=== PATIENT | male | born 1960 | race Caucasian/White ===

== ENCOUNTER → 2020-01-10 10:19 | Outpatient (BNVA) | payer MEDICAID, SELFPAY | PROVIDERS: Visit Provider Nurse Practitioner Family | DX: I51.7 Cardiomegaly (principal); R09.89 Other specified symptoms and signs involving the circulatory and respiratory systems; I70.0 Atherosclerosis of aorta; Z95.0 Presence of cardiac pacemaker; R06.02 Shortness of breath | CPT/HCPCS: 71046; 80053; 80061; 82306; 83036; 83880; 85025 ==

== ENCOUNTER → 2020-01-23 15:43 | Outpatient (BNVA) | payer MEDICAID, SELFPAY | PROVIDERS: Visit Provider Family Medicine | DX: M25.511 Pain in right shoulder (principal); R60.9 Edema, unspecified | CPT/HCPCS: 80053 ==

== ENCOUNTER → 2020-05-08 10:12 | Outpatient (BNVA) | payer MEDICAID, SELFPAY | PROVIDERS: Referring Provider Nurse Practitioner Family; Visit Provider Orthopaedic Surgery | DX: M25.551 Pain in right hip (principal); G89.29 Other chronic pain; M54.9 Dorsalgia, unspecified | CPT/HCPCS: 72100; 73502 ==

== ENCOUNTER → 2020-05-21 08:18 | Outpatient (BNVA) | payer MEDICAID, SELFPAY | PROVIDERS: PCP Nurse Practitioner Family; Referring Provider Nurse Practitioner Family; Visit Provider Anesthesiology Pain Medicine | DX: G89.29 Other chronic pain (principal); M25.551 Pain in right hip; M54.5 Low back pain; J44.9 Chronic obstructive pulmonary disease, unspecified; Z79.01 Long term (current) use of anticoagulants; Z79.891 Long term (current) use of opiate analgesic | CPT/HCPCS: 20610; 99204; J1030; J2001; J3490 ==

== ENCOUNTER → 2020-06-04 09:30 | Outpatient (BNVA) | payer MEDICAID, SELFPAY | PROVIDERS: PCP Nurse Practitioner Family; Visit Provider Anesthesiology Pain Medicine | DX: G89.29 Other chronic pain (principal); M54.5 Low back pain; M25.551 Pain in right hip; J44.9 Chronic obstructive pulmonary disease, unspecified; Z79.01 Long term (current) use of anticoagulants; Z79.891 Long term (current) use of opiate analgesic | CPT/HCPCS: 20610; 77002; 99213; J1030; J3490 ==

== ENCOUNTER 2020-06-07 14:38 | Outpatient (CLI) | payer MEDICAID, SELFPAY ==
--- NOTE | 2020-06-07 14:44 | CT_ITS ---
WS: [id number] NONCONTRAST CT RIGHT HIP TECHNIQUE: Noncontrast CT right hip with coronal and sagittal reformatted images. CLINICAL INFORMATION: chronic right hip pain COMPARISON: None. DLP: 788.[address] scans at [facility] use at least one of these dose optimization techniques: automat ed exposure control; mA and/or kV adjustment per patient size (includes targeted exams where dose is matched to clinical indication); or iterative reconstruction. FINDINGS: Moderate degenerative arthritis right hip with joint space narrowing. Sequelae of prior postoperative changes with femoral neck screw fixation tracts. Hardware has been removed. No evidence of recurrent fracture. No evidence of avascular necrosis. Proximal femur appears normal. Hypertrophic changes about the grea ter trochanter. Normal pubic rami. Pelvic phleboliths. CT/CT hip RT wo con* [id number] IMPRESSION: 1. Moderate degenerative arthritis right hip with joint space narrowing. 2. Evidence of prior postoperative changes with screw fixation right hip with hardware removal. No evidence of recurrent fracture. 3. Hypertrophic changes about the greater trochanter. 4. No acute right hip findings.
--- NOTE | 2020-06-07 15:00 | CT_ITS ---
WS: [id number] CT LUMBAR SPINE TECHNIQUE: Noncontrast CT of the lumbar spine with coronal and sagittal reformatted images. CLINICAL INFORMATION: lumbosacral pain COMPARISON: None. DLP: 1667.[address] scans at [facility] use at least one of these dose optimization techniques: automat ed exposure control; mA and/or kV adjustment per patient size (includes targeted exams where dose is matched to clinical indication); or iterative reconstruction. FINDINGS: Mild lumbar curve. No acute compression. No high-grade central canal stenosis. L1-L2: Normal. L2-L3: No significant disc bulging. Moderate facet arthropathy. Mild right and no significant left fo raminal narrowing. L3-L4: Mild annular bulging. Small right foraminal protrusion with moderate right foraminal narrowing and impingement on the exiting right L3 nerve root. Left foramen is patent. Recommend correlation fo r right L3 nerve root symptoms. Moderate facet arthropathy. L4-L5: Mild disc bulging with slight effacement of ventral thecal sac. Mild central canal stenosis. M oderate to advanced facet arthropathy with ligament flavum hypertrophy. Narrowing of subarticular rec ess bilaterally. Moderate right foraminal narrowing with osteophytic ridging. Contact of the exiting right L4 nerve root. L5-S1: Mild disc bulging with endplate ridging. Slight contact of the right S1 nerve root. Foramen ar e patent. Visualized pelvic bony structures: Normal. Paravertebral soft tissues: Normal. CT/CT lumbar spine wo con* [id number] IMPRESSION: 1. Prominent right L3-4 foraminal protrusion impinges the exiting right L3 ner ve root. Recommend correlation for right L3 nerve root symptoms. Recommend furt her evaluation with MRI. 2. Small right foraminal disc osteophyte protrusion L4-5 with moderate right f oraminal narrowing. 3. Disc bulging L5-S1 with slight contact right S1 nerve root. 4. Moderate to advanced facet arthropathy L4-5.
== END 2020-06-07 14:39 | disposition home or self-care (01) ==
LOC: RADWPI 14:39
PROVIDERS: PCP Nurse Practitioner Family; Visit Provider Nurse Practitioner Family
DX: G89.29 Other chronic pain; M16.11 Unilateral primary osteoarthritis, right hip; M51.26 Other intervertebral disc displacement, lumbar region; M25.78 Osteophyte, vertebrae; M47.816 Spondylosis without myelopathy or radiculopathy, lumbar region
CPT/HCPCS: 20610; 72131; 73700; 77003; 99204

== ENCOUNTER → 2020-06-18 08:35 | Outpatient (BNVA) | payer MEDICAID, SELFPAY | PROVIDERS: PCP Nurse Practitioner Family; Visit Provider Anesthesiology Pain Medicine | DX: G89.29 Other chronic pain (principal); M54.5 Low back pain; M25.551 Pain in right hip; M25.552 Pain in left hip; M70.60 Trochanteric bursitis, unspecified hip; Y93.9 Activity, unspecified; J44.9 Chronic obstructive pulmonary disease, unspecified; Z79.01 Long term (current) use of anticoagulants; Z79.891 Long term (current) use of opiate analgesic | CPT/HCPCS: 99214 ==

== ENCOUNTER → 2020-07-16 08:43 | Outpatient (BNVA) | payer MEDICAID, SELFPAY | PROVIDERS: PCP Nurse Practitioner Family; Visit Provider Anesthesiology Pain Medicine | DX: G89.29 Other chronic pain (principal); M54.41 Lumbago with sciatica, right side; M48.061 Spinal stenosis, lumbar region without neurogenic claudication; M47.816 Spondylosis without myelopathy or radiculopathy, lumbar region; M46.1 Sacroiliitis, not elsewhere classified; M16.11 Unilateral primary osteoarthritis, right hip; M70.61 Trochanteric bursitis, right hip; Y93.9 Activity, unspecified; J44.9 Chronic obstructive pulmonary disease, unspecified; Z79.891 Long term (current) use of opiate analgesic | CPT/HCPCS: 99213; 99214 ==

== ENCOUNTER → 2020-07-25 13:08 | Outpatient (BNVA) | payer MEDICAID, SELFPAY | PROVIDERS: PCP Nurse Practitioner Family; Visit Provider Anesthesiology Pain Medicine | DX: G89.29 Other chronic pain (principal); M47.816 Spondylosis without myelopathy or radiculopathy, lumbar region; M54.5 Low back pain; M54.9 Dorsalgia, unspecified; Z79.891 Long term (current) use of opiate analgesic | CPT/HCPCS: 64493; 64494; 64495; J3490 ==

== ENCOUNTER → 2020-08-03 11:52 | Outpatient (BNVA) | payer MEDICAID, SELFPAY | PROVIDERS: PCP Nurse Practitioner Family; Visit Provider Nurse Practitioner Family | DX: E11.65 Type 2 diabetes mellitus with hyperglycemia; E55.9 Vitamin D deficiency, unspecified; Z79.4 Long term (current) use of insulin | CPT/HCPCS: 80053; 80061; 82043; 82306; 83036; 84443; 85025 ==

== ENCOUNTER → 2020-08-07 09:39 | Outpatient (BNVA) | payer MEDICAID, SELFPAY | PROVIDERS: PCP Nurse Practitioner Family; Visit Provider Anesthesiology Pain Medicine | DX: G89.29 Other chronic pain (principal); M54.41 Lumbago with sciatica, right side; M25.551 Pain in right hip; M70.60 Trochanteric bursitis, unspecified hip; J44.9 Chronic obstructive pulmonary disease, unspecified; Z79.01 Long term (current) use of anticoagulants; Z79.891 Long term (current) use of opiate analgesic | CPT/HCPCS: 99213 ==

== ENCOUNTER → 2020-09-04 10:02 | Outpatient (BNVA) | payer MEDICAID, SELFPAY | PROVIDERS: PCP Nurse Practitioner Family; Visit Provider Anesthesiology Pain Medicine | DX: G89.29 Other chronic pain (principal); M54.5 Low back pain; M51.17 Intervertebral disc disorders with radiculopathy, lumbosacral region; M25.551 Pain in right hip; J44.9 Chronic obstructive pulmonary disease, unspecified; M70.60 Trochanteric bursitis, unspecified hip; Z79.891 Long term (current) use of opiate analgesic | CPT/HCPCS: 99213; 99214 ==

== ENCOUNTER → 2020-10-02 16:56 | Outpatient (BNVA) | payer MEDICAID, SELFPAY | PROVIDERS: PCP Nurse Practitioner Family; Visit Provider Internal Medicine | DX: I48.0 Paroxysmal atrial fibrillation (principal); I50.9 Heart failure, unspecified; I65.29 Occlusion and stenosis of unspecified carotid artery; I10 Essential (primary) hypertension; Z79.01 Long term (current) use of anticoagulants | CPT/HCPCS: 80048; 83880 ==

== ENCOUNTER → 2020-10-30 08:23 | Outpatient (BNVA) | payer MEDICAID, SELFPAY | PROVIDERS: PCP Nurse Practitioner Family; Visit Provider Anesthesiology Pain Medicine | DX: G89.29 Other chronic pain (principal); M25.511 Pain in right shoulder; M51.17 Intervertebral disc disorders with radiculopathy, lumbosacral region; M70.61 Trochanteric bursitis, right hip; J44.9 Chronic obstructive pulmonary disease, unspecified; Z79.01 Long term (current) use of anticoagulants; Z79.899 Other long term (current) drug therapy; Y93.9 Activity, unspecified | CPT/HCPCS: 20610; 99213; 99214; J1030; J3490 ==

== ENCOUNTER 2020-11-15 09:53 | Outpatient (CLI) | payer MEDICAID, SELFPAY ==
--- NOTE | 2020-11-15 09:59 | USCV_ITS ---
LancasterJorge whitmore Age: 60 Gender: M : 1960 Exam Date: 11/15/2020 10:19 Ordering Phys: Donald Aldridge MD ([email or web address]) Technologist: Renu Boogie [place] [facility] [place]ication: LT CCA PATCH Risk Factors: CVA CABG Previous Vascular Surgery: CABD AND PATCH TO LT CCA Right Brachial BP: / Left Brachial BP: / Right Left Velocity (cm/s) Spectral Plaque Velocity (cm/s) Spectral Plaque Syst/Diast Broadening Syst/Diast Broadening 94.80/ 29.80 Prox CCA 157.70/ 28.00 103.80/26.00 Mid CCA 91.00 / 12.50 71.10/ 11.50 Distal CCA 130.20/ 28.20 174.10/20.40 Prox ICA 95.10 / 20.10 205.40/58.00 Mid ICA 82.80 / 14.50 156.80/36.10 Distal ICA 88.40 / 22.40 293.40 ECA 172.50 1.98 ICA/CCA 1.05 Antegrade Vertebral Antegrade 66.30/ 17.30 cm/s 53.60/ 10.40 cm/s Tri Subclavian Bi 229.6 115.6 0 0 FINDINGS Moderate to heavy heterogeneous plaques at the right bifurcation and the internal carotid artery Minimal plaques of the left bifurcation and internal carotid artery Antegrade flow in the vertebral arteries bilaterally Elevated Doppler flow velocity in the right external carotid artery CONCLUSIONS Moderate to heavy heterogeneous plaques at the right bifurcation and the internal carotid arterywith velocity elevation consistent with 50-79% stenosis. Minimal plaques of the left bifurcation and internal carotid artery Elevated velocity in the external carotid artery on the right side, suggestive of hemodynamically significant stenosis. Dr Juan Fofana MD [facility] (Electronically Signed) Final Date: 16 November 2020 18:48 S
== END 2020-11-15 09:54 | disposition home or self-care (01) ==
LOC: US 09:55
PROVIDERS: PCP Nurse Practitioner Family; Visit Provider Internal Medicine Cardiovascular Disease
DX: I65.23 Occlusion and stenosis of bilateral carotid arteries (principal)
CPT/HCPCS: 93880

== ENCOUNTER 2020-11-19 10:28 | Inpatient (IN) | payer MEDICAID, SELFPAY ==
[2020-11-19] VITALS (18 sets, daily range): BP systolic 84–110; BP diastolic 44–75; PULSE 48–87; RESP 14–24; TEMP 36.2–36.8; O2SAT 90–100; BMI 35.5
--- NOTE | 2020-11-19 12:17 | W.ED.MALEGU ---
HPI - Male Genitourinary General: Chief complaint: Urogenital-Male Stated complaint: Unable to Pee (5 Days) Time Seen by Provider: 11/19/20 11:53 Source: patient Mode of arrival: ambulatory Limitations: no limitations History of Present Illness: HPI Narrative: Mr. Lancaster is a nice 60-year-old male who comes in stating he is having difficulty urinating. Patient states that he feels like he needs to urinate but when he tries to go he can only get out a few drops. He states he has bilateral lower abdominal pain that is equal on both sides. He does not have focal right lower quadrant pain. Patient denies any pain in his testicles. He denies any blood in his urine. Patient states he is never had anything quite like this before. He denies any fevers, chills, nausea, no vomiting or any other complaints. Denies any new medications or history of problems with his prostate. Associated symptoms: Deny dysuria, hematuria, nausea or vomiting Review of Systems Const: Denies: fever(s), chills, body aches, fatigue, malaise or diaphoresis Eyes: Denies: change in vision, blurry vision, photophobia, eye discomfort, eye discharge, eye redness or yellow eyes ENMT: Denies: throat pain, odynophagia, hoarseness, swelling of lips/tongue, ear or mastoid pain, ear discharge, change in hearing or nasal discharge Card: Denies: chest pain, palpitations, irregular heart rhythm, edema, lightheadedness, syncope, pre-syncope, dyspnea on exertion or orthopnea Resp: Denies: dyspnea, productive cough, non-productive cough, wheezing, hemoptysis or chest congestion GI: Reports: abdominal pain (Suprapubic as noted in HPI); Denies: nausea, vomiting, hematemesis, coffee ground emesis, heartburn, diarrhea, constipation, GI cramping, hematochezia or melena : Reports: difficulty urinating; Denies: flank pain, dysuria, urinary frequency, urinary urgency or hematuria Musc: Denies: neck pain, back pain, extremity pain, extremity swelling, joint pain, joint swelling, joint redness, joint warmth or joint stiffness Skin/Breast: Denies: rash, pruritus, erythema, skin pain or skin tenderness Neuro: Denies: headache(s), numbness in extremities, weakness in extremities, sensory changes, lack of coordination, difficulty walking, dizziness, vertigo, confusion, Slurred speech present or seizure-like activity Nawaf/Lymph: Denies: easy bruising, easy bleeding, petechiae, purpura or enlarged lymph nodes All/Imm: Denies: urticaria, throat swelling, tongue swelling, facial swelling or acute wheezing PFSH ED PFSH: Medical History (Updated 11/19/20 @ 15:11 by Lorna Judd) Anemia Anticoagulation adequate with anticoagulant therapy Eliquis ASHD (arteriosclerotic heart disease) BPH (benign prostatic hyperplasia) Carotid stenosis CHF (congestive heart failure) COPD (chronic obstructive pulmonary disease) Diabetes mellitus History of CVA (cerebrovascular accident) Hypertension Neuropathy Obesity PAF (paroxysmal atrial fibrillation) Vitamin B deficiency Vitamin D deficiency Surgical History No pertinent past surgical history Family History Denies family history of Anesthesia complication Bleeding disorder Social History Smoking and tobacco status: former smoker Quit status (tobacco): has quit using tobacco Former quit date comment: smoked 20 yrs Second hand smoke exposure: No Alcohol intake: never Lives independently: Yes Household members: significant other and children Housing: House Marital status: Life Partner Current occupational status: disabled Current occupational exposures/hazards: No History of recent travel: No Current gender identity: Male Physical Exam Const: COMMON NORMALS: no acute distress, patient oriented x3, no limitations and alert GENERAL APPEARANCE: cooperative HENMT: COMMON NORMALS: normocephalic, atraumatic, external ears normal, EAC's normal and Normal external nose present HEAD & SCALP: normal to inspection, normocephalic and atraumatic FACE & SINUS: normal facial exam and face symmetric NOSE: Normal external nose present and Normal nares present EXTERNAL EAR: Yes external ears normal EXTERNAL AUDITORY CANAL: EAC's normal MOUTH: Normal oral and palatal mucosa present, lip normal and tongue normal Eye: COMMON NORMALS: Equal, round and reactive pupils present and conjunctivae normal GENERAL EYE: appearance normal, both eyes and all related structures ALIGNMENT: Yes alignment normal PERIORBITAL: periorbital findings normal EYELID: eyelids normal CONJUNCTIVA: Yes conjunctivae normal SCLERA: sclerae normal PUPIL: Yes Equal, round and reactive pupils present Neck/C-Spine: COMMON NORMALS: full ROM, no lymphadenopathy, supple, no meningeal signs and no JVD GENERAL: Yes normal visual inspection and Yes trachea midline Chest: COMMONS NORMALS: normal inspection of the chest and normal palpation of entire chest wall Resp: COMMON NORMALS: normal respiratory effort, No retractions, No use of accessory muscles and clear to auscultation bilaterally EFFORT & INSPECTION: Yes able to speak in complete sentences and Yes symmetric chest movement AUSCULTATION: clear to auscultation bilaterally, no crackles, no rales, no rhonchi and no wheezes Cardio: COMMON NORMALS: no JVD, regular rate, regular rhythm, S1 normal heart sound present and S2 normal heart sound present RATE: regular rate RHYTHM: regular rhythm HEART SOUNDS: S1 normal heart sound present, S2 normal heart sound present, no click, no gallops, no murmurs and no rubs GI: COMMON NORMALS: Soft to palpation and No hepatosplenomegaly present PALPATION: Yes Soft to palpation, No Tenderness to palpation present (GI), No Guarding due to palpation present (GI), No Rigid due to palpation, Yes No hepatosplenomegaly present, No Hernia present, No Palpable mass present and No Pulsatile mass present : COMMON NORMALS: Yes no CVA tenderness BLADDER/KIDNEY EXAM: Yes no CVA tenderness Back/Pelvis: COMMON NORMALS: no CVA tenderness, thoracic and lumbar spine normal to inspection, no thoracic nor lumbar tenderness and thoraco-lumbar ROM normal Extremity: COMMON NORMALS: normal to inspection, full ROM, capillary refill normal, no joint enlargement, no clubbing, cyanosis or edema and no calf tenderness Neuro: COMMON NORMALS: patient oriented x3, CN's II-XII intact bilaterally, moves all extremities, no focal motor deficits and no sensory deficits noted SENSORIUM/ORIENTATION: Yes alert MENINGEAL SIGNS: Yes no meningeal signs SPEECH: speech normal Psych: COMMON NORMALS: mental status grossly normal, Normal thought process present, cooperative, normal affect, speech normal and activity/motor behavior normal SPEECH: Yes normal speech THOUGHT PROCESS: Normal thought process present Skin: COMMON NORMALS: no rashes or lesions noted, turgor normal, no jaundice, no petechiae and no mottling GENERAL SKIN EXAM: no rashes or lesions noted and turgor normal Course Vital Signs: Vital signs: Vital Signs Temperature 97.6 F 11/19/20 11:03 Pulse Rate 71 11/19/20 14:21 Respiratory Rate 16 11/19/20 14:21 Blood Pressure 96/64 11/19/20 14:21 Pulse Oximetry 100 11/19/20 14:21 MDM - Male MDM Narrative: Medical decision making narrative: No definitive cause can be determined for Mr. Lancaster's acute on chronic renal failure. I have endorsed the case with Dr. Aquino. She agrees for a troponin/EKG series and a noncontrast CT to be performed. Patient had a catheter placed with approximately 300 cc of clear urine obtained. Lab Data: Labs: Lab Results 11/19/20 11/19/20 11/19/20 Range/Units 12:50 14:12 14:12 WBC 6.4 (4.0-10.0) 10^3/ uL RBC 3.89 L (4.1-5.3) 10^6/u L Hgb 11.3 L (11.7-16.6) g/dL Hct 34.9 L (42.0-52.0) % MCV 89.7 (80-94) fL MCH 29.0 (28.0-34.0) pg MCHC 32.4 (30.0-36.0) g/dL RDW 16.4 H (12.1-15.1) % Plt Count 134 (130-400) 10^3/c mm MPV 11.1 H (7.4-10.4) fL Neut % (Auto) 67.3 % Lymph % (Auto) 19.2 % [place] % (Auto) 9.9 % Eos % (Auto) 1.7 % Baso % (Auto) 0.5 % Neut # (Auto) 4.29 (1.8-7.7) 10^3/u L Lymph # (Auto) 1.2 (0.8-4.8) 10^3/u L [place] # (Auto) 0.6 (0.2-0.9) 10^3/u L Eos # (Auto) 0.1 (0.0-0.8) 10^3/u L Baso # (Auto) 0.0 (0.0-0.1) 10^3/u L Nucleated RBC % (a uto) 0 % Nucleated RBCs # 0.0 /100WBC PT INR APTT Sodium 130 L (136-145) mmol/L Potassium 4.8 (3.5-5.1) mmol/L Chloride 98 (98-107) mmol/L Carbon Dioxide 18 L (22-29) mmol/L Anion Gap 18.8 (5-19) BUN 64 H (6-20) mg/dL Creatinine 2.2 H (0.7-1.2) mg/dL GFR Calculation 30.8 L (90-130) mL/min Glucose 130 H (65-115) mg/dL Calculated Osmolal ity 290 (285-295) mOsm/k g Calcium 9.6 (8.5-10.5) mg/dL Total Bilirubin 0.4 (0.15-1.2) mg/dL AST 14 (0-40) U/L ALT 13 (0-41) U/L Alkaline Phosphata se 93 (40-130) IU/L Total Protein 7.6 (6.6-8.7) g/dL Albumin 3.8 (3.5-5.2) g/dL Globulin 3.8 (1.3-4.6) g/dL Urine Color Yellow (Yellow) Urine Appearance Clear (CLEAR) Urine pH 5 (5-7) Ur Specific Gravit y 1.015 (1.005-1.030) Urine Protein Neg (Negative) Urine Glucose (UA) Norm (Normal) Urine Ketones Negative (Negative) Urine Blood 3+ H (Negative) Urine Nitrate Negative (Negative) Urine Bilirubin Neg (Negative) Urine Urobilinogen Norm (Negative) mg/dL Ur Leukocyte Jasmin ase Negative (Negative) Urine RBC 15-25 H (0-2) /hpf Urine WBC None (0-5) /hpf Ur Squamous Epith Cells None (0-5) /hpf Amorphous Sediment Trace /hpf Urine Bacteria Trace (NONE) /hpf 11/19/20 Range/Units 14:12 WBC (4.0-10.0) 10^3/ uL RBC (4.1-5.3) 10^6/u L Hgb (11.7-16.6) g/dL Hct (42.0-52.0) % MCV (80-94) fL MCH (28.0-34.0) pg MCHC (30.0-36.0) g/dL RDW (12.1-15.1) % Plt Count (130-400) 10^3/c mm MPV (7.4-10.4) fL Neut % (Auto) % Lymph % (Auto) % [place] % (Auto) % Eos % (Auto) % Baso % (Auto) % Neut # (Auto) (1.8-7.7) 10^3/u L Lymph # (Auto) (0.8-4.8) 10^3/u L [place] # (Auto) (0.2-0.9) 10^3/u L Eos # (Auto) (0.0-0.8) 10^3/u L Baso # (Auto) (0.0-0.1) 10^3/u L Nucleated RBC % (a uto) % Nucleated RBCs # /100WBC PT Cancelled INR Cancelled APTT Cancelled Sodium (136-145) mmol/L Potassium (3.5-5.1) mmol/L Chloride (98-107) mmol/L Carbon Dioxide (22-29) mmol/L Anion Gap (5-19) BUN (6-20) mg/dL Creatinine (0.7-1.2) mg/dL GFR Calculation (90-130) mL/min Glucose (65-115) mg/dL Calculated Osmolal ity (285-295) mOsm/k g Calcium (8.5-10.5) mg/dL Total Bilirubin (0.15-1.2) mg/dL AST (0-40) U/L ALT (0-41) U/L Alkaline Phosphata se (40-130) IU/L Total Protein (6.6-8.7) g/dL Albumin (3.5-5.2) g/dL Globulin (1.3-4.6) g/dL Urine Color (Yellow) Urine Appearance (CLEAR) Urine pH (5-7) Ur Specific Gravit y (1.005-1.030) Urine Protein (Negative) Urine Glucose (UA) (Normal) Urine Ketones (Negative) Urine Blood (Negative) Urine Nitrate (Negative) Urine Bilirubin (Negative) Urine Urobilinogen (Negative) mg/dL Ur Leukocyte Jasmin ase (Negative) Urine RBC (0-2) /hpf Urine WBC (0-5) /hpf Ur Squamous Epith Cells (0-5) /hpf Amorphous Sediment /hpf Urine Bacteria (NONE) /hpf Discharge Plan Discharge Patient Disposition: Placed in Observation Clinical Impression: Acute renal failure Condition: Stable Prescriptions: No Action olopatadine [Pataday] 0.2 % drops 1 - 2 drop ophthalmic (eye) QAM PRN (Reason: ITCHY EYE) RF: 0 travoprost [Travatan Z] 0.004 % drops 1 drop ophthalmic (eye) DAILY@05 RF: 0 tramadol 50 mg tablet 50 mg PO QID PRN (Reason: pain) 30 Days Qty: 90 RF: 1 (DME) blood sugar diagnostic [Blood Glucose Test] Strip See Rx Instructions .ROUTE .MEDSUPPLY Qty: 30 RF: 11 (DME) blood-glucose meter Misc See Rx Instructions .ROUTE .MEDSUPPLY Qty: 1 RF: 0 rosuvastatin 40 mg tablet See Rx Instructions .ROUTE .COMPLEX Qty: 14 RF: 0 (DME) pen needle, diabetic [Comfort EZ Pen [place]] 29 gauge x 1/2 needle See Rx Instructions .ROUTE .MEDSUPPLY Qty: 100 RF: 5 tamsulosin 0.4 mg capsule 0.8 mg PO DAILY Qty: 60 RF: 4 albuterol sulfate [ProAir HFA] 90 mcg/actuation HFA aerosol inhaler 2 puff INHALATION Q6H PRN (Reason: shortness of breath or wheezing) Qty: 18 RF: 3 Eliquis 5 mg tablet 5 mg PO BID Qty: 120 RF: 1 furosemide 40 mg tablet 40 mg PO TID@, RF: 0 metolazone 2.5 mg tablet 2.5 mg PO DAILY@05 RF: 0 metformin 500 mg tablet 1,000 mg PO BID@, RF: 0 Advair Diskus 250-50 mcg/dose blister with device 1 ea inhalation BID RF: 0 gabapentin 600 mg tablet 600 mg PO TID@, RF: 0 glipizide 10 mg tablet extended release 24hr 10 mg PO DAILY@05 RF: 0 lisinopril 40 mg tablet 40 mg PO DAILY@17 RF: 0 Lantus Solostar U-100 Insulin 100 unit/mL (3 mL) insulin pen 40 unit SUBCUT DAILY@17 RF: 0 cholecalciferol (vitamin D3) 1,250 mcg (50,000 unit) tablet 1,250 mcg PO Q7D RF: 0 potassium chloride 20 mEq tablet extended release 20 meq PO DAILY@05 RF: 0 Referrals: Amie Mcnamara FNP [Primary Care Provider] - Coding Level of Care Code ED Fireproof Door Assembler for Chg Fwd Exam Comprehensive
--- NOTE | 2020-11-19 13:27 | PC.NURSE ---
2 attempts made 1 by denisha RN and 1 by TAHMINA Donovan. 2 18 Fr catheter trays used on patient.
[2020-11-19] MEDS: sodium chloride 0.9% 1,000 ML 999 ML IV (13:29)
[2020-11-19 13:50] LABS: Bilirubin Urine Neg (Negative); Blood Urine 3+ (Negative); Glucose Urine UA Norm (Normal); Ketones Urine Negative (Negative); Leukocyte Esterase Urine Negative (Negative); Nitrate Urine Negative (Negative); Protein Urine Neg (Negative); Specific Gravity, Urine 1.015 (1.005-1.030); Urine Appearance Clear (CLEAR); Urine Color Yellow (Yellow); Urobilinogen Urine Norm (Negative); pH Urine 5 (5-7)
[2020-11-19 14:16] LABS: Add Urine Culture? Yes; Amorphous Sediment Urine TRACE /hpf; Bacteria Urine TRACE /hpf; RBC Urine 15-25 /hpf (0-2)
[2020-11-19 14:34] LABS: Basophils % 0.5 %; Eosinophils # 0.1 10^3/uL (0.0-0.8); Eosinophils % 1.7 %; Hematocrit 34.9 % (42.0-52.0); Hemoglobin 11.3 g/dL (11.7-16.6); Lymphocytes # 1.2 10^3/uL (0.8-4.8); Lymphocytes % 19.2 %; Mean Corpuscular HGB Conc 32.4 g/dL (30.0-36.0); Mean Corpuscular Volume 89.7 fL (80-94); Mean Platelet Volume 11.1 fL (7.4-10.4); Monocytes # 0.6 10^3/uL (0.2-0.9); Monocytes % 9.9 %; Neutrophils # 4.29 10^3/uL (1.8-7.7); Neutrophils % 67.3 %; Nucleated Red Blood Cells % 0 %; Platelet Count 134 10^3/cmm (130-400); Red Blood Count 3.89 10^6/uL (4.1-5.3); Red Cell Distribution Width 16.4 % (12.1-15.1); White Blood Count 6.4 10^3/uL (4.0-10.0)
[2020-11-19 14:39] LABS: Alanine Aminotransferase 13 U/L (0-41); Albumin Level 3.8 g/dL (3.5-5.2); Alkaline Phosphatase 93 IU/L (40-130); Anion Gap 18.8 (5-19); Aspartate Amino Transferase 14 U/L (0-40); Blood Urea Nitrogen 64 mg/dL (6-20); Calcium 9.6 mg/dL (8.5-10.5); Carbon Dioxide 18 mmol/L (22-29); Chloride 98 mmol/L (98-107); Globulin 3.8 g/dL (1.3-4.6); Glomerular Filtration Rate 30.8 mL/min (90-130); Glucose 130 mg/dL (65-115); Osmolality Calculated 290 mOsm/kg (285-295); Potassium 4.8 mmol/L (3.5-5.1); Sodium 130 mmol/L (136-145); Total Bilirubin 0.4 mg/dL (0.15-1.2); Total Protein 7.6 g/dL (6.6-8.7)
--- NOTE | 2020-11-19 14:47 | ECG_ITS ---
[facility] Test Date: 2020-11-19 Pat Name: Jorge Lancaster Department: Room: Gender: Male City Editor: : 1960 Requested By: Lorna Garcia Order Number: [id number] Llanos MD: Torin Topete M.D. Measurements Intervals [employer] Rate: 60 P: [place]: QRS: 115 QRSD: 184 T: -65 QT: 499 QTc: 501 Interpretive Statements ELECTRONIC VENTRICULAR PACEMAKER ABNORMAL RHYTHM ECG Compared to ECG 03/25/2017 14:22:48 Atrial-paced complex(es) or rhythm no longer present Electronically Signed On 11-20-2020 9:42:44 KNOCKUP WORKER by Torin Topete M.D. [id number]
--- NOTE | 2020-11-19 14:48 | CT_ITS ---
WS: [id number] CT ABDOMEN AND PELVIS NONCONTRAST HISTORY: Flank/Abdominal Pain TECHNIQUE: Imaging performed through the abdomen and pelvis. Coronal and sagittal reformats are submi tted. All CT scans at [facility] use at least one of these dose optimization techniques: automated exposure control; mA and/or kV adjustment per patient size (includes targeted exams where d ose is matched to clinical indication); or iterative reconstruction. DLP: 1951.75 mGy.cm COMPARISON: None available. Lower thorax: 5 mm nodule RIGHT middle lobe. There is an additional benign granuloma in the RIGHT mid dle lobe. Heart is enlarged. Defibrillator wires are noted in the RIGHT heart. Heavy calcification in the [place] coronary arteries. Small hiatal hernia. Liver: Normal size liver. No bile duct dilatation. Gallbladder: Normal gallbladder. Pancreas: Normal size and attenuation. Normal pancreatic duct. No pancreatitis or mass. Spleen: Normal. Adrenal glands: Normal. No mass. Right kidney: Normal size RIGHT kidney. There is mild to moderate perinephric stranding. Mild hazines s in the central renal pelvis. There is a vascular calcification in the central renal pelvis. No lakes[place] l stones. The ureter is not dilated. Left kidney: Mild perinephric stranding with no hydronephrosis or obstruction. 2 mm nonobstructing ca lcification lower pole. Normal size LEFT ureter. Aorta: Mild atherosclerosis abdominal aorta with no aneurysm. No free fluid, intraperitoneal air or significant lymphadenopathy. GI tract: No evidence for appendicitis. No GI tract obstruction. No wall thickening. Abdominal wall: Negative. No hernia. Pelvis: Friedman catheter present in a nondistended urinary bladder. There are numerous phleboliths in t he pelvis. No free fluid. Prostate is not significantly enlarged. Osseous structures: Unremarkable. CT/CT kidney stone [id number] IMPRESSION: 1. Mild bilateral perinephric stranding. No renal obstruction identified. Ivon nephric stranding may be chronic or related to acute polynephritis. 2. Atherosclerosis aorta. 3. Cardiomegaly. 4. Normal appendix with no GI tract obstruction.
[2020-11-19 15:08] LABS: Troponin(5th) Baseline 74 ng/L (0-15)
[2020-11-19 15:17] LABS: INR 1.35 (0.8-1.2); Partial Thromboplastin Time 38.6 SECONDS (23.9-36.7)
--- NOTE | 2020-11-19 16:47 | ECG_ITS ---
[facility] Test Date: 2020-11-19 Pat Name: Jorge Lancaster Department: Room: 250 Gender: Male Rn Or Lvn: : 1960 Requested By: Lorna Garcia Order Number: [id number] Llanos MD: Torin Topete M.D. Measurements Intervals [place] Rate: 68 P: [place]: QRS: 120 QRSD: 188 T: -67 QT: 482 QTc: 515 Interpretive Statements ELECTRONIC VENTRICULAR PACEMAKER ABNORMAL RHYTHM ECG Compared to ECG 11/19/2020 15:06:14 No significant changes Electronically Signed On 11-20-2020 18:42:59 GUARDIAN FAMILY MEMBER by Torin Topete M.D. [id number]
[2020-11-19 17:01] LABS: Troponin 5 2HR 74.99 ng/L (0-15); Troponin 5 2HR Delta 0.99 ABS# (0-10)
--- NOTE | 2020-11-19 17:24 | PM.HP ---
Providers/Chief Complaint Admitting Physician: Balbina Aquino MD Primary Care Provider: ASHLI Torre Chief Complaint: Unable to Pee (5 Days) History of Present Illness Jorge Lancaster is a 60 year old male past medical history of obesity, diabetes on insulin, polycythemia, iron deficiency anemia, hypertension, COPD, carotid stenosis, history of stroke, dyslipidemia, a fib on a/c , prsented to the ER today due to c/o reduced urine output ove rthe last 4-5 days. He follows with cardiology for CHF and most recent visit in NOV had c/o incraesing edema, orthopnea and OKEEFE. Lasix was increased to 40mg TID and he was continued on metolazone. Patient presents today states that he feels like he needs to urinate but when he tries to go he can only get out a few drops. Friedman was placed in the ER with return of only 350 cc urine. Cr noted to be elevated at 2.2 which is new for him. CT CAP without evodence of obstruction. Notes made of perinephric stranding, however no clinical signs to suggest pyelonephritis Review of Systems General: Reports: 10 or more systems reviewed and unremarkable except in HPI and below Const: Denies: fever(s), chills or body aches Eyes: Denies: change in vision, blurry vision or photophobia ENMT: Reports: hoarseness; Denies: throat pain, enlarged tonsils, odynophagia or nasal congestion Card: Denies: chest pain, palpitations, irregular heart rhythm, edema, swelling of feet/ankles, lightheadedness, pre-syncope, dyspnea on exertion or orthopnea Resp: Denies: dyspnea, productive cough, non-productive cough, wheezing, stridor, pain on inspiration, change in phlegm color, hemoptysis or chest congestion GI: Denies: abdominal pain, nausea, vomiting, hematemesis, coffee ground emesis, dysphagia, heartburn, diarrhea, constipation, GI cramping, change in stool character, hematochezia or melena : Denies: flank pain, dysuria, urinary frequency, urinary urgency, urinary hesitancy or hematuria Musc: Denies: neck pain, back pain, extremity pain, joint swelling, joint warmth or deformity Neuro: Denies: headache(s), numbness in extremities, weakness in extremities, sensory changes, difficulty walking, frequent falls, dizziness, vertigo, behavioral changes, Slurred speech present or seizure-like activity Psych: Denies: anxiety, depression, suicidal ideation or homicidal ideation Endo: Denies: polyuria, polydipsia, tired all the time, cold intolerance or hot flashes Nawaf/Lymph: Denies: easy bruising or easy bleeding Medications/Allergies Home Medications Medication Instructions Recorded Confirmed Last Taken Type olopatadine 0.2 % eye drops 1 - 2 drop OPHTHALMIC (EYE) QAM PRN 01/10/20 11/19/20 Unknown History travoprost 0.004 % eye drops 1 drop OPHTHALMIC (EYE) DAILY@05 01/10/20 11/19/20 11/19/20 05:00 History ml blood sugar diagnostic #30 each 03/30/20 11/19/20 Unknown Rx blood-glucose meter #1 each 03/30/20 11/19/20 Unknown Rx rosuvastatin 40 mg tablet See Rx Instructions .ROUTE 07/29/20 11/19/20 Unknown Rx .COMPLEX #14 each pen needle, diabetic 29 gauge x #100 each 08/22/20 11/19/20 Unknown Rx 1/2 tramadol 50 mg tablet 50 mg PO QID PRN 30 Days #90 tab 09/04/20 11/19/20 11/18/20 Rx tamsulosin 0.4 mg capsule 0.8 mg PO DAILY #60 cap 09/17/20 11/19/20 11/19/20 05:00 Rx albuterol sulfate 90 mcg/actuation 2 puff INHALATION Q6H PRN #18 gm 10/15/20 11/19/20 Unknown Rx aerosol inhaler apixaban 5 mg tablet 5 mg PO BID #120 tab 10/22/20 11/19/20 11/19/20 Rx ONLY TAKES 5MG DAILY cholecalciferol (vitamin D3) 1,250 mcg PO Q7D 11/19/20 11/19/20 Unknown History fluticasone propion-salmeterol 1 ea INHALATION BID 11/19/20 11/19/20 11/18/20 History [Advair Diskus] furosemide 40 mg PO TID@05,12,17 11/19/20 11/19/20 11/19/20 05:00 History gabapentin 600 mg PO TID@05,12,11/19/20 11/19/20 11/19/20 05:00 History glipizide 10 mg PO DAILY@11/19/20 11/19/20 11/19/20 05:00 History insulin glargine [Lantus Solostar 40 unit SUBCUT DAILY@11/19/20 11/19/20 11/18/20 History U-100 Insulin] lisinopril 40 mg PO DAILY@11/19/20 11/19/20 11/18/20 History metformin 1,000 mg PO BID@11/19/20 11/19/20 11/19/20 05:00 History metolazone 2.5 mg PO DAILY@11/19/20 11/19/20 11/19/20 05:00 History potassium chloride 20 meq PO DAILY@11/19/20 11/19/20 11/19/20 History Allergies Allergy/AdvReac Type Severity Reaction Status Date / Time No Known Allergies Allergy Verified 11/19/20 12:56 PFSH Acute PFSH: Medical History Anemia Anticoagulation adequate with anticoagulant therapy Eliquis ASHD (arteriosclerotic heart disease) BPH (benign prostatic hyperplasia) Carotid stenosis CHF (congestive heart failure) COPD (chronic obstructive pulmonary disease) Diabetes mellitus History of CVA (cerebrovascular accident) Hypertension Neuropathy Obesity PAF (paroxysmal atrial fibrillation) Vitamin B deficiency Vitamin D deficiency Surgical History No pertinent past surgical history Family History Denies family history of Anesthesia complication Bleeding disorder Social History Smoking and tobacco status: former smoker Quit status (tobacco): has quit using tobacco Former quit date comment: smoked 20 yrs Second hand smoke exposure: No Alcohol intake: never Lives independently: Yes Household members: significant other and children Housing: House Marital status: Life Partner Current occupational status: disabled Current occupational exposures/hazards: No History of recent travel: No Current gender identity: Male Vitals/I&O/Wt Last Vital Signs Temp 97.6 F 11/19/20 11:03 Pulse 55 L 11/19/20 16:00 Resp 16 11/19/20 16:00 BP 96/64 11/19/20 16:00 Pulse Ox 99 11/19/20 16:00 11/19/20 11/19/20 11/19/20 06:59 14:59 22:59 Output Total 300 / 300 Balance -300 / -300 Weight last 48 hrs Weight 115.666 kg Physical Exam Const: COMMON NORMALS: no acute distress, average body habitus, patient oriented x3, no limitations, healthy appearing, alert and well nourished HENMT: COMMON NORMALS: normocephalic and atraumatic HEAD & SCALP: normocephalic and atraumatic Eye: COMMON NORMALS: Equal, round and reactive pupils present, EOMs intact bilaterally, conjunctivae normal and no scleral icterus CONJUNCTIVA: Yes conjunctivae normal PUPIL: Yes Equal, round and reactive pupils present Neck/C-Spine: COMMON NORMALS: no JVD Resp: COMMON NORMALS: normal respiratory effort, No retractions, No use of accessory muscles, clear to auscultation bilaterally and percussion normal AUSCULTATION: clear to auscultation bilaterally PERCUSSION: percussion normal Cardio: COMMON NORMALS: no JVD, regular rate, regular rhythm, S1 normal heart sound present, S2 normal heart sound present, No gallops present (Cardio), No clicks present (Cardio), No murmurs present (Cardio), No rub (Cardio) and Peripheral pulses 2+ throughout RATE: regular rate RHYTHM: regular rhythm HEART SOUNDS: S1 normal heart sound present and S2 normal heart sound present PERIPHERAL PULSES: Peripheral pulses 2+ throughout GI: COMMON NORMALS: Normal to inspection, nondistended, normoactive bowel sounds present, Soft to palpation, non-tender, No hepatosplenomegaly present, no masses and no bruits PALPATION: Yes Soft to palpation and Yes No hepatosplenomegaly present Extremity: COMMON NORMALS: normal to inspection, full ROM, capillary refill normal, no joint enlargement, no clubbing, cyanosis or edema, no calf tenderness and no pedal edema Neuro: COMMON NORMALS: patient oriented x3, CN's II-XII intact bilaterally, moves all extremities, no focal motor deficits, no sensory deficits noted, deep tendon reflexes 2+ bilaterally and gait normal SENSORIUM/ORIENTATION: Yes alert Psych: COMMON NORMALS: mental status grossly normal, Normal thought process present, cooperative, normal affect, speech normal, activity/motor behavior normal, denies hallucinations, denies homicidal ideation and denies suicidal ideation SPEECH: Yes normal speech THOUGHT PROCESS: Normal thought process present Skin: COMMON NORMALS: no rashes or lesions noted, no wounds, turgor normal, no jaundice, no petechiae and no mottling GENERAL SKIN EXAM: no rashes or lesions noted and turgor normal Urinary Catheter Management^: Friedman: Cath Placed During This Visit: yes Urinary Catheter Date of Insertion: 11/19/20 Urinary Catheter Time of Insertion: 13:27 Data : 11/19/20 14:12 11/19/20 14:12 A&P Assessment and plan (1) Acute renal failure: Status: Acute Qualifiers: Acute renal failure type: unspecified Qualified Code(s): N17.9 - Acute kidney failure, unspecified (2) PAF (paroxysmal atrial fibrillation): Status: Acute (3) Anticoagulation adequate with anticoagulant therapy: Status: Acute (4) COPD (chronic obstructive pulmonary disease): Status: Acute Qualifiers: COPD type: unspecified COPD Qualified Code(s): J44.9 - Chronic obstructive pulmonary disease, unspecified (5) Obesity: Status: Acute Qualifiers: Obesity type: unspecified obesity type (6) Hypertension: Status: Acute Qualifiers: Hypertension type: unspecified Qualified Code(s): I10 - Essential (primary) hypertension (7) Diabetes mellitus: Status: Acute Qualifiers: Diabetes mellitus type: type 2 Diabetes mellitus long term care pharmacist insulin use: with long term care pharmacist use Diabetes mellitus complication status: with hyperglycemia Qualified Code(s): E11.65 - Type 2 diabetes mellitus with hyperglycemia; 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 (8) CHF (congestive heart failure): Status: Acute Additional A&P Information admit to med/surg in observation JOSE May be secondary to overdiuresis hold diuretics and nephrotoxins incl losartan for now Hold NSAIDs Friedman with only 350 cc out, less likely to be 2/[address] abdomen without signs of obstrcution 'check urine lytes to estimate FENA genetle IVF hydration with NS @ 50cc/hr , monitor cmp in am rate controlled A fob, continue a/c insulin sliding scale for DM if needed, replace ARB with hydralazine for BP, SBP currently 90s, holding off on antihypertensives for now Attestations Medical Necessity Statement*: anticipate <2midnight for manaement of JOSE Coding Level of Care Code Acute Rehabilitation Teacher for Chg Fwd Diagnoses Acute renal failure N17.9 Acute renal failure type: unspecified PAF (paroxysmal atrial fibrillation) I48.0 Anticoagulation adequate with anticoagulant therapy Z79.01 COPD (chronic obstructive pulmonary disease) J44.9 COPD type: unspecified COPD Obesity E66.9 Obesity type: unspecified obesity type Hypertension I10 Hypertension type: unspecified Diabetes mellitus E11.65; Z79.4 Diabetes mellitus type: type 2 Diabetes mellitus long term care pharmacist insulin use: with alf use Diabetes mellitus complication status: with hyperglycemia CHF (congestive heart failure) I50.9
[2020-11-19 18:03] LABS: Glucose Point of Care 247 mg/dL (70-110)
[2020-11-19] MEDS: apixaban 5 mg Tablet PO (18:21)
[2020-11-19] MEDS: sodium chloride 0.9% 1,000 ML 50 ML IV (18:22)
[2020-11-19 20:20] LABS: Glucose Point of Care 140 mg/dL (70-110)
--- NOTE | 2020-11-19 20:47 | ECG_ITS ---
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 Measurements Intervals [place] Rate: 69 P: [place]: QRS: 256 QRSD: 162 T: 78 QT: 495 QTc: 534 Interpretive Statements ATRIAL FIBRILLATION WITH ABERRANT CONDUCTION OR VENTRICULAR PREMATURE COMPLEXES MARKED RIGHT AXIS DEVIATION [QRS AXIS > 100] RIGHT BUNDLE BRANCH BLOCK [120+ ms QRS DURATION, UPRIGHT V1, 40+ ms S IN I/aVL/V4/V5/V6] INTERPRETATION BASED ON A DEFAULT AGE OF 40 YEARS Compared to ECG 11/19/2020 16:52:58 Ventricular premature complex(es) now present Aberrant conduction of supraventricular beat(s) now present Right-axis deviation now present Right bundle-branch block now present Ventricular-paced complex(es) or rhythm no longer present Electronically Signed On 11-20-2020 9:53:57 WATER RESOURCES BUSINESS SEGMENT LEADER by Torin Topete M.D. [id number]
[2020-11-19] MEDS: albuterol 8 gm MDI 2 PUFF INHALATION (21:19)
[2020-11-20] VITALS (13 sets, daily range): BP systolic 77–96; BP diastolic 39–64; PULSE 54–72; RESP 17–24; TEMP 36.4–37.1; O2SAT 94–97
[2020-11-20] MEDS: albuterol 8 gm MDI 2 PUFF INHALATION ×3 (03:40→19:35)
[2020-11-20] MEDS: gabapentin 300 mg Capsule 600 MG PO ×3 (04:26→17:19)
[2020-11-20 05:44] LABS: Basophils % 0.2 %; Eosinophils # 0.1 10^3/uL (0.0-0.8); Hematocrit 32.6 % (42.0-52.0); Hemoglobin 10.6 g/dL (11.7-16.6); Lymphocytes % 12.6 %; Mean Corpuscular HGB Conc 32.5 g/dL (30.0-36.0); Mean Corpuscular Hemoglobin 29.1 pg (28.0-34.0); Mean Corpuscular Volume 89.6 fL (80-94); Mean Platelet Volume 11.5 fL (7.4-10.4); Monocytes # 0.9 10^3/uL (0.2-0.9); Monocytes % 11.2 %; Neutrophils # 6.17 10^3/uL (1.8-7.7); Neutrophils % 74.8 %; Nucleated Red Blood Cells % 0 %; Platelet Count 146 10^3/cmm (130-400); Red Blood Count 3.64 10^6/uL (4.1-5.3); Red Cell Distribution Width 16.4 % (12.1-15.1); White Blood Count 8.3 10^3/uL (4.0-10.0)
[2020-11-20 06:11] LABS: Alanine Aminotransferase 12 U/L (0-41); Alkaline Phosphatase 89 IU/L (40-130); Anion Gap 18.9 (5-19); Aspartate Amino Transferase 14 U/L (0-40); Calcium 9.5 mg/dL (8.5-10.5); Carbon Dioxide 17 mmol/L (22-29); Chloride 99 mmol/L (98-107); Globulin 3.5 g/dL (1.3-4.6); Glomerular Filtration Rate 27.8 mL/min (90-130); Glucose 169 mg/dL (65-115); Osmolality Calculated 299 mOsm/kg (285-295); Potassium 4.9 mmol/L (3.5-5.1); Sodium 130 mmol/L (136-145); Total Bilirubin 0.4 mg/dL (0.15-1.2); Total Protein 7.5 g/dL (6.6-8.7)
[2020-11-20 06:14] LABS: Blood Urea Nitrogen 82 mg/dL (6-20)
[2020-11-20 06:45] LABS: Glucose Point of Care 168 mg/dL (70-110)
--- NOTE | 2020-11-20 07:21 | PC.NURSE ---
I reported the low bp to the nurse. 77/46 and 78/39
--- NOTE | 2020-11-20 07:41 | PC.NURSE ---
Dr. Aquino notified of patients decreased BP 78/39, HR 59, oxygen saturation 96% on RA, denies pain or dizziness, new orders received for 250mL bolus out of current NS bag.
[2020-11-20] MEDS: apixaban 5 mg Tablet PO (08:25)
[2020-11-20] MEDS: tamsulosin 0.4 mg Capsule 0.8 MG PO (08:25)
[2020-11-20] MEDS: atorvastatin 40 mg Tablet 80 MG PO (08:26)
--- NOTE | 2020-11-20 09:33 | PC.NURSE ---
Dr. Aquino notified of BP recheck 76/36, HR 52, 96% on RA, continues to deny dizziness or pain. New orders received for additional 250mL bolus. given per doctors orders.
--- NOTE | 2020-11-20 10:21 | PC.NURSE ---
Blood pressure reassessed , Dr. Aquino notified.
[2020-11-20 10:27] LABS: Potassium, Radom Urine 24 mmol/L; Urine Random Chloride 39 mmol/L; Urine Random Sodium 54 mmol/L
[2020-11-20 11:48] LABS: Glucose Point of Care 164 mg/dL (70-110)
[2020-11-20] MEDS: sodium chloride 0.9% 1,000 ML 50 ML IV (12:27)
--- NOTE | 2020-11-20 12:49 | P.PN_ITS ---
Subjective Subjective: Interval history: hematuria today, states pulled on his valladares earlier , Bp this am as systolic 70s-80s, improved after 2 boluses of 250cc each, states that at home he has numbers as low as 60 without apparemnt symptoms, cr worsened today to 2. 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: no focal neuro deficits ext Le 1+ pitting edema+ Urinary Catheter Management^: Valladares: Cath Placed During This Visit: yes Reason for Continuing Indwelling Catheter: Acute Urinary Retention or Obstruction Urinary Catheter Date of Insertion: 11/19/20 Urinary Catheter Time of Insertion: 13:27 Data : 11/20/20 04:13 11/20/20 04:13 Micro: Microbiology 11/19/20 12:50 Urine Culture - Preliminary Urine,Clean Catch A&P Assessment and plan (1) Acute renal failure: Status: Acute Qualifiers: Acute renal failure type: unspecified Qualified Code(s): N17.9 - Acute kidney failure, unspecified (2) PAF (paroxysmal atrial fibrillation): Status: Acute (3) Anticoagulation adequate with anticoagulant therapy: Status: Acute (4) COPD (chronic obstructive pulmonary disease): Status: Acute Qualifiers: COPD type: unspecified COPD Qualified Code(s): J44.9 - Chronic obstructive pulmonary disease, unspecified (5) Obesity: Status: Acute Qualifiers: Obesity type: unspecified obesity type (6) Hypertension: Status: Acute Qualifiers: Hypertension type: unspecified Qualified Code(s): I10 - Essential (primary) hypertension (7) Diabetes mellitus: Status: Acute Qualifiers: Diabetes mellitus complication status: with hyperglycemia 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 mellitus 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 wall 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 insulin use: with long wall 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 use Diabetes mellitus type: type 2 Qualified Code(s): E11.65 - Type 2 diabetes mellitus with hyperglycemia; Z79.4 - intermediate frame tender (current) use of insulin (8) CHF (congestive heart failure): Status: Acute Additional A&P Information JOSE appeared that may be secondary to overdiuresis initially Now with diuretics on hold and gentle IVF 50cc/hr yesterday cr trending up to 2.4, needed boluses of 250 cc x 2 today for SBP 70-80 this am, patient asymptomatic hold diuretics and nephrotoxins incl lisinopril for now D/c IVF today as patient developing Le edema check echocardiogram to estimate EF, last from 2016 with 55% LVEF + wall motion abnormalities D/c NSAIDs CT abdomen without signs of obstrcution ' rate controlled A fib, continue a/c insulin sliding scale for DM renal consult for worsening JOSE No overt signs of sepsis check rapid covid ag Attestations Medical Necessity Statement*: worsening JOSE, renal consult Coding Level of Care Code Acute Boiler House Inspector for g Fwd Diagnoses Acute renal failure N17.9 Acute renal failure type: unspecified PAF (paroxysmal atrial fibrillation) I48.0 Anticoagulation adequate with anticoagulant therapy Z79.01 COPD (chronic obstructive pulmonary disease) J44.9 COPD type: unspecified COPD Obesity E66.9 Obesity type: unspecified obesity type Hypertension I10 Hypertension type: unspecified Diabetes mellitus E11.65; Z79.4 Diabetes mellitus complication status: with hyperglycemia Diabetes mellitus longterm insulin use: with longterm use Diabetes mellitus type: type 2 CHF (congestive heart failure) I50.9
--- NOTE | 2020-11-20 12:51 | XRR_ITS ---
PROCEDURE INFORMATION: Exam: XR Chest, 1 View Exam date and time: 11/20/2020 1:07 PM Age: 60 years old Clinical indication: Condition or disease; Other: Edema; Prior surgery; Surgery type: Carotid, cardiac, shoulder; Additional info: Evaluet for edema TECHNIQUE: Imaging protocol: XR of the chest Views: 1 view. COMPARISON: CR XR chest 2V* [id number] 01/10/2020 10:23 AM FINDINGS: Lungs: Lungs are well aerated without a focal area of consolidation. Pleural space: Unremarkable. No pleural effusion. No pneumothorax. Heart/Mediastinum: cardiac silhouette is enlarged. Prior sternotomy. Vasculature: Pacemaker is present via a left subclavian approach. Bones/joints: See Heart/Mediastinum finding. XR/XR chest 1V portable [id number] IMPRESSION: Lungs are well aerated without a focal area of consolidation.
--- NOTE | 2020-11-20 12:59 | USCV_ITS ---
Jorge Lancaster Age: 60 Gender: M : 1960 Exam Date: 11/20/2020 14:56 Ordering Phys: Balbina Aquino MD Technologist: Osman Mon Exam Location: [facility] [place] Indication: CABG KIRILL BP: 143 / 73 HR: Rhythm: Sinus Technical Quality: Poor MEASUREMENTS (Male / Female) Normal Values 2D ECHO LV Diastolic Diameter PLAX 5.5 cm 4.2 - 5.9 / 3.9 - 5.3 cm LV Systolic Diameter PLAX 3.4 cm IVS Diastolic Thickness 0.9 cm 0.6 - 1.0 / 0.6 - 0.9 cm IVS Systolic Thickness 1.3 cm LVPW Diastolic Thickness 1.3 cm 0.6 - 1.0 / 0.6 - 0.9 cm LVPW Systolic Thickness 1.2 cm LVOT Diameter 2.0 cm LV Ejection Fraction 2D Teich 68.5 % LV Ejection Fraction MOD 2C 73.3 % LV Ejection Fraction 2C AL 73.9 % LA Diameter 3.7 cm LA Width 4.2 cm LA Height 5.6 cm RA Width 4.0 cm RA Height 5.3 cm Aorta at Sinotubular Diameter 2.4 cm M-MODE LV Diastolic Diameter MM 5.5 cm 4.2 - 5.9 / 3.9 - 5.3 cm LV Systolic Diameter MM 4.0 cm LV Ejection Fraction MM Teich 51.7 % IVS Diastolic Thickness MM 1.4 cm 0.6 - 1.0 / 0.6 - 0.9 cm IVS Systolic Thickness MM 1.6 cm LVPW Diastolic Thickness MM 1.5 cm 0.6 - 1.0 / 0.6 - 0.9 cm LVPW Systolic Thickness MM 1.7 cm RV Diastolic Diameter MM 2.2 cm Aortic Annulus Diameter 3.9 cm LA Ao Ratio MM 1.0 MV E Point Septal Separation 1.0 cm DOPPLER AV Peak Velocity 127.0 cm/s LVOT Peak Velocity 92.0 cm/s AV Area Cont Eq vti 2.2 cm squared AV Area Cont Eq pk 2.3 cm squared MV Area PHT 5.0 cm squared Mitral E to A Ratio 0.7 MV E' Velocity 41.5 cm/s Mitral E to MV E' Ratio 11.8 Mitral E to LV E' Lateral Ratio 12.6 Mitral E to LV E' Septal Ratio 11.3 TR Peak Velocity 207.0 cm/s TR Peak Gradient 17.1 mmHg TV Peak E Velocity 116.0 cm/s Right Atrial Pressure 3.0 mmHg Pulmonary Artery Systolic Pressu 20.1 mmHg FINDINGS Left Ventricle Possibly normal LV size ejection fraction of around 60%. Right Ventricle Appears to be mildly dilated . Right Atrium Appears to be mildly dilated Left Atrium Possibly of normal size Mitral Valve Thickened mitral valve. Aortic Valve Thickened aortic valve. Tricuspid Valve Tricuspid valve not well visualized. Pulmonic Valve Pulmonic valve not well visualized. Pericardium No pericardial effusion. Aorta Normal aortic annulus size. CONCLUSIONS Possibly normal LV size ejection fraction of around 60%. Thickened aortic and mitral valves. The right atrium and the right ventricle appears to be mildly dilated No pericardial effusion Technically very difficult study because of the poor ultrasonic window Dr Juan Fofana MD FAC (Electronically Signed) Final Date: 20 November 2020 22:21 S
--- NOTE | 2020-11-20 14:48 | P.CONIM_ITS ---
Providers/Reason For Consult Consulting Physican/Specialty*: richie greene md / telenephrology Reason for Consult*: JOSE, hyponatremia, metabolic acidosis Attending Physician: Balbina Aquino MD Primary Care Provider: SAHLI Torre History of Present Illness History of Present Illness Jorge Lancaster is a 60 year old male with multiple med issues 1. CHF- echo a few years ago- normal EF- likely Diastolic dysfunction/ rt heart failure- cardiomegaly on cT scan 2. COPD 3. IDDM 4. low BP 5. chronic pain- Q if on NSAIDs 6. Polycythemia per chart and MARCIAL 7. Carotid Art disease w/ h/o cva 8. a fib and CVA- s/p PPM. 9. BPH on meds Pt has been having significant weight gain and edema. weight peaked at 318 lbs- he saw his physician who raised his lasix to tid and added metolazone- his wt decreased/ improved to 255 lbs. he was also on metformin and lisinopril for DM and HTN/ CHF. However cr went from 1.1- 1.3 mg/dl to 2.2- 2.4 mg/dl and pt had difficulty urinating and came to [facility]. He says his lege johanna is much improved. He had a valladares place dw/ 350 ml uop- ct scan revelaed no hydronephrosis- however, he has perinephric stranding. Pt on admission ua had microscopic hematuria- no significant proteinuria. he is now having gross hematuria since he has valladares and he states it hurts him and he has pulled on it, Review of Systems General: Reports: 10 or more systems reviewed and unremarkable except in HPI and below Narrative: recent edema improved w/ inc lasix. chronic hypotension DM- not optimally controlled sob.+OKEEFE. cant lay flat back pain. dysuria dec leg edema good appetite low bp Meds/Allergies Home Medications and Allergies Home Medications Medication Instructions Recorded Confirmed Last Taken Type olopatadine 0.2 % eye drops 1 - 2 drop OPHTHALMIC (EYE) QAM PRN 01/10/20 11/19/20 Unknown History travoprost 0.004 % eye drops 1 drop OPHTHALMIC (EYE) DAILY@05 01/10/20 11/19/20 11/19/20 05:00 History ml blood sugar diagnostic #30 each 03/30/20 11/19/20 Unknown Rx blood-glucose meter #1 each 03/30/20 11/19/20 Unknown Rx rosuvastatin 40 mg tablet See Rx Instructions .ROUTE 07/29/20 11/19/20 Unknown Rx .COMPLEX #14 each pen needle, diabetic 29 gauge x #100 each 08/22/20 11/19/20 Unknown Rx 1/2 tramadol 50 mg tablet 50 mg PO QID PRN 30 Days #90 tab 09/04/20 11/19/20 11/18/20 Rx tamsulosin 0.4 mg capsule 0.8 mg PO DAILY #60 cap 09/17/20 11/19/20 11/19/20 05:00 Rx albuterol sulfate 90 mcg/actuation 2 puff INHALATION Q6H PRN #18 gm 10/15/20 11/19/20 Unknown Rx aerosol inhaler apixaban 5 mg tablet 5 mg PO BID #120 tab 10/22/20 11/19/20 11/19/20 Rx ONLY TAKES 5MG DAILY cholecalciferol (vitamin D3) 1,250 mcg PO Q7D 11/19/20 11/19/20 Unknown History fluticasone propion-salmeterol 1 ea INHALATION BID 11/19/20 11/19/20 11/18/20 History [Advair Diskus] furosemide 40 mg PO TID@,,11/19/20 11/19/20 11/19/20 05:00 History gabapentin 600 mg PO TID@,,11/19/20 11/19/20 11/19/20 05:00 History glipizide 10 mg PO DAILY@11/19/20 11/19/20 11/19/20 05:00 History insulin glargine [Lantus Solostar 40 unit SUBCUT DAILY@11/19/20 11/19/20 11/18/20 History U-100 Insulin] lisinopril 40 mg PO DAILY@11/19/20 11/19/20 11/18/20 History metformin 1,000 mg PO BID@,11/19/20 11/19/20 11/19/20 05:00 History metolazone 2.5 mg PO DAILY@11/19/20 11/19/20 11/19/20 05:00 History potassium chloride 20 meq PO DAILY@05 11/19/20 11/19/20 11/19/20 History Allergies Allergy/AdvReac Type Severity Reaction Status Date / Time No Known Allergies Allergy Verified 11/19/20 12:56 Current Medications Current Medications Generic Name Dose Route Start Last Admin Trade Name Freq PRN Reason Stop Dose Admin Albuterol Sulfate 2 puff 11/19/20 17:43 11/20/20 08:12 Albuterol 8 Gm Mdi INHALATION 2 puff Q6H PRN Administration shortness of breath or wheezing Apixaban 5 mg 11/19/20 18:00 11/20/20 08:25 Apixaban 5 Mg Tablet PO 5 mg BID KOSTA Administration Atorvastatin Calcium 80 mg 11/20/20 09:00 11/20/20 08:26 Atorvastatin 40 Mg Tablet PO 80 mg DAILY KOSTA Administration Gabapentin 600 mg 11/20/20 05:00 11/20/20 11:48 Gabapentin 300 Mg Capsule PO 600 mg TID@, KOSTA Administration Insulin Aspart 0 unit 11/19/20 18:00 11/20/20 11:53 Insulin Aspart 100 Unit/1 Ml SUBCUT 4 unit WM&BEDTIME KOSTA Administration Protocol Fluticasone/Salmeterol 1 puff 11/19/20 18:00 11/20/20 08:12 Fluticasone-Salmeterol 250-50 Diskus INHALATION 1 puff BID KOSTA Administration Tamsulosin HCl 0.8 mg 11/20/20 09:00 11/20/20 08:25 Tamsulosin 0.4 Mg Capsule PO 0.8 mg DAILY KOSTA Administration PFSH Acute PFSH: Medical History Anemia Anticoagulation adequate with anticoagulant therapy Eliquis ASHD (arteriosclerotic heart disease) BPH (benign prostatic hyperplasia) Carotid stenosis CHF (congestive heart failure) COPD (chronic obstructive pulmonary disease) Diabetes mellitus History of CVA (cerebrovascular accident) Hypertension Neuropathy Obesity PAF (paroxysmal atrial fibrillation) Vitamin B deficiency Vitamin D deficiency Surgical History No pertinent past surgical history Family History Denies family history of Anesthesia complication Bleeding disorder Social History Smoking and tobacco status: former smoker Quit status (tobacco): has quit using tobacco Former quit date comment: smoked 20 yrs Second hand smoke exposure: No Alcohol intake: never Lives independently: Yes Household members: significant other and children Housing: House Marital status: Life Partner Current occupational status: disabled Current occupational exposures/hazards: No History of recent travel: No Current gender identity: Male Vitals/I&O/Wt Last Vital Signs Temp 98.0 F 11/20/20 11:03 Pulse 54 L 11/20/20 11:03 Resp 17 11/20/20 11:03 BP 96/53 11/20/20 11:03 Pulse Ox 97 11/20/20 11:03 11/19/20 11/20/20 11/20/20 22:59 06:59 14:59 Intake Total 240 / 240 1904.167 / 1904.167 Output Total 900 / 1200 Balance -660 / -960 1904.167 / 1904.167 Weight last 48 hrs Weight 117.843 kg Weight 115.666 kg Physical Exam Narrative: EXAM NARRATIVE: obese man, comfortable sitting in bed, NARD vs noted- BP low- even after ivf heent- nc/at neck supple lung dull bases heart irreg, +SRIKANTH, s1, s2 abd soft nt, nd, +BS ext b/l 1+ edema neuro- a,a, o x 3 Urinary Catheter Management^: Valladares: Cath Placed During This Visit: yes Reason for Continuing Indwelling Catheter: Acute Urinary Retention or Obstruction Urinary Catheter Date of Insertion: 11/19/20 Urinary Catheter Time of Insertion: 13:27 Data Micro: Micro: Microbiology 11/19/20 12:50 Urine Culture - Pr eliminary Urine,Clean Catch A&P Additional A&P Information 60 yr old man dm, CHF , COPD, a fib, PPM, obesity, COPD 1. inc leg edema- u/a reviewed has hematuria- no sugnificant proteinuria- doubt nephrotic syndrome- normnal albumin -can check lipids -I am concerned for right heart failure/ pulm htn/ and /or diastolic dysfunction -please check an echo -please get complete cardiac hx 2. Baseline cr 1.1- normal for his size 3. JOSE- likely CRS vs ATN from lasix, aileen-i, and Q of NSAID -agree w/ stopping all of above -no hydronephrosis on ct scan -does have whit-nephric stranding on ct scan- Q from stones. Q from infection vs edema -as has hematuria- will check serologies to eval for a vasculitis/ GN 4. hyponatremia- from diuretics in setting of CHF -hold diuretics -check echo -fluid restrict 5. inc AGMA- likely from JOSE- monitor for now. may need sodium bicarb 6. hgb 10.6- please get more heme hx. as chart has h/o p. vera and MARCIAL- on a/c for a fib 7. hypotension can be from CHF or tamponade Consult Attestations Medical Necessity Statement: jose, hyponatremia, met acidosis Time Spent in Patient Care: Greater than 35 minutes Coding Level of Care Code Acute Lathe Operator Contact Lens for Jocelyne Pat
--- NOTE | 2020-11-20 15:17 | USCV_ITS ---
Jorge Lancaster Age: 60 Gender: M : 1960 Exam Date: 11/20/2020 15:53 Ordering Phys: Liborio Bernal MD Technologist: Osman Mon Exam Location: [facility] – [place] Indication: swelling HISTORY: Lower extremity swelling. PROCEDURES: Venous duplex imaging was performed in bilateral lower extremities. The following venous structures were evaluated: common femoral vein, profunda vein, proximal portion of the greater saphenous vein, superficial femoral vein, and the popliteal vein. In addition, the posterior tibial and peroneal trunk were evaluated. Serial compression, augmentation maneuvers, and spectral Doppler flow evaluation were performed. FINDINGS: Normal 2-D Doppler and augmentation and compressibility throughout the lower extremity venous structures. Additional imaging through the proximal calf veins also reveals no thrombus. Limited evaluation of the greater saphenous vein is patent with no thrombus. CONCLUSIONS No DVT bilateral lower extremities. Dr. Sarah Reis DO (Electronically Signed) Final Date: 21 November 2020 07:36 S
[2020-11-20 15:20] LABS: SARS Covid-2 Antigen Negative (Negative)
[2020-11-20 16:23] LABS: Potassium, Radom Urine 24 mmol/L
[2020-11-20 16:54] LABS: Urine Random Chloride 11 mmol/L; Urine Random Sodium 16 mmol/L
[2020-11-20 17:01] LABS: Glucose Point of Care 152 mg/dL (70-110)
[2020-11-20] MEDS: insulin glargine 100 units/1 mL 40 UNIT SUBCUT (17:19)
[2020-11-20 18:44] LABS: Hepatitis B Surface AB 3.5 (0-8.5); Hepatitis B Surface Antigen Non-Reactive (Nonreactive); Hepatitis C Virus Antibody Non-Reactive (Nonreactive)
[2020-11-20 19:03] LABS: Complement C3 123 mg/dL (90-180); Thyroid Stimulating Hormone 0.62 uIU/mL (0.27-4.20)
[2020-11-20 19:04] LABS: Cortisol Random 8.64 ug/mL (2.47-19.5)
[2020-11-20 20:57] LABS: Glucose Point of Care 208 mg/dL (70-110)
[2020-11-21] VITALS (11 sets, daily range): BP systolic 77–97; BP diastolic 38–64; PULSE 47–126; RESP 15–20; TEMP 36.3–37.2; O2SAT 93–98; BMI 36.1
[2020-11-21] MEDS: sodium chloride 0.9% 500 ML 999 ML IV (00:26)
--- NOTE | 2020-11-21 04:06 | ECG_ITS ---
[facility] Test Date: 2020-11-21 Pat Name: Jorge Lancaster Department: Room: 250 Gender: Male Distance Learning Coordinator: : 1960 Requested By: Ti Orellana Order Number: [id number] Romi MD: Juan Fofana M.D. Measurements Intervals [place] Rate: 59 P: MO: QRS: 258 QRSD: 166 T: 73 QT: 506 QTc: 503 Interpretive Statements ATRIAL FIBRILLATION WITH demand V paced rhythm MARKED RIGHT AXIS DEVIATION [QRS AXIS > 100] RIGHT BUNDLE BRANCH BLOCK [120+ ms QRS DURATION, UPRIGHT V1, 40+ ms S IN I/aVL/V4/V5/V6] INFERIOR MYOCARDIAL INFARCTION [40+ ms Q WAVE AND/OR ST/T ABNORMALITY IN II/aVF], PROBABLY OLD Compared to ECG 11/19/2020 21:16:08 Myocardial infarct finding now present Electronically Signed On 11-21-2020 21:25:38 OIL REFINER by Juan Fofana M.D. [id number]
[2020-11-21 06:32] LABS: Glucose Point of Care 130 mg/dL (70-110)
[2020-11-21 07:10] LABS: Basophils % 0.1 %; Eosinophils # 0.1 10^3/uL (0.0-0.8); Eosinophils % 1.2 %; Hematocrit 31.3 % (42.0-52.0); Hemoglobin 9.9 g/dL (11.7-16.6); Lymphocytes % 14.3 %; Mean Corpuscular HGB Conc 31.6 g/dL (30.0-36.0); Mean Corpuscular Hemoglobin 28.9 pg (28.0-34.0); Mean Corpuscular Volume 91.5 fL (80-94); Mean Platelet Volume 11.6 fL (7.4-10.4); Monocytes # 0.8 10^3/uL (0.2-0.9); Monocytes % 10.9 %; Neutrophils % 73.1 %; Nucleated Red Blood Cells % 0 %; Platelet Count 122 10^3/cmm (130-400); Red Blood Count 3.42 10^6/uL (4.1-5.3); Red Cell Distribution Width 17.2 % (12.1-15.1); White Blood Count 7.3 10^3/uL (4.0-10.0)
--- NOTE | 2020-11-21 07:12 | PM.PN ---
Subjective Subjective: Interval history: feels better. received ivf overnight- bp and hr low. wants to go home for [place]. snores significantly Medications: Reviewed: Yes Medication Review Details: Current Medications Albuterol Sulfate (Albuterol 8 Gm Mdi) 2 puff INHALATION Q6H PRN PRN Reason: shortness of breath or wheezing Last Admin: 11/20/20 19:35 Dose: 2 puff Documented by: Albuterol/Ipratropium (Ipratropium-Albuterol 3 Ml Neb) 3 ml INHALATION Q6H PRN PRN Reason: SHORTNESS OF BREATH Apixaban (Apixaban 5 Mg Tablet) 5 mg PO BID [facility] Last Admin: 11/20/20 08:25 Dose: 5 mg Documented by: Atorvastatin Calcium (Atorvastatin 40 Mg Tablet) 80 mg PO DAILY [facility] Last Admin: 11/20/20 08:26 Dose: 80 mg Documented by: Atropine Sulfate (Atropine 0.4 Mg/Ml Sdv 1ml) 0.4 mg IVP ONCE PRN PRN Reason: hr<60;sbp<90 and symptomatic Dextrose (Dextrose 50% Syringe 50 Ml) 25 ml IVP ONCE PRN; Protocol PRN Reason: hypoglycemia protocol Dextrose (Dextrose 50% Syringe 50 Ml) 50 ml IVP PRN PRN; Protocol PRN Reason: hypoglycemia protocol Gabapentin (Gabapentin 300 Mg Capsule) 600 mg PO TID@,, [facility] Last Admin: 11/21/20 04:36 Dose: Not Given Documented by: Glucagon (Glucagon 1 Mg/Ml Inj 1 Ml) 1 mg IM ONCE PRN; Protocol PRN Reason: Adult Acute Hypoglycemia Prot. Dextrose (D5w) 500 mls @ 100 mls/hr IV ONCE PRN; Protocol PRN Reason: Adult Acute Hypoglycemia Prot Insulin Aspart (Insulin Aspart 100 Unit/1 Ml) 0 unit SUBCUT WM&BEDTIME [facility]; Protocol Last Admin: 11/20/20 21:57 Dose: 6 unit Documented by: Insulin Glargine (Insulin Glargine 100 Units/1 Ml) 40 unit SUBCUT DAILY@17 [facility] Last Admin: 11/20/20 17:19 Dose: 40 unit Documented by: Morphine Sulfate (Morphine 4 Mg/Ml Sdv 1 Ml) 1 mg IVP Q4H PRN PRN Reason: SEVERE PAIN Ondansetron HCl (Ondansetron 2 Mg/Ml Sdv 2 Ml) 4 mg IVP Q6H PRN PRN Reason: NAUSEA AND VOMITING Fluticasone/Salmeterol (Fluticasone-Salmeterol 250-50 Diskus) 1 puff INHALATION BID [facility] Last Admin: 11/20/20 19:35 Dose: 1 puff Documented by: Tamsulosin HCl (Tamsulosin 0.4 Mg Capsule) 0.8 mg PO DAILY [facility] Last Admin: 11/20/20 08:25 Dose: 0.8 mg Documented by: Tramadol HCl (Tramadol 50 Mg Tablet) 50 mg PO QID PRN PRN Reason: pain Vitals/I&O/Wt Last Vital Signs Temp 98.9 F 11/21/20 03:34 Pulse 77 11/21/20 03:34 Resp 18 11/21/20 03:34 BP 97/59 11/21/20 03:34 Pulse Ox 93 11/21/20 03:34 11/20/20 11/21/20 11/21/20 22:59 06:59 14:59 Intake Total 520 / 2424.167 Output Total 450 / 450 100 / 550 Balance 70 / 1974.167 -100 / 1874.167 Weight last 48 hrs Weight 117.843 kg Weight 115.666 kg Physical Exam Narrative: EXAM NARRATIVE: obese man, comfortable sitting in bed, NARD vs noted- BP low- even after ivf heent- nc/at neck supple lung dull bases heart irreg, +SRIKANTH, s1, s2 abd soft nt, nd, +BS ext b/l no significant edema neuro- a,a, o x 3 Urinary Catheter Management^: Friedman: Cath Placed During This Visit: yes Reason for Continuing Indwelling Catheter: Acute Urinary Retention or Obstruction Urinary Catheter Date of Insertion: 11/19/20 Urinary Catheter Time of Insertion: 13:27 Data : 11/21/20 04:12 11/20/20 04:13 Micro: Microbiology 11/19/20 12:50 Urine Culture - Preliminary Urine,Clean Catch A&P Additional A&P Information 60 yr old man dm, CHF , COPD, a fib, PPM, obesity, COPD 1. inc leg edema- u/a reviewed has hematuria- no significant proteinuria- doubt nephrotic syndrome- normal albumin -can check lipids -I am concerned for right heart failure/ pulm htn/ and /or diastolic dysfunction - echo reviewed- no pericardial effusion -nl LVEF thickened aortic and mitral valves -please get complete cardiac hx 2. Baseline cr 1.1- normal for his size 3. JOSE- likely CRS vs ATN from lasix, aileen-i, and Q of NSAID -agree w/ stopping all of above -s/p ivf -no hydronephrosis on ct scan -does have whit-nephric stranding on ct scan- Q from stones. Q from infection vs edema -as has hematuria- will check serologies to eval for a vasculitis/ GN 4. hyponatremia- from diuretics in setting of CHF -hold diuretics -check echo -fluid restrict -monitor uop and chemistries 5. inc AGMA- likely from JOSE- monitor for now. may need sodium bicarb 6. hgb 9.9- please get more heme hx. as chart has h/o p. vera and MARCIAL- on a/c for a fib -w/u per medicine 7. hypotension can be from overmedication, neuropathy, or amyloid- echo poor windoes- check free light chains Attestations Medical Necessity Statement*: jose, hyponatremia, hypotension- dec meds. monitor Time Spent in Patient Care: 16 - 35 minutes Coding Level of Care Code Acute Staff Interpreter for Jocelyne Pat
[2020-11-21] MEDS: albuterol 8 gm MDI 2 PUFF INHALATION ×2 (07:32→22:50)
[2020-11-21 07:35] LABS: Chol HDL Ratio 3.82 mg/dL (1.0-5.00); Cholesterol 168 mg/dL (0-200); Ferritin 203 ng/mL (30-400); HDL Cholesterol 44 mg/dL (60-100); Iron 43 ug/dL (59-158); LDL Cholesterol Calculated 111 mg/dL (50-129); Magnesium 2.4 mg/dL (1.7-2.3); Percent Saturation 14.7 % (20-50); Phosphorus 5.3 mg/dL (2.5-4.5); Total Iron Binding Capacity 291 mcg/dl; Triglycerides 64 mg/dL (0-150); Unsaturated Iron Binding 248 ug/dL (112-347); VLDL Cholestrol Calculation 13 mg/dL (0-30)
[2020-11-21 07:36] LABS: Alanine Aminotransferase 11 U/L (0-41); Albumin Level 4.1 g/dL (3.5-5.2); Alkaline Phosphatase 69 IU/L (40-130); Anion Gap 16.7 (5-19); Aspartate Amino Transferase 13 U/L (0-40); Calcium 9.2 mg/dL (8.5-10.5); Carbon Dioxide 18 mmol/L (22-29); Chloride 99 mmol/L (98-107); Cholesterol 171 mg/dL (0-200); Creatine Phosphokinase 149 U/L (39-308); Globulin 3.3 g/dL (1.3-4.6); Glucose 104 mg/dL (65-115); HDL Cholesterol 45 mg/dL (60-100); LDL Cholesterol Calculated 113 mg/dL (50-129); LDL HDL Ratio 2.51 RATIO (0.00-3.22); Osmolality Calculated 293 mOsm/kg (285-295); Potassium 4.7 mmol/L (3.5-5.1); Sodium 129 mmol/L (136-145); Total Bilirubin 0.4 mg/dL (0.15-1.2); Total Protein 7.4 g/dL (6.6-8.7); Triglycerides 65 mg/dL (0-150)
[2020-11-21 07:50] LABS: Blood Urea Nitrogen 81 mg/dL (6-20); Creatinine Clr Calc Pharmacy 32.4553
[2020-11-21 08:30] LABS: Parathyroid Hormone 104.2 pg/mL (15-65)
[2020-11-21] MEDS: tamsulosin 0.4 mg Capsule 0.8 MG PO (08:45)
[2020-11-21] MEDS: atorvastatin 40 mg Tablet 80 MG PO (08:46)
[2020-11-21 09:03] LABS: Cortisol Random 11.73 ug/mL (2.47-19.5)
--- NOTE | 2020-11-21 10:26 | PM.PN ---
Subjective Subjective: Interval history: Creatinine continues to increase to 3.2 today. Overnight patient had bradycardia to 40s, there was a question whether his pacemaker was working, initially in the day the pacemaker spikes were evident. He was given atropine 0.5x1 and pacemaker interrogation was ordered. He was additionally noted to have a systolic blood pressure dropped to 78 following which he received 500 cc of fluid bolus. This morning his systolic blood pressure is ranging between 92-96. Hyponatremia, sodium down to 129. Medications: Reviewed: Yes Medication Review Details: Current Medications Albuterol Sulfate (Albuterol 8 Gm Mdi) 2 puff INHALATION Q6H PRN PRN Reason: shortness of breath or wheezing Last Admin: 11/20/20 19:35 Dose: 2 puff Documented by: Albuterol/Ipratropium (Ipratropium-Albuterol 3 Ml Neb) 3 ml INHALATION Q6H PRN PRN Reason: SHORTNESS OF BREATH Apixaban (Apixaban 5 Mg Tablet) 5 mg PO BID [facility] Last Admin: 11/20/20 08:25 Dose: 5 mg Documented by: Atorvastatin Calcium (Atorvastatin 40 Mg Tablet) 80 mg PO DAILY [facility] Last Admin: 11/20/20 08:26 Dose: 80 mg Documented by: Atropine Sulfate (Atropine 0.4 Mg/Ml Sdv 1ml) 0.4 mg IVP ONCE PRN PRN Reason: hr<60;sbp<90 and symptomatic Dextrose (Dextrose 50% Syringe 50 Ml) 25 ml IVP ONCE PRN; Protocol PRN Reason: hypoglycemia protocol Dextrose (Dextrose 50% Syringe 50 Ml) 50 ml IVP PRN PRN; Protocol PRN Reason: hypoglycemia protocol Gabapentin (Gabapentin 300 Mg Capsule) 600 mg PO TID@,, [facility] Last Admin: 11/21/20 04:36 Dose: Not Given Documented by: Glucagon (Glucagon 1 Mg/Ml Inj 1 Ml) 1 mg IM ONCE PRN; Protocol PRN Reason: Adult Acute Hypoglycemia Prot. Dextrose (D5w) 500 mls @ 100 mls/hr IV ONCE PRN; Protocol PRN Reason: Adult Acute Hypoglycemia Prot Insulin Aspart (Insulin Aspart 100 Unit/1 Ml) 0 unit SUBCUT WM&BEDTIME [facility]; Protocol Last Admin: 11/20/20 21:57 Dose: 6 unit Documented by: Insulin Glargine (Insulin Glargine 100 Units/1 Ml) 40 unit SUBCUT DAILY@17 [facility] Last Admin: 11/20/20 17:19 Dose: 40 unit Documented by: Morphine Sulfate (Morphine 4 Mg/Ml Sdv 1 Ml) 1 mg IVP Q4H PRN PRN Reason: SEVERE PAIN Ondansetron HCl (Ondansetron 2 Mg/Ml Sdv 2 Ml) 4 mg IVP Q6H PRN PRN Reason: NAUSEA AND VOMITING Fluticasone/Salmeterol (Fluticasone-Salmeterol 250-50 Diskus) 1 puff INHALATION BID [facility] Last Admin: 11/20/20 19:35 Dose: 1 puff Documented by: Tamsulosin HCl (Tamsulosin 0.4 Mg Capsule) 0.8 mg PO DAILY [facility] Last Admin: 11/20/20 08:25 Dose: 0.8 mg Documented by: Tramadol HCl (Tramadol 50 Mg Tablet) 50 mg PO QID PRN PRN Reason: pain Vitals/I&O/Wt Last Vital Signs Temp 97.3 F L 11/21/20 07:24 Pulse 63 11/21/20 07:33 Resp 15 11/21/20 07:33 BP 92/56 11/21/20 07:24 Pulse Ox 95 11/21/20 07:33 11/20/20 11/21/20 11/21/20 22:59 06:59 14:59 Intake Total 520 / 2424.167 120 / 120 Output Total 450 / 450 100 / 550 200 / 200 Balance 70 / 1974.167 -100 / 1874.167 -80 / -80 Weight last 48 hrs Weight 117.651 kg Weight 117.843 kg Weight 115.666 kg Physical Exam Narrative: EXAM NARRATIVE: GEN: Awake, alert and oriented, no acute distress CVS: S1S2 N RS: B/L rales to auscultation lung bases Abd: Soft, nt/nd , bs+ REAL ESTATE SPECIALIST: no focal neuro deficits ext Le 1+ pitting edema+ Const: COMMON NORMALS: no acute distress, average body habitus, patient oriented x3, no limitations, healthy appearing, alert and well nourished HENMT: COMMON NORMALS: normocephalic and atraumatic HEAD & SCALP: normocephalic and atraumatic Eye: COMMON NORMALS: Equal, round and reactive pupils present, EOMs intact bilaterally, conjunctivae normal and no scleral icterus CONJUNCTIVA: Yes conjunctivae normal PUPIL: Yes Equal, round and reactive pupils present Neck/C-Spine: COMMON NORMALS: no JVD Resp: COMMON NORMALS: normal respiratory effort, No retractions, No use of accessory muscles, clear to auscultation bilaterally and percussion normal AUSCULTATION: clear to auscultation bilaterally PERCUSSION: percussion normal Cardio: COMMON NORMALS: no JVD, regular rate, regular rhythm, S1 normal heart sound present, S2 normal heart sound present, No gallops present (Cardio), No clicks present (Cardio), No murmurs present (Cardio), No rub (Cardio) and Peripheral pulses 2+ throughout RATE: regular rate RHYTHM: regular rhythm HEART SOUNDS: S1 normal heart sound present and S2 normal heart sound present PERIPHERAL PULSES: Peripheral pulses 2+ throughout GI: COMMON NORMALS: Normal to inspection, nondistended, normoactive bowel sounds present, Soft to palpation, non-tender, No hepatosplenomegaly present, no masses and no bruits PALPATION: Yes Soft to palpation and Yes No hepatosplenomegaly present Extremity: COMMON NORMALS: normal to inspection, full ROM, capillary refill normal, no joint enlargement, no clubbing, cyanosis or edema, no calf tenderness and no pedal edema Neuro: COMMON NORMALS: patient oriented x3, CN's II-XII intact bilaterally, moves all extremities, no focal motor deficits, no sensory deficits noted, deep tendon reflexes 2+ bilaterally and gait normal SENSORIUM/ORIENTATION: Yes alert Psych: COMMON NORMALS: mental status grossly normal, Normal thought process present, cooperative, normal affect, speech normal, activity/motor behavior normal, denies hallucinations, denies homicidal ideation and denies suicidal ideation SPEECH: Yes normal speech THOUGHT PROCESS: Normal thought process present Skin: COMMON NORMALS: no rashes or lesions noted, no wounds, turgor normal, no jaundice, no petechiae and no mottling GENERAL SKIN EXAM: no rashes or lesions noted and turgor normal Urinary Catheter Management^: Friedman: Cath Placed During This Visit: yes Reason for Continuing Indwelling Catheter: Acute Urinary Retention or Obstruction Urinary Catheter Date of Insertion: 11/19/20 Urinary Catheter Time of Insertion: 13:27 Data : 11/21/20 04:12 11/21/20 04:12 Micro: Microbiology 11/19/20 12:50 Urine Culture - Final Urine,Clean Catch A&P Assessment and plan (1) Acute renal failure: Status: Acute Qualifiers: Acute renal failure type: unspecified Qualified Code(s): N17.9 - Acute kidney failure, unspecified (2) PAF (paroxysmal atrial fibrillation): Status: Acute (3) Anticoagulation adequate with anticoagulant therapy: Status: Acute (4) COPD (chronic obstructive pulmonary disease): Status: Acute Qualifiers: COPD type: unspecified COPD Qualified Code(s): J44.9 - Chronic obstructive pulmonary disease, unspecified (5) Obesity: Status: Acute Qualifiers: Obesity type: unspecified obesity type (6) Hypertension: Status: Acute Qualifiers: Hypertension type: unspecified Qualified Code(s): I10 - Essential (primary) hypertension (7) Diabetes mellitus: Status: Acute Qualifiers: Diabetes mellitus type: type 2 Diabetes mellitus intermediate project manager insulin use: with prison use Diabetes mellitus complication status: with hyperglycemia Qualified Code(s): E11.65 - Type 2 diabetes mellitus with hyperglycemia; Z79.4 - intermodal customer service (current) use of insulin (8) CHF (congestive heart failure): Status: Acute Additional A&P Information 60-year-old man with past medical history of obesity, diabetes, polycythemia, iron deficiency anemia, hypertension, COPD, carotid stenosis, history of stroke, dyslipidemia # JOSE appeared that may be secondary to overdiuresis initially for which siuretics have been held since admission received gentle IVF hydration @50cc/hr over the first 24 hrs, however cr continued to worsen. IVF subsequently discontinued due to LE edema. Intermittent hypotension, cause unclear at this time, drop to SBP 70-80, patient asymptomatic , states having systolic pressure down to 60 at home Antihypertensives and NSAIDs stopped since admission CT abdomen without signs of obstrcution ' appreciate renal recommendations SPEP, autoimmune panel pending # Intermittent hypotension cause unclear at this time echo without pericardial effusion or tamponade LVEF ~60% UA negative, CXR without consolidation, afebrile ,no leukocytosis, no other signs or symptoms of infectious process at this time check procal, blood culture for sepsis w/up, monitor off abx for now random cortisol, TSH WNL low probaability of PE as patient on ac/ with eliquis prior to admission. LE duplex with no DVT # Atrial fibrillation, h/o ?CHF rate controlled A fib echocardiogram Possibly normal LV size ejection fraction of around 60%, Thickened aortic and mitral valves, The right atrium and the right ventricle appears to be mildly dilated cardiolgy consult to assist with diuresis management, ?possible right heart failure Eliwuis on hold due to hematuria currently, likely from traumatic Friedman, did not have gross hematuria upon admission # insulin sliding scale for DM , stop glargine for now given rising cr, avoid insulin stacking change to inpatient admission given worsening kidney function, needs further evaluation Attestations Medical Necessity Statement*: worsening kidney function, intermittent hypotension Coding Level of Care Code Acute Aircraft Engine Dismantler for g Fwd Diagnoses Acute renal failure N17.9 Acute renal failure type: unspecified PAF (paroxysmal atrial fibrillation) I48.0 Anticoagulation adequate with anticoagulant therapy Z79.01 COPD (chronic obstructive pulmonary disease) J44.9 COPD type: unspecified COPD Obesity E66.9 Obesity type: unspecified obesity type Hypertension I10 Hypertension type: unspecified Diabetes mellitus E11.65; Z79.4 Diabetes mellitus type: type 2 Diabetes mellitus prison insulin use: with intermediate project manager use Diabetes mellitus complication status: with hyperglycemia CHF (congestive heart failure) I50.9
[2020-11-21 11:23] LABS: Glucose Point of Care 245 mg/dL (70-110)
[2020-11-21] MEDS: gabapentin 300 mg Capsule 600 MG PO ×2 (12:46→18:37)
[2020-11-21 13:25] LABS: Procalcitonin 0.36 ng/mL (0-0.5)
[2020-11-21 13:36] LABS: HIV 1 & 2 Antibody Non-Reactive (Non-Reactiv); HIV 1 & 2 Antigen Non-Reactive (Non-Reactiv)
[2020-11-21 16:19] LABS: Glucose Point of Care 122 mg/dL (70-110)
--- NOTE | 2020-11-21 17:14 | PC.RESP ---
Pulmonary Rehab information sent to patient.
--- NOTE | 2020-11-21 17:21 | PM.CONSULT ---
Providers/Reason For Consult Consulting Physican/Specialty*: Dr. Jenkins, cardiology Reason for Consult*: Congestive heart failure and worsening renal function. Attending Physician: Balbina Aquino MD Primary Care Provider: ASHLI Torre History of Present Illness History of Present Illness Jorge Lancaster is a 60 year old male with past medical history of coronary artery disease s/p CABG x 4 in 1994, history of MIs, extensive history of smoking, paroxysmal atrial fibrillation, diabetes mellitus type II, congestive heart failure, obesity, hypertension, carotid artery stenosis s/p left carotid endarterectomy in 2007, dyslipidemia, s/p dual-chamber permanent pacemaker placement for refractory bradycardia with A-V dissociation on [address] Coyle, history of stroke, polycythemia and history of iron deficiency anemia who usually follows up with Dr. Topete presented to the hospital with decreased urine output. Was seen in office on 02 October 2020 and his dose of Lasix was increased from 40 mg daily to 40 mg 3 times a day along with metolazone 2.5 mg daily for 10 days. He was supposed to get back in touch with the office with his weight and his symptoms. He presented to the ER on 19 November with complaints of difficulty urinating and decreased urine output for 4-5 days. This lead to increase in leg swelling and fluid retention. He also complained of bilateral lower abdominal pain. No hematuria at home. Labs from 02 October showed potassium 4.1, BUN 39, creatinine 1.1. Labs on arrival to the ER with sodium 130, potassium 4.8, CO2 18, BUN 64 and creatinine 2.2. Baseline troponin T of 74 which increased to 75 in 2 hours and at 6 hours was 79.4. NT proBNP of 3290. After admission diuretics were held. Losartan was held as well Friedman catheter was placed with only 350 cc of urine output. He was started on IV hydration with normal saline at 50 cc/h. Nephrology was consulted. Patient did develop hematuria. Repeat echocardiogram was done results as mentioned below. Blood pressure since arrival has ranged from 77-96/39 to 64 mmHg with heart rate ranging from 47 to 87 bpm. Weight was 288 pounds on 02 October that dropped to 255 pounds on the day of admission and today was 259 pounds. He is +1.6 L. IV fluid were held given leg swelling. Review of Systems General: Reports: 10 or more systems reviewed and unremarkable except in HPI and below Const: Denies: fever(s), chills or body aches Eyes: Denies: change in vision or blurry vision ENMT: Reports: hoarseness; Denies: throat pain, enlarged tonsils or nasal congestion Card: Reports: edema, swelling of feet/ankles and orthopnea; Denies: chest pain, palpitations, irregular heart rhythm, lightheadedness, pre-syncope or dyspnea on exertion Resp: Denies: dyspnea, productive cough, non-productive cough, wheezing, stridor, pain on inspiration, change in phlegm color, hemoptysis or chest congestion GI: Denies: abdominal pain, nausea, vomiting, hematemesis, coffee ground emesis, dysphagia, heartburn, diarrhea, constipation, GI cramping, change in stool character, hematochezia or melena : Denies: flank pain, dysuria, urinary frequency, urinary urgency, urinary hesitancy or hematuria Musc: Denies: neck pain, back pain, extremity pain, joint swelling, joint warmth or deformity Neuro: Denies: headache(s), numbness in extremities, weakness in extremities, difficulty walking, frequent falls, dizziness, vertigo, behavioral changes, Slurred speech present or seizure-like activity Psych: Denies: anxiety or depression Endo: Denies: polyuria, polydipsia, tired all the time, cold intolerance or hot flashes Nawaf/Lymph: Denies: easy bruising or easy bleeding Meds/Allergies Home Medications and Allergies Home Medications Medication Instructions Recorded Confirmed Last Taken Type olopatadine 0.2 % eye drops 1 - 2 drop OPHTHALMIC (EYE) QAM PRN 01/10/20 11/19/20 Unknown History travoprost 0.004 % eye drops 1 drop OPHTHALMIC (EYE) DAILY@05 01/10/20 11/19/20 11/19/20 05:00 History ml blood sugar diagnostic #30 each 03/30/20 11/19/20 Unknown Rx blood-glucose meter #1 each 03/30/20 11/19/20 Unknown Rx rosuvastatin 40 mg tablet See Rx Instructions .ROUTE 07/29/20 11/19/20 Unknown Rx .COMPLEX #14 each pen needle, diabetic 29 gauge x #100 each 08/22/20 11/19/20 Unknown Rx 1/2 tramadol 50 mg tablet 50 mg PO QID PRN 30 Days #90 tab 09/04/20 11/19/20 11/18/20 Rx tamsulosin 0.4 mg capsule 0.8 mg PO DAILY #60 cap 09/17/20 11/19/20 11/19/20 05:00 Rx albuterol sulfate 90 mcg/actuation 2 puff INHALATION Q6H PRN #18 gm 10/15/20 11/19/20 Unknown Rx aerosol inhaler apixaban 5 mg tablet 5 mg PO BID #120 tab 10/22/20 11/19/20 11/19/20 Rx ONLY TAKES 5MG DAILY cholecalciferol (vitamin D3) 1,250 mcg PO Q7D 11/19/20 11/19/20 Unknown History fluticasone propion-salmeterol 1 ea INHALATION BID 11/19/20 11/19/20 11/18/20 History [Advair Diskus] furosemide 40 mg PO TID@,,11/19/20 11/19/20 11/19/20 05:00 History gabapentin 600 mg PO TID@,,11/19/20 11/19/20 11/19/20 05:00 History glipizide 10 mg PO DAILY@11/19/20 11/19/20 11/19/20 05:00 History insulin glargine [Lantus Solostar 40 unit SUBCUT DAILY@11/19/20 11/19/20 11/18/20 History U-100 Insulin] lisinopril 40 mg PO DAILY@11/19/20 11/19/20 11/18/20 History metformin 1,000 mg PO BID@,11/19/20 11/19/20 11/19/20 05:00 History metolazone 2.5 mg PO DAILY@11/19/20 11/19/20 11/19/20 05:00 History potassium chloride 20 meq PO DAILY@11/19/20 11/19/20 11/19/20 History Allergies Allergy/AdvReac Type Severity Reaction Status Date / Time No Known Allergies Allergy Verified 11/19/20 12:56 Current Medications Current Medications Generic Name Dose Route Start Last Admin Trade Name Freq PRN Reason Stop Dose Admin Albuterol Sulfate 2 puff 11/19/20 17:43 12/23/20 07:32 Albuterol 8 Gm Mdi INHALATION 2 puff Q6H PRN Administration shortness of breath or wheezing Apixaban 5 mg 11/19/20 18:00 11/20/20 08:25 Apixaban 5 Mg Tablet PO 5 mg BID KOSTA Administration Atorvastatin Calcium 80 mg 11/20/20 09:00 11/21/20 08:46 Atorvastatin 40 Mg Tablet PO 80 mg DAILY KOSTA Administration Gabapentin 600 mg 11/20/20 05:00 11/21/20 12:46 Gabapentin 300 Mg Capsule PO 600 mg TID@, KOSTA Administration Insulin Aspart 0 unit 11/19/20 18:00 11/21/20 12:47 Insulin Aspart 100 Unit/1 Ml SUBCUT 8 unit WM&BEDTIME KOSTA Administration Protocol Fluticasone/Salmeterol 1 puff 11/19/20 18:00 11/21/20 07:32 Fluticasone-Salmeterol 250-50 Diskus INHALATION 1 puff BID KOSTA Administration Tamsulosin HCl 0.8 mg 11/20/20 09:00 11/21/20 08:45 Tamsulosin 0.4 Mg Capsule PO 0.8 mg DAILY KOSTA Administration PFSH Acute PFSH: Medical History (Updated 11/21/20 @ 20:47 by Norma Jenkins MD) Anemia Anticoagulation adequate with anticoagulant therapy Eliquis ASHD (arteriosclerotic heart disease) Atrial fibrillation BPH (benign prostatic hyperplasia) CAD (coronary artery disease) Carotid stenosis CHF (congestive heart failure) COPD (chronic obstructive pulmonary disease) Diabetes mellitus History of CVA (cerebrovascular accident) Hypertension Neuropathy Obesity Pacemaker PAF (paroxysmal atrial fibrillation) Vitamin B deficiency Vitamin D deficiency Surgical History (Updated 11/21/20 @ 20:26 by Norma Jenkins MD) History of left-sided carotid endarterectomy S/P CABG x 4 Family History Denies family history of Anesthesia complication Bleeding disorder Social History Smoking and tobacco status: former smoker Quit status (tobacco): has quit using tobacco Former quit date comment: smoked 20 yrs Second hand smoke exposure: No Alcohol intake: never Lives independently: Yes Household members: significant other and children Housing: House Marital status: Life Partner Current occupational status: disabled Current occupational exposures/hazards: No History of recent travel: No Current gender identity: Male Vitals/I&O/Wt Last Vital Signs Temp 97.9 F 11/21/20 15:32 Pulse 63 11/21/20 15:32 Resp 18 11/21/20 15:32 BP 80/46 11/21/20 15:32 Pulse Ox 95 11/21/20 15:32 11/21/20 11/21/20 11/21/20 06:59 14:59 22:59 Intake Total 720 / 720 Output Total 100 / 550 200 / 200 Balance -100 / 1874.167 520 / 520 Weight last 48 hrs Weight 259 lb 6 oz Weight 259 lb 12.8 oz Physical Exam Const: COMMON NORMALS: no acute distress, patient oriented x3, alert and well nourished GENERAL APPEARANCE: cooperative, comfortable, well kempt and well developed NUTRITIONAL APPEARANCE: obese ORIENTATION/CONSCIOUSNESS: Yes oriented to person, Yes oriented to place and Yes oriented to time HENMT: COMMON NORMALS: normocephalic, atraumatic, hearing grossly normal bilaterally, external ears normal and Normal external nose present HEAD & SCALP: normocephalic and atraumatic FACE & SINUS: face symmetric NOSE: Normal external nose present EXTERNAL EAR: Yes external ears normal MOUTH: Normal oral and palatal mucosa present Eye: COMMON NORMALS: Equal, round and reactive pupils present, EOMs intact bilaterally and conjunctivae normal ALIGNMENT: Yes alignment normal CONJUNCTIVA: Yes conjunctivae normal SCLERA: sclerae normal PUPIL: Yes Equal, round and reactive pupils present Neck/C-Spine: COMMON NORMALS: no lymphadenopathy, supple, no JVD and Thyroid normal; negative for No carotid bruits GENERAL: Yes trachea midline THYROID: Thyroid normal Chest: COMMONS NORMALS: normal inspection of the chest CHEST: Yes Symmetrical chest wall rise and No tenderness Resp: COMMON NORMALS: normal respiratory effort, No use of accessory muscles and clear to auscultation bilaterally EFFORT & INSPECTION: Yes able to speak in complete sentences and No tachypneic AUSCULTATION: clear to auscultation bilaterally, no crackles, no rales, no rhonchi and no wheezes Cardio: COMMON NORMALS: no JVD, S1 normal heart sound present, S2 normal heart sound present and Peripheral pulses 2+ throughout; negative for No gallops present (Cardio) JUGULAR VENOUS DISTENTION: no JVD PALPATION: normal PMI, no heave, no palpable S3, no palpable S4 and no thrill RHYTHM: abnormal rhythm irregularly irregular HEART SOUNDS: S1 normal heart sound present, S2 normal heart sound present, no gallops and no murmurs BRUITS: no carotid bruits PERIPHERAL PULSES: Peripheral pulses 2+ throughout GI: COMMON NORMALS: Normal to inspection, nondistended, normoactive bowel sounds present, Soft to palpation and non-tender PALPATION: Yes Soft to palpation PERCUSSION: tympanic to percussion RECTAL EXAM: Yes deferred Neuro: COMMON NORMALS: patient oriented x3, no focal motor deficits and gait normal SENSORIUM/ORIENTATION: Yes alert, Yes oriented to person, Yes oriented to place and Yes oriented to time CRANIAL NERVES: Yes CN normal except as noted Psych: COMMON NORMALS: Normal thought process present APPEARANCE: Yes well kempt MOOD & AFFECT: Yes euthymic mood THOUGHT PROCESS: Normal thought process present THOUGHT CONTENT: Yes Normal thought content present ATTENTION/CONCENTRATION: Yes attention grossly intact MEMORY/COGNITION: Yes memory grossly intact INSIGHT: Good insight present (Psych) JUDGEMENT: Good judgement present (Psych) Skin: COMMON NORMALS: no rashes or lesions noted GENERAL SKIN EXAM: no rashes or lesions noted Urinary Catheter Management^: Friedman: Cath Placed During This Visit: yes Reason for Continuing Indwelling Catheter: Acute Urinary Retention or Obstruction Urinary Catheter Date of Insertion: 11/19/20 Urinary Catheter Time of Insertion: 13:27 Data Labs: Other Labs: Lipid panel in July with total cholesterol 117, triglycerides 67, calculated LDL 59 and HDL of 45. TSH at 1. Normal liver panel. UA with 3+ blood negative leukocyte esterase negative nitrites and trace bacteria. Micro: Micro: Microbiology 11/21/20 16:07 Blood Culture - Pr eliminary Blood [facility] 11/21/20 16:01 Blood Culture - Pr eliminary Blood [facility] 11/19/20 12:50 Urine Culture - Fi nal Urine,Clean Catch Imaging^: CT Abd/Pel: Radiologist's impression: IMPRESSION: 1. Mild bilateral perinephric stranding. No renal obstruction identified. Perinephric stranding may be chronic or related to acute polynephritis. 2. Atherosclerosis aorta. 3. Cardiomegaly. 4. Normal appendix with no GI tract obstruction. Other Data: Attestation for Other Data: I personally reviewed and interpreted the following: Other data: #Transthoracic echo 20 November 2020 CONCLUSIONS Possibly normal LV size ejection fraction of around 60%. Thickened aortic and mitral valves. The right atrium and the right ventricle appears to be mildly dilated No pericardial effusion Technically very difficult study because of the poor ultrasonic window # carotid duplex 15 November 2020 CONCLUSIONS Moderate to heavy heterogeneous plaques at the right bifurcation and the internal carotid arterywith velocity elevation consistent with 50-79% stenosis. Minimal plaques of the left bifurcation and internal carotid artery Elevated velocity in the external carotid artery on the right side, suggestive of hemodynamically significant stenosis. #Venous duplex 21 November 2020 No DVT bilateral lower extremity. Limited evaluation of great saphenous vein. #Lexiscan myocardial perfusion imaging 13 November 2016 CONCLUSION: 1. Large area of old myocardial infarction versus scarring was noted in the basal to distal anterior and basal to distal inferior wall as above. Left ventricular cavity is moderately dilated. There is septal and inferior wall hypokinesis. No ischemia noted on this study. 2. Electrocardiogram portion of the stress test will be documented separately. #Coronary angiogram 20 May 2010 OVERALL ASSESSMENT: 1. Severe three vessel coronary artery disease. 2. Patent vein grafts to the diagonal branch of the LAD, obtuse marginal branch and posterior descending branch of the right coronary artery. 3. Patent MANCILLA to the LAD. 4. Mild LV dysfunction. No valvular disease was noted. #EKG showed atrial fibrillation with V paced rhythm and frequent PVCs. Repeat EKG with A. fib with PVCs demand ventricular pacing. Right bundle branch block. Atrial fibrillation with slow ventricular response and PVC/aberrantly conducted beat with right bundle branch block. A&P Assessment and plan (1) CHF (congestive heart failure): -Possibly a mix of CHF and RV dysfunction. TDS images with poor windows, Possibly mildly decreased to low normal LV function with mild to moderate decrease in RV function. -Repeat echo with contrast. However LV wall does not appear thick enough and EKG with normal voltage. These are not falling in category of amyloidosis. -continue to hold diuretics today. +1.6 L since admission and +4 lbs. -f/u BMP Status: Acute Qualifiers: Heart failure type: diastolic Heart failure chronicity: chronic Qualified Code(s): I50.32 - Chronic diastolic (congestive) heart failure (2) Atrial fibrillation: Status: Acute Qualifiers: Atrial fibrillation type: longstanding persistent Qualified Code(s): I48.11 - Longstanding persistent atrial fibrillation (3) Acute renal failure: Renal on board Status: Acute Qualifiers: Acute renal failure type: unspecified Qualified Code(s): N17.9 - Acute kidney failure, unspecified (4) Carotid stenosis: Status: Acute Qualifiers: Laterality: unspecified laterality Qualified Code(s): I65.29 - Occlusion and stenosis of unspecified carotid artery (5) CAD (coronary artery disease): Status: Acute Qualifiers: Coronary Disease-Associated Artery/Lesion type: bypass graft [place] vs. transplanted heart: [place] heart Associated angina: without angina Qualified Code(s): I25.810 - Atherosclerosis of coronary artery bypass graft(s) without angina pectoris (6) Obesity: Status: Acute Qualifiers: Obesity type: unspecified obesity type Obesity classification: adult class 2 (BMI 35 - 39.9) Additional A&P Information Hypotension DM-2 Dyslipidemia s/p dual chamber PPM : Device interrogation with [employer] device VVIR 50/130, persistent chronic atrial fibrillation. 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 Normal functioning device. No need for Atropine. Telemetry wrongly stating HR in 40's at time. HR seems to be mid 50's or PVC's noted. Anemia Osteoarthritis Chronic pain syndrome COPD Vitamin D deficiency Neuropathy Thank you for allowing me to participate in patient's care. Please feel free to call with questions and concerns. Consult Attestations Medical Necessity Statement: Hospital stay for JOSE and CHF Time Spent in Patient Care: Greater than 35 minutes (>than 50% of time spent in counselling and/or direct pt care on unit). 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 transplanted heart: [place] heart Associated angina: without angina Obesity E66.9 Obesity type: unspecified obesity type Obesity classification: adult class 2 (BMI 35 - 39.9) Time Spent (min) 45
[2020-11-21 20:16] LABS: Cortisol Random 11.34 ug/mL (2.47-19.5)
[2020-11-21 21:07] LABS: Glucose Point of Care 242 mg/dL (70-110)
[2020-11-22] VITALS (8 sets, daily range): BP systolic 84–104; BP diastolic 50–64; PULSE 56–98; RESP 17–20; TEMP 36.3–36.9; O2SAT 94–96; BMI 36.4
[2020-11-22 04:10] LABS: Basophils % 0.4 %; Eosinophils # 0.1 10^3/uL (0.0-0.8); Eosinophils % 1.1 %; Hematocrit 28.1 % (42.0-52.0); Hemoglobin 9.1 g/dL (11.7-16.6); Lymphocytes % 14.4 %; Mean Corpuscular HGB Conc 32.4 g/dL (30.0-36.0); Mean Corpuscular Hemoglobin 29.3 pg (28.0-34.0); Mean Corpuscular Volume 90.4 fL (80-94); Mean Platelet Volume 11.3 fL (7.4-10.4); Monocytes # 0.9 10^3/uL (0.2-0.9); Monocytes % 12.6 %; Neutrophils # 5.09 10^3/uL (1.8-7.7); Neutrophils % 71.2 %; Nucleated Red Blood Cells % 0 %; Platelet Count 114 10^3/cmm (130-400); Red Blood Count 3.11 10^6/uL (4.1-5.3); Red Cell Distribution Width 17.4 % (12.1-15.1); White Blood Count 7.2 10^3/uL (4.0-10.0)
[2020-11-22] MEDS: gabapentin 300 mg Capsule 600 MG PO (04:17)
[2020-11-22 04:34] LABS: Alanine Aminotransferase 10 U/L (0-41); Albumin Level 3.7 g/dL (3.5-5.2); Alkaline Phosphatase 73 IU/L (40-130); Anion Gap 18.1 (5-19); Aspartate Amino Transferase 12 U/L (0-40); Calcium 9.2 mg/dL (8.5-10.5); Carbon Dioxide 17 mmol/L (22-29); Chloride 100 mmol/L (98-107); Globulin 3.2 g/dL (1.3-4.6); Glomerular Filtration Rate 24.3 mL/min (90-130); Glucose 115 mg/dL (65-115); Magnesium 2.5 mg/dL (1.7-2.3); Osmolality Calculated 298 mOsm/kg (285-295); Phosphorus 5.4 mg/dL (2.5-4.5); Potassium 5.1 mmol/L (3.5-5.1); Sodium 130 mmol/L (136-145); Total Bilirubin 0.3 mg/dL (0.15-1.2); Total Protein 6.9 g/dL (6.6-8.7)
[2020-11-22 04:42] LABS: Calcium 9.1 mg/dL (8.5-10.5); Parathyroid Hormone 72.4 pg/mL (15-65)
[2020-11-22 04:49] LABS: Blood Urea Nitrogen 89 mg/dL (6-20)
--- NOTE | 2020-11-22 05:00 | USCV_ITS ---
Jorge Lancaster Age: 60 Gender: M : 1960 Exam Date: 11/22/2020 08:58 Ordering Phys: Norma Jenkins MD ([email or web address]) Technologist: Exam Location: [facility] [place] Indication: assess BP: 88 / 50 HR: 56 Rhythm: Sinus Technical Quality: Adequate MEASUREMENTS (Male / Female) Normal Values 2D ECHO LVOT Diameter 2.1 cm LV Ejection Fraction MOD 2C 52.8 % LV Ejection Fraction 2C AL 49.2 % LA Diameter 4.3 cm Aorta at Sinotubular Diameter 3.6 cm DOPPLER TR Peak Velocity 308.5 cm/s TR Peak Gradient 38.1 mmHg TR Mean Velocity 212.5 cm/s TR Mean Gradient 20.6 mmHg TR Velocity Time Integral 96.4 cm Right Atrial Pressure 3.0 mmHg Pulmonary Artery Systolic Pressu 41.1 mmHg FINDINGS Left Ventricle Normal left ventricular cavity size. Normal left ventricular systolic function. Low normal left ventricular ejection fraction is estimated at 50-55 %. No regional wall motion abnormalities. Abnormal (paradoxical) septal motion consistent with postoperative status. Flattened septum in systole consistent with right ventricle pressure overload. Right Ventricle Mildly dilated right ventricle with mildly decreased left ventricular systolic function. Right ventricular systolic pressure 53 mmHg. Pacemaker wire visualized in the right ventricle. Right Atrium Right atrium not well visualized. Right atrial pressure assumed at 8 mm Hg. Left Atrium Mildly increased left atrial size. Mitral Valve Structurally normal mitral valve. Aortic Valve Aortic valve not well visualized. Tricuspid Valve Tricuspid valve not well visualized. Mild to moderate tricuspid valve regurgitation. Pulmonic Valve Pulmonic valve not well visualized. Pericardium No pericardial effusion. Aorta Normal size aortic root and proximal ascending aorta. Normal sized inferior vena cava. CONCLUSIONS 1. This is a technically difficult study. Ultrasound enhancing agent (Optison) was used. 2. Normal left ventricular cavity size and systolic function. Low normal left ventricular ejection fraction is estimated at 50-55 %. No regional wall motion abnormalities. Flattened septum in systole consistent with right ventricle pressure overload. 3. Mildly dilated right ventricle with mildly decreased left ventricular systolic function. 4. Moderate pulmonary hypertension with pulmonary artery pressure estimated at 53 mm Hg. 5. Mild to moderate tricuspid valve regurgitation. Norma Jenkins MD (Electronically Signed) Final Date: 22 November 2020 12:24 S
[2020-11-22 06:40] LABS: Glucose Point of Care 143 mg/dL (70-110)
[2020-11-22] MEDS: albuterol 8 gm MDI 2 PUFF INHALATION ×2 (07:47→20:12)
--- NOTE | 2020-11-22 07:49 | P.PN_ITS ---
Subjective Subjective: Interval history: states he feels well and wants to go home for anthony. no other complaints. Medications: Reviewed: Yes Medication Review Details: Current Medications Albuterol Sulfate (Albuterol 8 Gm Mdi) 2 puff INHALATION Q6H PRN PRN Reason: shortness of breath or wheezing Last Admin: 11/22/20 07:47 Dose: 2 puff Documented by: Albuterol/Ipratropium (Ipratropium-Albuterol 3 Ml Neb) 3 ml INHALATION Q6H PRN PRN Reason: SHORTNESS OF BREATH Apixaban (Apixaban 5 Mg Tablet) 5 mg PO BID [facility] Last Admin: 11/20/20 08:25 Dose: 5 mg Documented by: Atorvastatin Calcium (Atorvastatin 40 Mg Tablet) 80 mg PO DAILY [facility] Last Admin: 11/21/20 08:46 Dose: 80 mg Documented by: Atropine Sulfate (Atropine 0.4 Mg/Ml Sdv 1ml) 0.4 mg IVP ONCE PRN PRN Reason: hr<60;sbp<90 and symptomatic Dextrose (Dextrose 50% Syringe 50 Ml) 25 ml IVP ONCE PRN; Protocol PRN Reason: hypoglycemia protocol Dextrose (Dextrose 50% Syringe 50 Ml) 50 ml IVP PRN PRN; Protocol PRN Reason: hypoglycemia protocol Gabapentin (Gabapentin 300 Mg Capsule) 600 mg PO TID@05,12,17 [facility] Last Admin: 11/22/20 04:17 Dose: 600 mg Documented by: Glucagon (Glucagon 1 Mg/Ml Inj 1 Ml) 1 mg IM ONCE PRN; Protocol PRN Reason: Adult Acute Hypoglycemia Prot. Dextrose (D5w) 500 mls @ 100 mls/hr IV ONCE PRN; Protocol PRN Reason: Adult Acute Hypoglycemia Prot Insulin Aspart (Insulin Aspart 100 Unit/1 Ml) 0 unit SUBCUT WM&BEDTIME [facility]; Protocol Last Admin: 11/21/20 22:24 Dose: 8 unit Documented by: Ondansetron HCl (Ondansetron 2 Mg/Ml Sdv 2 Ml) 4 mg IVP Q6H PRN PRN Reason: NAUSEA AND VOMITING Fluticasone/Salmeterol (Fluticasone-Salmeterol 250-50 Diskus) 1 puff INHALATION BID [facility] Last Admin: 11/21/20 22:50 Dose: 1 puff Documented by: Tamsulosin HCl (Tamsulosin 0.4 Mg Capsule) 0.8 mg PO DAILY [facility] Last Admin: 11/21/20 08:45 Dose: 0.8 mg Documented by: Tramadol HCl (Tramadol 50 Mg Tablet) 50 mg PO BID PRN PRN Reason: pain Vitals/I&O/Wt Last Vital Signs Temp 98.0 F 11/22/20 07:07 Pulse 92 11/22/20 07:47 Resp 18 11/22/20 07:47 BP 97/62 11/22/20 07:07 Pulse Ox 96 11/22/20 07:47 11/21/20 11/22/20 11/22/20 22:59 06:59 14:59 Intake Total 480 / 1200 60 / 1260 Output Total 400 / 600 200 / 800 Balance 80 / 600 -140 / 460 Weight last 48 hrs Weight 117.651 kg Weight 117.843 kg Physical Exam Narrative: EXAM NARRATIVE: obese man, comfortable sitting in bed, NARD vs noted- BP 97/62- HR high side of normal now, had bradycardia yesterday heent- nc/at neck supple lung dull bases, wheezing on left heart irreg, +SRIKANTH, s1, s2 abd soft nt, nd, +BS ext b/l no significant edema neuro- a,a, o x 3 Urinary Catheter Management^: Friedman: Cath Placed During This Visit: yes Reason for Continuing Indwelling Catheter: Acute Urinary Retention or Obstruction Urinary Catheter Date of Insertion: 11/19/20 Urinary Catheter Time of Insertion: 13:27 Data : 11/22/20 03:00 11/22/20 03:00 Micro: Microbiology 11/21/20 20:10 Occult Blood (FIT) - Final Stool Routine Collection 11/21/20 16:07 Blood Culture - Preliminary Blood SPECIMEN COLLECTED 11/21/20 16:01 Blood Culture - Preliminary Blood SPECIMEN COLLECTED 11/19/20 12:50 Urine Culture - Final Urine,Clean Catch US Vascular: My impression: A&P Additional A&P Information 60 yr old man dm, CHF , COPD, a fib, PPM, obesity, COPD 1. inc leg edema- u/a reviewed has hematuria- no significant proteinuria- does not have nephrotic syndrome- normal albumin -LDL 113 chol 171, hdl 45- high cholesterol- but not suggestive of nephrotic syndrome - echo reviewed- no pericardial effusion -nl LVEF thickened aortic and mitral valves 2. appreciate cardiology consult- pt was recently diuresed 33 lbs- likely contributed to JOSE. -i am concerned he will need to restart diuretics 3. Baseline cr 1.1- normal for his size 4. JOSE- likely CRS vs ATN from lasix, aileen-i, and Q of NSAID -agree w/ stopping all of above -s/p ivf -no hydronephrosis on ct scan -does have whit-nephric stranding on ct scan- Q from stones. Q from infection vs edema -as has hematuria- will check serologies to eval for a vasculitis/ GN 5. hyponatremia- from diuretics in setting of CHF -fluid restrict - if needs diuretics per Cardiology- then can add tolvaptan and monitor na and LFTS -monitor uop and chemistries 6. inc AGMA- likely from JOSE- start sodium bicarb 7. hgb 9.1- please get more heme hx. as chart has h/o p. vera and MARCIAL- on a/c for a fib -plts also dropping -w/u per medicine ferritin 203, iron sat 14%- give iv iron- ensure that he had colonoscopy- consider EGD 8. hypotension can be from overmedication, neuropathy, or amyloid- echo poor windows- await free light chains 9. h/o afib and PPM- bradycardia improving 10 . DM control Pt states he is leaving today for holiday- repeat chem 7. ensure outpt renal f/u Attestations Medical Necessity Statement*: jose, chf, anemia Time Spent in Patient Care: 16 - 35 minutes Coding Level of Care Code Acute Double Cutter for Chg Bi
[2020-11-22] MEDS: tamsulosin 0.4 mg Capsule 0.8 MG PO (08:51)
[2020-11-22] MEDS: sodium bicarbonate 650 mg Tablet PO ×2 (08:51→18:10)
[2020-11-22] MEDS: atorvastatin 40 mg Tablet 80 MG PO (08:51)
[2020-11-22] MEDS: perflutren protein-a microsphr 0.22 mg/mL SDV 3 mL IV (09:10)
[2020-11-22 10:29] LABS: Lactate (Lactic Acid level) 1.2 mmol/L (0.5-2.2)
--- NOTE | 2020-11-22 10:44 | PC.CHAP ---
Pastoral Care Encounter/Spiritual Assessment Type of Contact [] Declined muff winder visit [] Patient/Family/Request visit [] Outpatient visit [] Follow-up visit [] Physician referral [] Code/Alert [x] Routine visit [] Staff referral [] Actively dying [] Patient sleeping [] Family support [] [] Out of room [] Palliative care [] [x] Receiving care in room [] Pre-surgical visit [] Trauma [] Long length of stay [] ICU visit [] Other: Relational/Emotional Strength [] Patient feels connected with others/family/visitors/staff [x] Distress [] Loneliness/isolation [] Abandonment Spirituality of Patient [] Person of Lacy [] Attends Protestant of their Lacy [] Believes in Prayer [] Reads Bible or Mandaen materials [] There are Spiritual issues to be addressed Visual Coordinator Interventions [] Prayer [] Active listening [] Non-anxious presence [] Spiritual/emotional support [] Crisis/trauma care [] Spiritual counseling [] Bereavement support [] Provided bereavement packet [] Provided Bible/devotional materials [] Provided toy/stuffed animal, coloring book to patient or family member [] Provided Communion [] Anointing/[place] [] Salvation [] Completed spiritual assessment [] Other: Impact on Illness or Injury [] Angry [] Fearful [x] Anxious [] Often cries [] Exhaustion [] Unable to work [] Unable to attend adventism [] Unable to walk/stand [] Unable to read [] Unable to drive [] Unable to eat/drink [] Unable to sleep [] Unable to be with family [] Patient intubated [] Other: Summary I pain, checked her heart, feeling better, wants to go home, has a good attitude Time spent with patient 10 mins
--- NOTE | 2020-11-22 11:08 | P.PN_ITS ---
Subjective Subjective: Interval history: Patient says he is feeling well. He denies chest pain, shortness of breath or palpitations. Creatinine has started to imrove today. He has 1+edema. Vitals/I&O/Wt Last Vital Signs Temp 98.0 F 11/22/20 07:07 Pulse 92 11/22/20 07:47 Resp 18 11/22/20 07:47 BP 97/62 11/22/20 07:07 Pulse Ox 96 11/22/20 07:47 11/21/20 11/22/20 11/22/20 22:59 06:59 14:59 Intake Total 480 / 1200 60 / 1260 360 / 360 Output Total 400 / 600 200 / 800 Balance 80 / 600 -140 / 460 360 / 360 Weight last 48 hrs Weight 261 lb 3 oz Weight 259 lb 6 oz Physical Exam Narrative: EXAM NARRATIVE: Const COMMON NORMALS: no acute distress, patient oriented x3, alert and well nourished GENERAL APPEARANCE: cooperative, comfortable, well kempt and well developed NUTRITIONAL APPEARANCE: obese ORIENTATION/CONSCIOUSNESS: Yes oriented to person, Yes oriented to place and Yes oriented to time HENMT COMMON NORMALS: normocephalic, atraumatic, hearing grossly normal bilaterally, external ears normal and Normal external nose present HEAD & SCALP: normocephalic and atraumatic FACE & SINUS: face symmetric NOSE: Normal external nose present EXTERNAL EAR: Yes external ears normal MOUTH: Normal oral and palatal mucosa present Eye COMMON NORMALS: Equal, round and reactive pupils present, EOMs intact bilaterally and conjunctivae normal ALIGNMENT: Yes alignment normal CONJUNCTIVA: Yes conjunctivae normal SCLERA: sclerae normal PUPIL: Yes Equal, round and reactive pupils present Neck/C-Spine COMMON NORMALS: no lymphadenopathy, supple, no JVD and Thyroid normal; negative for No carotid bruits GENERAL: Yes trachea midline THYROID: Thyroid normal Chest COMMONS NORMALS: normal inspection of the chest CHEST: Yes Symmetrical chest wall rise and No tenderness Resp COMMON NORMALS: normal respiratory effort, No use of accessory muscles and clear to auscultation bilaterally EFFORT & INSPECTION: Yes able to speak in complete sentences and No tachypneic AUSCULTATION: has mild crackles Cardio COMMON NORMALS: no JVD, S1 normal heart sound present, S2 normal heart sound present and Peripheral pulses 2+ throughout; negative for No gallops present (Cardio) JUGULAR VENOUS DISTENTION: no JVD PALPATION: normal PMI, no heave, no palpable S3, no palpable S4 and no thrill RHYTHM: abnormal rhythm irregularly irregular HEART SOUNDS: S1 normal heart sound present, S2 normal heart sound present, no gallops and no murmurs BRUITS: no carotid bruits PERIPHERAL PULSES: Peripheral pulses 2+ throughout GI COMMON NORMALS: Normal to inspection, nondistended, normoactive bowel sounds present, Soft to palpation and non-tender PALPATION: Yes Soft to palpation PERCUSSION: tympanic to percussion RECTAL EXAM: Yes deferred Neuro COMMON NORMALS: patient oriented x3, no focal motor deficits and gait normal SENSORIUM/ORIENTATION: Yes alert, Yes oriented to person, Yes oriented to place and Yes oriented to time CRANIAL NERVES: Yes CN normal except as noted Psych COMMON NORMALS: Normal thought process present APPEARANCE: Yes well kempt Urinary Catheter Management^: Friedman: Cath Placed During This Visit: yes Reason for Continuing Indwelling Catheter: Acute Urinary Retention or Obstruction Urinary Catheter Date of Insertion: 11/19/20 Urinary Catheter Time of Insertion: 13:27 Data : 11/23/20 05:00 11/23/20 05:00 Micro: Microbiology 11/21/20 20:10 Occult Blood (FIT) - Final Stool Routine Collection 11/21/20 16:07 Blood Culture - Preliminary Blood SPECIMEN COLLECTED 11/21/20 16:01 Blood Culture - Preliminary Blood SPECIMEN COLLECTED 11/19/20 12:50 Urine Culture - Final Urine,Clean Catch A&P Assessment and plan (1) CHF (congestive heart failure): -Possibly a mix of CHF and RV dysfunction. TDS images with poor windows, Possibly mildly decreased to low normal LV function with mild to moderate decrease in RV function. -Repeat echo with contrast. However LV wall does not appear thick enough and EKG with normal voltage. These are not falling in category of amyloidosis. -continue to hold diuretics today. -f/u BMP, creatinine is improving however BUN continues to rise.Nephrology is on board. Status: Acute Qualifiers: Heart failure type: diastolic Heart failure chronicity: chronic Qualified Code(s): I50.32 - Chronic diastolic (congestive) heart failure (2) Atrial fibrillation: Status: Acute Qualifiers: Atrial fibrillation type: longstanding persistent Qualified Code(s): I48.11 - Longstanding persistent atrial fibrillation (3) Acute renal failure: Renal on board Status: Acute Qualifiers: Acute renal failure type: unspecified Qualified Code(s): N17.9 - Acute kidney failure, unspecified (4) Carotid stenosis: Status: Acute Qualifiers: Laterality: unspecified laterality Qualified Code(s): I65.29 - Occlusion and stenosis of unspecified carotid artery (5) CAD (coronary artery disease): Status: Acute Qualifiers: Coronary Disease-Associated Artery/Lesion type: bypass graft [place] vs. transplanted heart: [place] heart Associated angina: without angina Qualified Code(s): I25.810 - Atherosclerosis of coronary artery bypass graft(s) without angina pectoris (6) Obesity: Status: Acute Qualifiers: Obesity type: unspecified obesity type Obesity classification: adult class 2 (BMI 35 - 39.9) Additional A&P Information Hypotension DM-2 Dyslipidemia s/p dual chamber PPM : Device interrogation with [employer] device VVIR 50/130, persistent chronic atrial fibrillation. MARITIME PILOT 67%. Normal functioning device. No need for Atropine. Telemetry wrongly stating HR in 40's at time. HR seems to be mid 50's or PVC's noted. Anemia Osteoarthritis Chronic pain syndrome COPD Vitamin D deficiency Neuropathy Thank you for allowing me to participate in patient's care. Please feel free to call with questions and concerns. 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 transplanted heart: [place] heart Associated angina: without angina Obesity E66.9 Obesity type: unspecified obesity type Obesity classification: adult class 2 (BMI 35 - 39.9)
[2020-11-22 11:10] LABS: Glucose Point of Care 197 mg/dL (70-110)
[2020-11-22 11:34] LABS: Anti-streptolysin O 51 IU/mL (<200)
[2020-11-22] MEDS: pantoprazole DR 40 mg Tablet PO (12:33)
[2020-11-22] MEDS: gabapentin 300 mg Capsule PO ×2 (12:33→18:09)
[2020-11-22] MEDS: sucralfate 1 gm Tablet PO ×2 (12:34→18:10)
[2020-11-22 12:53] LABS: KAPPA LIGHT CHAIN, FREE, SERUM 90.6 mg/L (3.3-19.4); KAPPA/LAMBDA LIGHT CHAINS FREE 1.29 (0.26-1.65); LAMBDA LIGHT CHAIN, FREE, SERU 70.1 mg/L (5.7-26.3)
[2020-11-22 13:34] LABS: Anti-Nuclear Antibody Screen NEGATIVE (NEGATIVE)
--- NOTE | 2020-11-22 15:14 | PM.CONSULT ---
Providers/Reason For Consult Consulting Physican/Specialty*: Urology/Grace Reason for Consult*: Painful Friedman catheter with hematuria Attending Physician: Xiang Bautista MD Primary Care Provider: ASHLI Torre History of Present Illness History of Present Illness Jorge Lancaster is a 60 year old male who I evaluated for the first time today at the request of Dr. Heard. He was admitted on 11/19/2020 through the emergency department with complaints of 5 days of progressively difficult urination. Prior to the onset of that he was describing no difficulty voiding. Described his voiding is normal and is on chronic TAMSULOSIN 0.4 mg p.o. nightly. He thinks that the result of the tamsulosin has been durable since it was started several years ago. Work-up in the emergency department revealed a white blood cell count of 6.4, hemoglobin of 11.3 creatinine: 2.2 BUN of 64. Urinalysis 15-25 RBCs negative nitrites negative white blood cells. Friedman catheter was placed. It was described as being difficult and resulting in a lot of pain. He could not say that there was any increased pain during the balloon inflation but stated that it hurt about the same from initial placement into the meatus and into the bladder. The patient stated that the initial catheter was too big and they tried a smaller one which worked okay. Currently has a 16 [place] catheter and Only 350 cc were returned. No severe retention. Initial output was bloody. It has cleared since that time. Catheter has been functioning well both with irrigation and dependent drainage CT scan showed no evidence of hydronephrosis. Also demonstrated Friedman catheter in appropriate position. He is still having discomfort although not terribly severe from the catheter. There has been no significant bleeding around the catheter Physical findings reveal what appears to be normal position of the catheter, normal genitourinary exam, catheter flushes well with saline and with no leakage around the catheter with irrigation and no increased pain with flushing. I would leave the catheter in as long as necessary for volume management and medical purposes. Would initiate voiding trial when you feel comfortable with the catheter removal. If he fails voiding trial would replace catheter and I can manage it as an outpatient in my office. Most recent creatinine had increased to 2.7. Review of Systems Const: Reports: malaise; Denies: fever(s) or chills Eyes: Denies: change in vision Card: Denies: chest pain or palpitations Resp: Denies: dyspnea or productive cough GI: Denies: abdominal pain or vomiting : Reports: difficulty urinating and other (Urethral and bladder pain related to the catheter.); Denies: flank pain Musc: Reports: extremity swelling; Denies: joint redness or joint warmth Skin/Breast: Denies: changing lesions Neuro: Denies: headache(s), confusion or Slurred speech present Psych: Denies: anxiety or memory loss Endo: Denies: flushing [place]af/Lymph: Denies: easy bruising, easy bleeding or enlarged lymph nodes All/Imm: Denies: urticaria Meds/Allergies Home Medications and Allergies Home Medications Medication Instructions Recorded Confirmed Last Taken Type olopatadine 0.2 % eye drops 1 - 2 drop OPHTHALMIC (EYE) QAM PRN 01/10/20 11/19/20 Unknown History travoprost 0.004 % eye drops 1 drop OPHTHALMIC (EYE) DAILY@05 01/10/20 11/19/20 11/19/20 05:00 History ml blood sugar diagnostic #30 each 03/30/20 11/19/20 Unknown Rx blood-glucose meter #1 each 03/30/20 11/19/20 Unknown Rx rosuvastatin 40 mg tablet See Rx Instructions .ROUTE 07/29/20 11/19/20 Unknown Rx .COMPLEX #14 each pen needle, diabetic 29 gauge x #100 each 08/22/20 11/19/20 Unknown Rx 1/2 tramadol 50 mg tablet 50 mg PO QID PRN 30 Days #90 tab 09/04/20 11/19/20 11/18/20 Rx tamsulosin 0.4 mg capsule 0.8 mg PO DAILY #60 cap 09/17/20 11/19/20 11/19/20 05:00 Rx albuterol sulfate 90 mcg/actuation 2 puff INHALATION Q6H PRN #18 gm 10/15/20 11/19/20 Unknown Rx aerosol inhaler apixaban 5 mg tablet 5 mg PO BID #120 tab 10/22/20 11/19/20 11/19/20 Rx ONLY TAKES 5MG DAILY cholecalciferol (vitamin D3) 1,250 mcg PO Q7D 11/19/20 11/19/20 Unknown History fluticasone propion-salmeterol 1 ea INHALATION BID 11/19/20 11/19/20 11/18/20 History [Advair Diskus] furosemide 40 mg PO TID@,11/19/20 11/19/20 11/19/20 05:00 History gabapentin 600 mg PO TID@,,11/19/20 11/19/20 11/19/20 05:00 History glipizide 10 mg PO DAILY@11/19/20 11/19/20 11/19/20 05:00 History insulin glargine [Lantus Solostar 40 unit SUBCUT DAILY@11/19/20 11/19/20 11/18/20 History U-100 Insulin] lisinopril 40 mg PO DAILY@11/19/20 11/19/20 11/18/20 History metformin 1,000 mg PO BID@11/19/20 11/19/20 11/19/20 05:00 History metolazone 2.5 mg PO DAILY@11/19/20 11/19/20 11/19/20 05:00 History potassium chloride 20 meq PO DAILY@11/19/20 11/19/20 11/19/20 History Allergies Allergy/AdvReac Type Severity Reaction Status Date / Time No Known Allergies Allergy Verified 11/19/20 12:56 Current Medications Current Medications Generic Name Dose Route Start Last Admin Trade Name Freq PRN Reason Stop Dose Admin Albuterol Sulfate 2 puff 11/19/20 17:43 11/22/20 07:47 Albuterol 8 Gm Mdi INHALATION 2 puff Q6H PRN Administration shortness of breath or wheezing Apixaban 5 mg 11/19/20 18:00 11/20/20 08:25 Apixaban 5 Mg Tablet PO 5 mg BID [facility] Administration Atorvastatin Calcium 80 mg 11/20/20 09:00 11/22/20 08:51 Atorvastatin 40 Mg Tablet PO 80 mg DAILY [facility] Administration Gabapentin 300 mg 11/22/20 12:00 11/22/20 12:33 Gabapentin 300 Mg Capsule PO 300 mg TID@, [facility] Administration Insulin Aspart 0 unit 11/19/20 18:00 11/22/20 12:34 Insulin Aspart 100 Unit/1 Ml SUBCUT 6 unit WM&BEDTIME [facility] Administration Protocol Pantoprazole Sodium 40 mg 12/24/20 09:30 11/22/20 12:[address] 40 Mg Tablet PO 40 mg DAILY [facility] Administration Fluticasone/Salmeterol 1 puff 11/19/20 18:00 11/22/20 08:03 Fluticasone-Salmeterol 250-50 Diskus INHALATION 1 puff BID [facility] Administration Sodium Bicarbonate 650 mg 11/22/20 09:00 11/22/20 08:51 Sodium Bicarbonate 650 Mg Tablet PO 650 mg BID [facility] Administration Sucralfate 1 gm 11/22/20 09:15 11/22/20 12:34 Sucralfate 1 Gm Tablet PO 1 gm BIDAC [facility] Administration Tamsulosin HCl 0.8 mg 11/20/20 09:00 11/22/20 08:51 Tamsulosin 0.4 Mg Capsule PO 0.8 mg DAILY [facility] Administration PFSH Acute PFSH: Medical History (Updated 11/22/20 @ 15:28 by Alonzo Grace MD) Anemia Anticoagulation adequate with anticoagulant therapy Eliquis ASHD (arteriosclerotic heart disease) Atrial fibrillation BPH (benign prostatic hyperplasia) CAD (coronary artery disease) Carotid stenosis CHF (congestive heart failure) COPD (chronic obstructive pulmonary disease) Diabetes mellitus History of CVA (cerebrovascular accident) Hypertension Neuropathy Obesity Pacemaker PAF (paroxysmal atrial fibrillation) Vitamin B deficiency Vitamin D deficiency Surgical History (Updated 11/21/20 @ 20:26 by Norma Jenkins MD) History of left-sided carotid endarterectomy S/P CABG x 4 Family History Denies family history of Anesthesia complication Bleeding disorder Social History Smoking and tobacco status: former smoker Quit status (tobacco): has quit using tobacco Former quit date comment: smoked 20 yrs Second hand smoke exposure: No Alcohol intake: never Lives independently: Yes Household members: significant other and children Housing: House Marital status: Life Partner Current occupational status: disabled Current occupational exposures/hazards: No History of recent travel: No Current gender identity: Male Vitals/I&O/Wt Last Vital Signs Temp 97.5 F L 11/22/20 12:00 Pulse 65 11/22/20 12:00 Resp 18 12/24/20 12:00 BP 96/61 11/22/20 12:00 Pulse Ox 95 11/22/20 12:00 11/22/20 11/22/20 11/22/20 06:59 14:59 22:59 Intake Total 60 / 1260 660 / 660 Output Total 200 / 800 425 / 425 Balance -140 / 460 235 / 235 Weight last 48 hrs Weight 261 lb 3 oz Weight 259 lb 6 oz Physical Exam Const: COMMON NORMALS: no acute distress and alert : BLADDER/KIDNEY EXAM: Yes bladder normal to palpation PENIS: normal penis MEATUS: meatus normal SCROTUM: Yes testes descended bilaterally and No Scrotal tenderness present TESTES: No testicular mass Neuro: SENSORIUM/ORIENTATION: Yes alert Psych: COMMON NORMALS: mental status grossly normal, Normal thought process present and cooperative ATTITUDE: Yes calm and Yes engaged THOUGHT PROCESS: Normal thought process present Urinary Catheter Management^: Friedman: Cath Placed During This Visit: yes Reason for Continuing Indwelling Catheter: Acute Urinary Retention or Obstruction Urinary Catheter Date of Insertion: 11/19/20 Urinary Catheter Time of Insertion: 13:27 Data Micro: Micro: Microbiology 11/22/20 13:00 Occult Blood (FIT) - Final Stool Routine Col lection 11/21/20 20:10 Occult Blood (FIT) - Final Stool Routine Col lection 11/21/20 16:07 Blood Culture - Pr eliminary Blood SPECIMEN [facility] 11/21/20 16:01 Blood Culture - Pr eliminary Blood SPECIMEN [facility] A&P Assessment and plan (1) Urethral pain: Cannot see any clear evidence of malpositioning of the catheter with function or radiographic imaging. Would maintain the catheter as long as medically necessary than proceed with voiding trial. Continue TAMSULOSIN Status: Acute (2) Incomplete bladder emptying: Presented with elevated but not severely so PVR and rising creatinine Catheter placed with some pain. Secondary hematuria but that has resolved. Status: Acute (3) Gross hematuria: Associated with catheter placement. 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
[2020-11-22 15:32] LABS: Anti-Double Strand DNA AB <1 IU/mL
[2020-11-22 16:09] LABS: Alanine Aminotransferase 12 U/L (0-41); Albumin Level 3.9 g/dL (3.5-5.2); Alkaline Phosphatase 73 IU/L (40-130); Aspartate Amino Transferase 13 U/L (0-40); Calcium 9.7 mg/dL (8.5-10.5); Carbon Dioxide 18 mmol/L (22-29); Chloride 100 mmol/L (98-107); Globulin 3.5 g/dL (1.3-4.6); Glomerular Filtration Rate 27.8 mL/min (90-130); Glucose 188 mg/dL (65-115); Osmolality Calculated 305 mOsm/kg (285-295); Sodium 130 mmol/L (136-145); Total Bilirubin 0.3 mg/dL (0.15-1.2); Total Protein 7.4 g/dL (6.6-8.7)
[2020-11-22 16:13] LABS: Blood Urea Nitrogen 97 mg/dL (6-20)
--- NOTE | 2020-11-22 17:30 | PM.PN ---
Subjective Subjective: Interval history: This morning patient was examined, sitting in bed, on room air, his only complaints is that the Friedman catheter is really bothering him, has no other complaints, really anxious about going home Vitals/I&O/Wt Last Vital Signs Temp 97.3 F L 11/22/20 16:00 Pulse 60 11/22/20 16:00 Resp 18 11/22/20 16:00 BP 95/59 11/22/20 16:00 Pulse Ox 94 11/22/20 16:00 11/22/20 11/22/20 11/22/20 06:59 14:59 22:59 Intake Total 60 / 1260 660 / 660 Output Total 200 / 800 425 / 425 Balance -140 / 460 235 / 235 Weight last 48 hrs Weight 118.473 kg Weight 117.651 kg Physical Exam Const: COMMON NORMALS: no acute distress and patient oriented x3 HENMT: COMMON NORMALS: normocephalic HEAD & SCALP: normocephalic Neck/C-Spine: COMMON NORMALS: no JVD Resp: COMMON NORMALS: normal respiratory effort, No retractions, No use of accessory muscles and clear to auscultation bilaterally AUSCULTATION: clear to auscultation bilaterally Cardio: COMMON NORMALS: no JVD, regular rate, regular rhythm, S1 normal heart sound present and S2 normal heart sound present RATE: regular rate RHYTHM: regular rhythm HEART SOUNDS: S1 normal heart sound present and S2 normal heart sound present GI: COMMON NORMALS: Normal to inspection, nondistended, normoactive bowel sounds present, Soft to palpation, non-tender, No hepatosplenomegaly present, no masses and no bruits PALPATION: Yes Soft to palpation and Yes No hepatosplenomegaly present Extremity: COMMON NORMALS: capillary refill normal, no clubbing, cyanosis or edema, no calf tenderness and no pedal edema Neuro: COMMON NORMALS: patient oriented x3 Psych: COMMON NORMALS: mental status grossly normal Urinary Catheter Management^: Friedman: Cath Placed During This Visit: yes Reason for Continuing Indwelling Catheter: Acute Urinary Retention or Obstruction Urinary Catheter Date of Insertion: 11/19/20 Urinary Catheter Time of Insertion: 13:27 Data : 11/22/20 03:00 11/22/20 15:40 Micro: Microbiology 11/21/20 16:07 Blood Culture - Preliminary Blood NEGATIVE TO DATE 11/21/20 16:01 Blood Culture - Preliminary Blood NEGATIVE TO DATE 11/22/20 13:00 Occult Blood (FIT) - Final Stool Routine Collection 11/21/20 20:10 Occult Blood (FIT) - Final Stool Routine Collection A&P Assessment and plan (1) Acute renal failure: Status: Acute Qualifiers: Acute renal failure type: unspecified Qualified Code(s): N17.9 - Acute kidney failure, unspecified (2) PAF (paroxysmal atrial fibrillation): Status: Acute (3) Anticoagulation adequate with anticoagulant therapy: Status: Acute (4) COPD (chronic obstructive pulmonary disease): Status: Acute Qualifiers: COPD type: unspecified COPD Qualified Code(s): J44.9 - Chronic obstructive pulmonary disease, unspecified (5) Obesity: Status: Acute Qualifiers: Obesity type: unspecified obesity type Obesity classification: adult class 2 (BMI 35 - 39.9) (6) Hypertension: Status: Acute Qualifiers: Hypertension type: unspecified Qualified Code(s): I10 - Essential (primary) hypertension (7) Diabetes mellitus: Status: Acute Qualifiers: Diabetes mellitus type: type 2 Diabetes mellitus longterm insulin use: with longterm use Diabetes mellitus complication status: with hyperglycemia Qualified Code(s): E11.65 - Type 2 diabetes mellitus with hyperglycemia; Z79.4 - care home (current) use of insulin (8) CHF (congestive heart failure): Status: Acute Qualifiers: Heart failure type: diastolic Heart failure chronicity: chronic Qualified Code(s): I50.32 - Chronic diastolic (congestive) heart failure Additional A&P Information 60-year-old man with past medical history of obesity, diabetes, polycythemia, iron deficiency anemia, hypertension, COPD, carotid stenosis, history of stroke, dyslipidemia #Acute on chronic anemia -Patient has had a history of chronic anemia in the past, however hemoglobins have not this low, in fact he did see hematology oncology about the anemia, was placed on iron tablets, was supposed to have a colonoscopy, but patient refused -Denies ever having EGD or colonoscopy -Denies bloody or black stools -Hemoccults here have been unremarkable -Keeps uptrending to 97 even though the creatinine is decreasing, hemoglobin downtrending to 9.1, blood pressures are borderline low, which they are chronically, patient denies lightheadedness, no dizziness -Lactic acid within normal limits -Iron levels low -Likely a component of slow GI bleed, and acute kidney failure Plan: -PPI and Carafate -We will do hemolytic labs, peripheral smear -Repeat CBC at 5 PM -Currently I do not see an urgent need to consult general surgery for EGD and colonoscopy, and patient is quite hesitant about having these procedures done -Hold Eliquis -Monitor hemodynamics closely #Thrombocytopenia -Peripheral smear, hemolytic labs, hep C, HIV -CT of the belly shows normal liver size, no bile duct dilatation #Friedman catheter irritation, patient advises me that the Friedman catheter keeps bothering him, CT scan of the abdomen did not show enlarged prostate, possible urethral trauma during insertion? -I spoke to Dr. Grace, after reviewing the images and the case, he advised to keep the Friedman catheter in as long as needed for purposes, can try voiding trial before discharge if he feels, can replace and follow-up with him as outpatient # JOSE appeared that may be secondary to overdiuresis initially for which siuretics have been held since admission received gentle IVF hydration @50cc/hr over the first 24 hrs, however cr continued to worsen. IVF subsequently discontinued due to LE edema. Antihypertensives and NSAIDs stopped since admission CT abdomen without signs of obstrcution ' appreciate renal recommendations SPEP, autoimmune panel pending #hypotension -Likely secondary to diuretics, blood pressure medications, polypharmacy -Review of patient's medical record, shows that in visits to clinic since March 2020, he has had low blood pressures systolic blood pressures less than 100, diastolic blood pressures less than 70s -Etiology unclear at this point, but it is chronic in nature echo without pericardial effusion or tamponade LVEF ~60% UA negative, CXR without consolidation, afebrile ,no leukocytosis, no other signs or symptoms of infectious process at this time Blood cultures unremarkable so far random cortisol, TSH WNL low probaability of PE as patient on ac/ with eliquis prior to admission. LE duplex with no DVT #Hyponatremia, likely secondary to diuretics #Anion gap metabolic acidosis, on sodium bicarb # Atrial fibrillation rate controlled A fib echocardiogram Possibly normal LV size ejection fraction of around 60%, Thickened aortic and mitral valves, The right atrium and the right ventricle appears to be mildly dilated cardiolgy consult to assist with diuresis management, ?possible right heart failure Eliquis on hold due to hematuria currently, likely from traumatic Friedman, did not have gross hematuria upon admission #CAD status post CABG x4 in 1994 #Diastolic CHF #Status post left carotid endarterectomy for left carotid artery stenosis #History of polycythemia, and iron deficiency anemia # insulin sliding scale for DM , stop glargine for now given rising cr, avoid insulin stacking Attestations Medical Necessity Statement*: Patient requires hospitalization, for anemia, thrombocytopenia, JOSE, hypotension, CHF Coding Level of Care Code Acute Supervisor [employer] for [facility] Fwd Diagnoses Acute renal failure N17.9 Acute renal failure type: unspecified PAF (paroxysmal atrial fibrillation) I48.0 Anticoagulation adequate with anticoagulant therapy Z79.01 COPD (chronic obstructive pulmonary disease) J44.9 COPD type: unspecified COPD Obesity E66.9 Obesity type: unspecified obesity type Obesity classification: adult class 2 (BMI 35 - 39.9) Hypertension I10 Hypertension type: unspecified Diabetes mellitus E11.65; Z79.4 Diabetes mellitus type: type 2 Diabetes mellitus longterm insulin use: with longterm use Diabetes mellitus complication status: with hyperglycemia CHF (congestive heart failure) I50.32 Heart failure type: diastolic Heart failure chronicity: chronic
[2020-11-22 17:31] LABS: Glucose Point of Care 203 mg/dL (70-110)
[2020-11-22 18:34] LABS: Basophils % 0.2 %; Eosinophils # 0.1 10^3/uL (0.0-0.8); Eosinophils % 0.6 %; Hematocrit 30.2 % (42.0-52.0); Hemoglobin 9.8 g/dL (11.7-16.6); Lymphocytes # 0.9 10^3/uL (0.8-4.8); Lymphocytes % 10.7 %; Mean Corpuscular HGB Conc 32.5 g/dL (30.0-36.0); Mean Corpuscular Hemoglobin 29.1 pg (28.0-34.0); Mean Corpuscular Volume 89.6 fL (80-94); Mean Platelet Volume 10.4 fL (7.4-10.4); Monocytes # 0.9 10^3/uL (0.2-0.9); Monocytes % 10.6 %; Neutrophils # 6.62 10^3/uL (1.8-7.7); Neutrophils % 77.4 %; Nucleated Red Blood Cells % 0 %; Platelet Count 115 10^3/cmm (130-400); Red Blood Count 3.37 10^6/uL (4.1-5.3); Red Cell Distribution Width 17.6 % (12.1-15.1); White Blood Count 8.6 10^3/uL (4.0-10.0)
[2020-11-22 19:57] LABS: Hepatitis A Antibody IgM Non-Reactive (Nonreactive); Hepatitis B Core IgM Non-Reactive (Nonreactive); Hepatitis B Surface Antigen Non-Reactive (Nonreactive); Hepatitis C Virus Antibody Non-Reactive (Nonreactive)
[2020-11-22 20:00] LABS: HIV 1 & 2 Antibody Non-Reactive (Non-Reactiv); HIV 1 & 2 Antigen Non-Reactive (Non-Reactiv)
[2020-11-22 21:15] LABS: LAB Peripheral Smear Sent for Review
[2020-11-22 21:46] LABS: Glucose Point of Care 164 mg/dL (70-110)
[2020-11-22 21:46] LABS: Glucose Point of Care 578 mg/dL (70-110)
[2020-11-23] VITALS (10 sets, daily range): BP systolic 82–100; BP diastolic 51–64; PULSE 54–88; RESP 17–24; TEMP 36.3–36.9; O2SAT 90–97
[2020-11-23 05:19] LABS: Basophils % 0.3 %; Eosinophils # 0.1 10^3/uL (0.0-0.8); Eosinophils % 1.7 %; Hematocrit 27.8 % (42.0-52.0); Lymphocytes % 15.7 %; Mean Corpuscular HGB Conc 32.4 g/dL (30.0-36.0); Mean Corpuscular Hemoglobin 29.1 pg (28.0-34.0); Mean Platelet Volume 10.3 fL (7.4-10.4); Monocytes # 0.9 10^3/uL (0.2-0.9); Monocytes % 13.4 %; Neutrophils # 4.46 10^3/uL (1.8-7.7); Neutrophils % 68.6 %; Nucleated Red Blood Cells % 0 %; Platelet Count 117 10^3/cmm (130-400); Red Blood Count 3.09 10^6/uL (4.1-5.3); Red Cell Distribution Width 17.8 % (12.1-15.1); White Blood Count 6.5 10^3/uL (4.0-10.0)
[2020-11-23] MEDS: gabapentin 300 mg Capsule PO ×3 (05:31→17:54)
[2020-11-23 05:33] LABS: INR 1.26 (0.8-1.2)
[2020-11-23 05:40] LABS: Lactate (Lactic Acid level) 0.6 mmol/L (0.5-2.2)
[2020-11-23] MEDS: albuterol 8 gm MDI 2 PUFF INHALATION ×3 (05:41→14:04)
[2020-11-23 05:52] LABS: NT Pro B Type Natriuretic Pept 8774 pg/mL (0-125); Procalcitonin 0.32 ng/mL (0-0.5)
[2020-11-23 06:04] LABS: Alanine Aminotransferase 11 U/L (0-41); Albumin Level 3.5 g/dL (3.5-5.2); Alkaline Phosphatase 65 IU/L (40-130); Aspartate Amino Transferase 11 U/L (0-40); C Reactive Protein 58.8 mg/L (0.0-4.9); Calcium 9.2 mg/dL (8.5-10.5); Carbon Dioxide 18 mmol/L (22-29); Chloride 101 mmol/L (98-107); Creatinine Clr Calc Pharmacy 47.3365; Globulin 3.5 g/dL (1.3-4.6); Glomerular Filtration Rate 30.8 mL/min (90-130); Glucose 145 mg/dL (65-115); Lactate Dehydrogenase 115 U/L (135-225); Magnesium 2.6 mg/dL (1.7-2.3); Osmolality Calculated 301 mOsm/kg (285-295); Sodium 129 mmol/L (136-145); Total Bilirubin 0.4 mg/dL (0.15-1.2)
[2020-11-23 06:07] LABS: Blood Urea Nitrogen 99 mg/dL (6-20)
[2020-11-23] MEDS: sucralfate 1 gm Tablet PO ×2 (06:10→17:55)
[2020-11-23 07:31] LABS: Glucose Point of Care 158 mg/dL (70-110)
--- NOTE | 2020-11-23 08:33 | P.PN_ITS ---
Subjective Subjective: Interval history: no new complaints. Reports his BP is chronically low Medications: Reviewed: Yes Vitals/I&O/Wt Last Vital Signs Temp 98.3 F 11/23/20 07:46 Pulse 54 L 11/23/20 07:51 Resp 18 11/23/20 07:51 BP 85/52 11/23/20 07:46 Pulse Ox 95 11/23/20 07:51 11/22/20 11/23/20 11/23/20 22:59 06:59 14:59 Intake Total 360 / 1020 480 / 1500 Output Total 625 / 1050 325 / 1375 Balance -265 / -30 155 / 125 Weight last 48 hrs Weight 118.473 kg Weight 117.651 kg Physical Exam Urinary Catheter Management^: Friedman: Cath Placed During This Visit: yes Reason for Continuing Indwelling Catheter: Acute Urinary Retention or Obstruction Urinary Catheter Date of Insertion: 11/19/20 Urinary Catheter Time of Insertion: 13:27 Data : 11/23/20 05:00 11/23/20 05:00 Other Labs: Mg 2.6, Phos 4, calcium 9.2, albumin 3.5 Micro: Microbiology 11/21/20 16:07 Blood Culture - Preliminary Blood NEGATIVE TO DATE 11/21/20 16:01 Blood Culture - Preliminary Blood NEGATIVE TO DATE 11/22/20 13:00 Occult Blood (FIT) - Final Stool Routine Collection Echo: Radiologist's impression: Possibly normal LV size ejection fraction of around 60%. Thickened aortic and mitral valves. The right atrium and the right ventricle appears to be mildly dilated No pericardial effusion CT Abd/Pel: Radiologist's impression: Right kidney: Normal size RIGHT kidney. There is mild to moderate perinephric stranding. Mild haziness in the central renal pelvis. There is a vascular calcification in the central renal pelvis. No renal stones. The ureter is not dilated. Left kidney: Mild perinephric stranding with no hydronephrosis or obstruction. 2 mm nonobstructing calcification lower pole. Normal size LEFT ureter. A&P Additional A&P Information Impression: 1. Acute kidney injury, good urine output, serum Cr slowly improving 2. Chronic Hypotension 3. Metabolic acidosis 4. Hyponatremia, stable, asymptomatic 5. Anemia, iron deficient Recommend: increase sodium bicarbonate to TID. Could give IV iron while in hospital. Renal follow-up as outpatient. Attestations Medical Necessity Statement*: per primary service Time Spent in Patient Care: 16 - 35 minutes Coding Level of Care Code Acute Pulmonary Function Technologist for Jocelyne Pat
[2020-11-23] MEDS: sodium bicarbonate 650 mg Tablet PO ×3 (09:32→22:33)
[2020-11-23] MEDS: atorvastatin 40 mg Tablet 80 MG PO (09:32)
[2020-11-23] MEDS: tamsulosin 0.4 mg Capsule 0.8 MG PO (09:32)
[2020-11-23] MEDS: pantoprazole DR 40 mg Tablet PO (09:32)
--- NOTE | 2020-11-23 10:20 | P.CONIM_ITS ---
Providers/Reason For Consult Consulting Physican/Specialty*: General Surgery Jadon Norris MD Reason for Consult*: Anemia, consideration of endoscopy. Attending Physician: Xiang Bautista MD Primary Care Provider: ASHLI Torre History of Present Illness History of Present Illness Jorge Lancaster is a 60 year old male originally admitted several days ago because he had not been able to void for 5 days. He had a Friedman catheter placed but only had approximately 350 cc of urine return. His creatinine was elevated. It sounds like things have continued improving since then, but his hemoglobin has dropped from roughly 11 to 9 since admission. I have been asked to consider an EGD. The patient denies any abdominal pain. He has no known history of peptic ulcer disease. He does not take NSAIDs at home. He is on Eliquis chronically, but has not seen any evidence of melena, hematochezia, etc. he says he takes an [id number] antacid for heartburn at home once in a blue morales. He has never had endoscopy, and says he will never have a colonoscopy. Review of Systems GI: Denies: abdominal pain, nausea, vomiting, hematochezia or melena Meds/Allergies Home Medications and Allergies Home Medications Medication Instructions Recorded Confirmed Last Taken Type olopatadine 0.2 % eye drops 1 - 2 drop OPHTHALMIC (EYE) QAM PRN 01/10/20 11/19/20 Unknown History travoprost 0.004 % eye drops 1 drop OPHTHALMIC (EYE) DAILY@05 01/10/20 11/19/20 11/19/20 05:00 History ml blood sugar diagnostic #30 each 03/30/20 11/19/20 Unknown Rx blood-glucose meter #1 each 03/30/20 11/19/20 Unknown Rx rosuvastatin 40 mg tablet See Rx Instructions .ROUTE 07/29/20 11/19/20 Unknown Rx .COMPLEX #14 each pen needle, diabetic 29 gauge x #100 each 08/22/20 11/19/20 Unknown Rx 1/2 tramadol 50 mg tablet 50 mg PO QID PRN 30 Days #90 tab 09/04/20 11/19/20 11/18/20 Rx tamsulosin 0.4 mg capsule 0.8 mg PO DAILY #60 cap 09/17/20 11/19/20 11/19/20 05:00 Rx albuterol sulfate 90 mcg/actuation 2 puff INHALATION Q6H PRN #18 gm 10/15/20 11/19/20 Unknown Rx aerosol inhaler apixaban 5 mg tablet 5 mg PO BID #120 tab 10/22/20 11/19/20 11/19/20 Rx ONLY TAKES 5MG DAILY cholecalciferol (vitamin D3) 1,250 mcg PO Q7D 11/19/20 11/19/20 Unknown History fluticasone propion-salmeterol 1 ea INHALATION BID 11/19/20 11/19/20 11/18/20 History [Advair Diskus] furosemide 40 mg PO TID@,,11/19/20 11/19/20 11/19/20 05:00 History gabapentin 600 mg PO TID@,,11/19/20 11/19/20 11/19/20 05:00 History glipizide 10 mg PO DAILY@11/19/20 11/19/20 11/19/20 05:00 History insulin glargine [Lantus Solostar 40 unit SUBCUT DAILY@11/19/20 11/19/20 11/18/20 History U-100 Insulin] lisinopril 40 mg PO DAILY@11/19/20 11/19/20 11/18/20 History metformin 1,000 mg PO BID@,11/19/20 11/19/20 11/19/20 05:00 History metolazone 2.5 mg PO DAILY@11/19/20 11/19/20 11/19/20 05:00 History potassium chloride 20 meq PO DAILY@11/19/20 11/19/20 11/19/20 History Allergies Allergy/AdvReac Type Severity Reaction Status Date / Time No Known Allergies Allergy Verified 11/19/20 12:56 Current Medications Current Medications Generic Name Dose Route Start Last Admin Trade Name Freq PRN Reason Stop Dose Admin Albuterol Sulfate 2 puff 11/19/20 17:43 11/23/20 08:06 Albuterol 8 Gm Mdi INHALATION 2 puff Q6H PRN Administration shortness of breath or wheezing Apixaban 5 mg 11/19/20 18:00 11/20/20 08:25 Apixaban 5 Mg Tablet PO 5 mg BID KOSTA Administration Atorvastatin Calcium 80 mg 11/20/20 09:00 11/23/20 09:32 Atorvastatin 40 Mg Tablet PO 80 mg DAILY KOSTA Administration Gabapentin 300 mg 11/22/20 12:00 11/23/20 05:31 Gabapentin 300 Mg Capsule PO 300 mg TID@, KOSTA Administration Insulin Aspart 0 unit 11/19/20 18:00 11/23/20 09:32 Insulin Aspart 100 Unit/1 Ml SUBCUT 4 unit WM&BEDTIME KOSTA Administration Protocol Pantoprazole Sodium 40 mg 11/22/20 09:30 11/23/20 09:[address] 40 Mg Tablet PO 40 mg DAILY KOSTA Administration Fluticasone/Salmeterol 1 puff 11/19/20 18:00 11/23/20 08:06 Fluticasone-Salmeterol 250-50 Diskus INHALATION 1 puff BID KOSTA Administration Sucralfate 1 gm 11/22/20 09:15 11/23/20 06:10 Sucralfate 1 Gm Tablet PO 1 gm BIDAC KOSTA Administration Tamsulosin HCl 0.8 mg 11/20/20 09:00 11/23/20 09:32 Tamsulosin 0.4 Mg Capsule PO 0.8 mg DAILY KOSTA Administration PFSH Acute PFSH: Medical History (Updated 11/23/20 @ 10:47 by Jadon Norris MD) Anemia Anticoagulation adequate with anticoagulant therapy Eliquis ASHD (arteriosclerotic heart disease) Atrial fibrillation BPH (benign prostatic hyperplasia) CAD (coronary artery disease) Carotid stenosis CHF (congestive heart failure) COPD (chronic obstructive pulmonary disease) Diabetes mellitus History of CVA (cerebrovascular accident) Hypertension Neuropathy Obesity Pacemaker PAF (paroxysmal atrial fibrillation) Vitamin B deficiency Vitamin D deficiency Surgical History (Updated 11/21/20 @ 20:26 by Norma Jenkins MD) History of left-sided carotid endarterectomy S/P CABG x 4 Family History Denies family history of Anesthesia complication Bleeding disorder Social History Smoking and tobacco status: former smoker Quit status (tobacco): has quit using tobacco Former quit date comment: smoked 20 yrs Second hand smoke exposure: No Alcohol intake: never Lives independently: Yes Household members: significant other and children Housing: House Marital status: Life Partner Current occupational status: disabled Current occupational exposures/hazards: No History of recent travel: No Current gender identity: Male Vitals/I&O/Wt Last Vital Signs Temp 98.3 F 11/23/20 07:46 Pulse 54 L 11/23/20 07:51 Resp 18 11/23/20 07:51 BP 85/52 11/23/20 07:46 Pulse Ox 95 11/23/20 07:51 11/22/20 11/23/20 11/23/20 22:59 06:59 14:59 Intake Total 360 / 1500 480 / 1500 360 / 360 Output Total 625 / 1375 325 / 1375 Balance -265 / 125 155 / 125 360 / 360 Weight last 48 hrs Weight 261 lb 3 oz Physical Exam Narrative: EXAM NARRATIVE: The patient was encountered in his hospital room. He just got out of the shower. He is in no distress. The pupils are equal. No carotid bruits are heard. The lungs are clear. The heart seems regular. The abdomen is obese but is soft and nontender. I cannot appreciate any masses. The extremities reveal no significant edema. Neurologically the patient appears to be grossly intact. Urinary Catheter Management^: Friedman: Cath Placed During This Visit: yes Reason for Continuing Indwelling Catheter: Acute Urinary Retention or Obstruction Urinary Catheter Date of Insertion: 11/19/20 Urinary Catheter Time of Insertion: 13:27 Data Micro: Micro: Microbiology 11/21/20 16:07 Blood Culture - Pr eliminary Blood NEGATIVE TO DENISE E 11/21/20 16:01 Blood Culture - Pr eliminary Blood NEGATIVE TO DENISE E 11/22/20 13:00 Occult Blood (FIT) - Final Stool Routine Col lection Imaging^: CT Abd/Pel: Radiologist's impression: CT abdomen/pelvis 11/19/2020 IMPRESSION: 1. Mild bilateral perinephric stranding. No renal obstruction identified. Perinephric stranding may be chronic or related to acute polynephritis. 2. Atherosclerosis aorta. 3. Cardiomegaly. 4. Normal appendix with no GI tract obstruction. A&P Assessment and plan (1) Anemia: The patient's hemoglobin has dropped roughly 2 g since admission. It is difficult to know if this represents any ongoing bleeding or if this is just changes in fluid status, hemodilution, etc. The patient certainly does not have any obvious symptoms or signs of GI blood loss. He is on a proton pump inhibitor and his Eliquis is on hold. I told the patient that I think it is reasonable to recheck his labs tomorrow morning and then make a final decision on whether or not to proceed with an EGD. He seems agreeable to that plan. Continue PPI. Labs tomorrow morning. Check H. pylori antibody. Status: Acute Consult Attestations Medical Necessity Statement: See admitting service's notation. Coding Level of Care Code Acute Generation Engineer for Jocelyne Pat Diagnoses Anemia D64.9
--- NOTE | 2020-11-23 10:40 | P.PN_ITS ---
Subjective Subjective: Interval history: Patient says that he is feeling well. He denies any complaints of chest pain, shortness of breath or palpitations. His creatinine is stable at 2.1, however BUN is 94. He is producing urine. Vitals/I&O/Wt Last Vital Signs Temp 98.3 F 11/23/20 07:46 Pulse 54 L 11/23/20 07:51 Resp 18 11/23/20 07:51 BP 85/52 11/23/20 07:46 Pulse Ox 95 11/23/20 07:51 11/22/20 11/23/20 11/23/20 22:59 06:59 14:59 Intake Total 360 / 1020 480 / 1500 360 / 360 Output Total 625 / 1050 325 / 1375 Balance -265 / -30 155 / 125 360 / 360 Weight last 48 hrs Weight 261 lb 3 oz Physical Exam Narrative: EXAM NARRATIVE: Const COMMON NORMALS: no acute distress and patient oriented x3 HENMT COMMON NORMALS: normocephalic HEAD & SCALP: normocephalic Neck/C-Spine COMMON NORMALS: no JVD Resp COMMON NORMALS: normal respiratory effort, No retractions, No use of accessory muscles and clear to auscultation bilaterally AUSCULTATION: clear to auscultation bilaterally Cardio COMMON NORMALS: no JVD, regular rate, regular rhythm, S1 normal heart sound present and S2 normal heart sound present RATE: regular rate RHYTHM: regular rhythm HEART SOUNDS: S1 normal heart sound present and S2 normal heart sound present GI COMMON NORMALS: Normal to inspection, nondistended, normoactive bowel sounds present, Soft to palpation, non-tender, No hepatosplenomegaly present, no masses and no bruits PALPATION: Yes Soft to palpation and Yes No hepatosplenomegaly present Extremity COMMON NORMALS: capillary refill normal, no clubbing, cyanosis or edema, no calf tenderness and no pedal edema Neuro COMMON NORMALS: patient oriented x3 Psych COMMON NORMALS: mental status grossly normal Urinary Catheter Management^: Friedman: Cath Placed During This Visit: yes Reason for Continuing Indwelling Catheter: Acute Urinary Retention or Obstruction Urinary Catheter Date of Insertion: 11/19/20 Urinary Catheter Time of Insertion: 13:27 Data : 11/24/20 04:14 11/24/20 04:14 Micro: Microbiology 11/21/20 16:07 Blood Culture - Preliminary Blood NEGATIVE TO DATE 11/21/20 16:01 Blood Culture - Preliminary Blood NEGATIVE TO DATE 11/22/20 13:00 Occult Blood (FIT) - Final Stool Routine Collection A&P Assessment and plan (1) CHF (congestive heart failure): -Possibly a mix of CHF and RV dysfunction. TDS images with poor windows, Possibly mildly decreased to low normal LV function with mild to moderate decrease in RV function. -Repeat echo with contrast. However LV wall does not appear thick enough and EKG with normal voltage. These are not falling in category of amyloidosis. -continue to hold diuretics today. -f/u BMP, creatinine is stable however BUN continues to rise.Nephrology is on board. Status: Acute Qualifiers: Heart failure type: diastolic Heart failure chronicity: chronic Qualified Code(s): I50.32 - Chronic diastolic (congestive) heart failure (2) Atrial fibrillation: Status: Acute Qualifiers: Atrial fibrillation type: longstanding persistent Qualified Code(s): I48.11 - Longstanding persistent atrial fibrillation (3) Acute renal failure: Renal on board Status: Acute Qualifiers: Acute renal failure type: unspecified Qualified Code(s): N17.9 - Acute kidney failure, unspecified (4) Carotid stenosis: Status: Acute Qualifiers: Laterality: unspecified laterality Qualified Code(s): I65.29 - Occlusion and stenosis of unspecified carotid artery (5) CAD (coronary artery disease): Status: Acute Qualifiers: Coronary Disease-Associated Artery/Lesion type: bypass graft [place] vs. transplanted heart: [place] heart Associated angina: without angina Qualified Code(s): I25.810 - Atherosclerosis of coronary artery bypass graft(s) without angina pectoris (6) Obesity: Status: Acute Qualifiers: Obesity type: unspecified obesity type Obesity classification: adult class 2 (BMI 35 - 39.9) Additional A&P Information Hypotension DM-2 Dyslipidemia s/p dual chamber PPM : Device interrogation with [employer] device VVIR 50/130, persistent chronic atrial fibrillation. 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 Normal functioning device. No need for Atropine. Telemetry wrongly stating HR in 40's at time. HR seems to be mid 50's or PVC's noted. Anemia Osteoarthritis Chronic pain syndrome COPD Vitamin D deficiency Neuropathy Thank you for allowing me to participate in patient's care. Please feel free to call with questions and concerns. Attestations Medical Necessity Statement*: Care expected to cross 2 midnights. Coding Level of Care Code Acute Rn Enterostomal for Chg Fwd Diagnoses CHF (congestive heart failure) I50.32 Heart failure type: diastolic Heart failure chronicity: chronic Atrial fibrillation I48.11 Atrial fibrillation type: longstanding persistent Acute renal failure N17.9 Acute renal failure type: unspecified Carotid stenosis I65.29 Laterality: unspecified laterality CAD (coronary artery disease) I25.810 Coronary Disease-Associated Artery/Lesion type: bypass graft [place] vs. transplanted heart: [place] heart Associated angina: without angina Obesity E66.9 Obesity type: unspecified obesity type Obesity classification: adult class 2 (BMI 35 - 39.9)
[2020-11-23 11:03] LABS: H. Pylori IgG Antibody Positive (Negative)
[2020-11-23 11:44] LABS: Glucose Point of Care 169 mg/dL (70-110)
--- NOTE | 2020-11-23 16:31 | PM.PN ---
Subjective Subjective: Interval history: This morning patient was examined, he is alert oriented x3, sitting up in bed, he has no particular complaints, no bloody or black stools, no lightheadedness, no dizziness, no nausea, no vomiting Vitals/I&O/Wt Last Vital Signs Temp 97.7 F 11/23/20 15:52 Pulse 64 11/23/20 15:52 Resp 18 11/23/20 15:52 BP 96/59 11/23/20 15:52 Pulse Ox 90 11/23/20 15:52 11/23/20 11/23/20 11/23/20 06:59 14:59 22:59 Intake Total 480 / 1500 480 / 480 Output Total 325 / 1375 900 / 900 Balance 155 / 125 480 / 480 -900 / -420 Weight last 48 hrs Weight 118.473 kg Physical Exam Const: COMMON NORMALS: no acute distress and patient oriented x3 HENMT: COMMON NORMALS: normocephalic HEAD & SCALP: normocephalic Neck/C-Spine: COMMON NORMALS: no JVD Resp: COMMON NORMALS: normal respiratory effort, No retractions, No use of accessory muscles and clear to auscultation bilaterally AUSCULTATION: clear to auscultation bilaterally Cardio: COMMON NORMALS: no JVD, regular rate, regular rhythm, S1 normal heart sound present and S2 normal heart sound present RATE: regular rate RHYTHM: regular rhythm HEART SOUNDS: S1 normal heart sound present and S2 normal heart sound present GI: COMMON NORMALS: Normal to inspection, nondistended, normoactive bowel sounds present, Soft to palpation, non-tender, No hepatosplenomegaly present, no masses and no bruits PALPATION: Yes Soft to palpation and Yes No hepatosplenomegaly present Extremity: COMMON NORMALS: capillary refill normal, no clubbing, cyanosis or edema, no calf tenderness and no pedal edema Neuro: COMMON NORMALS: patient oriented x3 Psych: COMMON NORMALS: mental status grossly normal Urinary Catheter Management^: Friedman: Cath Placed During This Visit: yes Reason for Continuing Indwelling Catheter: Acute Urinary Retention or Obstruction Urinary Catheter Date of Insertion: 11/19/20 Urinary Catheter Time of Insertion: 13:27 Data : 11/23/20 05:00 11/23/20 05:00 Micro: Microbiology 11/21/20 16:07 Blood Culture - Preliminary Blood NEGATIVE TO DATE 11/21/20 16:01 Blood Culture - Preliminary Blood NEGATIVE TO DATE 11/22/20 13:00 Occult Blood (FIT) - Final Stool Routine Collection A&P Assessment and plan (1) Acute renal failure: Status: Acute Qualifiers: Acute renal failure type: unspecified Qualified Code(s): N17.9 - Acute kidney failure, unspecified (2) PAF (paroxysmal atrial fibrillation): Status: Acute (3) Anticoagulation adequate with anticoagulant therapy: Status: Acute (4) COPD (chronic obstructive pulmonary disease): Status: Acute Qualifiers: COPD type: unspecified COPD Qualified Code(s): J44.9 - Chronic obstructive pulmonary disease, unspecified (5) Obesity: Status: Acute Qualifiers: Obesity type: unspecified obesity type Obesity classification: adult class 2 (BMI 35 - 39.9) (6) Hypertension: Status: Acute Qualifiers: Hypertension type: unspecified Qualified Code(s): I10 - Essential (primary) hypertension (7) Diabetes mellitus: Status: Acute Qualifiers: Diabetes mellitus type: type 2 Diabetes mellitus mcfp insulin use: with mcfp use Diabetes mellitus complication status: with hyperglycemia Qualified Code(s): E11.65 - Type 2 diabetes mellitus with hyperglycemia; Z79.4 - intermediate manager (current) use of insulin (8) CHF (congestive heart failure): Status: Acute Qualifiers: Heart failure type: diastolic Heart failure chronicity: chronic Qualified Code(s): I50.32 - Chronic diastolic (congestive) heart failure Additional A&P Information 60-year-old man with past medical history of obesity, diabetes, polycythemia, iron deficiency anemia, hypertension, COPD, carotid stenosis, history of stroke, dyslipidemia #Acute on chronic anemia -Patient has had a history of chronic anemia in the past, however hemoglobins have not this low, in fact he did see hematology oncology about the anemia, was placed on iron tablets, was supposed to have a colonoscopy, but patient refused -Denies ever having EGD or colonoscopy -Denies bloody or black stools -Hemoccults here have been unremarkable -Keeps uptrending to 97 even though the creatinine is decreasing, hemoglobin downtrending to 9.1, blood pressures are borderline low, which they are chronically, patient denies lightheadedness, no dizziness -Lactic acid within normal limits -Iron levels low -Likely a component of slow GI bleed, and acute kidney failure Plan: -PPI and Carafate -Haptoglobin 245, peripheral smear pending -Consulted Dr. Norris about doing an EGD -N.p.o. midnight -Hold Eliquis -Monitor hemodynamics closely #Thrombocytopenia -Peripheral smear, hemolytic labs, hep C, HIV all within normal limits -CT of the belly shows normal liver size, no bile duct dilatation #Friedman catheter irritation, patient advises me that the Friedman catheter keeps bothering him, CT scan of the abdomen did not show enlarged prostate, possible urethral trauma during insertion? -I spoke to Dr. Grace, after reviewing the images and the case, he advised to keep the Friedman catheter in as long as needed for purposes, can try voiding trial before discharge if he feels, can replace and follow-up with him as outpatient # JOSE -Improving creatinine 2.2 appeared that may be secondary to overdiuresis initially for which siuretics have been held since admission received gentle IVF hydration @50cc/hr over the first 24 hrs, however cr continued to worsen. IVF subsequently discontinued due to LE edema. Antihypertensives and NSAIDs stopped since admission CT abdomen without signs of obstrcution ' appreciate renal recommendations SPEP, autoimmune panel pending #hypotension -Likely secondary to diuretics, blood pressure medications, polypharmacy -Review of patient's medical record, shows that in visits to clinic since March 2020, he has had low blood pressures systolic blood pressures less than 100, diastolic blood pressures less than 70s -Etiology unclear at this point, but it is chronic in nature echo without pericardial effusion or tamponade LVEF ~60% UA negative, CXR without consolidation, afebrile ,no leukocytosis, no other signs or symptoms of infectious process at this time Blood cultures unremarkable so far random cortisol, TSH WNL low probaability of PE as patient on ac/ with eliquis prior to admission. LE duplex with no DVT #Hyponatremia, likely secondary to diuretics #Anion gap metabolic acidosis, on sodium bicarb # Atrial fibrillation rate controlled A fib echocardiogram Possibly normal LV size ejection fraction of around 60%, Thickened aortic and mitral valves, The right atrium and the right ventricle appears to be mildly dilated cardiolgy consult to assist with diuresis management, ?possible right heart failure Eliquis on hold due to hematuria currently, likely from traumatic Friedman, did not have gross hematuria upon admission #CAD status post CABG x4 in 1994 #Diastolic CHF #Status post left carotid endarterectomy for left carotid artery stenosis #History of polycythemia, and iron deficiency anemia # insulin sliding scale for DM , stop glargine for now given rising cr, avoid insulin stacking Attestations Medical Necessity Statement*: Patient requires hospitalization for acute renal failure, worsening anemia, CHF Coding Level of Care Code 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 [facility] Fwd Diagnoses Acute renal failure N17.9 Acute renal failure type: unspecified PAF (paroxysmal atrial fibrillation) I48.0 Anticoagulation adequate with anticoagulant therapy Z79.01 COPD (chronic obstructive pulmonary disease) J44.9 COPD type: unspecified COPD Obesity E66.9 Obesity type: unspecified obesity type Obesity classification: adult class 2 (BMI 35 - 39.9) Hypertension I10 Hypertension type: unspecified Diabetes mellitus E11.65; Z79.4 Diabetes mellitus type: type 2 Diabetes mellitus intermediate manager insulin use: with intermediate manager use Diabetes mellitus complication status: with hyperglycemia CHF (congestive heart failure) I50.32 Heart failure type: diastolic Heart failure chronicity: chronic
[2020-11-23 17:17] LABS: Glucose Point of Care 194 mg/dL (70-110)
[2020-11-23] MEDS: clarithromycin 500 mg Tablet PO (17:55)
[2020-11-23 21:39] LABS: Glucose Point of Care 183 mg/dL (70-110)
[2020-11-24] VITALS (9 sets, daily range): BP systolic 92–104; BP diastolic 58–66; PULSE 58–73; RESP 17–21; TEMP 36.4–36.9; O2SAT 96–98
[2020-11-24] MEDS: ipratropium-albuterol 3 mL Neb INHALATION (00:11)
[2020-11-24 05:35] LABS: Basophils % 0.3 %; Eosinophils # 0.1 10^3/uL (0.0-0.8); Eosinophils % 1.6 %; Hematocrit 28.2 % (42.0-52.0); Lymphocytes % 15.4 %; Mean Corpuscular HGB Conc 31.9 g/dL (30.0-36.0); Mean Platelet Volume 11.2 fL (7.4-10.4); Monocytes # 0.9 10^3/uL (0.2-0.9); Monocytes % 13.6 %; Neutrophils # 4.41 10^3/uL (1.8-7.7); Neutrophils % 68.8 %; Nucleated Red Blood Cells % 0 %; Platelet Count 122 10^3/cmm (130-400); Red Cell Distribution Width 18.1 % (12.1-15.1); White Blood Count 6.4 10^3/uL (4.0-10.0)
[2020-11-24 06:07] LABS: NT Pro B Type Natriuretic Pept 8276 pg/mL (0-125); Procalcitonin 0.33 ng/mL (0-0.5)
[2020-11-24 06:19] LABS: Alanine Aminotransferase 10 U/L (0-41); Albumin Level 3.8 g/dL (3.5-5.2); Alkaline Phosphatase 66 IU/L (40-130); Anion Gap 15.1 (5-19); Aspartate Amino Transferase 12 U/L (0-40); Calcium 9.2 mg/dL (8.5-10.5); Carbon Dioxide 19 mmol/L (22-29); Chloride 101 mmol/L (98-107); Globulin 3.2 g/dL (1.3-4.6); Glomerular Filtration Rate 32.5 mL/min (90-130); Glucose 118 mg/dL (65-115); Magnesium 2.7 mg/dL (1.7-2.3); Osmolality Calculated 300 mOsm/kg (285-295); Phosphorus 3.9 mg/dL (2.5-4.5); Potassium 5.1 mmol/L (3.5-5.1); Sodium 130 mmol/L (136-145); Total Bilirubin 0.4 mg/dL (0.15-1.2)
[2020-11-24 06:45] LABS: Glucose Point of Care 147 mg/dL (70-110)
[2020-11-24 06:58] LABS: Blood Urea Nitrogen 94 mg/dL (6-20)
--- NOTE | 2020-11-24 07:30 | PM.PN ---
Subjective Subjective: Interval history: The patient still is not having any symptoms or signs of bleeding. I want to get the hell out of here today. Vitals/I&O/Wt Last Vital Signs Temp 98.5 F 11/24/20 04:00 Pulse 66 11/24/20 04:00 Resp 19 H 11/24/20 04:00 BP 92/58 11/24/20 04:00 Pulse Ox 96 11/24/20 04:00 11/23/20 11/24/20 11/24/20 22:59 06:59 14:59 Intake Total 230 / 710 Output Total 900 / 1850 950 / 1850 Balance -670 / -1140 -950 / -1140 Weight last 48 hrs Weight 269 lb 4.8 oz Weight 271 lb Weight 261 lb 3 oz Physical Exam Narrative: EXAM NARRATIVE: Abdomen remains nontender. Urinary Catheter Management^: Friedman: Cath Placed During This Visit: yes Reason for Continuing Indwelling Catheter: Acute Urinary Retention or Obstruction Urinary Catheter Date of Insertion: 11/19/20 Urinary Catheter Time of Insertion: 13:27 Data : 11/24/20 04:14 11/24/20 04:14 A&P Assessment and plan (1) Anemia: The patient's hemoglobin is back up to 9 today. I suspect the changes that we were seeing were probably dilutional. As result, I told him that I do not feel strongly about necessarily proceeding with an EGD. He would like to avoid it if possible. Status: Acute (2) Helicobacter pylori ab+: I did check the patient for H. pylori antibody yesterday and it did inspector returned materials to be positive. Given the possibility of upper GI bleeding at the time, I did start him on treatment. His atorvastatin was held and his Flomax was decreased to 0.4 mg a day while he is on clarithromycin. Now that it does not appear that he probably has any ongoing bleeding, I will leave any continuing treatment to the discretion of the hospitalist team. Status: Acute Attestations Medical Necessity Statement*: See admitting service's notation. 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
[2020-11-24] MEDS: tamsulosin 0.4 mg Capsule PO (08:34)
[2020-11-24] MEDS: sodium bicarbonate 650 mg Tablet PO (08:34)
[2020-11-24] MEDS: amoxicillin 500 mg Capsule 1000 MG PO (08:34)
[2020-11-24] MEDS: pantoprazole DR 40 mg Tablet PO (08:34)
--- NOTE | 2020-11-24 08:46 | P.PN_ITS ---
Subjective Subjective: Interval history: feels well, anxious for discharge. valladares has been removed, urinating without difficulty Medications: Reviewed: Yes Vitals/I&O/Wt Last Vital Signs Temp 97.9 F 11/24/20 08:00 Pulse 68 11/24/20 08:00 Resp 18 11/24/20 08:00 BP 102/63 11/24/20 08:00 Pulse Ox 97 11/24/20 08:00 11/23/20 11/24/20 11/24/20 22:59 06:59 14:59 Intake Total 230 / 710 Output Total 900 / 900 950 / 1850 Balance -670 / -190 -950 / -1140 Weight last 48 hrs Weight 122.152 kg Weight 122.924 kg Weight 118.473 kg Physical Exam Urinary Catheter Management^: Valladares: Cath Placed During This Visit: yes Reason for Continuing Indwelling Catheter: Acute Urinary Retention or Obstruction Urinary Catheter Date of Insertion: 11/19/20 Urinary Catheter Time of Insertion: 13:27 Data : 11/24/20 04:14 11/24/20 04:14 A&P Additional A&P Information Impression: 1. Acute kidney injury, good urine output 2. Chronic Hypotension 3. Metabolic acidosis 4. Hyponatremia, stable, asymptomatic 5. Anemia, iron deficient Recommend: stable for discharge from renal standpoint, continue sodium bicarbonate to TID. Begin oral iron with laxative. Renal follow-up as outpatient. Attestations Medical Necessity Statement*: per primary service Time Spent in Patient Care: less than 15 minutes Coding Level of Care Code Acute Table Games Floor Supervisor for Jocelyne Pat
[2020-11-24] MEDS: albuterol 8 gm MDI 2 PUFF INHALATION (09:18)
[2020-11-24 11:20] LABS: Glucose Point of Care 166 mg/dL (70-110)
[2020-11-24] MEDS: gabapentin 300 mg Capsule PO (11:26)
[2020-11-24 13:13] LABS: C Reactive Protein 56.6 mg/L (0.0-4.9)
[2020-11-24 13:33] LABS: INR 1.18 (0.8-1.2)
--- NOTE | 2020-11-24 14:05 | PM.DCS ---
Discharge Providers Date of Admission: 11/21/20 10:00 Date of Discharge: November 24, 2020 Attending Provider at Admission: Balbina Aquino MD Attending Provider at Discharge: Xiang Bautista MD Primary Care Provider: ASHLI Torre Diagnoses at Discharge Discharge Diagnosis (1) Anemia: Status: Acute (2) Helicobacter pylori ab+: Status: Acute Reason for Visit Reason for Visit: Unable to Pee (5 Days) Hospital Course Hospital Course 60-year-old man with past medical history of obesity, diabetes, polycythemia, iron deficiency anemia, hypertension, COPD, carotid stenosis, history of stroke, dyslipidemia was admitted to [facility] for decreased urinary output Patient was admitted to [facility] for acute kidney injury secondary to diuretic therapy, nephrology was consulted, cardiology was consulted, all nephrotoxic agents were held, diuretics were held, received IV fluid hydration, CT scan no signs of obstruction, patient clinically improved, creatinine discharge 2.1 discharged with Lasix 20 mg daily, with a follow-up with nephrology in 2 weeks Patient had urinary retention on admission, nephrology was consulted, recommended voiding trial, patient passed voiding trial, discharged without Friedman catheter Acute on chronic hyponatremia, likely secondary diuretic therapy, sodium on discharge 130 Hypotension likely secondary to blood pressure medications, polypharmacy, and a chronic history of hypotension since March 2020. Atrial fibrillation, Eliquis has been held until he sees cardiology in 1 to 2 weeks. For his acute on chronic anemia, general surgery was consulted, EGD was not required, discharged on Protonix, Carafate. Patient's H. pylori was positive, discharged on amoxicillin and clindamycin. In addition his Eliquis was held until he sees cardiology, risk advised the risk and benefits, including but not limited to risk of stroke and GI bleed, voiced understanding, all questions answered, agreed to proceed to hold Eliquis. Patient should follow-up with general surgery in 1 month for consideration of an EGD. Physical Exam Const: COMMON NORMALS: no acute distress and patient oriented x3 HENMT: COMMON NORMALS: normocephalic HEAD & SCALP: normocephalic Neck/C-Spine: COMMON NORMALS: no JVD Resp: COMMON NORMALS: normal respiratory effort, No retractions, No use of accessory muscles and clear to auscultation bilaterally AUSCULTATION: clear to auscultation bilaterally Cardio: COMMON NORMALS: no JVD, regular rate, regular rhythm, S1 normal heart sound present and S2 normal heart sound present RATE: regular rate RHYTHM: regular rhythm HEART SOUNDS: S1 normal heart sound present and S2 normal heart sound present GI: COMMON NORMALS: Normal to inspection, nondistended, normoactive bowel sounds present, Soft to palpation, non-tender, No hepatosplenomegaly present, no masses and no bruits PALPATION: Yes Soft to palpation and Yes No hepatosplenomegaly present Extremity: COMMON NORMALS: capillary refill normal, no clubbing, cyanosis or edema, no calf tenderness and no pedal edema Neuro: COMMON NORMALS: patient oriented x3 Psych: COMMON NORMALS: mental status grossly normal Urinary Catheter Management^: Friedman: Cath Placed During This Visit: yes Reason for Continuing Indwelling Catheter: Acute Urinary Retention or Obstruction Urinary Catheter Date of Insertion: 11/19/20 Urinary Catheter Time of Insertion: 13:27 Discharge Data Data Completed and Pending: Completed Studies During Hospitalization Category Date Time Status CT kidney stone [id number] Urgent Cat Scan 11/19/20 14:48 Completed XR chest 1V christine ble [id number] Routine Exams 11/20/20 12:51 Completed CV echo complete* [id number] Routine Ultrasound 11/20/20 12:59 Completed CV echo lmt wo/w contras [id number] Rout ine Ultrasound 11/22/20 05:00 [place] [id number] Routin e Ultrasound 11/20/20 15:17 Completed Pending at discharge Category Date Time Status LIZANDRO Screen w/ Ref peter Routine Lab 11/20/20 15:14 Results Anti-Neutrophil C utoplasmic AB Rout ine Lab 11/20/20 15:14 Received Blood Culture Rou greg Lab 11/21/20 16:07 Results Cortisol ,Free,LC /MS, S Routine Lab 11/20/20 15:17 Received KAPPA/LAMBDA LIGH T FREE SERUM Routi ne Lab 11/20/20 15:14 Results Haigler Free Light Chains Urine Routi ne Lab 11/20/20 15:38 Received US/CV paperwork R outine Ultrasound 11/22/20 Taken Labs from last 24 hours 11/24/20 11/24/20 11/24/20 11:02 06:33 04:14 WBC RBC Hgb Hct MCV MCH MCHC RDW Plt Count MPV Neut % (Auto) Lymph % (Auto) [place] % (Auto) Eos % (Auto) Baso % (Auto) Neut # (Auto) Lymph # (Auto) [place] # (Auto) Eos # (Auto) Baso # (Auto) Nucleated RBC % (a uto) Nucleated RBCs # PT 15.40 H INR 1.18 Sodium Potassium Chloride Carbon Dioxide Anion Gap BUN Creatinine GFR Calculation Glucose POC Glucose 166 H 147 H Calculated Osmolal ity Calcium Phosphorus Magnesium Total Bilirubin AST ALT Alkaline Phosphata se C-Reactive Protein NT-Pro-B Natriuret Pep Total Protein Albumin Globulin Procalcitonin 11/24/20 11/24/20 11/24/20 04:14 04:14 04:14 WBC 6.4 RBC 3.10 L Hgb 9.0 L Hct 28.2 L MCV 91.0 MCH 29.0 MCHC 31.9 RDW 18.1 H Plt Count 122 L MPV 11.2 H Neut % (Auto) 68.8 Lymph % (Auto) 15.4 [place] % (Auto) 13.6 Eos % (Auto) 1.6 Baso % (Auto) 0.3 Neut # (Auto) 4.41 Lymph # (Auto) 1.0 [place] # (Auto) 0.9 Eos # (Auto) 0.1 Baso # (Auto) 0.0 Nucleated RBC % (a uto) 0 Nucleated RBCs # 0.0 PT INR Sodium 130 L Potassium 5.1 Chloride 101 Carbon Dioxide 19 L Anion Gap 15.1 BUN 94 H* Creatinine 2.1 H GFR Calculation 32.5 L Glucose 118 H POC Glucose Calculated Osmolal ity 300 H Calcium 9.2 Phosphorus 3.9 Magnesium 2.7 H Total Bilirubin 0.4 AST 12 ALT 10 Alkaline Phosphata se 66 C-Reactive Protein 56.6 H NT-Pro-B Natriuret Pep 8276 H Total Protein 7.0 Albumin 3.8 Globulin 3.2 Procalcitonin 0.33 11/23/20 11/23/20 21:18 16:52 WBC RBC Hgb Hct MCV MCH MCHC RDW Plt Count MPV Neut % (Auto) Lymph % (Auto) [place] % (Auto) Eos % (Auto) Baso % (Auto) Neut # (Auto) Lymph # (Auto) [place] # (Auto) Eos # (Auto) Baso # (Auto) Nucleated RBC % (a uto) Nucleated RBCs # PT INR Sodium Potassium Chloride Carbon Dioxide Anion Gap BUN Creatinine GFR Calculation Glucose POC Glucose 183 H 194 H Calculated Osmolal ity Calcium Phosphorus Magnesium Total Bilirubin AST ALT Alkaline Phosphata se C-Reactive Protein NT-Pro-B Natriuret Pep Total Protein Albumin Globulin Procalcitonin Vitals: Last Vital Signs Temp 97.6 F 11/24/20 13:27 Pulse 58 L 11/24/20 13:27 Resp 18 11/24/20 13:27 BP 104/66 11/24/20 13:27 Pulse Ox 98 11/24/20 13:27 Discharge Plan Discharge Patient Disposition: Home Condition: Stable Prescriptions: New amoxicillin 500 mg Capsule 1,000 mg PO BID 14 Days Qty: 56 RF: 0 clarithromycin 500 mg Tablet 500 mg PO Q12H 14 Days Qty: 28 RF: 0 sucralfate 1 gram Tablet 1 g PO BIDAC 30 Days Qty: 30 RF: 0 sodium bicarbonate 650 mg Tablet 650 mg PO TID 30 Days Qty: 90 RF: 0 pantoprazole 40 mg Tablet,Delayed Release (Dr/Ec) 40 mg PO BID 30 Days Qty: 60 RF: 0 tamsulosin 0.4 mg Capsule 0.4 mg PO DAILY 30 Days Qty: 30 RF: 0 Lasix 20 mg tablet 20 mg PO DAILY 30 Days Qty: 30 RF: 0 gabapentin 300 mg Capsule 300 mg PO TID@05,12,17 Qty: 60 RF: 0 Continued olopatadine [Pataday] 0.2 % drops 1 - 2 drop ophthalmic (eye) QAM PRN (Reason: ITCHY EYE) RF: 0 travoprost [Travatan Z] 0.004 % drops 1 drop ophthalmic (eye) DAILY@05 RF: 0 tramadol 50 mg tablet 50 mg PO QID PRN (Reason: pain) 30 Days Qty: 90 RF: 1 (DME) blood sugar diagnostic [Blood Glucose Test] Strip See Rx Instructions .ROUTE .MEDSUPPLY Qty: 30 RF: 11 (DME) blood-glucose meter Misc See Rx Instructions .ROUTE .MEDSUPPLY Qty: 1 RF: 0 (DME) pen needle, diabetic [Comfort EZ Pen [place]] 29 gauge x 1/2 needle See Rx Instructions .ROUTE .MEDSUPPLY Qty: 100 RF: 5 albuterol sulfate [ProAir HFA] 90 mcg/actuation HFA aerosol inhaler 2 puff INHALATION Q6H PRN (Reason: shortness of breath or wheezing) Qty: 18 RF: 3 Advair Diskus 250-50 mcg/dose blister with device 1 ea inhalation BID RF: 0 gabapentin 600 mg tablet 600 mg PO TID@,, RF: 0 cholecalciferol (vitamin D3) 1,250 mcg (50,000 unit) tablet 1,250 mcg PO Q7D RF: 0 potassium chloride 20 mEq tablet extended release 20 meq PO DAILY@05 RF: 0 Changed Lantus Solostar U-100 Insulin 100 unit/mL (3 mL) insulin pen 20 unit SUBCUT DAILY@17 Qty: 0 RF: 0 Held rosuvastatin 40 mg tablet See Rx Instructions .ROUTE .COMPLEX Qty: 14 RF: 0 Hold Instructions: Resume on 12/09/20. Eliquis 5 mg tablet 5 mg PO BID Qty: 120 RF: 1 Hold Instructions: Resume on 12/10/20. metformin 500 mg tablet 1,000 mg PO BID@ RF: 0 Hold Instructions: Resume on 12/03/20. hold until you see primary care Discontinued tamsulosin 0.4 mg capsule 0.8 mg PO DAILY Qty: 60 RF: 4 furosemide 40 mg tablet 40 mg PO TID@,, RF: 0 metolazone 2.5 mg tablet 2.5 mg PO DAILY@ RF: 0 glipizide 10 mg tablet extended release 24hr 10 mg PO DAILY@ RF: 0 lisinopril 40 mg tablet 40 mg PO DAILY@ RF: 0 Discharge Orders: Discharge Order (Routine); Ordered 11/24/20 Ordered By: Xiang Bautista Other Ambulatory Orders: Complete Blood Count w/Auto (Routine) Timeframe: 1 Week Location: Determined by Patient Ordered By: Xiang Bautista Comprehensive Metabolic Panel (Routine) Timeframe: 1 Week Facility: [facility] - Location: Lab - Main Lab Ordered By: Xiang Bautista Referrals: Steven Murray MD [Referring] - 2 weeks Amie Mcnamara FNP [Primary Care Provider] - 1 week (Please call [facility] on Thursday to schedule a follow up appointment to be seen in one week.) Norma Jenkins MD [Physician] - 2 weeks Discharge Diet: Regular and Cardiac Discharge Activity: Resume usual activity Patient Instructions: Furosemide (By mouth), Sucralfate (By mouth), Amoxicillin (By mouth), Clarithromycin (By mouth), Gabapentin (By mouth), Tamsulosin (By mouth), Pantoprazole (By mouth), Sodium Bicarbonate (By mouth), Heart Failure (DC), Atrial Fibrillation (DC), Chronic Obstructive Pulmonary Disease (DC), Acute Hematuria (DC), Anemia (DC), CHF Stoplight, COPD Stoplight Activity Restrictions/Additional Instructions: -Eliquis until seen by cardiology in 1 to 2 weeks -Repeat CBC in 1 week -If you have lightheadedness, dizziness, bloody or black stools go to the emergency room -Please follow-up with general surgery in 1 month -Please follow-up with nephrology in 1 to 2 weeks -If you have urinary retention, go to the emergency room Discharge Attestations Time Spent in Discharge Care*: less than 30 min Quality Metrics Clinical Quality Measures During this hospital stay, did patient experience: None Coding Level of Care Code Acute Box Toe Cutter for Chg Fwd Exam Comprehensive Diagnoses Anemia D64.9 Helicobacter pylori ab+ R76.8
[2020-11-26 19:37] LABS: Cortisol ,Free,LC/MS, S 0.56 mcg/dL
[2020-11-27 21:23] LABS: ANCA Interp Negative (Negative)
== END 2020-11-24 13:28 | disposition home or self-care (01) | DRG 683 ==
LOC: ER 15:11 → MEDSURG 11-20 06:05
PROVIDERS: Internal Medicine Nephrology; Surgery; Admitting Provider Student in an Organized Health Care Education/Training Program; Emergency Provider Emergency Medicine; PCP Nurse Practitioner Family; Visit Provider Family Medicine
DX: N17.9 Acute kidney failure, unspecified (principal); I50.32 Chronic diastolic (congestive) heart failure; I48.11 Longstanding persistent atrial fibrillation; E87.2 Acidosis; E87.1 Hypo-osmolality and hyponatremia; E66.9 Obesity, unspecified; Z68.37 Body mass index [BMI] 37.0-37.9, adult; E11.40 Type 2 diabetes mellitus with diabetic neuropathy, unspecified; E11.65 Type 2 diabetes mellitus with hyperglycemia; Z79.4 Long term (current) use of insulin; D75.1 Secondary polycythemia; D50.9 Iron deficiency anemia, unspecified; I11.0 Hypertensive heart disease with heart failure; J44.9 Chronic obstructive pulmonary disease, unspecified; Z86.73 Personal history of transient ischemic attack (TIA), and cerebral infarction without residual deficits; E78.5 Hyperlipidemia, unspecified; Z79.01 Long term (current) use of anticoagulants; I25.10 Atherosclerotic heart disease of native coronary artery without angina pectoris; N40.0 Benign prostatic hyperplasia without lower urinary tract symptoms; E55.9 Vitamin D deficiency, unspecified; Z87.891 Personal history of nicotine dependence; R31.0 Gross hematuria; Z79.51 Long term (current) use of inhaled steroids; Z79.891 Long term (current) use of opiate analgesic; R33.9 Retention of urine, unspecified; B96.81 Helicobacter pylori [H. pylori] as the cause of diseases classified elsewhere; D69.6 Thrombocytopenia, unspecified; N36.8 Other specified disorders of urethra; G89.4 Chronic pain syndrome; M19.90 Unspecified osteoarthritis, unspecified site; I25.2 Old myocardial infarction; Z95.1 Presence of aortocoronary bypass graft; Z95.0 Presence of cardiac pacemaker
CPT/HCPCS: 12345; 36415; 36416; 51702; 71045; 74176; 80053; 80061; 80074; 80500; 81001; 82274; 82310; 82436; 82530; 82533; 82550; 82728; 82962; 83010; 83516; 83540; 83550; 83605; 83615; 83735; 83880; 83883; 83970; 84100; 84133; 84145; 84156; 84300; 84443; 84484; 85025; 85610; 85730; 86038; 86060; 86140; 86160; 86225; 86335; 86677; 86706; 86803; 87040; 87086; 87340; 87426; 87806; 93005; 93306; 93970; 94640; 96372; 99284; C8924; G0378; J1815 ×2; J3535; J7030; J7040; Q3014; Q9956

== ENCOUNTER → 2020-12-07 09:47 | Outpatient (BNVA) | payer MEDICAID, SELFPAY | PROVIDERS: PCP Nurse Practitioner Family; Visit Provider Internal Medicine | DX: I25.810 Atherosclerosis of coronary artery bypass graft(s) without angina pectoris (principal); I65.29 Occlusion and stenosis of unspecified carotid artery; I48.11 Longstanding persistent atrial fibrillation; D64.9 Anemia, unspecified; E66.9 Obesity, unspecified; E11.65 Type 2 diabetes mellitus with hyperglycemia; Z79.4 Long term (current) use of insulin; I50.32 Chronic diastolic (congestive) heart failure | CPT/HCPCS: 80048; 83880; 85025 ==

== ENCOUNTER → 2020-12-19 17:56 | Outpatient (BNVA) | payer MEDICAID, SELFPAY | PROVIDERS: PCP Nurse Practitioner Family; Visit Provider Nurse Practitioner Family | DX: E87.70 Fluid overload, unspecified (principal) | CPT/HCPCS: 80053; 83880; 85025 ==

== ENCOUNTER 2020-12-21 08:15 | Emergency (ER) | payer MEDICAID, SELFPAY ==
[2020-12-21] VITALS (34 sets, daily range): BP systolic 102–123; BP diastolic 62–82; PULSE 57–89; RESP 21–22; TEMP 36.8; O2SAT 86–98; BMI 42.9
--- NOTE | 2020-12-21 08:35 | XR_ITS ---
WS: [id number] Portable AP upright chest, 12/21/2020 Clinical Data: dyspnea/cough Comparison: Portable chest, 11/20/2020. Findings: The heart is enlarged. There are bilateral patchy interstitial interstitial opacities. No n odules, masses or effusions are seen. There are midline sternotomy sutures. The 2-lead pacemaker remigio ins in good position. The right diaphragm is elevated. No pneumothorax is seen. XR/XR chest 1V portable [id number] Impression: 1. Cardiomegaly and atherosclerosis. 2. Minimal bilateral opacities.
--- NOTE | 2020-12-21 08:35 | ECG_ITS ---
[facility] Test Date: 2020-12-21 Pat Name: Jorge Lancaster Department: Room: Gender: Male Setter Up: : 1960 Requested By: Baldomero Rader Order Number: [id number] Romi MD: Juan Fofana M.D. Measurements Intervals Brady Rate: 73 P: IA: QRS: 250 QRSD: 158 T: 72 QT: 455 QTc: 504 Interpretive Statements Atrial fibrillation with a controlled ventricular response rate. 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 [email or web address]
--- NOTE | 2020-12-21 08:51 | ED_ITS ---
HPI - SOB/Dyspnea General: Chief Complaint: Shortness of Breath/Dyspnea Stated Complaint: water weight issues Time Seen by Provider: 12/21/20 08:20 History of Present Illness: HPI Narrative: 60-year-old male presents emergency room with complaint of increasing fluid retention and shortness of breath. Is been going on for last 4 to 5 days he did take an extra couple doses of his diuretic with no relief. He denies chest pain he has had increased orthopnea. Denies foot fever sweats or chills. He has continued to have good urine output. He has no recent change in his medications he is not run out of any of his medications. MD elicited complaint: shortness of breath Pertinent past history: congestive heart failure and diabetes Onset (ago): day(s) Context: occurred during exertion Timing: constant Severity: moderate Exacerbating factors: lying flat and exertion Relieving factors: rest and upright position Known history of: congestive heart failure Associated symptoms: Deny abdominal pain, chest congestion, chest pain, cough, diaphoresis, dizziness, extremity pain, fever(s), hemoptysis, lightheadedness, myalgias, nausea, orthopnea, palpitations, paresthesias, polydipsia, polyuria, rash, sense of impending doom, syncope or vomiting Treatment prior to arrival: none Review of Systems Const: Denies: fever(s) or diaphoresis Card: Denies: chest pain, palpitations, lightheadedness, syncope or orthopnea Resp: Denies: hemoptysis or chest congestion GI: Denies: abdominal pain, nausea or vomiting Musc: Denies: extremity pain Neuro: Denies: dizziness Endo: Denies: polyuria or polydipsia [facility] ED PFSH: Medical History Anemia Anticoagulation adequate with anticoagulant therapy Eliquis ASHD (arteriosclerotic heart disease) Atrial fibrillation BPH (benign prostatic hyperplasia) CAD (coronary artery disease) Carotid stenosis CHF (congestive heart failure) COPD (chronic obstructive pulmonary disease) Diabetes mellitus History of CVA (cerebrovascular accident) Hypertension Neuropathy Obesity Pacemaker PAF (paroxysmal atrial fibrillation) Vitamin B deficiency Vitamin D deficiency Surgical History History of left-sided carotid endarterectomy S/P CABG x 4 Family History Denies family history of Anesthesia complication Bleeding disorder Social History Smoking and tobacco status: former smoker Quit status (tobacco): has quit using tobacco Former quit date comment: smoked 20 yrs Second hand smoke exposure: No Alcohol intake: never Lives independently: Yes Household members: significant other and children Housing: House Marital status: Life Partner Current occupational status: disabled Current occupational exposures/hazards: No History of recent travel: No Current gender identity: Male Physical Exam Const: COMMON NORMALS: no acute distress GENERAL APPEARANCE: cooperative and comfortable ORIENTATION/CONSCIOUSNESS: Yes awake, Yes oriented to person, Yes oriented to place and Yes oriented to time HENMT: COMMON NORMALS: normocephalic, atraumatic and hearing grossly normal bilaterally HEAD & SCALP: normocephalic and atraumatic Neck/C-Spine: COMMON NORMALS: no JVD Resp: COMMON NORMALS: normal respiratory effort, No retractions, No use of accessory muscles and clear to auscultation bilaterally AUSCULTATION: clear to auscultation bilaterally Cardio: COMMON NORMALS: no JVD, regular rate, regular rhythm and No murmurs present (Cardio) RATE: regular rate RHYTHM: regular rhythm GI: COMMON NORMALS: Soft to palpation and No hepatosplenomegaly present AUSCULTATION: Yes normoactive bowel sounds PALPATION: Yes Soft to palpation, No Tenderness to palpation present (GI), No Guarding due to palpation present (GI) and Yes No hepatosplenomegaly present Extremity: COMMON NORMALS: normal to inspection, capillary refill normal, no clubbing, cyanosis or edema, no calf tenderness and no pedal edema Neuro: SENSORIUM/ORIENTATION: Yes oriented to person, Yes oriented to place and Yes oriented to time Skin: COMMON NORMALS: no rashes or lesions noted GENERAL SKIN EXAM: no rashes or lesions noted Course Vital Signs: Vital signs: Vital Signs Temperature 98.2 F 12/21/20 08:25 Pulse Rate 62 12/21/20 11:25 Respiratory Rate 22 H 12/21/20 08:25 Blood Pressure 105/82 12/21/20 11:25 Pulse Oximetry 95 12/21/20 11:25 MDM - SOB/Dyspnea Lab Data: Labs: Lab Results 12/21/20 12/21/20 12/21/20 Range/Units 09:00 09:00 09:00 WBC 8.7 (4.0-10.0) 10^3/ uL RBC 3.69 L (4.1-5.3) 10^6/u L Hgb 10.7 L (11.7-16.6) g/dL Hct 33.4 L (42.0-52.0) % MCV 90.5 (80-94) fL MCH 29.0 (28.0-34.0) pg MCHC 32.0 (30.0-36.0) g/dL RDW 18.6 H (12.1-15.1) % Plt Count 174 (130-400) 10^3/c mm MPV 10.6 H (7.4-10.4) fL Neut % (Auto) 75.9 % Lymph % (Auto) 10.2 % [place] % (Auto) 11.5 % Eos % (Auto) 1.7 % Baso % (Auto) 0.2 % Neut # (Auto) 6.57 (1.8-7.7) 10^3/u L Lymph # (Auto) 0.9 (0.8-4.8) 10^3/u L [place] # (Auto) 1.0 H (0.2-0.9) 10^3/u L Eos # (Auto) 0.2 (0.0-0.8) 10^3/u L Baso # (Auto) 0.0 (0.0-0.1) 10^3/u L Nucleated RBC % (a uto) 0 % Nucleated RBCs # 0.0 /100WBC Sodium 138 (136-145) mmol/L Potassium 3.1 L (3.5-5.1) mmol/L Chloride 97 L (98-107) mmol/L Carbon Dioxide 31 H (22-29) mmol/L Anion Gap 13.1 (5-19) BUN 43 H (6-20) mg/dL Creatinine 1.7 H (0.7-1.2) mg/dL GFR Calculation 41.5 L (90-130) mL/min Glucose 107 (65-115) mg/dL Calculated Osmolal ity 297 H (285-295) mOsm/k g Calcium 9.7 (8.5-10.5) mg/dL Total Bilirubin 0.6 (0.15-1.2) mg/dL AST 31 (0-40) U/L ALT 16 (0-41) U/L Alkaline Phosphata se 144 H (40-130) IU/L Troponin T Baselin e 79 H (0-15) ng/L Troponin T 120 Min [place] (0-15) ng/L Delta Troponin T (0-10) ABS# Total Protein 6.8 (6.6-8.7) g/dL Albumin 3.8 (3.5-5.2) g/dL Globulin 3.0 (1.3-4.6) g/dL 12/21/20 Range/Units 11:07 WBC (4.0-10.0) 10^3/ uL RBC (4.1-5.3) 10^6/u L Hgb (11.7-16.6) g/dL Hct (42.0-52.0) % MCV (80-94) fL MCH (28.0-34.0) pg MCHC (30.0-36.0) g/dL RDW (12.1-15.1) % Plt Count (130-400) 10^3/c mm MPV (7.4-10.4) fL Neut % (Auto) % Lymph % (Auto) % [place] % (Auto) % Eos % (Auto) % Baso % (Auto) % Neut # (Auto) (1.8-7.7) 10^3/u L Lymph # (Auto) (0.8-4.8) 10^3/u L [place] # (Auto) (0.2-0.9) 10^3/u L Eos # (Auto) (0.0-0.8) 10^3/u L Baso # (Auto) (0.0-0.1) 10^3/u L Nucleated RBC % (a uto) % Nucleated RBCs # /100WBC Sodium (136-145) mmol/L Potassium (3.5-5.1) mmol/L Chloride (98-107) mmol/L Carbon Dioxide (22-29) mmol/L Anion Gap (5-19) BUN (6-20) mg/dL Creatinine (0.7-1.2) mg/dL GFR Calculation (90-130) mL/min Glucose (65-115) mg/dL Calculated Osmolal ity (285-295) mOsm/k g Calcium (8.5-10.5) mg/dL Total Bilirubin (0.15-1.2) mg/dL AST (0-40) U/L ALT (0-41) U/L Alkaline Phosphata se (40-130) IU/L Troponin T Baselin e (0-15) ng/L Troponin T 120 Min [place] 82.51 H (0-15) ng/L Delta Troponin T 3.51 (0-10) ABS# Total Protein (6.6-8.7) g/dL Albumin (3.5-5.2) g/dL Globulin (1.3-4.6) g/dL Discharge Plan Discharge Patient Disposition: Home Clinical Impression: CHF (congestive heart failure), Peripheral edema, Diabetes mellitus, Obesity, COPD (chronic obstructive pulmonary disease) Condition: Stable Prescriptions: Changed Lasix 20 mg tablet 40 mg PO BID@,17 Qty: 0 RF: 0 potassium chloride 20 mEq tablet extended release 40 meq PO DAILY@05 Qty: 0 RF: 0 No Action olopatadine [Pataday] 0.2 % drops 1 - 2 drop ophthalmic (eye) QAM PRN (Reason: ITCHY EYE) RF: 0 travoprost [Travatan Z] 0.004 % drops 1 drop ophthalmic (eye) DAILY@05 RF: 0 tramadol 50 mg tablet 50 mg PO QID PRN (Reason: pain) 30 Days Qty: 90 RF: 1 (DME) blood sugar diagnostic [Blood Glucose Test] Strip See Rx Instructions .ROUTE .MEDSUPPLY Qty: 30 RF: 11 (DME) blood-glucose meter [facility] See Rx Instructions .ROUTE .MEDSUPPLY Qty: 1 RF: 0 (DME) pen needle, diabetic [Comfort EZ Pen [place]] 29 gauge x 1/2 needle See Rx Instructions .ROUTE .MEDSUPPLY Qty: 100 RF: 5 albuterol sulfate [ProAir HFA] 90 mcg/actuation HFA aerosol inhaler 2 puff INHALATION Q6H PRN (Reason: shortness of breath or wheezing) Qty: 18 RF: 3 cholecalciferol (vitamin D3) 1,250 mcg (50,000 unit) tablet 1,250 mcg PO Q7D Qty: 4 RF: 1 fluticasone propion-salmeterol [Advair Diskus] 250-50 mcg/dose blister with device 1 ea inhalation BID RF: 0 gabapentin 600 mg tablet 600 mg PO TID@,, RF: 0 sucralfate 1 gram Tablet 1 g PO BIDAC 30 Days Qty: 30 RF: 0 gabapentin 300 mg Capsule 300 mg PO TID@, Qty: 60 RF: 0 Eliquis 5 mg tablet 5 mg PO BID@ RF: 0 metolazone 2.5 mg Tablet 2.5 mg PO DAILY@ RF: 0 tamsulosin 0.4 mg capsule 0.4 mg PO DAILY@ RF: 0 sodium bicarbonate 650 mg tablet 650 mg PO TID@, RF: 0 pantoprazole 40 mg tablet,delayed release (DR/EC) 40 mg PO BID@ RF: 0 rosuvastatin 40 mg tablet 40 mg PO DAILY@ RF: 0 Lantus Solostar U-100 Insulin 100 unit/mL (3 mL) insulin pen 40 unit SUBCUT DAILY@ RF: 0 Discharge Orders: Discharge ED (Routine); Ordered 12/21/20 Ordered By: Baldomero Ruby Referrals: Amie Mcnamara FNP [Primary Care Provider] - Discharge Diet: As Directed Discharge Activity: Increase activity as tolerated Activity Restrictions/Additional Instructions: Increase Lasix to 40 mg twice daily for the next 3 days then resume 20 mg twice daily. Follow-up with your primary care doctor next week. Increase your potassium to 40 mEq daily for 3 days. Coding Level of Care Code ED Clinic Receptionist for Jocelyne Pat
[2020-12-21 09:12] LABS: Basophils % 0.2 %; Eosinophils # 0.2 10^3/uL (0.0-0.8); Eosinophils % 1.7 %; Hematocrit 33.4 % (42.0-52.0); Hemoglobin 10.7 g/dL (11.7-16.6); Lymphocytes # 0.9 10^3/uL (0.8-4.8); Lymphocytes % 10.2 %; Mean Corpuscular Volume 90.5 fL (80-94); Mean Platelet Volume 10.6 fL (7.4-10.4); Monocytes % 11.5 %; Neutrophils # 6.57 10^3/uL (1.8-7.7); Neutrophils % 75.9 %; Nucleated Red Blood Cells % 0 %; Platelet Count 174 10^3/cmm (130-400); Red Blood Count 3.69 10^6/uL (4.1-5.3); Red Cell Distribution Width 18.6 % (12.1-15.1); White Blood Count 8.7 10^3/uL (4.0-10.0)
[2020-12-21] MEDS: FUROsemide 10 mg/mL SDV 10mL 60 MG IVP (09:34)
[2020-12-21 09:38] LABS: Alanine Aminotransferase 16 U/L (0-41); Albumin Level 3.8 g/dL (3.5-5.2); Alkaline Phosphatase 144 IU/L (40-130); Anion Gap 13.1 (5-19); Aspartate Amino Transferase 31 U/L (0-40); Blood Urea Nitrogen 43 mg/dL (6-20); Calcium 9.7 mg/dL (8.5-10.5); Carbon Dioxide 31 mmol/L (22-29); Chloride 97 mmol/L (98-107); Glomerular Filtration Rate 41.5 mL/min (90-130); Glucose 107 mg/dL (65-115); Osmolality Calculated 297 mOsm/kg (285-295); Potassium 3.1 mmol/L (3.5-5.1); Sodium 138 mmol/L (136-145); Total Bilirubin 0.6 mg/dL (0.15-1.2); Total Protein 6.8 g/dL (6.6-8.7)
[2020-12-21 09:39] LABS: Troponin(5th) Baseline 79 ng/L (0-15)
--- NOTE | 2020-12-21 10:35 | ECG_ITS ---
[facility] Test Date: 2020-12-21 Pat Name: Jorge Lancaster Department: Room: Gender: Male It Program Manager: : 1960 Requested By: Baldomero Rader Order Number: [id number] Romi MD: Juan Fofana M.D. Measurements Intervals [place] Rate: 64 P: VA: QRS: 267 QRSD: 166 T: 102 QT: 498 QTc: 514 Interpretive Statements ATRIAL FIBRILLATION WITH ABERRANT CONDUCTION OR VENTRICULAR PREMATURE COMPLEXES Demand V pacing. Pseudofusion beats. RIGHT AXIS DEVIATION [QRS AXIS > 100] RIGHT BUNDLE BRANCH BLOCK [120+ ms QRS DURATION, UPRIGHT V1, 40+ ms S IN I/aVL/V4/V5/V6] compared to ECG 12/21/2020 09:02:05 Ventricular premature complex(es) now present Aberrant conduction of supraventricular beat(s) now present Myocardial infarct finding still present Electronically Signed On 12-21-2020 19:17:08 ORTHOPEDIC PODIATRIST by Juan Fofana M.D. [id number]
[2020-12-21 12:00] LABS: Troponin 5 2HR 82.51 ng/L (0-15); Troponin 5 2HR Delta 3.51 ABS# (0-10)
== END 2020-12-21 13:16 | disposition home or self-care (01) ==
PROVIDERS: Emergency Provider Family Medicine; PCP Nurse Practitioner Family
DX: I11.0 Hypertensive heart disease with heart failure (principal); I50.9 Heart failure, unspecified; R60.9 Edema, unspecified; E66.9 Obesity, unspecified; J44.9 Chronic obstructive pulmonary disease, unspecified; Z79.01 Long term (current) use of anticoagulants; Z79.4 Long term (current) use of insulin; I48.91 Unspecified atrial fibrillation; I25.10 Atherosclerotic heart disease of native coronary artery without angina pectoris; Z86.73 Personal history of transient ischemic attack (TIA), and cerebral infarction without residual deficits; E11.40 Type 2 diabetes mellitus with diabetic neuropathy, unspecified; Z95.0 Presence of cardiac pacemaker; Z95.1 Presence of aortocoronary bypass graft; Z87.891 Personal history of nicotine dependence
CPT/HCPCS: 12345; 36415; 71045; 80053; 84484; 85025; 93005; 96374; 99283; 99284; J1940

== ENCOUNTER 2020-12-26 09:28 | Inpatient (IN) | payer MEDICAID, SELFPAY ==
[2020-12-26] VITALS (16 sets, daily range): BP systolic 114–132; BP diastolic 46–83; PULSE 63–89; RESP 18–25; TEMP 36.2–36.6; O2SAT 95–100; BMI 38.3
--- NOTE | 2020-12-26 09:44 | XR_ITS ---
WS: [id number] Exam: XR chest 1V portable [id number] Date/Time of Exam: 12/26/2020 9:48 AM Reason For Exam: dyspnea, chf Comparison 12/21/2020. The heart is enlarged and there is pulmonary vascular congestion suggesting chronic low-grade CHF. No pleural effusions noted. No consolidating infiltrates. Signs of previous CABG surgery. Permanent car diac pacer superimposes the left chest. The mediastinum and bony thorax are unremarkable. XR/XR chest 1V portable [id number] IMPRESSION: 1. Cardiac enlargement with pulmonary vascular congestion suggesting some degre e of mild chronic CHF. Similar findings on the last exam.
--- NOTE | 2020-12-26 09:44 | ECG_ITS ---
[facility] Test Date: 2020-12-26 Pat Name: Jorge Lancaster Department: Room: Gender: Male [place] Strip Inspector: : 1960 Requested By: Baldomero Rader Order Number: [id number] Rmoi MD: Juan Fofana M.D. Measurements Intervals [place] Rate: 80 P: 118 AK: 298 QRS: 115 QRSD: 158 T: -61 QT: 431 QTc: 499 Interpretive Statements ELECTRONIC VENTRICULAR PACEMAKER ABNORMAL RHYTHM ECG Compared to ECG 12/21/2020 10:48:55 Ventricular premature complex(es) no longer present Aberrant conduction of supraventricular beat(s) no longer present Right-axis deviation no longer present Right bundle-branch block no longer present Electronically Signed On 12-27-2020 17:54:59 FAX MACHINE REPAIRER by Juan Fofana M.D. [id number]
--- NOTE | 2020-12-26 09:45 | ED_ITS ---
HPI - Extremity Problem General: Chief complaint: Extremity Problem,Nontraumatic Stated complaint: ble edema, abd distention Time Seen by Provider: 12/26/20 09:34 History of Present Illness: HPI Narrative: 60-year-old male with a history of congestive heart failure. He had a hospitalization in late October with acute renal failure and congestive heart failure I seen the patient 5 days ago at that time he was in some mild heart failure he was diuresed in the ER and was improved and discharged home. He returns today with increasing fluid retention anasarca at the level of the umbilicus and increasing shortness of breath. He states he feels worse than the last time he was here. He has continued to take diuretics at home. He has a pacemaker in place. He denies having any chest pain at all either now or in the last several days. He has increasing orthopnea. While in the emergency room he had a 10 beat nonsustained run of V. tachRicardo SALDAÑA Complaint: extremity swelling Onset (ago): day(s) Relieving factors: rest Exacerbating factors: walking and exertion Associated symptoms: Deny chest pain, fever(s) or rash Review of Systems Const: Denies: fever(s), chills, body aches, change in appetite, fatigue or malaise ENMT: Denies: throat pain, ear or mastoid pain, nasal discharge or nasal congestion Card: Denies: chest pain, edema, dyspnea on exertion or orthopnea Resp: Denies: dyspnea, productive cough or non-productive cough GI: Denies: abdominal pain, nausea, vomiting, hematemesis, coffee ground emesis, diarrhea, constipation, bloating, hematochezia or melena : Denies: flank pain, dysuria, urinary frequency or urinary urgency Skin/Breast: Denies: rash or pruritus PFS ED PFSH: Medical History Anemia Anticoagulation adequate with anticoagulant therapy Eliquis ASHD (arteriosclerotic heart disease) Atrial fibrillation BPH (benign prostatic hyperplasia) CAD (coronary artery disease) Carotid stenosis CHF (congestive heart failure) COPD (chronic obstructive pulmonary disease) Diabetes mellitus History of CVA (cerebrovascular accident) Hypertension Neuropathy Obesity Pacemaker PAF (paroxysmal atrial fibrillation) Vitamin B deficiency Vitamin D deficiency Surgical History History of left-sided carotid endarterectomy S/P CABG x 4 Family History Denies family history of Anesthesia complication Bleeding disorder Social History Smoking and tobacco status: former smoker Quit status (tobacco): has quit using tobacco Former quit date comment: smoked 20 yrs Second hand smoke exposure: No Alcohol intake: never Lives independently: Yes Household members: significant other and children Housing: House Marital status: Life Partner Current occupational status: disabled Current occupational exposures/hazards: No History of recent travel: No Current gender identity: Male Physical Exam Const: COMMON NORMALS: no acute distress GENERAL APPEARANCE: cooperative and comfortable ORIENTATION/CONSCIOUSNESS: Yes awake, Yes oriented to person, Yes oriented to place and Yes oriented to time HENMT: COMMON NORMALS: normocephalic, atraumatic and hearing grossly normal bilaterally HEAD & SCALP: normocephalic and atraumatic Neck/C-Spine: COMMON NORMALS: no JVD Resp: COMMON NORMALS: normal respiratory effort, No retractions, No use of accessory muscles and clear to auscultation bilaterally AUSCULTATION: clear to auscultation bilaterally Cardio: COMMON NORMALS: no JVD, regular rate, regular rhythm and No murmurs present (Cardio) RATE: regular rate RHYTHM: regular rhythm GI: COMMON NORMALS: Soft to palpation and No hepatosplenomegaly present AUSCULTATION: Yes normoactive bowel sounds PALPATION: Yes Soft to palpation, No Tenderness to palpation present (GI), No Guarding due to palpation present (GI) and Yes No hepatosplenomegaly present Extremity: NARRATIVE EXTREMITY EXAM: 2+ edema with anasarca to the level of the umbilicus Neuro: SENSORIUM/ORIENTATION: Yes oriented to person, Yes oriented to place and Yes oriented to time Skin: COMMON NORMALS: no rashes or lesions noted GENERAL SKIN EXAM: no rashes or lesions noted Course Vital Signs: Vital signs: Vital Signs Pulse Rate 71 12/26/20 13:35 Respiratory Rate 23 H 12/26/20 13:33 Blood Pressure 131/83 12/26/20 13:33 Pulse Oximetry 97 12/26/20 12:46 MDM - Extremity (Nontraumatic) MDM Narrative: Medical decision making narrative: Patient given Lasix. Needs to be admitted for diuresis acute kidney injury medication adjustment discussed with hospitalist orders written Lab Data: Labs: Lab Results 12/26/20 12/26/20 12/26/20 Range/Units 10:00 10:00 10:00 WBC 8.1 (4.0-10.0) 10^3/ uL RBC 3.73 L (4.1-5.3) 10^6/u L Hgb 10.6 L (11.7-16.6) g/dL Hct 34.4 L (42.0-52.0) % MCV 92.2 (80-94) fL MCH 28.4 (28.0-34.0) pg MCHC 30.8 (30.0-36.0) g/dL RDW 18.8 H (12.1-15.1) % Plt Count 141 (130-400) 10^3/c mm MPV 10.8 H (7.4-10.4) fL Neut % (Auto) 79.3 % Lymph % (Auto) 8.9 % [place] % (Auto) 11.0 % Eos % (Auto) 0.5 % Baso % (Auto) 0.1 % Neut # (Auto) 6.40 (1.8-7.7) 10^3/u L Lymph # (Auto) 0.7 L (0.8-4.8) 10^3/u L [place] # (Auto) 0.9 (0.2-0.9) 10^3/u L Eos # (Auto) 0.0 (0.0-0.8) 10^3/u L Baso # (Auto) 0.0 (0.0-0.1) 10^3/u L Nucleated RBC % (a uto) 0 % Nucleated RBCs # 0.0 /100WBC PT 20.70 H (12.1-14.9) SECO NDS INR 1.72 H (0.8-1.2) APTT 38.2 H (23.9-36.7) SECO NDS Sodium 133 L (136-145) mmol/L Potassium 4.9 (3.5-5.1) mmol/L Chloride 94 L (98-107) mmol/L Carbon Dioxide 24 (22-29) mmol/L Anion Gap 19.9 H (5-19) BUN 63 H (6-20) mg/dL Creatinine 3.0 H (0.7-1.2) mg/dL GFR Calculation 21.5 L (90-130) mL/min Glucose 162 H (65-115) mg/dL Calculated Osmolal ity 298 H (285-295) mOsm/k g Calcium 9.3 (8.5-10.5) mg/dL Total Bilirubin 1.2 (0.15-1.2) mg/dL AST 36 (0-40) U/L ALT 19 (0-41) U/L Alkaline Phosphata se 127 (40-130) IU/L Creatine Kinase 177 (39-308) U/L Troponin T Baselin e (0-15) ng/L NT-Pro-B Natriuret Pep 6197 H (0-125) pg/mL Total Protein 7.1 (6.6-8.7) g/dL Albumin 3.8 (3.5-5.2) g/dL Globulin 3.3 (1.3-4.6) g/dL Lipase 40 (13-60) U/L Urine Color (Yellow) Urine Appearance (CLEAR) Urine pH (5-7) Ur Specific Gravit y (1.005-1.030) Urine Protein (Negative) Urine Glucose (UA) (Normal) Urine Ketones (Negative) Urine Blood (Negative) Urine Nitrate (Negative) Urine Bilirubin (Negative) Urine Urobilinogen (Negative) mg/dL Ur Leukocyte Jasmin ase (Negative) Urine RBC (0-2) /hpf Urine WBC (0-5) /hpf Ur Squamous Epith Cells (0-5) /hpf Amorphous Sediment Urine Bacteria (NONE) /hpf Hyaline Casts /lpf 12/26/20 12/26/20 Range/Units 10:00 10:35 WBC (4.0-10.0) 10^3/ uL RBC (4.1-5.3) 10^6/u L Hgb (11.7-16.6) g/dL Hct (42.0-52.0) % MCV (80-94) fL MCH (28.0-34.0) pg MCHC (30.0-36.0) g/dL RDW (12.1-15.1) % Plt Count (130-400) 10^3/c mm MPV (7.4-10.4) fL Neut % (Auto) % Lymph % (Auto) % [place] % (Auto) % Eos % (Auto) % Baso % (Auto) % Neut # (Auto) (1.8-7.7) 10^3/u L Lymph # (Auto) (0.8-4.8) 10^3/u L [place] # (Auto) (0.2-0.9) 10^3/u L Eos # (Auto) (0.0-0.8) 10^3/u L Baso # (Auto) (0.0-0.1) 10^3/u L Nucleated RBC % (a uto) % Nucleated RBCs # /100WBC PT (12.1-14.9) SECO NDS INR (0.8-1.2) APTT (23.9-36.7) SECO NDS Sodium (136-145) mmol/L Potassium (3.5-5.1) mmol/L Chloride (98-107) mmol/L Carbon Dioxide (22-29) mmol/L Anion Gap (5-19) BUN (6-20) mg/dL Creatinine (0.7-1.2) mg/dL GFR Calculation (90-130) mL/min Glucose (65-115) mg/dL Calculated Osmolal ity (285-295) mOsm/k g Calcium (8.5-10.5) mg/dL Total Bilirubin (0.15-1.2) mg/dL AST (0-40) U/L ALT (0-41) U/L Alkaline Phosphata se (40-130) IU/L Creatine Kinase (39-308) U/L Troponin T Baselin e 93 H (0-15) ng/L NT-Pro-B Natriuret Pep (0-125) pg/mL Total Protein (6.6-8.7) g/dL Albumin (3.5-5.2) g/dL Globulin (1.3-4.6) g/dL Lipase (13-60) U/L Urine Color Yellow (Yellow) Urine Appearance Clear (CLEAR) Urine pH 5 (5-7) Ur Specific Gravit y 1.020 (1.005-1.030) Urine Protein 1+ H (Negative) Urine Glucose (UA) Norm (Normal) Urine Ketones Negative (Negative) Urine Blood Neg (Negative) Urine Nitrate Negative (Negative) Urine Bilirubin Neg (Negative) Urine Urobilinogen Norm (Negative) mg/dL Ur Leukocyte Jasmin ase Negative (Negative) Urine RBC None (0-2) /hpf Urine WBC 5-10 H (0-5) /hpf Ur Squamous Epith Cells 0-4 H (0-5) /hpf Amorphous Sediment Not Reportable Urine Bacteria 1+ H (NONE) /hpf Hyaline Casts 0-4 H /lpf Discharge Plan Discharge Patient Disposition: Admitted As Inpatient Admit Provider: Sheila Coffey Clinical Impression: CHF (congestive heart failure), COPD exacerbation, Peripheral edema, Diabetes mellitus, Hypertension, Obesity, PAF (paroxysmal atrial fibrillation), Acute renal failure, Atrial fibrillation Condition: Stable Coding Level of Care Code ED Border Guard for Chg Fwd Exam Detailed
[2020-12-26] MEDS: nitroglycerin 1 gm/inch oint Pkt 0.5 INCH TOPICAL (10:05)
[2020-12-26] MEDS: FUROsemide 10 mg/mL SDV 10mL 60 MG IVP (10:11)
[2020-12-26 10:29] LABS: Basophils % 0.1 %; Eosinophils % 0.5 %; Hematocrit 34.4 % (42.0-52.0); Hemoglobin 10.6 g/dL (11.7-16.6); Lymphocytes # 0.7 10^3/uL (0.8-4.8); Lymphocytes % 8.9 %; Mean Corpuscular HGB Conc 30.8 g/dL (30.0-36.0); Mean Corpuscular Hemoglobin 28.4 pg (28.0-34.0); Mean Corpuscular Volume 92.2 fL (80-94); Mean Platelet Volume 10.8 fL (7.4-10.4); Monocytes # 0.9 10^3/uL (0.2-0.9); Neutrophils % 79.3 %; Nucleated Red Blood Cells % 0 %; Platelet Count 141 10^3/cmm (130-400); Red Blood Count 3.73 10^6/uL (4.1-5.3); Red Cell Distribution Width 18.8 % (12.1-15.1); White Blood Count 8.1 10^3/uL (4.0-10.0)
[2020-12-26 10:33] LABS: INR 1.72 (0.8-1.2)
[2020-12-26 10:34] LABS: Partial Thromboplastin Time 38.2 SECONDS (23.9-36.7)
[2020-12-26 10:50] LABS: Alanine Aminotransferase 19 U/L (0-41); Albumin Level 3.8 g/dL (3.5-5.2); Alkaline Phosphatase 127 IU/L (40-130); Aspartate Amino Transferase 36 U/L (0-40); Blood Urea Nitrogen 63 mg/dL (6-20); Calcium 9.3 mg/dL (8.5-10.5); Carbon Dioxide 24 mmol/L (22-29); Chloride 94 mmol/L (98-107); Creatine Phosphokinase 177 U/L (39-308); Globulin 3.3 g/dL (1.3-4.6); Glomerular Filtration Rate 21.5 mL/min (90-130); Glucose 162 mg/dL (65-115); Lipase 40 U/L (13-60); NT Pro B Type Natriuretic Pept 6197 pg/mL (0-125); Osmolality Calculated 298 mOsm/kg (285-295); Sodium 133 mmol/L (136-145); Total Bilirubin 1.2 mg/dL (0.15-1.2); Total Protein 7.1 g/dL (6.6-8.7)
[2020-12-26 10:52] LABS: Anion Gap 19.9 (5-19); Potassium 4.9 mmol/L (3.5-5.1); Troponin(5th) Baseline 93 ng/L (0-15)
[2020-12-26 10:59] LABS: Add Urine Microscopic? YES; Bilirubin Urine Neg (Negative); Blood Urine Neg (Negative); Glucose Urine UA Norm (Normal); Ketones Urine Negative (Negative); Leukocyte Esterase Urine Negative (Negative); Nitrate Urine Negative (Negative); Protein Urine 1+ (Negative); Urine Appearance Clear (CLEAR); Urine Color Yellow (Yellow); Urobilinogen Urine Norm (Negative); pH Urine 5 (5-7)
[2020-12-26 11:01] LABS: Add Urine Culture? No; Bacteria Urine 1+ /hpf; Hyaline Casts Urine 0-4 /lpf; Squamous Epithelial Cell Urine 0-4 /hpf (0-5)
--- NOTE | 2020-12-26 11:44 | ECG_ITS ---
[facility] Test Date: 2020-12-26 Pat Name: Jorge Lancaster Department: Room: Gender: Male Life Skills Teacher: : 1960 Requested By: Baldomero Rader Order Number: [id number] Romi MD: Juan Fofana M.D. Measurements Intervals [place] Rate: 65 P: ID: QRS: 263 QRSD: 152 T: 74 QT: 486 QTc: 506 Interpretive Statements ATRIAL FIBRILLATION WITH ABERRANT CONDUCTION OR VENTRICULAR PREMATURE COMPLEXES RIGHT AXIS DEVIATION [QRS AXIS > 100] RIGHT BUNDLE BRANCH BLOCK [120+ ms QRS DURATION, UPRIGHT V1, 40+ ms S IN I/aVL/V4/V5/V6]POSSIBLE ANTERIOR MYOCARDIAL INFARCTION , OF INDETERMINATE AGE [30 ms Q WAVE IN V3/V4, OR R < 0.2 mV IN V4] INFERIOR MYOCARDIAL INFARCTION , PROBABLY OLD [40+ ms Q WAVE AND/OR ST/T ABNORMALITY IN II/aVF] Compared to ECG 12/26/2020 09:31:55 Ventricular premature complex(es) now presentAberrant conduction of supraventricular beat(s) now presentRight-axis deviation now present Right bundle-branch block now present Myocardial infarct finding now present Ventricular-paced complex(es) or rhythm no longer present Electronically Signed On 12-27-2020 18:09:23 FIRE MANAGER by Juan Fofana M.D. [id number]
--- NOTE | 2020-12-26 12:42 | P.HP_ITS ---
Providers/Chief Complaint Admitting Physician: Sheila Coffey Primary Care Provider: ASHLI Torre Chief Complaint: ble edema, abd distention History of Present Illness 60-year-old male with a past medical history significant for morbid obesity, BPH, paroxysmal atrial fibrillation, sick sinus syndrome status post pacemaker, neuropathy, diabetes mellitus, iron deficiency anemia, hypertension, dyslipidemia, CVA without residual deficits, peripheral vascular disease including carotid stenosis, chronic stage 3 kidney disease, chronic obstructive pulmonary disease and chronic anasarca due to right heart failure who presented to the hospital with respiratory distress. Patient stated that his symptoms have been progressively worsening since [place] time however the past few days that markedly increased. In addition to this he also noted increasing bilateral lower extremity edema. Denied chest pain. No fever, chills, nausea or vomiting. No abdominal pain, diarrhea or constipation. Laboratory workup on arrival showed a WBC of 8.1, hemoglobin of 10.6, hematocrit 34.4 and a platelet count of 141. Sodium 133, potassium 4.9, chloride 94, bicarb 24, BUN 63 and creatinine of 3.0. Prior creatinine was 1.7 on December 21. ProBNP of 6197. Troponin T of 92 -> 96.25, INR of 1.72 Imaging studies included a chest x-ray which showed mild pulmonary vascular congestion with c ardiomegaly. In ER patient was given Lasix 60 mg IV x1 and placement of Nitro-bid 0.5 inch topical. At the time of my eval patient was noted to be in mild respiratory distress. RT was consulted for ABG stat. Review of Systems General: Reports: 10 or more systems reviewed and unremarkable except in HPI and below Medications/Allergies Home Medications Medication Instructions Recorded Confirmed Last Taken Type olopatadine 0.2 % eye drops 1 - 2 drop OPHTHALMIC (EYE) QAM PRN 01/10/20 12/26/20 12/26/20 History travoprost 0.004 % eye drops 1 drop OPHTHALMIC (EYE) DAILY@05 01/10/20 12/26/20 12/26/20 History ml tramadol 50 mg tablet 50 mg PO QID PRN 30 Days #90 tab 09/04/20 12/26/20 12/20/20 Rx albuterol sulfate 90 mcg/actuation 2 puff INHALATION Q6H PRN #18 gm 10/15/20 12/26/20 Unknown Rx aerosol inhaler fluticasone propion-salmeterol 1 ea INHALATION BID 11/19/20 12/26/20 12/26/20 History [Advair Diskus] gabapentin 600 mg PO TID@,,11/19/20 12/26/20 12/26/20 History gabapentin 300 mg PO TID@,, #60 cap 11/24/20 12/26/20 12/26/20 Rx cholecalciferol (vitamin D3) 1,250 1,250 mcg PO Q7D #4 tab 12/04/20 12/26/20 12/21/20 Rx mcg (50,000 unit) tablet Lantus Solostar U-100 Insulin 40 unit SUBCUT DAILY@12/21/20 12/26/20 12/25/20 History apixaban [Eliquis] 5 mg PO BID@,12/21/20 12/26/20 12/26/20 History furosemide [Lasix] 40 mg PO BID@, #0 tab 12/21/20 12/26/20 12/26/20 Rx metolazone 2.5 mg PO DAILY@05 12/21/20 12/26/20 12/26/20 History pantoprazole 40 mg PO BID@,12/21/20 12/26/20 12/26/20 History potassium chloride 40 meq PO DAILY@05 #0 tab 12/21/20 12/26/20 12/26/20 Rx rosuvastatin 40 mg PO DAILY@12/21/20 12/26/20 12/25/20 History sodium bicarbonate 650 mg PO TID@,,12/21/20 12/26/20 12/26/20 History tamsulosin 0.4 mg PO DAILY@05 12/21/20 12/26/20 12/26/20 History Allergies Allergy/AdvReac Type Severity Reaction Status Date / Time No Known Allergies Allergy Verified 12/19/20 16:11 PFSH Acute PFSH: Medical History Anemia Anticoagulation adequate with anticoagulant therapy Eliquis ASHD (arteriosclerotic heart disease) Atrial fibrillation BPH (benign prostatic hyperplasia) CAD (coronary artery disease) Carotid stenosis CHF (congestive heart failure) COPD (chronic obstructive pulmonary disease) Diabetes mellitus History of CVA (cerebrovascular accident) Hypertension Neuropathy Obesity Pacemaker PAF (paroxysmal atrial fibrillation) Vitamin B deficiency Vitamin D deficiency Surgical History History of left-sided carotid endarterectomy S/P CABG x 4 Family History Denies family history of Anesthesia complication Bleeding disorder Social History Smoking and tobacco status: former smoker Quit status (tobacco): has quit using tobacco Former quit date comment: smoked 20 yrs Second hand smoke exposure: No Alcohol intake: never Lives independently: Yes Household members: significant other and children Housing: House Marital status: Life Partner Current occupational status: disabled Current occupational exposures/hazards: No History of recent travel: No Current gender identity: Male Vitals/I&O/Wt Last Vital Signs Pulse 67 12/26/20 12:30 Resp 25 H 12/26/20 12:30 BP 118/65 12/26/20 12:00 Pulse Ox 96 12/26/20 12:30 Weight last 48 hrs Weight 124.738 kg Physical Exam Narrative: EXAM NARRATIVE: General : Alert, awake in mild distress HEENT : EOMI, No JVD Chest : Decrease at bases, no wheezing, mild accessory muscle use CVS : NSR ABD: Soft Ext : 3+ Bilateral LE edema Data : 12/26/20 10:00 12/26/20 10:00 A&P Assessment and plan (1) Acute respiratory distress: Status: Acute (2) Right heart failure: Status: Acute (3) Acute worsening of stage 3 chronic kidney disease: Status: Acute Acute on chronic respiratory distress - Etiology multifactorial - Fluid overload with underlying COPD exacerbation - Chest x-ray - mild pulmonary vascular congestion - Duoneb q6hr scheduled - Advair 1 puff BID - Supplemental o2 as needed - Check ABG now stat - Diuresis as noted below Acute on chronic HFpEF exacerbation - Previously noted RV dysfunction - Lasix 60 mg IV x 1 in ER - Continue Lasix 40 mg IV Q12hr - Metolazone 2.5 mg PO Daily prior am dose of lasix - Replace K as needed - Limited ECHO ordered - Monitor daily weight - May consider cardiology consult Acute on chronic stage 3 kidney disease - Creatinine fluctuating baseline - 1.7->2.5 - Currently at 3.0 - Likely due to cardiac - Started on dieresis - Repeat BMP in am - Friedman placement - Renal dosing - Monitor urine output Elevated troponin - Likely type 2 in setting of worsening renal failure - Follow up on 6hr reading - Telemetry - Cardiology was notified in ER - Nitro-paste- D/C Paroxysmal Atrial fibrillation - Currently paced - Eliquis 5 mg PO BID - Monitor on tele SSS s/p pacemaker - Pacemaker interrogation Diabetes mellitus - Sliding scale insulin - Qachs checks - A1c in Am GERD/Hx of H.Pylori - Protonix 40 mg PO BID DVT ppx - On Eliquis Attestations Medical Necessity Statement*: admitted to the hospital with acute respiratory distress due to fluid overload and worsening renal dysfunction patient will require over 2 midnight stay in hospital for evaluation and treatment. 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
[2020-12-26 13:17] LABS: Troponin 5 2HR 96.25 ng/L (0-15); Troponin 5 2HR Delta 3.25 ABS# (0-10)
[2020-12-26 15:41] LABS: ABG PCO2 46.4 mmHg (35-45); ABG PH Result 7.35 (7.35-7.45); Base Excess ABG -0.6 mmol/L (-2.0-2.0); Blood Gas Allen Test Pos; Blood Gas Operator Identificat glc; Blood Gas Sample Site Radial, right; Blood Gas Sample Type Arterial; HCO3 ABG 25.4 mmol/L (22-26); Oxygen Device NC
--- NOTE | 2020-12-26 15:44 | ECG_ITS ---
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 Measurements Intervals [place] Rate: 66 P: MN: QRS: 253 QRSD: 161 T: 68 QT: 497 QTc: 525 Interpretive Statements ATRIAL FIBRILLATION MARKED RIGHT AXIS DEVIATION [QRS AXIS > 100] RIGHT BUNDLE BRANCH BLOCK [120+ ms QRS DURATION, UPRIGHT V1, 40+ ms S IN I/aVL/V4/V5/V6] POSSIBLE ANTERIOR MYOCARDIAL INFARCTION [30 ms Q WAVE IN V3/V4, OR R < 0.2 mV IN V4], OF INDETERMINATE AGE Compared to ECG 12/26/2020 12:02:11 Ventricular premature complex(es) no longer present Aberrant conduction of supraventricular beat(s) no longer present Myocardial infarct finding still present Electronically Signed On 12-27-2020 18:10:11 FURNACE CARETAKER by Juan Fofana M.D. [id number]
[2020-12-26] MEDS: pantoprazole DR 40 mg Tablet PO (16:55)
[2020-12-26] MEDS: insulin glargine 100 units/1 mL 20 UNIT SUBCUT (16:55)
[2020-12-26] MEDS: gabapentin 300 mg Capsule 600 MG PO (16:55)
[2020-12-26] MEDS: atorvastatin 40 mg Tablet 80 MG PO (16:55)
[2020-12-26] MEDS: apixaban 5 mg Tablet PO (16:55)
[2020-12-26 17:01] LABS: Glucose Point of Care 243 mg/dL (70-110)
[2020-12-26] MEDS: ipratropium-albuterol 3 mL Neb INHALATION (19:35)
--- NOTE | 2020-12-26 19:44 | PC.NURSE ---
PT IS RESTING IN BED. PT DENIES PAIN AT THIS TIME. PT STATES THAT LEFT LEG IS CRAMPING. ROM WAS PERFORMED. WILL CONTINUE TO MONITOR.
[2020-12-26] MEDS: FUROsemide 10 mg/mL SDV 4mL 40 MG IVP (19:52)
[2020-12-26 20:08] LABS: Troponin 5 6HR 92.34 ng/L (0-15)
[2020-12-26 20:31] LABS: Glucose Point of Care 147 mg/dL (70-110)
[2020-12-27] VITALS (17 sets, daily range): BP systolic 113–135; BP diastolic 60–86; PULSE 58–78; RESP 16–26; TEMP 36.4–36.8; O2SAT 92–100
[2020-12-27] MEDS: ipratropium-albuterol 3 mL Neb INHALATION ×4 (02:20→21:15)
--- NOTE | 2020-12-27 04:00 | PC.NURSE ---
Pt states that he is anxious and that he hasn't slept all night. Pt has been sleeping every time I have done rounds. However the pt does have some air hunger, but has taken off his O2 and refuses to put it back on. notified.
[2020-12-27 05:19] LABS: Basophils % 0.2 %; Eosinophils # 0.1 10^3/uL (0.0-0.8); Eosinophils % 0.6 %; Hemoglobin 10.5 g/dL (11.7-16.6); Lymphocytes # 0.9 10^3/uL (0.8-4.8); Lymphocytes % 8.1 %; Mean Corpuscular HGB Conc 30.9 g/dL (30.0-36.0); Mean Corpuscular Volume 90.7 fL (80-94); Mean Platelet Volume 11.5 fL (7.4-10.4); Monocytes # 1.4 10^3/uL (0.2-0.9); Monocytes % 12.5 %; Neutrophils # 8.75 10^3/uL (1.8-7.7); Neutrophils % 78.2 %; Nucleated Red Blood Cells % 0 %; Platelet Count 168 10^3/cmm (130-400); Red Blood Count 3.75 10^6/uL (4.1-5.3); Red Cell Distribution Width 18.7 % (12.1-15.1); White Blood Count 11.2 10^3/uL (4.0-10.0)
[2020-12-27] MEDS: metOLazone 5 MG Tablet 2.5 MG PO (05:38)
[2020-12-27] MEDS: gabapentin 300 mg Capsule 600 MG PO ×3 (05:38→17:40)
[2020-12-27] MEDS: tamsulosin 0.4 mg Capsule PO (05:38)
[2020-12-27] MEDS: apixaban 5 mg Tablet PO ×2 (05:38→17:40)
[2020-12-27] MEDS: pantoprazole DR 40 mg Tablet PO ×2 (05:38→17:40)
--- NOTE | 2020-12-27 05:44 | PC.NURSE ---
PT IS RESTING IN BED. HAD TO WAKE PT TO TAKE MEDICATION. PT ASKED IF THERE WAS ANYTHING FOR ANXIETY. GABAPENTIN WAS IN WITH MEDICATION. PT STATED THAT WILL WORK. WILL CONTINUE TO MONITOR.
--- NOTE | 2020-12-27 06:00 | USCV_ITS ---
Jorge Lancaster Age: 60 Gender: M : 1960 Exam Date: 12/27/2020 06:00 Ordering Phys: Sheila Coffey MD Technologist: Osman Mon Exam Location: [facility] [place] Indication: EVALUATE LV FUNCTION BP: 134 / 73 HR: Rhythm: Sinus Technical Quality: Technically difficult study MEASUREMENTS (Male / Female) Normal Values 2D ECHO LV Diastolic Diameter PLAX 4.5 cm 4.2 - 5.9 / 3.9 - 5.3 cm LV Systolic Diameter PLAX 3.9 cm IVS Diastolic Thickness 1.1 cm 0.6 - 1.0 / 0.6 - 0.9 cm IVS Systolic Thickness 1.8 cm LVPW Diastolic Thickness 1.3 cm 0.6 - 1.0 / 0.6 - 0.9 cm LVPW Systolic Thickness 1.2 cm LVOT Diameter 2.1 cm LV Ejection Fraction 2D Teich 32.2 % LV Ejection Fraction MOD 2C 58.4 % LV Ejection Fraction 2C AL 58.7 % LA Diameter 4.6 cm LA Width 4.4 cm LA Height 5.8 cm RA Width 4.5 cm RA Height 5.0 cm M-MODE LV Diastolic Diameter MM 5.1 cm 4.2 - 5.9 / 3.9 - 5.3 cm LV Systolic Diameter MM 4.1 cm LV Ejection Fraction MM Teich 38.7 % IVS Diastolic Thickness MM 1.6 cm 0.6 - 1.0 / 0.6 - 0.9 cm IVS Systolic Thickness MM 1.9 cm LVPW Diastolic Thickness MM 1.9 cm 0.6 - 1.0 / 0.6 - 0.9 cm LVPW Systolic Thickness MM 2.0 cm RV Diastolic Diameter MM 1.6 cm Aortic Annulus Diameter 3.3 cm LA Ao Ratio MM 1.5 MV E Point Septal Separation 1.2 cm FINDINGS Left Ventricle Upper normal left ventricle cavity size. Probably mildly decreased left ventricular systolic function. This study is inadequate for estimation of regional wall motion abnormality. Right Ventricle Probably mildly decreased right ventricle systolic function. Pacemaker wire visualized in the right ventricle. Right Atrium Right atrium not well visualized. Left Atrium Left atrium not well visualized. Mitral Valve Thickened mitral valve. Aortic Valve Probably trileaflet aortic valve. Tricuspid Valve Tricuspid valve not well visualized. Pulmonic Valve Pulmonic valve not well visualized. Pericardium No pericardial effusion. Aorta Normal-sized aortic root. CONCLUSIONS 1. This is a technically difficult study. 2. Upper normal left ventricle cavity size. Probably mildly decreased left ventricular systolic function. This study is inadequate for estimation of regional wall motion abnormality. 3. Direct comparison to previous echocardiogram dated 11/22/2020 is not possible given technical differences in study. 4. Repeat study with ultrasound enhancing agent is recommended for better assessment of LV function Norma Jenkins MD (Electronically Signed) Final Date: 27 December 2020 14:52 S
[2020-12-27 06:03] LABS: Anion Gap 18.9 (5-19); Blood Urea Nitrogen 70 mg/dL (6-20); Calcium 9.3 mg/dL (8.5-10.5); Carbon Dioxide 25 mmol/L (22-29); Chloride 96 mmol/L (98-107); Glucose 52 mg/dL (65-115); Osmolality Calculated 298 mOsm/kg (285-295); Potassium 4.9 mmol/L (3.5-5.1); Sodium 135 mmol/L (136-145)
[2020-12-27 06:16] LABS: Glucose Point of Care 74 mg/dL (70-110)
[2020-12-27 06:18] LABS: Cholesterol 114 mg/dL (0-200); HDL Cholesterol 57 mg/dL (60-100); LDL Cholesterol Calculated 47 mg/dL (50-129); LDL HDL Ratio 0.82 RATIO (0.00-3.22); Triglycerides 49 mg/dL (0-150)
[2020-12-27] MEDS: FUROsemide 10 mg/mL SDV 4mL 40 MG IVP ×2 (08:16→20:14)
[2020-12-27 11:03] LABS: Glucose Point of Care 100 mg/dL (70-110)
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
--- NOTE | 2020-12-27 11:55 | PM.PN ---
Subjective Subjective: Interval history: 60-year-old male with a past medical history significant for morbid obesity, BPH, paroxysmal atrial fibrillation, sick sinus syndrome status post pacemaker, neuropathy, diabetes mellitus, iron deficiency anemia, hypertension, dyslipidemia, CVA without residual deficits, peripheral vascular disease including carotid stenosis, chronic stage 3 kidney disease, chronic obstructive pulmonary disease and chronic anasarca due to right heart failure who presented to the hospital with respiratory distress. Patient stated that his symptoms have been progressively worsening since [place] time however the past few days that markedly increased. In addition to this he also noted increasing bilateral lower extremity edema. Denied chest pain. No fever, chills, nausea or vomiting. No abdominal pain, diarrhea or constipation. Laboratory workup on arrival showed a WBC of 8.1, hemoglobin of 10.6, hematocrit 34.4 and a platelet count of 141. Sodium 133, potassium 4.9, chloride 94, bicarb 24, BUN 63 and creatinine of 3.0. Prior creatinine was 1.7 on December 21. ProBNP of 6197. Troponin T of 92 -> 96.25, INR of 1.72 Imaging studies included a chest x-ray which showed mild pulmonary vascular congestion with cardiomegaly. In ER patient was given Lasix 60 mg IV x1 and placement of Nitro-bid 0.5 inch topical. At the time of my eval patient was noted to be in mild respiratory distress. Arterial blood gases were drawn which showed a pH of 7.35, pCO2 46.4, PO2 133 and a bicarb of 25.4.Patient was noted to have minimal urine output overnight. 400 cc. Urine output of 0.13 milligrams/kg per hour. Nephrology was then consulted. Patient requires 2 L of O2 via nasal cannula Medications: Reviewed: Yes Vitals/I&O/Wt Last Vital Signs Temp 98.0 F 12/27/20 07:07 Pulse 69 12/27/20 09:07 Resp 26 H 12/27/20 09:03 BP 123/80 12/27/20 07:07 Pulse Ox 96 12/27/20 09:03 12/26/20 12/27/20 12/27/20 22:59 06:59 14:59 Intake Total 540 / 540 100 / 640 120 / 120 Output Total 400 / 400 Balance 540 / 540 -300 / 240 120 / 120 Weight last 48 hrs Weight 124.738 kg Physical Exam Narrative: EXAM NARRATIVE: General : Alert, awake in mild distress HEENT : EOMI, No JVD Chest : Decrease at bases, no wheezing, mild accessory muscle use CVS : NSR ABD: Soft Ext : 3+ Bilateral LE edema Urinary Catheter Management^: Friedman: Cath Placed During This Visit: yes Reason for Continuing Indwelling Catheter: Accurate Measurement of Urinary Output in Critically Ill Patients Urinary Catheter Date of Insertion: 12/26/20 Urinary Catheter Time of Insertion: 15:36 Data : 12/27/20 04:10 12/27/20 04:10 A&P Assessment and plan (1) Acute respiratory distress: Status: Acute (2) Right heart failure: Status: Acute (3) Acute worsening of stage 3 chronic kidney disease: Status: Acute Acute on chronic respiratory distress currenlty on 2L - Etiology multifactorial - Fluid overload with underlying COPD exacerbation - Chest x-ray - mild pulmonary vascular congestion - Duoneb q6hr scheduled - Advair 1 puff BID - Supplemental o2 as needed - Diuresis as noted below Acute on chronic HFpEF exacerbation - Previously noted RV dysfunction - Lasix 60 mg IV x 1 in ER - Continue Lasix 40 mg IV Q12hr - Metolazone 2.5 mg PO Daily prior am dose of lasix - Replace K as needed - Limited ECHO ordered - pending - Monitor daily weight - May consider cardiology consult Acute on chronic stage 3 kidney disease - Creatinine fluctuating baseline - 1.7->2.5 - Currently at 3.0 - 3.2 - Started on dieresis - Repeat BMP in am - Friedman placement - Renal dosing - Monitor urine output - Nephrology consult Elevated troponin - Likely type 2 in setting of worsening renal failure - 74-> 93 - Telemetry - Cardiology was notified in ER - Nitro-paste- D/C - ECHO pending Paroxysmal Atrial fibrillation - Currently paced - Eliquis 5 mg PO BID - Monitor on tele SSS s/p pacemaker - Pacemaker interrogation Diabetes mellitus - Hypoglycemia overnight - Sliding scale insulin - Qachs checks - A1c in Am GERD/Hx of H.Pylori - Protonix 40 mg PO BID DVT ppx - On Eliquis Attestations Medical Necessity Statement*: Will require further hospitalization For management of respiratory failure requiring O2, fluid overload and renal failure Time Spent in Patient Care: Greater than 35 minutes (>than 50% of time spent in counselling and/or direct pt care on unit). 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
[2020-12-27 16:49] LABS: Glucose Point of Care 122 mg/dL (70-110)
[2020-12-27] MEDS: atorvastatin 40 mg Tablet 80 MG PO (17:40)
[2020-12-27] MEDS: insulin glargine 100 units/1 mL 20 UNIT SUBCUT (17:44)
[2020-12-27 20:20] LABS: Glucose Point of Care 157 mg/dL (70-110)
--- NOTE | 2020-12-27 21:17 | PC.NURSE ---
Dr. Orellana notified of patient complaining of back pain. PRN Tylenol ordered.
[2020-12-27] MEDS: acetaminophen 325 mg Tablet 650 MG PO (22:09)
[2020-12-28] VITALS (17 sets, daily range): BP systolic 104–125; BP diastolic 64–95; PULSE 59–81; RESP 18–29; TEMP 36.4–36.9; O2SAT 93–99
[2020-12-28] MEDS: ipratropium-albuterol 3 mL Neb INHALATION ×4 (03:03→21:32)
--- NOTE | 2020-12-28 03:33 | PC.NURSE ---
Patient has no complaints at this time. Will monitor.
[2020-12-28] MEDS: apixaban 5 mg Tablet PO ×2 (04:06→17:51)
[2020-12-28] MEDS: tamsulosin 0.4 mg Capsule PO (04:06)
[2020-12-28] MEDS: pantoprazole DR 40 mg Tablet PO ×2 (04:06→17:51)
[2020-12-28] MEDS: gabapentin 300 mg Capsule 600 MG PO ×3 (04:06→17:51)
[2020-12-28 07:17] LABS: Glucose Point of Care 134 mg/dL (70-110)
[2020-12-28 08:58] LABS: Anion Gap 18.1 (5-19); Blood Urea Nitrogen 77 mg/dL (6-20); Calcium 9.2 mg/dL (8.5-10.5); Carbon Dioxide 26 mmol/L (22-29); Chloride 93 mmol/L (98-107); Glucose 123 mg/dL (65-115); Osmolality Calculated 298 mOsm/kg (285-295); Potassium 5.1 mmol/L (3.5-5.1); Sodium 132 mmol/L (136-145)
[2020-12-28] MEDS: bumetanide 0.25 mg/mL SDV 4 mL 1 MG IV (10:32)
[2020-12-28 11:30] LABS: Glucose Point of Care 160 mg/dL (70-110)
--- NOTE | 2020-12-28 15:15 | PC.RESP ---
Pulmonary Rehab information sent to patient.
--- NOTE | 2020-12-28 15:46 | PM.PN ---
Subjective Subjective: Interval history: 60-year-old male with a past medical history significant for morbid obesity, BPH, paroxysmal atrial fibrillation, sick sinus syndrome status post pacemaker, neuropathy, diabetes mellitus, iron deficiency anemia, hypertension, dyslipidemia, CVA without residual deficits, peripheral vascular disease including carotid stenosis, chronic stage 3 kidney disease, chronic obstructive pulmonary disease and chronic anasarca due to right heart failure who presented to the hospital with respiratory distress. Patient stated that his symptoms have been progressively worsening since [place] time however the past few days that markedly increased. In addition to this he also noted increasing bilateral lower extremity edema. Denied chest pain. No fever, chills, nausea or vomiting. No abdominal pain, diarrhea or constipation. Laboratory workup on arrival showed a WBC of 8.1, hemoglobin of 10.6, hematocrit 34.4 and a platelet count of 141. Sodium 133, potassium 4.9, chloride 94, bicarb 24, BUN 63 and creatinine of 3.0. Prior creatinine was 1.7 on December 21. ProBNP of 6197. Troponin T of 92 -> 96.25, INR of 1.72 Imaging studies included a chest x-ray which showed mild pulmonary vascular congestion with cardiomegaly. In ER patient was given Lasix 60 mg IV x1 and placement of Nitro-bid 0.5 inch topical. At the time of my eval patient was noted to be in mild respiratory distress. Arterial blood gases were drawn which showed a pH of 7.35, pCO2 46.4, PO2 133 and a bicarb of 25.4.Patient was noted to have minimal urine output overnight. 400 cc. Urine output of 0.13 milligrams/kg per hour. Patient requires 3 L of O2 via nasal cannula. 12/28/20 Overnight patient was continuing to require oxygen. No fever, chills, nausea or vomiting. He was noted to hae increasing pressure sore on right lateral aspect of hip of hip joint with mild surrounding erythema. Medications: Reviewed: Yes Vitals/I&O/Wt Last Vital Signs Temp 98.4 F 12/28/20 14:49 Pulse 59 L 12/28/20 14:49 Resp 29 H 12/28/20 14:49 BP 114/77 12/28/20 14:49 Pulse Ox 97 12/28/20 14:49 12/28/20 12/28/20 12/28/20 06:59 14:59 22:59 Intake Total 500 / 1100 240 / 240 Output Total 600 / 1400 700 / 700 Balance -100 / -300 -460 / -460 Physical Exam Narrative: EXAM NARRATIVE: General : Alert, awake in mild distress HEENT : EOMI, No JVD Chest : Decrease at bases, no wheezing, mild accessory muscle use CVS : NSR ABD: Soft Ext : 3+ Bilateral LE edema Urinary Catheter Management^: Friedman: Cath Placed During This Visit: yes Reason for Continuing Indwelling Catheter: Accurate Measurement of Urinary Output in Critically Ill Patients Urinary Catheter Date of Insertion: 12/26/20 Urinary Catheter Time of Insertion: 15:36 Data : 12/27/20 04:10 12/28/20 08:12 A&P Assessment and plan (1) Acute respiratory distress: Status: Acute (2) Right heart failure: Status: Acute (3) Acute worsening of stage 3 chronic kidney disease: Status: Acute Acute on chronic respiratory distress - Etiology multi-factorial - Fluid overload with underlying COPD exacerbation - Chest x-ray - mild pulmonary vascular congestion - Duoneb q6hr scheduled - Advair 1 puff BID - Supplemental o2 as needed - Currently on 3L via NC - Dieresis as noted below Acute on chronic HFpEF exacerbation - Previously noted RV dysfunction - Lasix 60 mg IV x 1 in ER - Disontinue Lasix/metalazone - Start Bumex 1 mg IV BID - Replace K as needed - Limited ECHO ordered \- pEF - Monitor daily weight - May consider cardiology consult Acute on chronic stage 3 kidney disease - Creatinine fluctuating baseline - 1.7->2.5 - Currently at 3.0 - 3.2 - 3.2 - Currently on Bumex 1 mg IV BID - Repeat BMP in am - Friedman placement - Renal dosing - Monitor urine output - Nephrology consult - Renal US Elevated troponin - Likely type 2 in setting of worsening renal failure - 74-> 93 - Telemetry - Cardiology was notified in ER - Nitro-paste- D/C - ECHO pEF Paroxysmal Atrial fibrillation - Currently paced - Eliquis 5 mg PO BID - Monitor on tele SSS s/p pacemaker - Pacemaker interrogation Diabetes mellitus - Sliding scale insulin - Qachs checks - A1c in Am Stage 1 right trochanteric decubitus ulcer - Wound care - Possible surrounding cellulitis - Wound culure if able to obtain - Keflex 500 mg PO TID - Pressure off loading GERD/Hx of H.Pylori - Protonix 40 mg PO BID DVT ppx - On Eliquis Attestations Medical Necessity Statement*: Will Coding Level of Care Code Acute 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
--- NOTE | 2020-12-28 15:56 | US_ITS ---
WS: [id number] ULTRASOUND RENAL TECHNIQUE: Ultrasound examination of both kidneys. CLINICAL INFORMATION: galo on ckd COMPARISON: None. FINDINGS: Technically limited examination. RIGHT: Right kidney is normal in size and appearance. Echogenicity: Normal. Cortical thickness: 2.5 cm; Normal. Hydronephrosis: None. Perinephric fluid: None. Right kidney measures: 10.6 cm x 6.0 cm x 6.2 cm. LEFT: Left kidney is normal in size and appearance. Echogenicity: Normal. Cortical thickness: 2.6 cm; Normal. Hydronephrosis: None. Perinephric fluid: None. Left kidney measures: 11.1 cm x 6.3 cm x 6.3 cm. Aorta and bladder not seen. US/US renal BI* [id number] IMPRESSION: Technically limited examination. Considering limitations, kidneys appear grossly normal.
--- NOTE | 2020-12-28 16:22 | PM.CONSULT ---
Providers/Reason For Consult Consulting Physican/Specialty*: Keiko Vargas DO, telenephrology Reason for Consult*: Acute Kidney Injury Attending Physician: Sheila Coffey Primary Care Provider: ASHLI Torre History of Present Illness History of Present Illness Jorge Lancaster is a 60 year old male presented for evaluation of shortness or breath and worsening edema. Reports dyspnea is not improved since admission. Review of Systems Card: Reports: edema; Denies: chest pain Resp: Reports: dyspnea : Reports: scrotal swelling Meds/Allergies Home Medications and Allergies Home Medications Medication Instructions Recorded Confirmed Last Taken Type olopatadine 0.2 % eye drops 1 - 2 drop OPHTHALMIC (EYE) QAM PRN 01/10/20 12/26/20 12/26/20 History travoprost 0.004 % eye drops 1 drop OPHTHALMIC (EYE) DAILY@05 01/10/20 12/26/20 12/26/20 History ml tramadol 50 mg tablet 50 mg PO QID PRN 30 Days #90 tab 09/04/20 12/26/20 12/20/20 Rx albuterol sulfate 90 mcg/actuation 2 puff INHALATION Q6H PRN #18 gm 10/15/20 12/26/20 Unknown Rx aerosol inhaler fluticasone propion-salmeterol 1 ea INHALATION BID 11/19/20 12/26/20 12/26/20 History [Advair Diskus] gabapentin 600 mg PO TID@,,11/19/20 12/26/20 12/26/20 History gabapentin 300 mg PO TID@,, #60 cap 11/24/20 12/26/20 12/26/20 Rx cholecalciferol (vitamin D3) 1,250 1,250 mcg PO Q7D #4 tab 12/04/20 12/26/20 12/21/20 Rx mcg (50,000 unit) tablet Lantus Solostar U-100 Insulin 40 unit SUBCUT DAILY@12/21/20 12/26/20 12/25/20 History apixaban [Eliquis] 5 mg PO BID@,12/21/20 12/26/20 12/26/20 History furosemide [Lasix] 40 mg PO BID@,17 #0 tab 12/21/20 12/26/20 12/26/20 Rx metolazone 2.5 mg PO DAILY@12/21/20 12/26/20 12/26/20 History pantoprazole 40 mg PO BID@,12/21/20 12/26/20 12/26/20 History potassium chloride 40 meq PO DAILY@05 #0 tab 12/21/20 12/26/20 12/26/20 Rx rosuvastatin 40 mg PO DAILY@12/21/20 12/26/20 12/25/20 History sodium bicarbonate 650 mg PO TID@,12,12/21/20 12/26/20 12/26/20 History tamsulosin 0.4 mg PO DAILY@12/21/20 12/26/20 12/26/20 History Allergies Allergy/AdvReac Type Severity Reaction Status Date / Time No Known Allergies Allergy Verified 12/19/20 16:11 Current Medications Current Medications Generic Name Dose Route Start Last Admin Trade Name Freq PRN Reason Stop Dose Admin Acetaminophen 650 mg 12/27/20 21:16 12/27/20 22:09 Acetaminophen 325 Mg Tablet PO 650 mg Q6H PRN Administration MILD PAIN Albuterol/Ipratropium 3 ml 12/26/20 21:00 12/28/20 14:32 Ipratropium-Albuterol 3 Ml Neb INHALATION 3 ml Q6H.RESPIRATORY KOSTA Administration Apixaban 5 mg 12/26/20 17:00 12/28/20 04:06 Apixaban 5 Mg Tablet PO 5 mg BID@ KOSTA Administration Atorvastatin Calcium 80 mg 12/26/20 17:00 12/27/20 17:40 Atorvastatin 40 Mg Tablet PO 80 mg DAILY@ KOSTA Administration Bumetanide 1 mg 12/28/20 10:15 12/28/20 10:32 Bumetanide 0.25 Mg/Ml Sdv 4 Ml IV 1 mg Q12H KOSTA Administration Gabapentin 600 mg 12/26/20 17:00 12/28/20 11:59 Gabapentin 300 Mg Capsule PO 600 mg TID@,, KOSTA Administration Insulin Aspart 0 unit 12/26/20 18:00 12/28/20 11:59 Insulin Aspart 100 Unit/1 Ml SUBCUT 4 unit WM&BEDTIME KOSTA Administration Protocol Insulin Glargine 20 unit 12/26/20 17:00 12/27/20 17:44 Insulin Glargine 100 Units/1 Ml SUBCUT 20 unit DAILY@17 KOSTA Administration Pantoprazole Sodium 40 mg 12/26/20 17:00 12/28/20 04:[address] 40 Mg Tablet PO 40 mg BID@05,17 KOSTA Administration Fluticasone/Salmeterol 1 puff 12/26/20 20:00 12/28/20 08:37 Fluticasone-Salmeterol 250-50 Diskus INHALATION 1 puff BID.RESPIRATORY KOSTA Administration Tamsulosin HCl 0.4 mg 12/27/20 05:00 12/28/20 04:06 Tamsulosin 0.4 Mg Capsule PO 0.4 mg DAILY@05 KOSTA Administration PFSH Acute PFSH: Medical History Anemia Anticoagulation adequate with anticoagulant therapy Eliquis ASHD (arteriosclerotic heart disease) Atrial fibrillation BPH (benign prostatic hyperplasia) CAD (coronary artery disease) Carotid stenosis CHF (congestive heart failure) COPD (chronic obstructive pulmonary disease) Diabetes mellitus History of CVA (cerebrovascular accident) Hypertension Neuropathy Obesity Pacemaker PAF (paroxysmal atrial fibrillation) Vitamin B deficiency Vitamin D deficiency Surgical History History of left-sided carotid endarterectomy S/P CABG x 4 Family History Denies family history of Anesthesia complication Bleeding disorder Social History Smoking and tobacco status: former smoker Quit status (tobacco): has quit using tobacco Former quit date comment: smoked 20 yrs Second hand smoke exposure: No Alcohol intake: never Lives independently: Yes Household members: significant other and children Housing: House Marital status: Life Partner Current occupational status: disabled Current occupational exposures/hazards: No History of recent travel: No Current gender identity: Male Vitals/I&O/Wt Last Vital Signs Temp 98.4 F 12/28/20 14:49 Pulse 59 L 12/28/20 14:49 Resp 29 H 12/28/20 14:49 BP 114/77 12/28/20 14:49 Pulse Ox 97 12/28/20 14:49 12/28/20 12/28/20 12/28/20 06:59 14:59 22:59 Intake Total 500 / 1100 240 / 240 Output Total 600 / 1400 700 / 700 Balance -100 / -300 -460 / -460 Physical Exam Const: GENERAL APPEARANCE: cooperative NUTRITIONAL APPEARANCE: obese HENMT: COMMON NORMALS: normocephalic HEAD & SCALP: normocephalic Eye: COMMON NORMALS: no scleral icterus Resp: EFFORT & INSPECTION: Yes tachypneic AUSCULTATION: rhonchi and diminished lung sounds Cardio: RHYTHM: other (irregular) Extremity: GENERAL: Yes edema Urinary Catheter Management^: Friedman: Cath Placed During This Visit: yes Reason for Continuing Indwelling Catheter: Accurate Measurement of Urinary Output in Critically Ill Patients Urinary Catheter Date of Insertion: 12/26/20 Urinary Catheter Time of Insertion: 15:36 Data Labs: Other Labs: urinalysis 1+ protein albumin 3.8 7.35/46/133 3L NC Other Data: Other data: CXR; Cardiomegaly, mild CHF ECHO 11/18: Possibly normal LV size ejection fraction of around 60%. Thickened aortic and mitral valves. The right atrium and the right ventricle appears to be mildly dilated No pericardial effusion Technically very difficult study because of the poor ultrasonic window CT 11/19/2020 Right kidney: Normal size RIGHT kidney. There is mild to moderate perinephric stranding. Mild haziness in the central renal pelvis. There is a vascular calcification in the central renal pelvis. No renal stones. The ureter is not dilated. Left kidney: Mild perinephric stranding with no hydronephrosis or obstruction. 2 mm nonobstructing calcification lower pole. Normal size LEFT ureter. A&P Additional A&P Information 1. Acute kidney injury, nonoliguric 2. CKD, baseline serum creatinine 1.7 mg/dL 3. Anasarca: diffuse edema 4. Possible right sided heart failure 5. Hypervolemic hyponatremia 6. Anemia 7. Chronic atrial fibrillation, diabetes, hypertension, obesity, COPD Recommend: furosemide gtt 20 mg/hr, continue metolazone, restrict fluids, follow-up renal ultrasound Consult Attestations Medical Necessity Statement: critically ill Time Spent in Patient Care: Greater than 35 minutes Coding Level of Care Code Acute Associate Software Developer for Jocelyne Pat
[2020-12-28 17:01] LABS: Glucose Point of Care 186 mg/dL (70-110)
[2020-12-28] MEDS: insulin glargine 100 units/1 mL 20 UNIT SUBCUT (17:50)
[2020-12-28] MEDS: metOLazone 5 MG Tablet PO (17:51)
[2020-12-28] MEDS: atorvastatin 40 mg Tablet 80 MG PO (17:51)
[2020-12-28] MEDS: FUROsemide 100 MG in sodium chloride 0.9% 40 ML 10 MG IV (19:03)
--- NOTE | 2020-12-28 19:43 | PC.NURSE ---
telenephrologist referred today.ordered lasix drip.dr reese notified of right lat hip wound and cellulitic appearing area on right lat hip area.antibiotic ordered.
[2020-12-28 20:39] LABS: Glucose Point of Care 174 mg/dL (70-110)
[2020-12-28] MEDS: cephALEXin 500 mg Capsule PO (21:25)
[2020-12-29] VITALS (153 sets, daily range): BP systolic 89–155; BP diastolic 55–101; PULSE 52–97; RESP 11–34; TEMP 35.3–36.4; O2SAT 2–100
[2020-12-29] MEDS: FUROsemide 100 MG in sodium chloride 0.9% 40 ML 10 MG IV ×5 (00:19→23:54)
[2020-12-29] MEDS: ipratropium-albuterol 3 mL Neb INHALATION ×4 (02:42→20:00)
--- NOTE | 2020-12-29 04:16 | PC.NURSE ---
NURSE NOTE: SHIFT SUMMARY: PT ALERT AND ORIENTED X4/VERY DROWSY BUT AROUSES EASILY. 02 @ 2L PER NC/02 SAT = 97%. SOA WITH EXERTION. LASIX GTT INFUSING ORDERED. SEE CHART FOR I&O DETAILS. SAMUELS PATENT TO DD. ALL VS AND ASSESSMENTS CHARTED. DENIES PAIN AT PRESENT.
[2020-12-29] MEDS: tamsulosin 0.4 mg Capsule PO (04:44)
[2020-12-29] MEDS: gabapentin 300 mg Capsule 600 MG PO ×2 (04:44→18:00)
[2020-12-29] MEDS: apixaban 5 mg Tablet PO ×2 (04:44→17:59)
[2020-12-29] MEDS: pantoprazole DR 40 mg Tablet PO ×2 (04:44→17:59)
[2020-12-29 07:13] LABS: Glucose Point of Care 134 mg/dL (70-110)
--- NOTE | 2020-12-29 07:42 | PC.NURSE ---
Patient very lethargic this am will arouse to touch however dose not respond appropriately. patient did whisper that he was in the hospital but was unable to communicate name or date of attempted to contact Dr. Coffey with no answer
[2020-12-29] MEDS: cephALEXin 500 mg Capsule PO ×3 (08:34→20:56)
[2020-12-29] MEDS: metOLazone 5 MG Tablet PO (08:34)
--- NOTE | 2020-12-29 08:39 | PC.NURSE ---
patient is more awake and alert at this time was able to state name and ; able to take PO medications patient did sit up and was able to feed self breakfast with tray set up. patient states I feel ok I am just very tired.
--- NOTE | 2020-12-29 09:35 | P.PN_ITS ---
Subjective Subjective: Interval history: feeling a little better Medications: Reviewed: Yes (furosemide infusion 20 mg/hour) Vitals/I&O/Wt Last Vital Signs Temp 97.6 F 12/29/20 07:13 Pulse 66 12/29/20 08:42 Resp 16 12/29/20 08:42 BP 110/64 12/29/20 07:13 Pulse Ox 96 12/29/20 08:42 12/28/20 12/29/20 12/29/20 22:59 06:59 14:59 Intake Total 240 / 480 94 / 574 360 / 360 Output Total 450 / 1150 / 2024 Balance -210 / -670 -781 / -1451 360 / 360 Physical Exam Const: COMMON NORMALS: no acute distress GENERAL APPEARANCE: cooperative Extremity: GENERAL: Yes edema Urinary Catheter Management^: Friedman: Cath Placed During This Visit: yes Reason for Continuing Indwelling Catheter: Accurate Measurement of Urinary Output in Critically Ill Patients Urinary Catheter Date of Insertion: 12/26/20 Urinary Catheter Time of Insertion: 15:36 Data : 12/29/20 10:00 12/29/20 10:00 US: Radiologist's impression: Renal ultrasound reported normal A&P Additional A&P Information 1. Acute kidney injury, nonoliguric 2. CKD, baseline serum creatinine 1.7 mg/dL 3. Anasarca: diffuse edema, diuresing on low dose furosemide infusion and oral metolazone 4. Possible right sided heart failure 5. Hypervolemic hyponatremia, stable 6. Anemia, stable 7. Chronic atrial fibrillation, diabetes, hypertension, obesity, COPD Recommend: continue furosemide gtt 20 mg/hr, metolazone, restrict fluids Attestations Medical Necessity Statement*: requires IV diuretics Time Spent in Patient Care: 16 - 35 minutes Coding Level of Care Code Acute Certified Orthotist/Pedorthist for Jocelyne Pat
[2020-12-29 10:37] LABS: Basophils % 0.1 %; Eosinophils # 0.1 10^3/uL (0.0-0.8); Hematocrit 31.2 % (42.0-52.0); Hemoglobin 9.9 g/dL (11.7-16.6); Lymphocytes # 0.5 10^3/uL (0.8-4.8); Lymphocytes % 6.2 %; Mean Corpuscular HGB Conc 31.7 g/dL (30.0-36.0); Mean Corpuscular Hemoglobin 28.9 pg (28.0-34.0); Mean Platelet Volume 11.5 fL (7.4-10.4); Monocytes # 0.9 10^3/uL (0.2-0.9); Monocytes % 10.6 %; Neutrophils % 81.5 %; Nucleated Red Blood Cells % 0 %; Platelet Count 126 10^3/cmm (130-400); Red Blood Count 3.43 10^6/uL (4.1-5.3); Red Cell Distribution Width 18.9 % (12.1-15.1); White Blood Count 8.6 10^3/uL (4.0-10.0)
--- NOTE | 2020-12-29 10:45 | P.PN_ITS ---
Subjective Subjective: Interval history: 60-year-old male with a past medical history significant for morbid obesity, BPH, paroxysmal atrial fibrillation, sick sinus syndrome status post pacemaker, neuropathy, diabetes mellitus, iron deficiency anemia, hypertension, dyslipidemia, CVA without residual deficits, peripheral vascular disease including carotid stenosis, chronic stage 3 kidney disease, chronic obstructive pulmonary disease and chronic anasarca due to right heart failure who presented to the hospital with respiratory distress. Patient stated that his symptoms have been progressively worsening since Chris time however the past few days that markedly increased. In addition to this he also noted increasing bilateral lower extremity edema. Denied chest pain. No fever, chills, nausea or vomiting. No abdominal pain, diarrhea or constipation. Laboratory workup on arrival showed a WBC of 8.1, hemoglobin of 10.6, hematocrit 34.4 and a platelet count of 141. Sodium 133, potassium 4.9, chloride 94, bicarb 24, BUN 63 and creatinine of 3.0. Prior creatinine was 1.7 on December 21. ProBNP of 6197. Troponin T of 92 -> 96.25, INR of 1.72 Imaging studies included a chest x-ray which showed mild pulmonary vascular congestion with cardiomegaly. In ER patient was given Lasix 60 mg IV x1 and placement of Nitro-bid 0.5 inch topical. At the time of my eval patient was noted to be in mild respiratory distress. Arterial blood gases were drawn which showed a pH of 7.35, pCO2 46.4, PO2 133 and a bicarb of 25.4.Patient was noted to have minimal urine output overnight. 400 cc. Urine output of 0.13 milligrams/kg per hour. Patient requires 3 L of O2 via nasal cannula. 12/28/20 Overnight patient was continuing to require oxygen. No fever, chills, nausea or vomiting. He was noted to hae increasing pressure sore on right lateral aspect of hip of hip joint with mild surrounding erythema. 12/29 Patient noted to have worsening respiratory distress Medications: Reviewed: Yes Vitals/I&O/Wt Last Vital Signs Temp 95.6 F L 12/29/20 21:56 Pulse 61 12/30/20 10:30 Resp 14 12/30/20 09:34 BP 92/59 12/30/20 10:30 Pulse Ox 98 12/30/20 10:30 12/29/20 12/30/20 12/30/20 22:59 06:59 14:59 Intake Total 50 / 940 97.500 / 1037.500 109.12 / 109.12 Output Total 3350 / 4350 1999 / 6350 Balance -3300 / -3410 -1902.500 / -5312.500 109.12 / 109.12 Physical Exam Narrative: EXAM NARRATIVE: General : Alert, awake in mild distress HEENT : EOMI, No JVD Chest : Decrease at bases, no wheezing, mild accessory muscle use CVS : NSR ABD: Soft Ext : 3+ Bilateral LE edema Urinary Catheter Management^: Friedman: Cath Placed During This Visit: yes Reason for Continuing Indwelling Catheter: Accurate Measurement of Urinary Output in Critically Ill Patients Urinary Catheter Date of Insertion: 12/26/20 Urinary Catheter Time of Insertion: 15:36 Data : 12/30/20 04:19 12/30/20 04:19 A&P Assessment and plan (1) Acute respiratory distress: Status: Acute (2) Right heart failure: Status: Acute (3) Acute worsening of stage 3 chronic kidney disease: Status: Acute Acute on chronic respiratory distress - Etiology multi-factorial - Fluid overload with underlying COPD exacerbation - Chest x-ray - mild pulmonary vascular congestion - Duoneb q6hr scheduled - Advair 1 puff BID - Supplemental o2 as needed - Currently on 3L via NC - Dieresis as noted below - on bipap Acute on chronic HFpEF exacerbation - Previously noted RV dysfunction - Lasix 60 mg IV x 1 in ER - Disontinue Lasix/metalazone - Start Bumex 1 mg IV BID - Replace K as needed - Limited ECHO ordered \- pEF - Monitor daily weight - May consider cardiology consult Acute on chronic stage 3 kidney disease - Creatinine fluctuating baseline - 1.7->2.5 - Currently at 3.0 - 3.2 - 3.2 - Currently on Bumex 1 mg IV BID - Repeat BMP in am - Friedman placement - Renal dosing - Monitor urine output - Nephrology consult - Renal US Elevated troponin - Likely type 2 in setting of worsening renal failure - 74-> 93 - Telemetry - Cardiology was notified in ER - Nitro-paste- D/C - ECHO pEF Paroxysmal Atrial fibrillation - Currently paced - Eliquis 5 mg PO BID - Monitor on tele SSS s/p pacemaker - Pacemaker interrogation Diabetes mellitus - Sliding scale insulin - Qachs checks - A1c in Am Stage 1 right trochanteric decubitus ulcer - Wound care - Possible surrounding cellulitis - Wound culure if able to obtain - Keflex 500 mg PO TID - Pressure off loading GERD/Hx of H.Pylori - Protonix 40 mg PO BID DVT ppx - On Eliquis Attestations Medical Necessity Statement*: will need further hospitalization for managment of respiratory distress Coding Level of Care Code Acute Market Specialist for Chg Fwd Diagnoses Acute respiratory distress R06.03 Right heart failure I50.810 Acute worsening of stage 3 chronic kidney disease N18.30
[2020-12-29 10:46] LABS: Alanine Aminotransferase 14 U/L (0-41); Albumin Level 3.4 g/dL (3.5-5.2); Alkaline Phosphatase 119 IU/L (40-130); Aspartate Amino Transferase 28 U/L (0-40); Calcium 8.9 mg/dL (8.5-10.5); Carbon Dioxide 29 mmol/L (22-29); Chloride 92 mmol/L (98-107); Globulin 3.7 g/dL (1.3-4.6); Glomerular Filtration Rate 23.3 mL/min (90-130); Glucose 185 mg/dL (65-115); Osmolality Calculated 302 mOsm/kg (285-295); Phosphorus 6.1 mg/dL (2.5-4.5); Sodium 131 mmol/L (136-145); Total Bilirubin 0.8 mg/dL (0.15-1.2); Total Protein 7.1 g/dL (6.6-8.7)
[2020-12-29 10:48] LABS: Anion Gap 14.7 (5-19); Blood Urea Nitrogen 82 mg/dL (6-20); Potassium 4.7 mmol/L (3.5-5.1)
[2020-12-29 11:19] LABS: Glucose Point of Care 187 mg/dL (70-110)
[2020-12-29 17:02] LABS: Glucose Point of Care 186 mg/dL (70-110)
[2020-12-29 17:06] LABS: ABG PH Result 7.27 (7.35-7.45); Alveolar-Arterial Oxygen Gradi 1.5 mmHg (5-10); Arterial Blood Gas Hematocrit 32.1 % (42-52); Base Excess ABG 2.5 mmol/L (-2.0-2.0); Blood Gas Allen Test Pos; Blood Gas Sample Site Radial, left; Blood Gas Sample Type Arterial; Carboxyhemoglobin 1.3 %THgb (0.4-20.1); HCO3 ABG 30.8 mmol/L (22-26); Ionized Calcium Level - ABG 1.2 mmol/L (1.1-1.4); Oxygen Device NC; Oxygen Saturation ABG 98.4; Potassium Level - ABG 4.3 mmol/L (3.5-5.0); Total Hemoglobin 10.5 g/dL (14-18)
[2020-12-29 17:08] LABS: ABG PCO2 67.6 mmHg (35-45)
[2020-12-29] MEDS: atorvastatin 40 mg Tablet 80 MG PO (17:59)
[2020-12-29] MEDS: insulin glargine 100 units/1 mL 20 UNIT SUBCUT (18:43)
[2020-12-29 21:18] LABS: Glucose Point of Care 190 mg/dL (70-110)
--- NOTE | 2020-12-29 21:42 | PC.NURSE ---
At the begining of the shift the patient seemed slightly drowsy however he was alert and oriented and able to answer questions and follow commands appropriately. At this time the patient was noted to be more lethargic. He was somewhat difficult to arouse and when he would rouse he would answer one to two questions with yes or no answers before he had to be stimulated to respond again. The patient's HR and blood pressure remained the same however the patient felt cool to the touch. His temperature was taken via axillary and found to be 95.6F. Respiratory therapy was also at patient's side and advised that she noticed that his tidal volumes on the Bi-pap were decreased to the 200s. His bi-pap settings were changed to AVAPS to include more of a title volume. Dr. Orellana was notified of the change in the patient's condition and he presented to the patient's room to evaluate the patient. At this time it was decided to repeat an ABG and transfer the patient to the ICU in anticipation that the patient would possibly require additional treatment to possibly include intubation.
[2020-12-29 21:52] LABS: Base Excess ABG 3.8 mmol/L (-2.0-2.0); Blood Gas Allen Test Pos; Blood Gas Sample Site Radial, left; Blood Gas Sample Type Arterial; Carboxyhemoglobin 1.5 %THgb (0.4-20.1); HCO3 ABG 31.5 mmol/L (22-26); HGB O2 Sat 94.8 % (95-100); Ionized Calcium Level - ABG 1.2 mmol/L (1.1-1.4); Methemoglobin 0.8 % (0.4-1.5); PO2 ABG 85.1 mmHg (80.0-100.0); Total Hemoglobin 10.4 g/dL (14-18)
[2020-12-29 21:53] LABS: ABG PCO2 63.8 mmHg (35-45)
--- NOTE | 2020-12-29 22:05 | PC.NURSE ---
Report called to Raeann NEWTON in the icu. Patient is packaged up and transported via bed without incident.
--- NOTE | 2020-12-29 22:35 | PC.NURSE ---
Patient arrived to ICU from CSU at 2220. Patient is able to voice name, but not able to tell staff where he is currently. Temp is 97.4 [address] Doctor Esteban was at bedside after transfer of patient. Asked if intubation was needed, POC is to await current ABG results to determine is avaps mode is effective on bipap. Continue care
[2020-12-29 22:55] LABS: ABG PCO2 53.4 mmHg (35-45); ABG PH Result 7.36 (7.35-7.45); Arterial Blood Gas Hematocrit 31.9 % (42-52); Blood Gas Allen Test Pos; Blood Gas Sample Type Arterial; HCO3 ABG 30.3 mmol/L (22-26)
[2020-12-29 22:57] LABS: Blood Gas Operator Identificat HARKR; Blood Gas Sample Site Radial, right; Oxygen Device BIPAP
[2020-12-30] VITALS (130 sets, daily range): BP systolic 83–126; BP diastolic 44–77; PULSE 49–105; RESP 13–27; TEMP 35.3–36.6; O2SAT 95–100
[2020-12-30 00:26] LABS: ABG PH Result 7.33 (7.35-7.45); Alveolar-Arterial Oxygen Gradi 4.5 mmHg (5-10); Arterial Blood Gas Hematocrit 31.5 % (42-52); Base Excess ABG 4.9 mmol/L (-2.0-2.0); Blood Gas Sample Site Radial, left; Blood Gas Sample Type Arterial; Carboxyhemoglobin 1.4 %THgb (0.4-20.1); HGB O2 Sat 95.4 % (95-100); Ionized Calcium Level - ABG 1.2 mmol/L (1.1-1.4); Methemoglobin 0.8 % (0.4-1.5); Oxygen Device BIPAP; Oxygen Saturation ABG 97.6; PO2 ABG 88.2 mmHg (80.0-100.0); Potassium Level - ABG 3.9 mmol/L (3.5-5.0); Total Hemoglobin 10.3 g/dL (14-18)
[2020-12-30 00:27] LABS: ABG PCO2 60.8 mmHg (35-45)
--- NOTE | 2020-12-30 01:13 | XRR_ITS ---
PROCEDURE INFORMATION: Exam: XR Chest, 1 View Exam date and time: 12/30/2020 1:24 AM Age: 60 years old Clinical indication: Device placement; Ett placement (vent status); Additional info: Et tube placement TECHNIQUE: Imaging protocol: XR of the chest Views: 1 view. COMPARISON: CR XR chest 1V portable [id number] 12/26/2020 9:46 AM FINDINGS: The heart size is enlarged with median sternotomy sutures and a left subclavian pacemaker in place. An endotracheal tube is seen with the tip above the dixon. An NG tube is seen with the tip in the stomach. The lungs show bilateral mild pulmonary edema. No pleural effusion or pneumothorax is seen. XR/XR chest 1V portable [id number] IMPRESSION: No pneumothorax is seen.
[2020-12-30] MEDS: rocuronium 10 mg/mL INJ 5mL 120 MG IVP (01:25)
[2020-12-30 02:02] LABS: Glucose Point of Care 135 mg/dL (70-110)
--- NOTE | 2020-12-30 02:03 | PC.NURSE ---
INTUBATION: After arriving to ICU patient was still lethargic and not responding to simple commands to this nurse. This nurse called Dr. Orellana and updated doctor on patients declining condition. Dr Orellana bedside assessing patient and determining POC. Dr. Orellana gave orders to prepare to intubate patient to maintain patent airway. Dr Orellana gave verbal orders of 25mg of etomidate and 120mg of Rocuronium to be given IVP per patients weight. Patient was intubated using a glide a scope with RT bedside. Tube size 8 and is resting 24 @ patients lip. Dr[address] Orellana also ordered oral tube to be placed. Ordered chest xray and verified positive et and og tube placement. Fentanyl ordered for patient to maintain sedation/comfort while intubated per Dr. Orellana.
[2020-12-30] MEDS: ipratropium-albuterol 3 mL Neb INHALATION ×4 (02:28→20:06)
--- NOTE | 2020-12-30 03:03 | PC.NURSE ---
Family (Daughter) called and updated on patients condition. Continue care.
[2020-12-30] MEDS: FUROsemide 100 MG in sodium chloride 0.9% 40 ML 10 MG IV (04:18)
[2020-12-30 04:22] LABS: ABG PH Result 7.39 (7.35-7.45); Blood Gas Sample Type Arterial; Oxygen Device VENT
[2020-12-30 04:35] LABS: Basophils % 0.1 %; Eosinophils # 0.2 10^3/uL (0.0-0.8); Eosinophils % 1.9 %; Hematocrit 31.2 % (42.0-52.0); Hemoglobin 9.8 g/dL (11.7-16.6); Lymphocytes # 0.7 10^3/uL (0.8-4.8); Lymphocytes % 8.5 %; Mean Corpuscular HGB Conc 31.4 g/dL (30.0-36.0); Mean Corpuscular Hemoglobin 28.3 pg (28.0-34.0); Mean Corpuscular Volume 90.2 fL (80-94); Mean Platelet Volume 11.1 fL (7.4-10.4); Monocytes # 1.1 10^3/uL (0.2-0.9); Neutrophils # 6.16 10^3/uL (1.8-7.7); Neutrophils % 76.3 %; Nucleated Red Blood Cells % 0 %; Platelet Count 122 10^3/cmm (130-400); Red Blood Count 3.46 10^6/uL (4.1-5.3); Red Cell Distribution Width 18.6 % (12.1-15.1); White Blood Count 8.1 10^3/uL (4.0-10.0)
[2020-12-30 04:40] LABS: ABG PCO2 52.9 mmHg (35-45); Arterial Blood Gas Hematocrit 30.4 % (42-52); Blood Gas Allen Test Pos; Blood Gas Sample Site Radial, right
--- NOTE | 2020-12-30 04:45 | PM.ACPR ---
Procedure/Consent Time out: Time Out Performed: Yes Consent: Consent for Procedure: Emergency procedure Procedure Narrative: Failed BiPAP therapy Acute Procedures Epistaxis Control: Time out performed: Yes Intubation: Time out performed: Yes Sedative: etomidate Mg given: 30 Paralytic: rocuronium Mg given: 120 Laryngoscope: fiber optic video scope Assist device used: fiber optic device ET tube size: 8 Tube secured depth (cm): 24 Tube secured location: lips Tube placement confirmation: visualized tube passing through cords, equal breath sounds bilaterally, no breath sounds over epigastrium, confirmation by capnometry and color change noted Patient tolerated procedure: well Intubation complications: none Additional comments: Patient failed BiPAP therapy decision was made to intubate the patient His repeat blood gas was showing improvement in PCO2 No complications during and post intubation Endotracheal tube was passed with first attempt without any complications Family was updated Chest x-ray shows satisfactory position of endotracheal tube Post intubation he saturating 100% with good hemodynamics
[2020-12-30 04:56] LABS: Lactic Sepsis W/Reflex 1.4 mmol/L (0.5-2.2)
--- NOTE | 2020-12-30 04:56 | ECG_ITS ---
[facility] Test Date: 2020-12-29 Pat Name: Jorge Lancaster Department: Room: ICU02 Gender: Male Circuit Design Engineer: : [id number] Requested By: Ti Orellana Order Number: [id number] Romi MD: Torin Topete M.D. Measurements Intervals [place] Rate: 65 P: [place]: QRS: 119 QRSD: 189 T: -84 QT: 484 QTc: 506 Interpretive Statements ELECTRONIC VENTRICULAR PACEMAKER Compared to ECG 12/26/2020 16:00:27 Atrial fibrillation no longer present Right-axis deviation no longer present Right bundle-branch block no longer present Myocardial infarct finding no longer present Electronically Signed On 12-30-2020 17:07:33 CURING OVEN TENDER by Torin oTpete M.D. [id number]
[2020-12-30 05:01] LABS: Alanine Aminotransferase 14 U/L (0-41); Albumin Level 3.2 g/dL (3.5-5.2); Alkaline Phosphatase 111 IU/L (40-130); Anion Gap 15.9 (5-19); Aspartate Amino Transferase 25 U/L (0-40); Calcium 9.4 mg/dL (8.5-10.5); Carbon Dioxide 29 mmol/L (22-29); Chloride 93 mmol/L (98-107); Globulin 3.3 g/dL (1.3-4.6); Glomerular Filtration Rate 26.6 mL/min (90-130); Glucose 92 mg/dL (65-115); Magnesium 2.7 mg/dL (1.7-2.3); Osmolality Calculated 302 mOsm/kg (285-295); Phosphorus 4.9 mg/dL (2.5-4.5); Potassium 3.9 mmol/L (3.5-5.1); Sodium 134 mmol/L (136-145); Total Bilirubin 0.9 mg/dL (0.15-1.2); Total Protein 6.5 g/dL (6.6-8.7)
--- NOTE | 2020-12-30 05:10 | PC.NURSE ---
Blood pressure running soft. Current BP is 87/49. Notified Dr. Orellana for possible pressure support medication. Dr Orellana gave telephone orders to hold lasix gtt for a few hours. Lasix drip off at 0510. Resume at 0710. Continue care
[2020-12-30] MEDS: tamsulosin 0.4 mg Capsule PO (05:16)
[2020-12-30] MEDS: apixaban 5 mg Tablet PO ×2 (05:17→17:03)
[2020-12-30] MEDS: gabapentin 300 mg Capsule 600 MG PO (05:17)
[2020-12-30] MEDS: pantoprazole DR 40 mg Tablet PO ×2 (05:17→17:02)
[2020-12-30 05:39] LABS: Blood Urea Nitrogen 81 mg/dL (6-20)
--- NOTE | 2020-12-30 06:27 | PC.NURSE ---
Received orders from telenephrologist to resume lasix gtt at 5mL per hour.
[2020-12-30] MEDS: potassium chloride oral liq 20 mEq/15 mL UDC PO (06:29)
--- NOTE | 2020-12-30 07:42 | P.PN_ITS ---
Subjective Subjective: Interval history: intubated, sedated, - not able to get a ROS Medications: Reviewed: Yes Medication Review Details: Current Medications Acetaminophen (Acetaminophen 325 Mg Tablet) 650 mg PO Q6H PRN PRN Reason: MILD PAIN Last Admin: 12/27/20 22:09 Dose: 650 mg Documented by: Albuterol/Ipratropium (Ipratropium-Albuterol 3 Ml Neb) 3 ml INHALATION Q6H.RESPIRATORY [facility] Last Admin: 12/30/20 02:28 Dose: 3 ml Documented by: Apixaban (Apixaban 5 Mg Tablet) 5 mg PO BID@ [facility] Last Admin: 12/30/20 05:17 Dose: 5 mg Documented by: Atorvastatin Calcium (Atorvastatin 40 Mg Tablet) 80 mg PO DAILY@17 [facility] Last Admin: 12/29/20 17:59 Dose: 80 mg Documented by: Cephalexin HCl (Cephalexin 500 Mg Capsule) 500 mg PO TID [facility]; Protocol Last Admin: 12/29/20 20:56 Dose: 500 mg Documented by: Dextrose (Dextrose 50% Syringe 50 Ml) 25 ml IVP ONCE PRN; Protocol PRN Reason: hypoglycemia protocol Dextrose (Dextrose 50% Syringe 50 Ml) 50 ml IVP PRN PRN; Protocol PRN Reason: hypoglycemia protocol Gabapentin (Gabapentin 300 Mg Capsule) 600 mg PO TID@,, [facility] Last Admin: 12/30/20 05:17 Dose: 600 mg Documented by: Glucagon (Glucagon 1 Mg/Ml Inj 1 Ml) 1 mg IM ONCE PRN; Protocol PRN Reason: Adult Acute Hypoglycemia Prot. Dextrose (D5w) 500 mls @ 100 mls/hr IV ONCE PRN; Protocol PRN Reason: Adult Acute Hypoglycemia Prot Furosemide 100 mg/ Sodium (Chloride) 50 mls @ 0 mls/hr IV .Q0M [facility]; Protocol Last Titration: 12/30/20 06:22 Dose: 10 mg/hr, 5 mls/hr Documented by: Fentanyl 1,000 mcg/ Sodium (Chloride) 100 mls @ 0 mls/hr IV .Q0M [facility]; Protocol Last Admin: 12/30/20 02:01 Dose: 25 mcg/hr, 2.5 mls/hr Documented by: Midazolam HCl 100 mg/ Sodium (Chloride) 100 mls @ 0 mls/hr IV .Q0M [facility]; Protocol Last Admin: 12/30/20 03:07 Dose: 1 mg/hr, 1 mls/hr Documented by: Albumin Human (Albumin) 25 gm in 100 mls @ 60 mls/hr IV Q8H [facility] Last Admin: 12/30/20 06:48 Dose: 60 mls/hr Documented by: Insulin Aspart (Insulin Aspart 100 Unit/1 Ml) 0 unit SUBCUT WM&BEDTIME [facility]; Protocol Last Admin: 12/29/20 21:34 Dose: 6 unit Documented by: Insulin Glargine (Insulin Glargine 100 Units/1 Ml) 20 unit SUBCUT DAILY@1700 [facility] Last Admin: 12/29/20 18:43 Dose: 20 unit Documented by: Metolazone (Metolazone 5 Mg Tablet) 5 mg PO DAILY [facility] Last Admin: 12/29/20 08:34 Dose: 5 mg Documented by: Ondansetron HCl (Ondansetron 2 Mg/Ml Sdv 2 Ml) 4 mg IVP Q6H PRN PRN Reason: NAUSEA AND VOMITING Pantoprazole Sodium (Pantoprazole Dr 40 Mg Tablet) 40 mg PO BID@05,17 [facility] Last Admin: 12/30/20 05:17 Dose: 40 mg Documented by: Fluticasone/Salmeterol (Fluticasone-Salmeterol 250-50 Diskus) 1 puff INHALATION BID.RESPIRATORY [facility] Last Admin: 12/29/20 20:05 Dose: 1 puff Documented by: Tamsulosin HCl (Tamsulosin 0.4 Mg Capsule) 0.4 mg PO DAILY@05 [facility] Last Admin: 12/30/20 05:16 Dose: 0.4 mg Documented by: Vitals/I&O/Wt Last Vital Signs Temp 95.6 F L 12/29/20 21:56 Pulse 61 12/30/20 06:55 Resp 14 12/30/20 07:15 BP 85/51 12/30/20 06:55 Pulse Ox 97 12/30/20 06:35 12/29/20 12/30/20 12/30/20 22:59 06:59 14:59 Intake Total 50 / 940 97.500 / 1037.500 Output Total 3350 / 4350 1999 / 6350 Balance -3300 / -3410 -1902.500 / -5312.500 Physical Exam Narrative: EXAM NARRATIVE: pt has anasarca, hypotension intubated- fi02=50%, TV 500, PEEP 5, RR 14 heent- nc/at neck supple lungs crackles b/l heart irreg, +s1, s2, SRIKANTH abd soft, nt, nd, + bs ext b/l edema neuro- sedated Urinary Catheter Management^: Friedman: Cath Placed During This Visit: yes Reason for Continuing Indwelling Catheter: Accurate Measurement of Urinary Output in Critically Ill Patients Urinary Catheter Date of Insertion: 12/26/20 Urinary Catheter Time of Insertion: 15:36 Data : 12/30/20 04:19 12/30/20 04:19 A&P Additional A&P Information 60 yr old man h/o morbid obesity, BPH, p a fib, SSS, s/p PPM, DM w/ CKD stage 3- b/l cr 1.7 mgm/ dl, anemia, htn, CVA, hyperlipidemia, PVD, COPD, anasarca from right heart failure. 1. 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 renal fxn improving w/ diuresis 2. CKD stage 3- baseline serum creatinine 1.7 mg/dL- CRS, obesity, DM, htn -check pth 3. Anasarca: diffuse edema, diuresing on diuretics- BP dropped- echo reviewed-ef 60%, Right ventricle mildly dilated -presumed RT heart failure -restarting lasix at lower dose and adding albumin -replace k as needed 4. hyponatremia - from rt heart failure and diuretics 5. Anemia, stable 6. P atrial fibrillation 7. diabetes mellitus per medicine 8. obesity 9. COPD meds reviewed - dec gabapentin w/ dec renal fxn and COPD/LAKEISHA pt seen and examined w/ RN- telehealth visit Attestations Medical Necessity Statement*: VDRF, JOES, CKD, Time Spent in Patient Care: Greater than 35 minutes Coding Level of Care Code Acute Snaker Tractor Driver for Jocelyne Pat
[2020-12-30 07:49] LABS: Glucose Point of Care 83 mg/dL (70-110)
--- NOTE | 2020-12-30 08:12 | PC.NURSE ---
scd not on because 3+ edema and cellutils of legs
--- NOTE | 2020-12-30 09:08 | PC.NURSE ---
blood pressure remains low at this time Dr called orders
--- NOTE | 2020-12-30 09:41 | PC.NURSE ---
Daughter called and wanted pts kristine explained pt not able to make decision as sedated and on vent.. became tearful requesting come get related would check with sporting goods sales manager ect on this.. noted pt is not has life partner unsure checked with social worker assistant not to release at this time locked in [facility]
[2020-12-30] MEDS: metOLazone 5 MG Tablet PO (10:17)
[2020-12-30] MEDS: cephALEXin 500 mg Capsule PO ×3 (10:17→20:36)
[2020-12-30 11:21] LABS: Glucose Point of Care 92 mg/dL (70-110)
[2020-12-30] MEDS: gabapentin 100 mg Capsule 200 MG PO ×2 (11:52→17:04)
[2020-12-30] MEDS: FUROsemide 100 MG in sodium chloride 0.9% 40 ML IV (17:00)
[2020-12-30] MEDS: atorvastatin 40 mg Tablet 80 MG PO (17:02)
[2020-12-30 17:09] LABS: Glucose Point of Care 149 mg/dL (70-110)
[2020-12-30 17:41] LABS: Anion Gap 16.4 (5-19); Calcium 9.5 mg/dL (8.5-10.5); Carbon Dioxide 30 mmol/L (22-29); Chloride 91 mmol/L (98-107); Glomerular Filtration Rate 27.8 mL/min (90-130); Glucose 103 mg/dL (65-115); Magnesium 2.6 mg/dL (1.7-2.3); Osmolality Calculated 303 mOsm/kg (285-295); Potassium 3.4 mmol/L (3.5-5.1); Sodium 134 mmol/L (136-145)
[2020-12-30 17:44] LABS: Blood Urea Nitrogen 83 mg/dL (6-20)
--- NOTE | 2020-12-30 18:09 | P.PN_ITS ---
Subjective Subjective: Interval history: 60-year-old male with a past medical history significant for morbid obesity, BPH, paroxysmal atrial fibrillation, sick sinus syndrome status post pacemaker, neuropathy, diabetes mellitus, iron deficiency anemia, hypertension, dyslipidemia, CVA without residual deficits, peripheral vascular disease including carotid stenosis, chronic stage 3 kidney disease, chronic obstructive pulmonary disease and chronic anasarca due to right heart failure who presented to the hospital with respiratory distress. Patient stated that his symptoms have been progressively worsening since Chris time however the past few days that markedly increased. In addition to this he also noted increasing bilateral lower extremity edema. Denied chest pain. No fever, chills, nausea or vomiting. No abdominal pain, diarrhea or constipation. Laboratory workup on arrival showed a WBC of 8.1, hemoglobin of 10.6, hematocrit 34.4 and a platelet count of 141. Sodium 133, potassium 4.9, chloride 94, bicarb 24, BUN 63 and creatinine of 3.0. Prior creatinine was 1.7 on December 21. ProBNP of 6197. Troponin T of 92 -> 96.25, INR of 1.72 Imaging studies included a chest x-ray which showed mild pulmonary vascular congestion with cardiomegaly. In ER patient was given Lasix 60 mg IV x1 and placement of Nitro-bid 0.5 inch topical. At the time of my eval patient was noted to be in mild respiratory distress. Arterial blood gases were drawn which showed a pH of 7.35, pCO2 46.4, PO2 133 and a bicarb of 25.4.Patient was noted to have minimal urine output overnight. 400 cc. Urine output of 0.13 milligrams/kg per hour. Patient requires 3 L of O2 via nasal cannula. 12/28/20 Overnight patient was continuing to require oxygen. No fever, chills, nausea or vomiting. He was noted to hae increasing pressure sore on right lateral aspect of hip of hip joint with mild surrounding erythema. 12/29 Patient noted to have worsening respiratory distress 12/30 Patient was intubated and placed on mechanical vent in am. Continued on lasix gtt. Medications: Reviewed: Yes Medication Review Details: Current Medications Acetaminophen (Acetaminophen 325 Mg Tablet) 650 mg PO Q6H PRN PRN Reason: MILD PAIN Last Admin: 12/27/20 22:09 Dose: 650 mg Documented by: Albuterol/Ipratropium (Ipratropium-Albuterol 3 Ml Neb) 3 ml INHALATION Q6H.RESPIRATORY [facility] Last Admin: 12/30/20 02:28 Dose: 3 ml Documented by: Apixaban (Apixaban 5 Mg Tablet) 5 mg PO BID@, [facility] Last Admin: 12/30/20 05:17 Dose: 5 mg Documented by: Atorvastatin Calcium (Atorvastatin 40 Mg Tablet) 80 mg PO DAILY@17 [facility] Last Admin: 12/29/20 17:59 Dose: 80 mg Documented by: Cephalexin HCl (Cephalexin 500 Mg Capsule) 500 mg PO TID [facility]; Protocol Last Admin: 12/29/20 20:56 Dose: 500 mg Documented by: Dextrose (Dextrose 50% Syringe 50 Ml) 25 ml IVP ONCE PRN; Protocol PRN Reason: hypoglycemia protocol Dextrose (Dextrose 50% Syringe 50 Ml) 50 ml IVP PRN PRN; Protocol PRN Reason: hypoglycemia protocol Gabapentin (Gabapentin 300 Mg Capsule) 600 mg PO TID@,, [facility] Last Admin: 12/30/20 05:17 Dose: 600 mg Documented by: Glucagon (Glucagon 1 Mg/Ml Inj 1 Ml) 1 mg IM ONCE PRN; Protocol PRN Reason: Adult Acute Hypoglycemia Prot. Dextrose (D5w) 500 mls @ 100 mls/hr IV ONCE PRN; Protocol PRN Reason: Adult Acute Hypoglycemia Prot Furosemide 100 mg/ Sodium (Chloride) 50 mls @ 0 mls/hr IV .Q0M [facility]; Protocol Last Titration: 12/30/20 06:22 Dose: 10 mg/hr, 5 mls/hr Documented by: Fentanyl 1,000 mcg/ Sodium (Chloride) 100 mls @ 0 mls/hr IV .Q0M [facility]; Protocol Last Admin: 12/30/20 02:01 Dose: 25 mcg/hr, 2.5 mls/hr Documented by: Midazolam HCl 100 mg/ Sodium (Chloride) 100 mls @ 0 mls/hr IV .Q0M [facility]; Protocol Last Admin: 12/30/20 03:07 Dose: 1 mg/hr, 1 mls/hr Documented by: Albumin Human (Albumin) 25 gm in 100 mls @ 60 mls/hr IV Q8H [facility] Last Admin: 12/30/20 06:48 Dose: 60 mls/hr Documented by: Insulin Aspart (Insulin Aspart 100 Unit/1 Ml) 0 unit SUBCUT WM&BEDTIME [facility]; Protocol Last Admin: 12/29/20 21:34 Dose: 6 unit Documented by: Insulin Glargine (Insulin Glargine 100 Units/1 Ml) 20 unit SUBCUT DAILY@1700 [facility] Last Admin: 12/29/20 18:43 Dose: 20 unit Documented by: Metolazone (Metolazone 5 Mg Tablet) 5 mg PO DAILY [facility] Last Admin: 12/29/20 08:34 Dose: 5 mg Documented by: Ondansetron HCl (Ondansetron 2 Mg/Ml Sdv 2 Ml) 4 mg IVP Q6H PRN PRN Reason: NAUSEA AND VOMITING Pantoprazole Sodium (Pantoprazole Dr 40 Mg Tablet) 40 mg PO BID@, [facility] Last Admin: 12/30/20 05:17 Dose: 40 mg Documented by: Fluticasone/Salmeterol (Fluticasone-Salmeterol 250-50 Diskus) 1 puff INHALATION BID.RESPIRATORY [facility] Last Admin: 12/29/20 20:05 Dose: 1 puff Documented by: Tamsulosin HCl (Tamsulosin 0.4 Mg Capsule) 0.4 mg PO DAILY@05 [facility] Last Admin: 12/30/20 05:16 Dose: 0.4 mg Documented by: Vitals/I&O/Wt Last Vital Signs Temp 95.6 F L 12/30/20 14:00 Pulse 64 12/30/20 16:00 Resp 14 12/30/20 17:51 BP 102/62 12/30/20 16:00 Pulse Ox 98 12/30/20 16:00 12/30/20 12/30/20 12/30/20 06:59 14:59 22:59 Intake Total 97.500 / 1037.500 150.287 / 150.287 100 / 250.287 Output Total 2000 / 6350 1800 / 1800 1800 / 3600 Balance -1902.500 / -5312.500 -1649.713 / -1649.713 -1700 / -3349.713 Physical Exam Narrative: EXAM NARRATIVE: General : Intubated on MV HEENT : EOMI, No JVD Chest : Vented sounds CVS : NSR ABD: Soft Ext : 3+ Bilateral LE edema Urinary Catheter Management^: Friedman: Cath Placed During This Visit: yes Reason for Continuing Indwelling Catheter: Accurate Measurement of Urinary Output in Critically Ill Patients Urinary Catheter Date of Insertion: 12/26/20 Urinary Catheter Time of Insertion: 15:36 Data : 12/30/20 04:19 12/30/20 16:55 Micro: Microbiology 12/30/20 07:30 Gram Stain - Final Sputum - Endotracheal Tube Aspirate A&P Assessment and plan (1) Acute respiratory distress: Status: Acute (2) Right heart failure: Status: Acute (3) Acute worsening of stage 3 chronic kidney disease: Status: Acute Acute on chronic respiratory distress on mechanical vent - Etiology multi-factorial - Fluid overload with underlying COPD exacerbation - Chest x-ray - mild pulmonary vascular congestion - Duoneb q6hr scheduled - Advair 1 puff BID - Continue vent management - May consider pulmnary consult - Chest xray in am Acute on chronic HFpEF exacerbation /Cor pulmonale - Previously noted RV dysfunction - Replace K as needed - Limited ECHO ordered \- pEF - Monitor daily weight - May consider cardiology consult - Continue lasix gtt at 10 mg /hr - Monitor bmp - Replace lytes needed Acute on chronic stage 3 kidney disease - Creatinine fluctuating baseline - 1.7->2.5 - Currently at 3.0 - 3.2 - 3.2 - Currently on lasix gtt - Repeat BMP in am - Friedamn placement - Renal dosing - Monitor urine output - Nephrology consult - Renal US Elevated troponin - Likely type 2 in setting of worsening renal failure - 74-> 93 - Telemetry - Cardiology was notified in ER - Nitro-paste- D/C - ECHO pEF Paroxysmal Atrial fibrillation - Currently paced - Eliquis 5 mg PO BID - Monitor on tele SSS s/p pacemaker - Pacemaker interrogation Diabetes mellitus - Sliding scale insulin - Qachs checks - A1c in Am Stage 1 right trochanteric decubitus ulcer - Wound care - Possible surrounding cellulitis - Wound culure if able to obtain - Keflex 500 mg PO TID - Pressure off loading GERD/Hx of H.Pylori - Protonix 40 mg PO BID DVT ppx - On Eliquis Attestations Medical Necessity Statement*: Patient will require additional hospitalization for management of respiratory failure on vent Time Spent in Patient Care: Greater than 35 minutes (>than 50% of time spent in counselling and/or direct pt care on unit) . Coding Level of Care Code Acute Rigger Third for Jocelyne Pat Diagnoses Acute respiratory distress R06.03 Right heart failure I50.810 Acute worsening of stage 3 chronic kidney disease N18.30
[2020-12-30] MEDS: insulin glargine 100 units/1 mL 5 UNIT SUBCUT (18:14)
[2020-12-31] VITALS (40 sets, daily range): BP systolic 86–116; BP diastolic 45–66; PULSE 51–70; RESP 14–15; TEMP 35.8–36.7; O2SAT 90–98
[2020-12-31] MEDS: FUROsemide 100 MG in sodium chloride 0.9% 40 ML IV ×2 (01:16→18:24)
[2020-12-31] MEDS: ipratropium-albuterol 3 mL Neb INHALATION ×4 (02:17→20:14)
--- NOTE | 2020-12-31 03:50 | PC.NURSE ---
Patient resting quietly in bed, no s/s of distress noted. Changed linens and performed bed bath and skin care. Continue care.
[2020-12-31 05:05] LABS: Basophils % 0.2 %; Eosinophils # 0.1 10^3/uL (0.0-0.8); Eosinophils % 1.4 %; Hematocrit 29.9 % (42.0-52.0); Hemoglobin 9.8 g/dL (11.7-16.6); Lymphocytes # 0.6 10^3/uL (0.8-4.8); Lymphocytes % 7.5 %; Mean Corpuscular HGB Conc 32.8 g/dL (30.0-36.0); Mean Corpuscular Hemoglobin 28.9 pg (28.0-34.0); Mean Corpuscular Volume 88.2 fL (80-94); Mean Platelet Volume 11.5 fL (7.4-10.4); Monocytes % 11.4 %; Neutrophils # 6.56 10^3/uL (1.8-7.7); Nucleated Red Blood Cells % 0 %; Platelet Count 114 10^3/cmm (130-400); Red Blood Count 3.39 10^6/uL (4.1-5.3); Red Cell Distribution Width 18.5 % (12.1-15.1); White Blood Count 8.3 10^3/uL (4.0-10.0)
[2020-12-31 05:13] LABS: Blood Gas Sample Type Arterial; Oxygen Device VENT
[2020-12-31 05:20] LABS: Alanine Aminotransferase 13 U/L (0-41); Albumin Level 3.5 g/dL (3.5-5.2); Alkaline Phosphatase 89 IU/L (40-130); Anion Gap 15.4 (5-19); Aspartate Amino Transferase 37 U/L (0-40); Calcium 9.9 mg/dL (8.5-10.5); Carbon Dioxide 31 mmol/L (22-29); Chloride 90 mmol/L (98-107); Globulin 2.9 g/dL (1.3-4.6); Glomerular Filtration Rate 32.5 mL/min (90-130); Glucose 135 mg/dL (65-115); Magnesium 2.6 mg/dL (1.7-2.3); Osmolality Calculated 302 mOsm/kg (285-295); Phosphorus 4.1 mg/dL (2.5-4.5); Potassium 3.4 mmol/L (3.5-5.1); Sodium 133 mmol/L (136-145); Total Bilirubin 2.1 mg/dL (0.15-1.2); Total Protein 6.4 g/dL (6.6-8.7)
[2020-12-31] MEDS: pantoprazole DR 40 mg Tablet PO ×2 (05:20→17:09)
[2020-12-31] MEDS: apixaban 5 mg Tablet PO ×2 (05:20→17:10)
[2020-12-31] MEDS: gabapentin 100 mg Capsule 200 MG PO ×3 (05:20→17:10)
[2020-12-31 05:24] LABS: Calcium 9.7 mg/dL (8.5-10.5)
[2020-12-31 05:37] LABS: Blood Urea Nitrogen 81 mg/dL (6-20)
--- NOTE | 2020-12-31 06:14 | PC.NURSE ---
No acute changes so far thus shift. Continue care.
[2020-12-31 06:52] LABS: Ferritin 116 ng/mL (30-400); Iron 49 ug/dL (59-158); Percent Saturation 17.8 % (20-50); Total Iron Binding Capacity 275 mcg/dl; Unsaturated Iron Binding 226 ug/dL (112-347)
[2020-12-31 07:08] LABS: Parathyroid Hormone 51.3 pg/mL (15-65)
[2020-12-31 07:46] LABS: Glucose Point of Care 151 mg/dL (70-110)
[2020-12-31 07:53] LABS: Glucose Point of Care 124 mg/dL (70-110)
--- NOTE | 2020-12-31 07:54 | PM.PN ---
Subjective Subjective: Interval history: more awake large diuresis. reains intubated, secretions Medications: Reviewed: Yes Medication Review Details: Current Medications Acetaminophen (Acetaminophen 325 Mg Tablet) 650 mg PO Q6H PRN PRN Reason: MILD PAIN Last Admin: 12/27/20 22:09 Dose: 650 mg Documented by: Albuterol/Ipratropium (Ipratropium-Albuterol 3 Ml Neb) 3 ml INHALATION Q6H.RESPIRATORY [facility] Last Admin: 12/31/20 02:17 Dose: 3 ml Documented by: Apixaban (Apixaban 5 Mg Tablet) 5 mg PO BID@ [facility] Last Admin: 12/31/20 05:20 Dose: 5 mg Documented by: Atorvastatin Calcium (Atorvastatin 40 Mg Tablet) 80 mg PO DAILY@17 [facility] Last Admin: 12/30/20 17:02 Dose: 80 mg Documented by: Cephalexin HCl (Cephalexin 500 Mg Capsule) 500 mg PO TID [facility]; Protocol Last Admin: 12/30/20 20:36 Dose: 500 mg Documented by: Dextrose (Dextrose 50% Syringe 50 Ml) 25 ml IVP ONCE PRN; Protocol PRN Reason: hypoglycemia protocol Dextrose (Dextrose 50% Syringe 50 Ml) 50 ml IVP PRN PRN; Protocol PRN Reason: hypoglycemia protocol Gabapentin (Gabapentin 100 Mg Capsule) 200 mg PO TID@,, [facility] Last Admin: 12/31/20 05:20 Dose: 200 mg Documented by: Glucagon (Glucagon 1 Mg/Ml Inj 1 Ml) 1 mg IM ONCE PRN; Protocol PRN Reason: Adult Acute Hypoglycemia Prot. Dextrose (D5w) 500 mls @ 100 mls/hr IV ONCE PRN; Protocol PRN Reason: Adult Acute Hypoglycemia Prot Furosemide 100 mg/ Sodium (Chloride) 50 mls @ 0 mls/hr IV .Q0M [facility]; Protocol Last Admin: 12/31/20 01:16 Dose: 10 mg/hr, 5 mls/hr Documented by: Fentanyl 1,000 mcg/ Sodium (Chloride) 100 mls @ 0 mls/hr IV .Q0M [facility]; Protocol Last Admin: 12/30/20 02:01 Dose: 25 mcg/hr, 2.5 mls/hr Documented by: Midazolam HCl 100 mg/ Sodium (Chloride) 100 mls @ 0 mls/hr IV .Q0M [facility]; Protocol Last Admin: 12/31/20 01:15 Dose: 4 mg/hr, 4 mls/hr Documented by: Albumin Human (Albumin) 25 gm in 100 mls @ 60 mls/hr IV Q8H [facility] Last Admin: 12/31/20 06:12 Dose: 60 mls/hr Documented by: Norepinephrine Bitartrate 4 mg (/ Dextrose) 254 mls @ 0 mls/hr IV .Q0M [facility]; Protocol Last Admin: 12/31/20 00:21 Dose: 4 mcg/min, 15.2 mls/hr Documented by: Potassium Chloride (K-Giovanni Premix) 100 mls @ 50 mls/hr IV ONCE ONE Stop: 12/31/20 08:57 Insulin Aspart (Insulin Aspart 100 Unit/1 Ml) 0 unit SUBCUT WM&BEDTIME [facility]; Protocol Last Admin: 12/30/20 20:47 Dose: Not Given Documented by: Ondansetron HCl (Ondansetron 2 Mg/Ml Sdv 2 Ml) 4 mg IVP Q6H PRN PRN Reason: NAUSEA AND VOMITING Pantoprazole Sodium (Pantoprazole Dr 40 Mg Tablet) 40 mg PO BID@05,17 [facility] Last Admin: 12/31/20 05:20 Dose: 40 mg Documented by: Fluticasone/Salmeterol (Fluticasone-Salmeterol 250-50 Diskus) 1 puff INHALATION BID.RESPIRATORY [facility] Last Admin: 12/31/20 07:46 Dose: Not Given Documented by: Tamsulosin HCl (Tamsulosin 0.4 Mg Capsule) 0.4 mg PO DAILY@05 [facility] Last Admin: 12/30/20 05:16 Dose: 0.4 mg Documented by: Vitals/I&O/Wt Last Vital Signs Temp 98 F 12/30/20 17:00 Pulse 60 12/31/20 07:51 Resp 14 12/31/20 07:51 BP 106/45 12/31/20 06:00 Pulse Ox 96 12/31/20 07:51 12/30/20 12/31/20 12/31/20 22:59 06:59 14:59 Intake Total 100 / 250.287 435.626 / 685.913 Output Total 3050 / 4850 1450 / 6300 Balance -2950 / -4599.713 -1014.374 / -5614.087 Physical Exam Narrative: EXAM NARRATIVE: pt has anasarca, hypotension intubated- fio2 decreased heent- nc/at neck supple lungs crackles b/l heart irreg, +s1, s2, SRIKANTH abd soft, nt, nd, + bs ext b/l edema neuro- sedated Urinary Catheter Management^: Friedman: Cath Placed During This Visit: yes Reason for Continuing Indwelling Catheter: Accurate Measurement of Urinary Output in Critically Ill Patients Urinary Catheter Date of Insertion: 12/26/20 Urinary Catheter Time of Insertion: 15:36 Data : 12/31/20 04:00 12/31/20 04:00 Micro: Microbiology 12/30/20 07:30 Gram Stain - Final Sputum - Endotracheal Tube Aspirate A&P Additional A&P Information 60 yr old man h/o morbid obesity, BPH, p a fib, SSS, s/p PPM, DM w/ CKD stage 3- b/l cr 1.7 mgm/ dl, anemia, htn, CVA, hyperlipidemia, PVD, COPD, anasarca from right heart failure. 1. Acute kidney injury - Likely CRS. renal fxn improving w/ diuresis 2. CKD stage 3- baseline serum creatinine 1.7 mg/dL- CRS, obesity, DM, htn -check pth. replace vit d 3. Anasarca: diffuse edema, diuresing on diuretics- BP dropped- echo reviewed-ef 60%, Right ventricle mildly dilated -presumed RT heart failure -6300 ml diuresis- dec lasix -hold metolazone -replace k 4. hyponatremia - from rt heart failure and diuretics 5. Anemia, stable - give iron 6. P atrial fibrillation 7. diabetes mellitus per medicine 8. obesity 9. COPD- now w/ met alkalosis, alos normal co2 is likely low for pt meds reviewed - pt seen and examined w/ RN- telehealth visit Attestations Medical Necessity Statement*: vdrf, galo, anemia, rt heart failure Time Spent in Patient Care: 16 - 35 minutes Coding Level of Care Code Acute Lease Out Man for Jocelyne Pat
[2020-12-31] MEDS: potassium chloride oral liq 20 mEq/15 mL UDC PO (08:14)
[2020-12-31] MEDS: cephALEXin 500 mg Capsule PO ×3 (08:14→20:15)
[2020-12-31] MEDS: potassium chloride premix 100 ML 50 MEQ IV (08:15)
[2020-12-31] MEDS: lidocaine 1% INJ 20 mL 5 ML IV (08:15)
[2020-12-31] MEDS: ferric gluconate 125 MG in sodium chloride 0.9% (100 ml) 100 ML 110 MG IV (08:59)
--- NOTE | 2020-12-31 09:22 | PC.CHAP ---
Pastoral Care Encounter/Spiritual Assessment Type of Contact [] Declined auto glass installer visit [] Patient/Family/Request visit [] Outpatient visit [] Follow-up visit [] Physician referral [] Code/Alert [x] Routine visit [] Staff referral [] Actively dying [] Patient sleeping [] Family support [] [] Out of room [] Palliative care [] [] Receiving care in room [] Pre-surgical visit [] Trauma [] Long length of stay [x] ICU visit [] Other: Relational/Emotional Strength [] Patient feels connected with others/family/visitors/staff [] Distress [] Loneliness/isolation [] Abandonment Spirituality of Patient [] Person of Lacy [] Attends Mormonism of their Lacy [] Believes in Prayer [] Reads Bible or Buddhist materials [] There are Spiritual issues to be addressed Speech Pathology Teacher Interventions [x] Prayer [] Active listening [] Non-anxious presence [] Spiritual/emotional support [] Crisis/trauma care [] Spiritual counseling [] Bereavement support [] Provided bereavement packet [] Provided Bible/devotional materials [] Provided toy/stuffed animal, coloring book to patient or family member [] Provided Communion [] Anointing/[place] [] Salvation [x] Completed spiritual assessment [] Other: Impact on Illness or Injury [] Angry [] Fearful [] Anxious [] Often cries [] Exhaustion [] Unable to work [] Unable to attend yarsanism [] Unable to walk/stand [] Unable to read [] Unable to drive [] Unable to eat/drink [] Unable to sleep [] Unable to be with family [] Patient intubated [] Other: Summary Time spent with patient
--- NOTE | 2020-12-31 10:34 | P.PN_ITS ---
Subjective Subjective: Interval history: History and physical as well as daily progress notes were reviewed. When I entered the room Mr. Lancaster was sedated on the ventilator. He was not able to provide any collateral history. Medications: Reviewed: Yes Vitals/I&O/Wt Last Vital Signs Temp 98 F 12/30/20 17:00 Pulse 64 12/31/20 10:00 Resp 14 12/31/20 10:00 BP 97/58 12/31/20 10:00 Pulse Ox 97 12/31/20 10:00 12/30/20 12/31/20 12/31/20 22:59 06:59 14:59 Intake Total 100 / 250.287 435.626 / 685.913 257.709 / 257.709 Output Total 3050 / 4850 1450 / 6300 800 / 800 Balance -2950 / -4599.713 -1014.374 / -5614.087 -542.291 / -542.291 Physical Exam Narrative: EXAM NARRATIVE: General exam is a sedated white male HEENT: Atraumatic, normocephalic. OG tube and endotracheal tube noted Cardiovascular regular rate and rhythm Lungs clear but with diminished breath sounds bibasilar Abdomen soft obese nontender with positive bowel sounds demonstrates Friedman Extremities show 3-4+ pitting edema all the way to the scrotum which is edematous as well. Neuro no obvious focal deficits Urinary Catheter Management^: Friedman: Cath Placed During This Visit: yes Reason for Continuing Indwelling Catheter: Accurate Measurement of Urinary Output in Critically Ill Patients Urinary Catheter Date of Insertion: 12/26/20 Urinary Catheter Time of Insertion: 15:36 Data : 12/31/20 04:00 12/31/20 04:00 Micro: Microbiology 12/30/20 07:30 Gram Stain - Final Sputum - Endotracheal Tube Aspirate A&P Additional A&P Information Acute respiratory failure. This is presumably secondary to fluid overload. Last chest x-ray yesterday demonstrated some pulmonary edema. At this point he appears to be diuresing extremely well with 6200 cc out over the last 24 hours. Nephrology is lowering diuretics secondary to this profound diuresis. Hopefully can extubate in the next 24 hours. Will obtain a pulmonary critical care consult secondary to intubated patient on pressors with underlying right heart failure. Acute CHF, right heart failure. Diuresis occurring. Appreciate nephrology's assistance. Hypotension. On 4 of norepinephrine currently. May be secondary to sedative medications. We will try to reduce. Anemia, thrombocytopenia. At this point mild. Chronic kidney disease. Creatinine improving with appropriate diuresis Elevated troponin, type II History of paroxysmal atrial fibrillation. Currently paced rhythm. On Eliquis chronically. Type 2 diabetes. Sliding scale insulin. GERD. Protonix COPD History of CVA Coronary artery disease with history of bypass Decubitus right greater trochanter. Currently on Keflex. Likely local irritation but cannot rule out a mild cellulitis. Full code Eliquis will suffice for DVT prophylaxis Attestations Medical Necessity Statement*: Needs continued hospitalization for further diuresis secondary to severe right-sided heart failure. Critical Care Time: Critical Care Time (min): 52 Other Attestations: The high probability of a clinically significant, sudden or life threatening deterioration of the patient's [pulmonary, renal, cardiac] system(s) required my full and direct attention, intervention and personal management. The critical care time is as shown. This time is in addition to time spent performing any reported procedures but includes the following: [x] Data and vital sign review and interpretation [x] Patient assessment, examination and intervention [x] Documentation [x] Medication orders and management Coding Level of Care Code Acute Earth Science Technical Officer for Jocelyne Pat
--- NOTE | 2020-12-31 10:52 | USCV_ITS ---
Jorge Lancaster Age: 60 Gender: M : 1960 Exam Date: 12/31/2020 16:06 Ordering Phys: To Oliva MD Technologist: Renu Boogie Exam Location: [facility] [place] Indication: BLE SWELLING HISTORY: Lower extremity swelling. PROCEDURES: Venous duplex imaging was performed in bilateral lower extremities. The following venous structures were evaluated: common femoral vein, profunda vein, proximal portion of the greater saphenous vein, superficial femoral vein, and the popliteal vein. In addition, the posterior tibial veins were evaluated. In addition, the posterior tibial and peroneal trunk were evaluated. Serial compression, augmentation maneuvers, and spectral Doppler flow evaluation were performed. FINDINGS: Normal 2-D Doppler and augmentation and compressibility throughout the lower extremity venous structures. Additional imaging through the proximal calf veins also reveals no thrombus. Limited evaluation of the greater saphenous vein is patent with no thrombus.. CONCLUSIONS No DVT bilateral lower extremities. Diffuse soft tissue edema. Dr. Sarah Reis DO (Electronically Signed) Final Date: 01 January 2021 10:52 S
[2020-12-31 10:55] LABS: ABG PCO2 41.7 mmHg (35-45); ABG PH Result 7.53 (7.35-7.45); Base Excess ABG 11.4 mmol/L (-2.0-2.0); Blood Gas Allen Test Pos; Blood Gas Sample Site Radial, right; HCO3 ABG 35.1 mmol/L (22-26); PO2 ABG 47.2 mmHg (80.0-100.0)
[2020-12-31 10:56] LABS: Arterial Blood Gas Hematocrit 31.7 % (42-52)
[2020-12-31 11:24] LABS: Glucose Point of Care 187 mg/dL (70-110)
--- NOTE | 2020-12-31 13:59 | PC.NURSE ---
Patient has been resting in bed sedated this shift. Patient has still been able to open eyes and respond to verbal command. Fusing Machine Tender both hands and moves lower extremities. PERRL noted. 4+ pitting edema is still noted to upper and lower extremities. Scrotum elevated due to pitting edema.
[2020-12-31 17:09] LABS: Glucose Point of Care 150 mg/dL (70-110)
[2020-12-31] MEDS: atorvastatin 40 mg Tablet 80 MG PO (17:09)
--- NOTE | 2020-12-31 17:38 | PC.NURSE ---
norepinephrine is continuously running at 2 mcg/min. In Jan it says infused but there was still medication in bag. Will scan new bag when needed.
[2021-01-01] VITALS (41 sets, daily range): BP systolic 90–124; BP diastolic 51–80; PULSE 56–78; RESP 14–28; TEMP 36.6; O2SAT 92–97
--- NOTE | 2021-01-01 02:23 | PC.NURSE ---
Addendum entered by Bere Blake RN 01/01/21 02:25: Witnessed 3.29 ml/hr wasted Original Note: Wasted 3.29 mL/hr of fentanyl. Witnessed by Bere Blake RN.
[2021-01-01] MEDS: ipratropium-albuterol 3 mL Neb INHALATION ×5 (02:42→23:46)
[2021-01-01 04:01] LABS: Basophils % 0.1 %; Eosinophils # 0.1 10^3/uL (0.0-0.8); Eosinophils % 0.9 %; Lymphocytes # 0.8 10^3/uL (0.8-4.8); Lymphocytes % 9.7 %; Mean Corpuscular HGB Conc 31.3 g/dL (30.0-36.0); Mean Corpuscular Hemoglobin 28.7 pg (28.0-34.0); Mean Platelet Volume 11.7 fL (7.4-10.4); Monocytes % 11.8 %; Neutrophils # 6.24 10^3/uL (1.8-7.7); Neutrophils % 77.1 %; Nucleated Red Blood Cells % 0 %; Platelet Count 109 10^3/cmm (130-400); Red Blood Count 3.48 10^6/uL (4.1-5.3); White Blood Count 8.1 10^3/uL (4.0-10.0)
[2021-01-01 04:18] LABS: Alanine Aminotransferase 14 U/L (0-41); Albumin Level 3.7 g/dL (3.5-5.2); Alkaline Phosphatase 84 IU/L (40-130); Anion Gap 16.2 (5-19); Aspartate Amino Transferase 46 U/L (0-40); Blood Urea Nitrogen 74 mg/dL (6-20); Calcium 10.1 mg/dL (8.5-10.5); Carbon Dioxide 33 mmol/L (22-29); Chloride 91 mmol/L (98-107); Globulin 2.9 g/dL (1.3-4.6); Glomerular Filtration Rate 36.5 mL/min (90-130); Glucose 138 mg/dL (65-115); Magnesium 2.4 mg/dL (1.7-2.3); Osmolality Calculated 308 mOsm/kg (285-295); Phosphorus 3.5 mg/dL (2.5-4.5); Potassium 3.2 mmol/L (3.5-5.1); Sodium 137 mmol/L (136-145); Total Bilirubin 2.2 mg/dL (0.15-1.2); Total Protein 6.6 g/dL (6.6-8.7)
[2021-01-01 04:52] LABS: Blood Gas Allen Test Pos; Blood Gas Operator Identificat JB; Blood Gas Sample Site Radial, right; Blood Gas Sample Type Arterial; Oxygen Device VENT
[2021-01-01 04:54] LABS: ABG PCO2 47.3 mmHg (35-45); ABG PH Result 7.51 (7.35-7.45); Arterial Blood Gas Hematocrit 33.2 % (42-52); HCO3 ABG 37.6 mmol/L (22-26)
--- NOTE | 2021-01-01 05:04 | PC.NURSE ---
No changes overnight. Patient is resting in bed. Continue care.
[2021-01-01] MEDS: apixaban 5 mg Tablet PO ×2 (05:17→15:16)
[2021-01-01] MEDS: gabapentin 100 mg Capsule 200 MG PO ×3 (05:17→15:16)
[2021-01-01] MEDS: pantoprazole DR 40 mg Tablet PO ×2 (05:17→15:16)
[2021-01-01 05:59] LABS: Glucose Point of Care 146 mg/dL (70-110)
--- NOTE | 2021-01-01 07:00 | XRR_ITS ---
PROCEDURE INFORMATION: Exam: XR Chest, 1 View Exam date and time: 01/01/2021 6:36 AM Age: 60 years old Clinical indication: Condition or disease; Lung condition and disease; Respiratory failure; Patient HX: PT on vent; Additional info: Resp failure TECHNIQUE: Imaging protocol: XR of the chest Views: 1 view. COMPARISON: CR XR chest 1V portable [id number] 12/30/2020 1:08 AM FINDINGS: The thorax is partially obscured by overlying EKG leads. Tubes, catheters and devices: endotracheal tube, feeding tube, and pacemaker. The endotracheal tube terminates 5.5 cm above the dixon. Lungs: Hypoinflation with interstitial prominence and mild airspace disease. Pleural spaces: No significant pleural effusion. Heart/Mediastinum: Borderline cardiomegaly. Bones/joints: Median sternotomy. XR/XR chest 1V portable [id number] IMPRESSION: Hypoinflation with interstitial prominence and mild airspace disease.
--- NOTE | 2021-01-01 07:29 | P.PN_ITS ---
Subjective Subjective: Interval history: remains intubated, more awake, follows simple commands Medications: Reviewed: Yes Medication Review Details: Current Medications Acetaminophen (Acetaminophen 325 Mg Tablet) 650 mg PO Q6H PRN PRN Reason: MILD PAIN Last Admin: 12/27/20 22:09 Dose: 650 mg Documented by: Albuterol/Ipratropium (Ipratropium-Albuterol 3 Ml Neb) 3 ml INHALATION Q6H. RESPIRATORY [facility] Last Admin: 01/01/21 02:42 Dose: 3 ml Documented by: Apixaban (Apixaban 5 Mg Tablet) 5 mg PO BID@ [facility] Last Admin: 01/01/21 05:17 Dose: 5 mg Documented by: Atorvastatin Calcium (Atorvastatin 40 Mg Tablet) 80 mg PO DAILY@17 [facility] Last Admin: 12/31/20 17:09 Dose: 80 mg Documented by: Cephalexin HCl (Cephalexin 500 Mg Capsule) 500 mg PO TID [facility]; Protocol Last Admin: 12/31/20 20:15 Dose: 500 mg Documented by: Dextrose (Dextrose 50% Syringe 50 Ml) 25 ml IVP ONCE PRN; Protocol PRN Reason: hypoglycemia protocol Dextrose (Dextrose 50% Syringe 50 Ml) 50 ml IVP PRN PRN; Protocol PRN Reason: hypoglycemia protocol Ergocalciferol (Ergocalciferol (Vitamin D2) 50,000 Unit Capsule) 50,000 unit PO Q7D [facility] Gabapentin (Gabapentin 100 Mg Capsule) 200 mg PO TID@,, [facility] Last Admin: 01/01/21 05:17 Dose: 200 mg Documented by: Glucagon (Glucagon 1 Mg/Ml Inj 1 Ml) 1 mg IM ONCE PRN; Protocol PRN Reason: Adult Acute Hypoglycemia Prot. Dextrose (D5w) 500 mls @ 100 mls/hr IV ONCE PRN; Protocol PRN Reason: Adult Acute Hypoglycemia Prot Furosemide 100 mg/ Sodium (Chloride) 50 mls @ 0 mls/hr IV .Q0M [facility]; Protocol Last Admin: 12/31/20 18:24 Dose: 5 mg/hr, 2.5 mls/hr Documented by: Fentanyl 1,000 mcg/ Sodium (Chloride) 100 mls @ 0 mls/hr IV .Q0M [facility]; Protocol Last Admin: 01/01/21 02:23 Dose: 10 mcg/hr, 1 mls/hr Documented by: Midazolam HCl 100 mg/ Sodium (Chloride) 100 mls @ 0 mls/hr IV .Q0M [facility]; Protocol Last Admin: 01/01/21 03:58 Dose: 4 mg/hr, 4 mls/hr Documented by: Albumin Human (Albumin) 25 gm in 100 mls @ 60 mls/hr IV Q8H [facility] Last Admin: 01/01/21 06:00 Dose: 60 mls/hr Documented by: Norepinephrine Bitartrate 4 mg (/ Dextrose) 254 mls @ 0 mls/hr IV .Q0M [facility]; Protocol Last Admin: 12/31/20 21:50 Dose: 2 mcg/min, 7.6 mls/hr Documented by: Ferric Sodium Gluconate 125 mg (/ Sodium Chloride) 110 mls @ 110 mls/hr IV Q24H [facility] Stop: 01/04/21 09:59 Last Infusion: 12/31/20 11:16 Dose: Infused Documented by: Insulin Aspart (Insulin Aspart 100 Unit/1 Ml) 0 unit SUBCUT WM&BEDTIME [facility]; Protocol Last Admin: 12/31/20 20:15 Dose: 4 unit Documented by: Ondansetron HCl (Ondansetron 2 Mg/Ml Sdv 2 Ml) 4 mg IVP Q6H PRN PRN Reason: NAUSEA AND VOMITING Pantoprazole Sodium (Pantoprazole Dr 40 Mg Tablet) 40 mg PO BID@05,17 [facility] Last Admin: 01/01/21 05:17 Dose: 40 mg Documented by: Fluticasone/Salmeterol (Fluticasone-Salmeterol 250-50 Diskus) 1 puff INHALATION BID.RESPIRATORY [facility] Last Admin: 01/01/21 02:41 Dose: Not Given Documented by: Vitals/I&O/Wt Last Vital Signs Temp 98.1 F 12/31/20 20:00 Pulse 67 01/01/21 06:00 Resp 14 01/01/21 05:24 BP 104/62 01/01/21 06:00 Pulse Ox 96 01/01/21 06:00 12/31/20 01/01/21 01/01/21 22:59 06:59 14:59 Intake Total 455.333 / 925.609 215.1 / 1140.709 Output Total 950 / 3125 2800 / 5925 Balance -494.667 / -2199.391 -2584.9 / -7749.291 Physical Exam Narrative: EXAM NARRATIVE: pt has improving anasarca VS noted- levo @ 2 intubated- fio2 30%, PEEP 5, RR 14, TV 500 heent- nc/at neck supple lungs crackles b/l improved heart irreg, +s1, s2, SRIKANTH abd soft, nt, nd, + bs ext b/l edema improving neuro- sedated- more awake, follows simple commands Urinary Catheter Management^: Friedman: Cath Placed During This Visit: yes Reason for Continuing Indwelling Catheter: Accurate Measurement of Urinary Output in Critically Ill Patients Urinary Catheter Date of Insertion: 12/26/20 Urinary Catheter Time of Insertion: 15:36 Data : 01/01/21 03:21 01/01/21 03:21 Micro: Microbiology 12/30/20 07:30 Gram Stain - Final Sputum - Endotracheal Tube Aspirate Sputum Culture - Preliminary A&P Additional A&P Information 60 yr old man h/o morbid obesity, BPH, p a fib, SSS, s/p PPM, DM w/ CKD stage 3- b/l cr 1.7 mgm/ dl, anemia, htn, CVA, hyperlipidemia, PVD, COPD, anasarca from right heart failure. 1. Acute kidney injury - Likely CRS. renal fxn improving w/ diuresis -cr close to baseline 2. CKD stage 3- baseline serum creatinine 1.7 mg/dL- CRS, obesity, DM, htn -check pth. replace vit d 3. Anasarca: diffuse edema, diuresing on diuretics- BP stable echo reviewed-ef 60%, Right ventricle mildly dilated -presumed RT heart failure -5900 ml diuresis- lasix per cardiology -replace k and mag as needed 4. hyponatremia - from rt heart failure and diuretics -improving 5. Anemia, stable - give iron 6. P atrial fibrillation 7. diabetes mellitus per medicine 8. obesity 9. 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
[2021-01-01 08:00] LABS: Glucose Point of Care 150 mg/dL (70-110)
[2021-01-01] MEDS: potassium chloride oral liq 20 mEq/15 mL UDC 40 MEQ PO (08:29)
[2021-01-01] MEDS: lidocaine 1% INJ 20 mL 5 ML IV (08:30)
[2021-01-01] MEDS: cephALEXin 500 mg Capsule PO ×2 (08:30→15:15)
[2021-01-01] MEDS: potassium chloride premix 100 ML 50 MEQ IV (08:30)
--- NOTE | 2021-01-01 09:33 | PC.CHAP ---
Pastoral Care Encounter/Spiritual Assessment Type of Contact [] Declined satellite installation technician visit [] Patient/Family/Request visit [] Outpatient visit [] Follow-up visit [] Physician referral [] Code/Alert [x] Routine visit [] Staff referral [] Actively dying [] Patient sleeping [] Family support [] [] Out of room [] Palliative care [] [] Receiving care in room [] Pre-surgical visit [] Trauma [] Long length of stay [x] ICU visit [] Other: Relational/Emotional Strength [] Patient feels connected with others/family/visitors/staff [] Distress [] Loneliness/isolation [] Abandonment Spirituality of Patient [] Person of Lacy [] Attends Confucianism of their Lacy [] Believes in Prayer [] Reads Bible or Voodoo materials [] There are Spiritual issues to be addressed Correspondence Clerk Interventions [x] Prayer [] Active listening [] Non-anxious presence [] Spiritual/emotional support [] Crisis/trauma care [] Spiritual counseling [] Bereavement support [] Provided bereavement packet [] Provided Bible/devotional materials [] Provided toy/stuffed animal, coloring book to patient or family member [] Provided Communion [] Anointing/[place] [] Salvation [x] Completed spiritual assessment [] Other: Impact on Illness or Injury [] Angry [] Fearful [] Anxious [] Often cries [] Exhaustion [] Unable to work [] Unable to attend jain [] Unable to walk/stand [] Unable to read [] Unable to drive [] Unable to eat/drink [] Unable to sleep [] Unable to be with family [] Patient intubated [] Other: Summary Time spent with patient
--- NOTE | 2021-01-01 10:11 | PM.PN ---
Subjective Subjective: Interval history: Jorge is sedated on the ventilator. He is again diuresed a significant amount from yesterday. Medications: Reviewed: Yes Vitals/I&O/Wt Last Vital Signs Temp 98.1 F 12/31/20 20:00 Pulse 71 01/01/21 08:05 Resp 22 H 01/01/21 09:02 BP 114/56 01/01/21 08:00 Pulse Ox 92 01/01/21 08:00 12/31/20 01/01/21 01/01/21 22:59 06:59 14:59 Intake Total 455.333 / 925.609 215.1 / 1140.709 180 / 180 Output Total 950 / 3125 2800 / 5925 550 / 550 Balance -494.667 / -2199.391 -2584.9 / -4784.291 -370 / -370 Physical Exam Narrative: EXAM NARRATIVE: General exam is a sedated white male HEENT: Atraumatic, normocephalic. OG tube and endotracheal tube noted Cardiovascular regular rate and rhythm Lungs clear but with diminished breath sounds bibasilar Abdomen soft obese nontender with positive bowel sounds demonstrates Friedman Extremities show 3-4+ pitting edema all the way to the scrotum which is edematous as well. Neuro no obvious focal deficits Urinary Catheter Management^: Friedman: Cath Placed During This Visit: yes Reason for Continuing Indwelling Catheter: Accurate Measurement of Urinary Output in Critically Ill Patients Urinary Catheter Date of Insertion: 12/26/20 Urinary Catheter Time of Insertion: 15:36 Data : 01/01/21 03:21 01/01/21 03:21 Micro: Microbiology 12/30/20 07:30 Gram Stain - Final Sputum - Endotracheal Tube Aspirate Sputum Culture - Preliminary Other data: Chest x-ray reviewed by me appears to have improvement in pulmonary edema A&P Assessment and plan (1) Acute respiratory distress: Status: Acute (2) Right heart failure: Status: Acute (3) Acute worsening of stage 3 chronic kidney disease: Status: Acute Additional A&P Information Acute respiratory failure. This is presumably secondary to fluid overload. Chest x-ray today improved. He has diuresed an incredible amount. Appreciate nephrology intervention. Reducing sedative meds, for pressure support trial. Currently on Versed and fentanyl. Not changed to Precedex secondary to some episodes of bradycardia. Consider pulmonary consultation if attempts at extubation today are not successful. May need extubated to BiPAP. Acute CHF, right heart failure. EF preserved. Diuresis occurring. Appreciate nephrology's assistance. Hypokalemia. Supplemented by nephrology Hypotension. On 2 of norepinephrine currently. May be secondary to sedative medications. I suspect this can be discontinued as sedative medication weaned . Anemia, thrombocytopenia. At this point mild. Chronic kidney disease. Creatinine improving with appropriate diuresis Elevated troponin, type II History of paroxysmal atrial fibrillation. Currently paced rhythm. On Eliquis chronically. Type 2 diabetes. Sliding scale insulin. GERD. Protonix COPD History of CVA Coronary artery disease with history of bypass Decubitus right greater trochanter. Currently on Keflex. Likely local irritation but cannot rule out a mild cellulitis. Full code Eliquis will suffice for DVT prophylaxis Attestations Medical Necessity Statement*: Needs continued hospitalization secondary to respiratory failure requiring mechanical ventilation. Critical Care Time: Critical Care Time (min): 33 Other Attestations: The high probability of a clinically significant, sudden or life threatening deterioration of the patient's [fluid overload, CHF, hypotension] system(s) required my full and direct attention, intervention and personal management. The critical care time is as shown. 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
--- NOTE | 2021-01-01 11:24 | PC.NURSE ---
Fentanyl and versed shut off. Lasix and norepinephrine still running per orders. Patient is easily agitated but will open eyes to loud verbal command and manager animation right hand when asked.
[2021-01-01 11:53] LABS: Glucose Point of Care 120 mg/dL (70-110)
[2021-01-01] MEDS: ferric gluconate 125 MG in sodium chloride 0.9% (100 ml) 100 ML 110 MG IV (12:01)
--- NOTE | 2021-01-01 13:48 | PC.NURSE ---
norepinphrine shut off at 1230. Pressures remain stable
[2021-01-01 14:05] LABS: ABG PCO2 49.5 mmHg (35-45); ABG PH Result 7.49 (7.35-7.45); Arterial Blood Gas Hematocrit 30.7 % (42-52); Blood Gas Allen Test Pos; Blood Gas Operator Identificat CAK; Blood Gas Sample Site Radial, left; Blood Gas Sample Type Arterial; HCO3 ABG 37.9 mmol/L (22-26); Oxygen Device VENT; PO2 ABG 79.5 mmHg (80.0-100.0)
[2021-01-01] MEDS: atorvastatin 40 mg Tablet 80 MG PO (15:15)
--- NOTE | 2021-01-01 16:45 | PC.NURSE ---
Extubation Patient was extubated at 1630 per doctors orders. RT, this nurse and resident at bedside. Nasal canula was applied. All vitals WNL. Patient was responding to verbal commands but seemed drowsy and weak. RT placed patient on BIPAP due to increased shortness of breath with oxygen level in 90's. Patient is still able to open eyes and respond to verbal commands at this time.
--- NOTE | 2021-01-01 17:04 | PC.NURSE ---
This nurse and resident nurse Parul wasted 107.5 ML of Fentanyl and 102 ML of versed
[2021-01-01 17:26] LABS: Procalcitonin 0.32 ng/mL (0-0.5)
[2021-01-01 17:30] LABS: Glucose Point of Care 159 mg/dL (70-110)
[2021-01-01] MEDS: piperacillin-tazobactam 3.375 GM in sodium chloride 0.9% (plus) 50 ML IV (17:38)
[2021-01-01] MEDS: FUROsemide 100 MG in sodium chloride 0.9% 40 ML IV (18:51)
[2021-01-01 20:45] LABS: Glucose Point of Care 123 mg/dL (70-110)
[2021-01-01 22:34] LABS: Potassium 3.5 mmol/L (3.5-5.1)
[2021-01-02] VITALS (37 sets, daily range): BP systolic 87–128; BP diastolic 52–90; PULSE 59–82; RESP 14–35; TEMP 36.4–36.8; O2SAT 88–99
[2021-01-02] MEDS: piperacillin-tazobactam 3.375 GM in sodium chloride 0.9% (plus) 50 ML IV ×3 (01:01→17:22)
[2021-01-02 03:58] LABS: Alanine Aminotransferase 12 U/L (0-41); Albumin Level 4.2 g/dL (3.5-5.2); Alkaline Phosphatase 77 IU/L (40-130); Anion Gap 13.3 (5-19); Aspartate Amino Transferase 43 U/L (0-40); Blood Urea Nitrogen 72 mg/dL (6-20); Calcium 10.5 mg/dL (8.5-10.5); Carbon Dioxide 38 mmol/L (22-29); Chloride 92 mmol/L (98-107); Globulin 2.7 g/dL (1.3-4.6); Glomerular Filtration Rate 38.8 mL/min (90-130); Glucose 118 mg/dL (65-115); Magnesium 2.3 mg/dL (1.7-2.3); Osmolality Calculated 312 mOsm/kg (285-295); Phosphorus 4.3 mg/dL (2.5-4.5); Potassium 3.3 mmol/L (3.5-5.1); Sodium 140 mmol/L (136-145); Total Bilirubin 2.2 mg/dL (0.15-1.2); Total Protein 6.9 g/dL (6.6-8.7)
[2021-01-02 04:00] LABS: Basophils % 0.1 %; Eosinophils # 0.1 10^3/uL (0.0-0.8); Hematocrit 30.6 % (42.0-52.0); Hemoglobin 9.5 g/dL (11.7-16.6); Lymphocytes # 0.7 10^3/uL (0.8-4.8); Mean Corpuscular Hemoglobin 28.6 pg (28.0-34.0); Mean Corpuscular Volume 92.2 fL (80-94); Monocytes % 11.6 %; Neutrophils # 6.92 10^3/uL (1.8-7.7); Neutrophils % 79.1 %; Nucleated Red Blood Cells % 0 %; Platelet Count 96 10^3/cmm (130-400); Red Blood Count 3.32 10^6/uL (4.1-5.3); White Blood Count 8.8 10^3/uL (4.0-10.0)
[2021-01-02] MEDS: ipratropium-albuterol 3 mL Neb INHALATION ×6 (04:03→23:01)
--- NOTE | 2021-01-02 06:13 | PC.NURSE ---
Nursing Dysphagia screen AM meds due at 0500. Pt has been pretty drowsy throughout shift. This am pt keeps pulling off bipap and shaking is head yes and no more alert than beginning of shift. Follows simple commands. Bipap taken off and placed on 6 L. Pt was sat up 90 degrees to preform nursing dysphagia screen with small sip of water prior to med administration. Pt coughed with water, and wet cough thereafter. Oropharyngeal suctioning preformed and observed no gag relex. Keeping npo until swallow eval, meds held at this time.
--- NOTE | 2021-01-02 07:06 | P.PN_ITS ---
Subjective Subjective: Interval history: extubated, sob, confused, less swollen. failed swallow eval Medications: Reviewed: Yes Medication Review Details: Current Medications Acetaminophen (Acetaminophen 325 Mg Tablet) 650 mg PO Q6H PRN PRN Reason: MILD PAIN Last Admin: 12/27/20 22:09 Dose: 650 mg Documented by: Albuterol/Ipratropium (Ipratropium-Albuterol 3 Ml Neb) 3 ml INHALATION Q4H.RESPIRATORY [facility] Last Admin: 01/02/21 04:03 Dose: 3 ml Documented by: Apixaban (Apixaban 5 Mg Tablet) 5 mg PO BID@ [facility] Last Admin: 01/01/21 15:16 Dose: 5 mg Documented by: Atorvastatin Calcium (Atorvastatin 40 Mg Tablet) 80 mg PO DAILY@17 [facility] Last Admin: 01/01/21 15:15 Dose: 80 mg Documented by: Dextrose (Dextrose 50% Syringe 50 Ml) 25 ml IVP ONCE PRN; Protocol PRN Reason: hypoglycemia protocol Dextrose (Dextrose 50% Syringe 50 Ml) 50 ml IVP PRN PRN; Protocol PRN Reason: hypoglycemia protocol Ergocalciferol (Ergocalciferol (Vitamin D2) 50,000 Unit Capsule) 50,000 unit PO Q7D [facility] Gabapentin (Gabapentin 100 Mg Capsule) 200 mg PO TID@,, [facility] Last Admin: 01/01/21 15:16 Dose: 200 mg Documented by: Glucagon (Glucagon 1 Mg/Ml Inj 1 Ml) 1 mg IM ONCE PRN; Protocol PRN Reason: Adult Acute Hypoglycemia Prot. Dextrose (D5w) 500 mls @ 100 mls/hr IV ONCE PRN; Protocol PRN Reason: Adult Acute Hypoglycemia Prot Furosemide 100 mg/ Sodium (Chloride) 50 mls @ 0 mls/hr IV .Q0M [facility]; Protocol Last Titration: 01/02/21 06:54 Dose: 7 mg/hr, 3.5 mls/hr Documented by: Albumin Human (Albumin) 25 gm in 100 mls @ 60 mls/hr IV Q8H [facility] Last Admin: 01/02/21 06:01 Dose: 60 mls/hr Documented by: Norepinephrine Bitartrate 4 mg (/ Dextrose) 254 mls @ 0 mls/hr IV .Q0M [facility]; Protocol Last Titration: 01/01/21 12:31 Dose: 0 mcg/min, 0 mls/hr Documented by: Ferric Sodium Gluconate 125 mg (/ Sodium Chloride) 110 mls @ 110 mls/hr IV Q24H [facility] Stop: 01/04/21 09:59 Last Infusion: 01/01/21 13:50 Dose: Infused Documented by: Piperacillin Sod/Tazobactam (Sod 3.375 gm/ Sodium Chloride) 50 mls @ 12.5 mls/hr IV Q8H [facility]; Protocol Last Infusion: 01/02/21 05:01 Dose: Infused Documented by: Potassium Chloride (K-Giovanni) 100 mls @ 25 mls/hr IV ONCE ONE Stop: 01/02/21 10:59 Insulin Aspart (Insulin Aspart 100 Unit/1 Ml) 0 unit SUBCUT WM&BEDTIME [facility]; Protocol Last Admin: 01/01/21 20:42 Dose: Not Given Documented by: Ondansetron HCl (Ondansetron 2 Mg/Ml Sdv 2 Ml) 4 mg IVP Q6H PRN PRN Reason: NAUSEA AND VOMITING Pantoprazole Sodium (Pantoprazole Dr 40 Mg Tablet) 40 mg PO BID@05,17 [facility] Last Admin: 01/01/21 15:16 Dose: 40 mg Documented by: Fluticasone/Salmeterol (Fluticasone-Salmeterol 250-50 Diskus) 1 puff INHALATION BID.RESPIRATORY [facility] Last Admin: 01/01/21 19:58 Dose: Not Given Documented by: Vitals/I&O/Wt Last Vital Signs Temp 97.5 F L 01/02/21 06:12 Pulse 62 01/02/21 06:25 Resp 24 H 01/02/21 06:00 BP 126/67 01/02/21 06:00 Pulse Ox 93 01/02/21 06:25 01/01/21 01/02/21 01/02/21 22:59 06:59 14:59 Intake Total 150 / 773.062 180.125 / 953.187 Output Total 900 / 2100 1025 / 3125 Balance -750 / -1326.938 -844.875 / -2171.813 Physical Exam Narrative: EXAM NARRATIVE: pt has improving anasarca VS noted- levo off on bipap @ 30% fio2 heent- nc/at neck supple lungs crackles b/l improved heart irreg, +s1, s2, SRIKANTH abd soft, nt, nd, + bs ext b/l edema improving but significant neuro- confused, lethargic, moving. follows simple commands Urinary Catheter Management^: Friedman: Cath Placed During This Visit: yes Reason for Continuing Indwelling Catheter: Accurate Measurement of Urinary Output in Critically Ill Patients Urinary Catheter Date of Insertion: 12/26/20 Urinary Catheter Time of Insertion: 15:36 Data : 01/02/21 03:00 01/02/21 03:00 Micro: Microbiology 12/30/20 07:30 Gram Stain - Final Sputum - Endotracheal Tube Aspirate Sputum Culture - Final A&P Additional A&P Information 60 yr old man h/o morbid obesity, BPH, p a fib, SSS, s/p PPM, DM w/ CKD stage 3- b/l cr 1.7 mgm/ dl, anemia, htn, CVA, hyperlipidemia, PVD, COPD, anasarca from right heart failure. 1. Acute kidney injury - Likely CRS. renal fxn improving w/ diuresis -cr close to baseline 2. CKD stage 3- baseline serum creatinine 1.7 mg/dL- CRS, obesity, DM, htn -check pth. replace vit d 3. Anasarca: diffuse edema, diuresing on diuretics- BP stable echo reviewed-ef 60%, Right ventricle mildly dilated -presumed RT heart failure -3100 ml diuresis- lasix per cardiology -lasix increased. -replace k and mag as needed 4. confusion, met alkalosis- repeat abg to ensure that he is not retaining co2 5. Anemia, stable - give iron 6. P atrial fibrillation 7. diabetes mellitus per medicine 8. obesity meds reviewed - pt seen and examined w/ RN- telehealth visit Attestations Medical Necessity Statement*: ckd stage 3, chf, AMS, met alkalosis, resp acidosis Time Spent in Patient Care: 16 - 35 minutes Coding Level of Care Code Acute Cap Cutter for Chg Bi
[2021-01-02] MEDS: potassium chloride premix 100 ML 25 MEQ IV (07:44)
[2021-01-02 08:00] LABS: Glucose Point of Care 133 mg/dL (70-110)
[2021-01-02 08:41] LABS: ABG PCO2 58.9 mmHg (35-45); ABG PH Result 7.43 (7.35-7.45); Alveolar-Arterial Oxygen Gradi 5.4 mmHg (5-10); Arterial Blood Gas Hematocrit 31.1 % (42-52); Base Excess ABG 12.4 mmol/L (-2.0-2.0); Blood Gas Allen Test Pos; Blood Gas Operator Identificat BD; Blood Gas Sample Site Brachial, right; Blood Gas Sample Type Arterial; Carboxyhemoglobin 1.6 %THgb (0.4-20.1); HCO3 ABG 38.6 mmol/L (22-26); HGB O2 Sat 96.2 % (95-100); Ionized Calcium Level - ABG 1.3 mmol/L (1.1-1.4); Methemoglobin 0.8 % (0.4-1.5); Oxygen Device BIPAP; Oxygen Saturation ABG 98.5; Potassium Level - ABG 3.5 mmol/L (3.5-5.0); Total Hemoglobin 10.1 g/dL (14-18)
--- NOTE | 2021-01-02 09:15 | PC.CHAP ---
Pastoral Care Encounter/Spiritual Assessment Type of Contact [] Declined business law instructor visit [] Patient/Family/Request visit [] Outpatient visit [] Follow-up visit [] Physician referral [] Code/Alert [x] Routine visit [] Staff referral [] Actively dying [] Patient sleeping [] Family support [] [] Out of room [] Palliative care [] [] Receiving care in room [] Pre-surgical visit [] Trauma [] Long length of stay [x] ICU visit [] Other: Relational/Emotional Strength [] Patient feels connected with others/family/visitors/staff [] Distress [] Loneliness/isolation [] Abandonment Spirituality of Patient [] Person of Lacy [] Attends Holiness of their Lacy [] Believes in Prayer [] Reads Bible or Zoroastrian materials [] There are Spiritual issues to be addressed Grounds Maintenance Worker Interventions [x] Prayer [] Active listening [] Non-anxious presence [] Spiritual/emotional support [] Crisis/trauma care [] Spiritual counseling [] Bereavement support [] Provided bereavement packet [] Provided Bible/devotional materials [] Provided toy/stuffed animal, coloring book to patient or family member [] Provided Communion [] Anointing/[place] [] Salvation [x] Completed spiritual assessment [] Other: Impact on Illness or Injury [] Angry [] Fearful [] Anxious [] Often cries [] Exhaustion [] Unable to work [] Unable to attend jehovah's witness [] Unable to walk/stand [] Unable to read [] Unable to drive [] Unable to eat/drink [] Unable to sleep [] Unable to be with family [] Patient intubated [] Other: Summary patient restless.. on ventilator, tossing from side to side Time spent with patient
[2021-01-02] MEDS: ferric gluconate 125 MG in sodium chloride 0.9% (100 ml) 100 ML 110 MG IV (09:48)
--- NOTE | 2021-01-02 10:27 | PM.PN ---
Subjective Subjective: Interval history: When I walked at the room Jorge was pulling at his BiPAP. He was more alert than yesterday after extubation. He was able to follow some directions. Medications: Reviewed: Yes Vitals/I&O/Wt Last Vital Signs Temp 97.5 F L 01/02/21 06:12 Pulse 70 01/02/21 10:00 Resp 35 H 01/02/21 10:00 BP 110/69 01/02/21 10:00 Pulse Ox 96 01/02/21 10:00 01/01/21 01/02/21 01/02/21 22:59 06:59 14:59 Intake Total 150 / 773.062 180.125 / 953.187 100 / 100 Output Total 900 / 2100 1025 / 3125 200 / 200 Balance -750 / -1326.938 -844.875 / -2171.813 -100 / -100 Physical Exam Narrative: EXAM NARRATIVE: General exam white male on BiPAP Neck is supple without any lymphadenopathy or thyromegaly Cardiovascular regular rate and rhythm Lungs clear but with diminished breath sounds bibasilar Abdomen soft obese nontender with positive bowel sounds demonstrates Friedman Extremities show 2-3+ pitting edema all the way to the scrotum which is edematous as well. Neuro no obvious focal deficits Stage II decubitus noted sacrum Urinary Catheter Management^: Friedman: Cath Placed During This Visit: yes Reason for Continuing Indwelling Catheter: Accurate Measurement of Urinary Output in Critically Ill Patients Urinary Catheter Date of Insertion: 12/26/20 Urinary Catheter Time of Insertion: 15:36 Data : 01/02/21 03:00 01/02/21 03:00 Micro: Microbiology 12/30/20 07:30 Gram Stain - Final Sputum - Endotracheal Tube Aspirate Sputum Culture - Final A&P Assessment and plan (1) Acute respiratory distress: Status: Acute (2) Right heart failure: Status: Acute (3) Acute worsening of stage 3 chronic kidney disease: Status: Acute Additional A&P Information Acute respiratory failure. This is presumably secondary to fluid overload. Diuresis has slowed somewhat so nephrology has increased Lasix. Extubated January 01 without difficulty. Patient has some confusion and requiring BiPAP following extubation. Zosyn added January 01 secondary to concern of possible pneumonia and MRSA PCR ordered Acute CHF, right heart failure. EF preserved. Diuresis per nephrology. Hypokalemia. Supplemented by nephrology Hypotension. Now off norepinephrine Anemia, thrombocytopenia. Mild currently Chronic kidney disease. Creatinine improving with appropriate diuresis Elevated troponin, type II History of paroxysmal atrial fibrillation. Currently paced rhythm. On Eliquis chronically. Type 2 diabetes. Sliding scale insulin. GERD. Protonix COPD History of CVA Coronary artery disease with history of bypass Decubitus right greater trochanter. Sacral decubitus. Keep pressure off the area. Monitor closely in case debridement is needed. Full code Eliquis will suffice for DVT prophylaxis Attestations Medical Necessity Statement*: Needs continued hospitalization for further diuresis secondary to acute right heart failure and anasarca associated with respiratory failure. Coding Level of Care Code Acute Spectrographic Analyst for Jocelyne Pat Diagnoses Acute respiratory distress R06.03 Right heart failure I50.810 Acute worsening of stage 3 chronic kidney disease N18.30
[2021-01-02 11:33] LABS: Glucose Point of Care 127 mg/dL (70-110)
[2021-01-02] MEDS: FUROsemide 100 MG in sodium chloride 0.9% 40 ML IV (12:40)
[2021-01-02 15:09] LABS: Anion Gap 16.9 (5-19); Blood Urea Nitrogen 74 mg/dL (6-20); Calcium 10.2 mg/dL (8.5-10.5); Carbon Dioxide 35 mmol/L (22-29); Chloride 93 mmol/L (98-107); Glomerular Filtration Rate 34.4 mL/min (90-130); Glucose 129 mg/dL (65-115); Magnesium 2.4 mg/dL (1.7-2.3); Osmolality Calculated 316 mOsm/kg (285-295); Phosphorus 5.4 mg/dL (2.5-4.5); Potassium 3.9 mmol/L (3.5-5.1); Sodium 141 mmol/L (136-145)
[2021-01-02 15:10] LABS: Ammonia 35 umol/L (16-60)
[2021-01-02 21:57] LABS: Glucose Point of Care 137 mg/dL (70-110)
[2021-01-03] VITALS (43 sets, daily range): BP systolic 80–201; BP diastolic 34–151; PULSE 53–79; RESP 14–35; TEMP 36.5–36.6; O2SAT 91–100
[2021-01-03] MEDS: piperacillin-tazobactam 3.375 GM in sodium chloride 0.9% (plus) 50 ML IV ×3 (01:21→17:18)
--- NOTE | 2021-01-03 02:42 | PC.NURSE ---
Physician Notified Notified about patient neuro status. Pt opens eyes to verbal stimuli, and follows simple commands with gripping hands and raising arms. Unable to comprehend finger to nose command. Observes patient moving BLE. PERRL. Nursing concerns due to patient not verbally responding, appears as some expressive aphasia . Will nod head appropriately and occasionally and make incomprehensible sounds at times. Dr. Clayton notified of concerns and received orders for ABG this am to evaluate for CO2 retention. If CO2 level is not concerning, patient to have CT.
[2021-01-03 03:00] LABS: ABG PCO2 55.2 mmHg (35-45); ABG PH Result 7.45 (7.35-7.45); Arterial Blood Gas Hematocrit 31.5 % (42-52); Base Excess ABG 12.2 mmol/L (-2.0-2.0); Blood Gas Allen Test Pos; Blood Gas Operator Identificat JB; Blood Gas Sample Site Radial, right; Blood Gas Sample Type Arterial; Carboxyhemoglobin 1.4 %THgb (0.4-20.1); HGB O2 Sat 97.2 % (95-100); Ionized Calcium Level - ABG 1.3 mmol/L (1.1-1.4); Methemoglobin 0.8 % (0.4-1.5); Oxygen Device BIPAP; Oxygen Saturation ABG 99.5; Potassium Level - ABG 3.5 mmol/L (3.5-5.0); Total Hemoglobin 10.3 g/dL (14-18)
[2021-01-03 03:01] LABS: Alveolar-Arterial Oxygen Gradi 7.6 mmHg (5-10)
[2021-01-03] MEDS: ipratropium-albuterol 3 mL Neb INHALATION ×6 (03:45→23:45)
--- NOTE | 2021-01-03 03:56 | CTR_ITS ---
PROCEDURE INFORMATION: Exam: CT Head Without Contrast Exam date and time: 01/03/2021 4:43 AM Age: 60 years old Clinical indication: Altered mental status/memory loss; Patient HX: Increasing unresponsiveness S/P extubation. TECHNIQUE: Imaging protocol: Computed tomography of the head without contrast. Radiation optimization: All CT scans at this facility use at least one of these dose optimization techniques: automated exposure control; mA and/or kV adjustment per patient size (includes targeted exams where dose is matched to clinical indication); or iterative reconstruction. COMPARISON: No relevant prior studies available. RADIATION DOSE METRICS: Total DLP (mGy-cm): 760.13 FINDINGS: Brain: No acute intracranial hemorrhage or mass effect. There is decreased attenuation in the periventricular white matter, likely from microvascular disease. Apparent old infarcts in the left basal ganglia region and left posterior temporal/parietal region. No definite acute infarct by CT. MRI could be more sensitive/specific for detection, and also for distinguishing between old and subacute infarcts, as clinically directed. Cerebral ventricles: Ventricle size is normal for age. Bones/joints: No definite acute skull fracture. Old nasal bone fractures. Paranasal sinuses: Included paranasal sinuses are essentially clear. Mastoid air cells: No significant acute finding. Vasculature: Vascular calcifications in the internal carotid and vertebral basilar systems. CT/CT head wo con* [id number] IMPRESSION: 1. No acute intracranial hemorrhage or mass effect. 2. Changes of microvascular disease, and apparent old left-sided infarcts. 3. No definite acute infarct by CT, see above discussion. 4. Other findings discussed above. Radiation Dose CTDIVOL = (mGy): DLP = 760.13 (mGy-cm)
--- NOTE | 2021-01-03 05:00 | PC.NURSE ---
Patient taken to CT by bed, transport monitor and 6L via NC. Pt tolerated well. Back to CT at 0500
[2021-01-03 05:53] LABS: Alanine Aminotransferase 14 U/L (0-41); Albumin Level 4.3 g/dL (3.5-5.2); Alkaline Phosphatase 74 IU/L (40-130); Anion Gap 17.7 (5-19); Aspartate Amino Transferase 44 U/L (0-40); Blood Urea Nitrogen 78 mg/dL (6-20); Calcium 10.4 mg/dL (8.5-10.5); Carbon Dioxide 36 mmol/L (22-29); Chloride 93 mmol/L (98-107); Creatinine Clr Calc Pharmacy 53.3436; Globulin 2.7 g/dL (1.3-4.6); Glomerular Filtration Rate 32.5 mL/min (90-130); Glucose 110 mg/dL (65-115); Magnesium 2.4 mg/dL (1.7-2.3); Osmolality Calculated 320 mOsm/kg (285-295); Phosphorus 4.7 mg/dL (2.5-4.5); Potassium 3.7 mmol/L (3.5-5.1); Sodium 143 mmol/L (136-145); Total Bilirubin 2.4 mg/dL (0.15-1.2)
--- NOTE | 2021-01-03 07:33 | P.PN_ITS ---
Subjective Subjective: Interval history: more awake. he fought his bipap. he is still swollen but improving. he requires 6 l nc o2. is more awake Medications: Reviewed: Yes Medication Review Details: Current Medications Acetaminophen (Acetaminophen 325 Mg Tablet) 650 mg PO Q6H PRN PRN Reason: MILD PAIN Last Admin: 12/27/20 22:09 Dose: 650 mg Documented by: Albuterol/Ipratropium (Ipratropium-Albuterol 3 Ml Neb) 3 ml INHALATION Q4H.RESPIRATORY [facility] Last Admin: 01/03/21 03:45 Dose: 3 ml Documented by: Apixaban (Apixaban 5 Mg Tablet) 5 mg PO BID@ [facility] Last Admin: 01/03/21 04:24 Dose: Not Given Documented by: Atorvastatin Calcium (Atorvastatin 40 Mg Tablet) 80 mg PO DAILY@17 [facility] Last Admin: 01/02/21 16:23 Dose: Not Given Documented by: Dextrose (Dextrose 50% Syringe 50 Ml) 25 ml IVP ONCE PRN; Protocol PRN Reason: hypoglycemia protocol Dextrose (Dextrose 50% Syringe 50 Ml) 50 ml IVP PRN PRN; Protocol PRN Reason: hypoglycemia protocol Ergocalciferol (Ergocalciferol (Vitamin D2) 50,000 Unit Capsule) 50,000 unit PO Q7D [facility] Last Admin: 01/02/21 09:46 Dose: Not Given Documented by: Gabapentin (Gabapentin 100 Mg Capsule) 200 mg PO TID@,, [facility] Last Admin: 01/03/21 04:24 Dose: Not Given Documented by: Glucagon (Glucagon 1 Mg/Ml Inj 1 Ml) 1 mg IM ONCE PRN; Protocol PRN Reason: Adult Acute Hypoglycemia Prot. Dextrose (D5w) 500 mls @ 100 mls/hr IV ONCE PRN; Protocol PRN Reason: Adult Acute Hypoglycemia Prot Albumin Human (Albumin) 25 gm in 100 mls @ 60 mls/hr IV Q8H [facility] Last Admin: 01/03/21 06:08 Dose: 60 mls/hr Documented by: Ferric Sodium Gluconate 125 mg (/ Sodium Chloride) 110 mls @ 110 mls/hr IV Q24H [facility] Stop: 01/04/21 09:59 Last Infusion: 01/02/21 10:48 Dose: Infused Documented by: Piperacillin Sod/Tazobactam (Sod 3.375 gm/ Sodium Chloride) 50 mls @ 12.5 mls/hr IV Q8H [facility]; Protocol Last Infusion: 01/03/21 05:25 Dose: Infused Documented by: Insulin Aspart (Insulin Aspart 100 Unit/1 Ml) 0 unit SUBCUT WM&BEDTIME [facility]; Protocol Last Admin: 01/02/21 20:27 Dose: Not Given Documented by: Ondansetron HCl (Ondansetron 2 Mg/Ml Sdv 2 Ml) 4 mg IVP Q6H PRN PRN Reason: NAUSEA AND VOMITING Pantoprazole Sodium (Pantoprazole Dr 40 Mg Tablet) 40 mg PO BID@05,17 [facility] Last Admin: 01/03/21 04:24 Dose: Not Given Documented by: Fluticasone/Salmeterol (Fluticasone-Salmeterol 250-50 Diskus) 1 puff INHALATION BID.RESPIRATORY [facility] Last Admin: 01/02/21 20:01 Dose: Not Given Documented by: Vitals/I&O/Wt Last Vital Signs Temp 97.9 F 01/03/21 02:00 Pulse 67 01/03/21 06:00 Resp 28 H 01/03/21 06:00 BP 97/70 01/03/21 06:00 Pulse Ox 97 01/03/21 06:00 01/02/21 01/03/21 01/03/21 22:59 06:59 14:59 Intake Total 161.667 / 541.542 150 / 691.542 Output Total 700 / 1200 425 / 1625 Balance -538.333 / -658.458 -275 / -933.458 Weight last 48 hrs Weight 135.987 kg Physical Exam Narrative: EXAM NARRATIVE: pt has improving anasarca VS noted- no pressers- low BP heent- nc/at, eomi, using 6 l nc02 neck supple lungs crackles b/l heart irreg, +s1, s2, SRIKANTH abd soft, nt, nd, + bs ext b/l edema improving but significant neuro- less confused, more awake, moving, interactive, following commands Urinary Catheter Management^: Friedman: Cath Placed During This Visit: yes Reason for Continuing Indwelling Catheter: Accurate Measurement of Urinary Output in Critically Ill Patients Urinary Catheter Date of Insertion: 12/26/20 Urinary Catheter Time of Insertion: 15:36 Data : 01/02/21 03:00 01/03/21 04:10 A&P Additional A&P Information 60 yr old man h/o morbid obesity, BPH, p a fib, SSS, s/p PPM, DM w/ CKD stage 3- b/l cr 1.7 mgm/ dl, anemia, htn, CVA, hyperlipidemia, PVD, COPD, anasarca from right heart failure. 1. Acute kidney injury - Likely CRS. renal fxn improving w/ diuresis -cr improved to 1.9- now rising. i am concerned for TBW overload and effective intravascular volume depletion. -will also add aldactone 2. CKD stage 3- baseline serum creatinine 1.7 mg/dL- CRS, obesity, DM, htn -check pth. replace vit d 3. Anasarca: diffuse edema, diuresing on diuretics- BP stable echo reviewed-ef 60%, Right ventricle mildly dilated -presumed RT heart failure -will start acetazolamide- as met alkalosis -replace k and mag as needed 4. met alkalosis- from diuretics, and he has hypercapneic resp acidosis 5. Anemia, stable - give iron 6. P atrial fibrillation 7. diabetes mellitus per medicine 8. obesity meds reviewed - pt seen and examined w/ RN- telehealth visit Attestations Medical Necessity Statement*: per cardiology Time Spent in Patient Care: 16 - 35 minutes Coding Level of Care Code Acute Shrimp Peeling Machine Tender for Jocelyne Pat
[2021-01-03 07:58] LABS: Glucose Point of Care 133 mg/dL (70-110)
--- NOTE | 2021-01-03 09:50 | PM.PN ---
Subjective Subjective: Interval history: Jorge is much more alert today. Denies any particular complaints. Last night I think he had some agitation and a CT of head was done as well as an ABG. These did not show any acute findings. Medications: Reviewed: Yes Vitals/I&O/Wt Last Vital Signs Temp 97.7 F 01/03/21 07:00 Pulse 76 01/03/21 09:00 Resp 27 H 01/03/21 09:00 BP 103/59 01/03/21 09:00 Pulse Ox 95 01/03/21 09:00 01/02/21 01/03/21 01/03/21 22:59 06:59 14:59 Intake Total 161.667 / 541.542 150 / 691.542 Output Total 700 / 1200 425 / 1625 Balance -538.333 / -658.458 -275 / -933.458 Weight last 48 hrs Weight 135.987 kg Physical Exam Narrative: EXAM NARRATIVE: General exam white male on BiPAP Neck is supple without any lymphadenopathy or thyromegaly Cardiovascular regular rate and rhythm Lungs clear but with diminished breath sounds bibasilar Abdomen soft obese nontender with positive bowel sounds demonstrates Friedman Extremities show 2+ pitting edema all the way to the scrotum which is edematous as well. Neuro no obvious focal deficits Stage II decubitus noted sacrum Urinary Catheter Management^: Friedman: Cath Placed During This Visit: yes Reason for Continuing Indwelling Catheter: Accurate Measurement of Urinary Output in Critically Ill Patients Urinary Catheter Date of Insertion: 12/26/20 Urinary Catheter Time of Insertion: 15:36 Data : 01/02/21 03:00 01/03/21 04:10 Other data: CT without acute findings but old infarcts left basal ganglia and left posterior temporoparietal region were noted. Laboratory today pending A&P Assessment and plan (1) Acute respiratory distress: Status: Acute (2) Right heart failure: Status: Acute (3) Acute worsening of stage 3 chronic kidney disease: Status: Acute Additional A&P Information Acute respiratory failure. This is presumably secondary to fluid overload. Diuresis has slowed somewhat so nephrology has increased Lasix. Extubated January 01 without difficulty. Patient has some confusion and requiring BiPAP following extubation. Zosyn added January 01 secondary to concern of possible pneumonia and MRSA PCR ordered. MRSA PCR is still pending. Currently still intermittently requiring BiPAP. Acute CHF, right heart failure. EF preserved. Diuresis per nephrology. Lasix drip stopped yesterday as concern of intravascular volume depletion. Aldactone and acetazolamide initiated. Still on albumin per nephrology Hypokalemia. Potassium pending Hypotension. Resolved Anemia, thrombocytopenia. Awaiting laboratory today Chronic kidney disease. Awaiting laboratory today Elevated troponin, type II History of paroxysmal atrial fibrillation. Currently paced rhythm. On Eliquis chronically. Type 2 diabetes. Sliding scale insulin. GERD. Protonix COPD History of CVA. Continue Eliquis, statin Coronary artery disease with history of bypass Decubitus right greater trochanter. Sacral decubitus. Keep pressure off the area. Monitor closely in case debridement is needed. Full code Eliquis will suffice for DVT prophylaxis. I think it is likely he will be able to take this p.o. today although doses were missed yesterday secondary to poor swallowing. Attestations Medical Necessity Statement*: Needs continued hospitalization for close monitoring secondary to acute respiratory failure. Coding Level of Care Code Acute Hat Forming Machine Operator for Jocelyne Pat Diagnoses Acute respiratory distress R06.03 Right heart failure I50.810 Acute worsening of stage 3 chronic kidney disease N18.30
[2021-01-03] MEDS: ferric gluconate 125 MG in sodium chloride 0.9% (100 ml) 100 ML 110 MG IV (09:54)
[2021-01-03] MEDS: gabapentin 100 mg Capsule 200 MG PO ×2 (11:43→17:18)
[2021-01-03 12:09] LABS: Glucose Point of Care 132 mg/dL (70-110)
[2021-01-03 17:15] LABS: Glucose Point of Care 142 mg/dL (70-110)
[2021-01-03] MEDS: atorvastatin 40 mg Tablet 80 MG PO (17:18)
[2021-01-03] MEDS: apixaban 5 mg Tablet PO (17:18)
[2021-01-03] MEDS: spironolactone 25 mg Tablet PO (17:19)
[2021-01-03] MEDS: acetaZOLAMIDE 250 mg Tablet PO (17:19)
[2021-01-03 20:43] LABS: Glucose Point of Care 149 mg/dL (70-110)
[2021-01-04] VITALS (39 sets, daily range): BP systolic 81–144; BP diastolic 48–91; PULSE 56–75; RESP 17–35; TEMP 36.2–37; O2SAT 90–100
--- NOTE | 2021-01-04 00:43 | PC.NURSE ---
Patient pulling off Bipap. Will not leave on. Placed on 4L NC. Bipap on for duration of 3 hrs.
[2021-01-04] MEDS: piperacillin-tazobactam 3.375 GM in sodium chloride 0.9% (plus) 50 ML IV ×3 (01:57→17:41)
[2021-01-04] MEDS: ipratropium-albuterol 3 mL Neb INHALATION ×6 (03:21→23:31)
[2021-01-04] MEDS: gabapentin 100 mg Capsule 200 MG PO ×2 (04:10→12:21)
[2021-01-04] MEDS: apixaban 5 mg Tablet PO ×2 (04:10→17:40)
[2021-01-04] MEDS: pantoprazole DR 40 mg Tablet PO ×2 (04:10→17:41)
[2021-01-04 04:25] LABS: Basophils % 0.2 %; Eosinophils # 0.1 10^3/uL (0.0-0.8); Eosinophils % 1.2 %; Hemoglobin 9.8 g/dL (11.7-16.6); Lymphocytes # 0.7 10^3/uL (0.8-4.8); Lymphocytes % 7.4 %; Mean Corpuscular HGB Conc 29.7 g/dL (30.0-36.0); Mean Corpuscular Hemoglobin 28.1 pg (28.0-34.0); Mean Corpuscular Volume 94.6 fL (80-94); Monocytes # 1.1 10^3/uL (0.2-0.9); Neutrophils % 78.9 %; Nucleated Red Blood Cells % 0 %; Platelet Count 93 10^3/cmm (130-400); Red Blood Count 3.49 10^6/uL (4.1-5.3); Red Cell Distribution Width 19.4 % (12.1-15.1); White Blood Count 9.4 10^3/uL (4.0-10.0)
[2021-01-04 04:56] LABS: Alanine Aminotransferase 16 U/L (0-41); Albumin Level 4.5 g/dL (3.5-5.2); Alkaline Phosphatase 67 IU/L (40-130); Anion Gap 18.6 (5-19); Aspartate Amino Transferase 42 U/L (0-40); Calcium 10.3 mg/dL (8.5-10.5); Carbon Dioxide 36 mmol/L (22-29); Chloride 98 mmol/L (98-107); Globulin 2.7 g/dL (1.3-4.6); Glomerular Filtration Rate 29.2 mL/min (90-130); Glucose 129 mg/dL (65-115); Magnesium 2.7 mg/dL (1.7-2.3); Osmolality Calculated 336 mOsm/kg (285-295); Phosphorus 4.4 mg/dL (2.5-4.5); Potassium 3.6 mmol/L (3.5-5.1); Sodium 149 mmol/L (136-145); Total Bilirubin 2.2 mg/dL (0.15-1.2); Total Protein 7.2 g/dL (6.6-8.7)
[2021-01-04 05:16] LABS: Blood Urea Nitrogen 85 mg/dL (6-20)
[2021-01-04 07:41] LABS: Glucose Point of Care 136 mg/dL (70-110)
[2021-01-04] MEDS: acetaZOLAMIDE 250 mg Tablet PO ×2 (09:20→17:41)
[2021-01-04] MEDS: spironolactone 25 mg Tablet PO ×2 (09:21→17:42)
[2021-01-04] MEDS: ferric gluconate 125 MG in sodium chloride 0.9% (100 ml) 100 ML 110 MG IV (09:21)
--- NOTE | 2021-01-04 10:05 | PM.PN ---
Documented by User: Treasure ChelitaARMAAN STDNACHO 01/04/21 11:07 Subjective Subjective: Interval history: Jorge appears more alert today. Denies any pain or trouble breathing. Medications: Reviewed: Yes Vitals/I&O/Wt Last Vital Signs Temp 98.6 F 01/04/21 07:00 Pulse 62 01/04/21 08:00 Resp 23 H 01/04/21 08:00 BP 113/71 01/04/21 08:00 Pulse Ox 99 01/04/21 07:38 01/03/21 01/04/21 01/04/21 22:59 06:59 14:59 Intake Total 350 / 710 350 / 1060 Output Total 550 / 850 300 / 1150 Balance -200 / -140 50 / -90 Weight last 48 hrs Weight 136.486 kg Weight 135.987 kg Physical Exam Narrative: EXAM NARRATIVE: General exam white male on nasal cannula. Neck is supple without any lymphadenopathy or thyromegaly Cardiovascular regular rate and rhythm Lungs clear but with diminished breath sounds bibasilar Abdomen soft obese nontender with positive bowel sounds demonstrates Friedman Extremities show 2+ pitting edema all the way to the knee Neuro no obvious focal deficits Stage II decubitus noted sacrum Urinary Catheter Management^: Friedman: Cath Placed During This Visit: yes Reason for Continuing Indwelling Catheter: Accurate Measurement of Urinary Output in Critically Ill Patients Urinary Catheter Date of Insertion: 12/26/20 Urinary Catheter Time of Insertion: 15:36 Data : 01/04/21 03:58 01/04/21 03:58 A&P Additional A&P Information Acute respiratory failure. This is presumably secondary to fluid overload. Diuresis has slowed somewhat so nephrology has increased Lasix. Extubated January 01 without difficulty. Patient has some confusion and requiring BiPAP following extubation. Zosyn added January 01 secondary to concern of possible pneumonia and MRSA PCR ordered. MRSA PCR is still pending. Currently still intermittently requiring BiPAP at night. Acute CHF, right heart failure. EF preserved. Diuresis per nephrology. Lasix drip stopped yesterday as concern of intravascular volume depletion. Aldactone and acetazolamide initiated. Still on albumin per nephrology Hypokalemia. Resolved Hypotension. Resolved Anemia, thrombocytopenia. Continue to monitor Chronic kidney disease. BUN and creatinine increased from yesterday Elevated troponin, type II History of paroxysmal atrial fibrillation. Currently paced rhythm. On Eliquis chronically. Type 2 diabetes. Sliding scale insulin. GERD. Protonix COPD History of CVA. Continue Eliquis, statin Coronary artery disease with history of bypass Decubitus right greater trochanter. Sacral decubitus. Keep pressure off the area. Monitor closely in case debridement is needed. Dressing being changed every night. Full code Eliquis will suffice for DVT prophylaxis. Able to take pills whole today with apple sauce. Coding Level of Care Code Acute Campus Wellness Coordinator for Chg Fwd Documented by User: To Oliva MD 01/04/21 11:23 Subjective Subjective: Interval history: Patient interviewed and confirmed the above. He has no complaints today. Physical Exam Urinary Catheter Management^: Friedman: Cath Placed During This Visit: no Data : 01/04/21 03:58 01/04/21 03:58 A&P Additional A&P Information Acute respiratory failure. This is presumably secondary to fluid overload. Extubated January 01 without difficulty. Confusion patient had after extubation is improving.. Zosyn added January 01 secondary to concern of possible pneumonia and MRSA PCR ordered. MRSA PCR negative. Currently still intermittently requiring BiPAP at night. Acute CHF, right heart failure. EF preserved. Diuresis per nephrology. Aggressive diuresis with Lasix has been discontinued. Aldactone and acetazolamide initiated yesterday per nephrology. Still on albumin per nephrology. He is slightly hypernatremic today and may have some intravascular volume depletion. Will defer to them electrolyte management at this time. He is more alert today and can likely take more fluids by mouth. Global weakness. Continue aggressive physical therapy/Occupational Therapy Hypokalemia. Resolved Hypotension. Resolved Anemia, thrombocytopenia. Continue to monitor. This appears to have stabilized Chronic kidney disease with acute kidney injury. This is responded well to diuresis initially with decreasing creatinine. Over the last 2 days no further decrease has been noted and creatinine is 2.3. Elevated troponin, type II History of paroxysmal atrial fibrillation. Currently paced rhythm. On Eliquis chronically. Type 2 diabetes. Sliding scale insulin. GERD. Protonix COPD History of CVA. Continue Eliquis, statin Coronary artery disease with history of bypass Decubitus right greater trochanter. Sacral decubitus. Keep pressure off the area. Continue dressing changes. Overall stable Full code Eliquis will suffice for DVT prophylaxis. Patient with significant weakness and could benefit from skilled care but patient refusing at this time. Attestations Medical Necessity Statement*: Needs continued hospital stay for treatment of pneumonia with IV antibiotics. Coding Level of Care Code Acute Campus Wellness Coordinator for Jocelyne Pat
--- NOTE | 2021-01-04 11:09 | PM.PN ---
Subjective Subjective: Interval history: Alert, passed swallowing study today. RN states he drank 2 liters of water today Medications: Reviewed: Yes Vitals/I&O/Wt Last Vital Signs Temp 98.6 F 01/04/21 07:00 Pulse 70 01/04/21 10:00 Resp 29 H 01/04/21 10:00 BP 128/77 01/04/21 10:00 Pulse Ox 94 01/04/21 10:00 01/03/21 01/04/21 01/04/21 22:59 06:59 14:59 Intake Total 350 / 710 350 / 1060 300 / 300 Output Total 550 / 850 300 / 1150 Balance -200 / -140 50 / -90 300 / 300 Weight last 48 hrs Weight 136.486 kg Weight 135.987 kg Physical Exam Const: COMMON NORMALS: no acute distress Extremity: GENERAL: Yes edema Urinary Catheter Management^: Friedman: Cath Placed During This Visit: yes Reason for Continuing Indwelling Catheter: Accurate Measurement of Urinary Output in Critically Ill Patients Urinary Catheter Date of Insertion: 12/26/20 Urinary Catheter Time of Insertion: 15:36 Data : 01/04/21 03:58 01/04/21 03:58 A&P Additional A&P Information 1. Acute kidney injury 2. Anasarca 3. Hypernatremia, IVF discontinued yesterday 4. Chronic kidney disease 5. Metabolic alkalosis, stable, on diamox 6. Anemia, Hb stable Recommend: agree with plan to push oral fluids, repeat serum sodium in AM. may need to resume loop diuretic. Attestations Medical Necessity Statement*: per primary service Time Spent in Patient Care: 16 - 35 minutes Coding Level of Care Code Acute Sport Shoe Spike Assembler for Jocelyne Pat
[2021-01-04 11:17] LABS: Glucose Point of Care 159 mg/dL (70-110)
[2021-01-04 17:00] LABS: Glucose Point of Care 154 mg/dL (70-110)
[2021-01-04] MEDS: atorvastatin 40 mg Tablet 80 MG PO (17:40)
[2021-01-04 20:33] LABS: Glucose Point of Care 156 mg/dL (70-110)
[2021-01-04] MEDS: lidocaine 5% Patch 1 PATCH TOPICAL (23:40)
[2021-01-05] VITALS (32 sets, daily range): BP systolic 89–125; BP diastolic 50–86; PULSE 51–79; RESP 16–36; TEMP 34.7–36.9; O2SAT 92–100
[2021-01-05] MEDS: piperacillin-tazobactam 3.375 GM in sodium chloride 0.9% (plus) 50 ML IV ×3 (00:43→18:11)
[2021-01-05] MEDS: morphine 4 mg/mL SDV 1 mL 2 MG IVP ×3 (00:43→05:49)
[2021-01-05] MEDS: ipratropium-albuterol 3 mL Neb INHALATION ×6 (03:47→23:04)
[2021-01-05 03:54] LABS: Alanine Aminotransferase 16 U/L (0-41); Albumin Level 4.6 g/dL (3.5-5.2); Alkaline Phosphatase 70 IU/L (40-130); Anion Gap 17.9 (5-19); Aspartate Amino Transferase 38 U/L (0-40); Calcium 10.2 mg/dL (8.5-10.5); Carbon Dioxide 35 mmol/L (22-29); Chloride 95 mmol/L (98-107); Glomerular Filtration Rate 26.6 mL/min (90-130); Glucose 133 mg/dL (65-115); Magnesium 2.9 mg/dL (1.7-2.3); Osmolality Calculated 328 mOsm/kg (285-295); Phosphorus 4.6 mg/dL (2.5-4.5); Potassium 3.9 mmol/L (3.5-5.1); Sodium 144 mmol/L (136-145); Total Bilirubin 2.3 mg/dL (0.15-1.2); Total Protein 7.6 g/dL (6.6-8.7)
[2021-01-05 03:57] LABS: Blood Urea Nitrogen 91 mg/dL (6-20)
[2021-01-05] MEDS: apixaban 5 mg Tablet PO (04:05)
[2021-01-05] MEDS: pantoprazole DR 40 mg Tablet PO ×2 (04:05→18:11)
[2021-01-05] MEDS: gabapentin 100 mg Capsule 200 MG PO ×3 (04:05→18:10)
--- NOTE | 2021-01-05 07:00 | XRR_ITS ---
PROCEDURE INFORMATION: Exam: XR Chest, 1 View Exam date and time: 01/05/2021 5:41 AM Age: 60 years old Clinical indication: Shortness of breath; Patient HX: F/u resp failure. Very labored breathing and unable to lay still. Best film submitted. TECHNIQUE: Imaging protocol: XR of the chest Views: 1 view. COMPARISON: CR XR chest 1V portable [id number] 01/01/2021 6:32 AM FINDINGS: Tubes, catheters and devices: A cardiac pacing device is again seen projecting over the left chest. Lungs: Low lung volumes. There is redistribution and indistinctness of the pulmonary vasculature, in association with haziness of the lungs and small bilateral pleural effusions, which in the setting of cardiomegaly is concerning for pulmonary edema. Pneumonia should be excluded clinically. No pneumothorax. Pleural spaces: See Lungs finding. Heart/Mediastinum: Stable cardiomediastinal silhouette. Prosthetic cardiac valve noted. Bones/joints: Median sternotomy changes seen. XR/XR chest 1V portable [id number] IMPRESSION: Imaging findings concerning for pulmonary edema with small bilateral pleural effusions. Pneumonia should be excluded clinically.
[2021-01-05] MEDS: spironolactone 25 mg Tablet PO ×2 (08:32→18:12)
[2021-01-05] MEDS: acetaZOLAMIDE 250 mg Tablet PO ×2 (09:28→18:10)
--- NOTE | 2021-01-05 10:53 | PM.PN ---
Subjective Subjective: Interval history: This is a 60-year-old male with history of obesity, BPH, proximal atrial fibrillation, sick sinus syndrome with pacemaker, neuropathy, diabetes, iron deficient anemia, hypertension, CVA, peripheral vascular disease, CKD 3, COPD, anasarca who presented to the hospital with edema and abdominal distention. His hospitalization has been complicated. He has seen nephrology. He is also being treated for pneumonia. This morning patient lethargic. But arousable. Afebrile. Denies productive cough. Medications: Reviewed: Yes Vitals/I&O/Wt Last Vital Signs Temp 98.3 F 01/04/21 15:00 Pulse 64 01/05/21 09:00 Resp 23 H 01/05/21 09:00 BP 118/74 01/05/21 09:00 Pulse Ox 98 01/05/21 09:00 01/04/21 01/05/21 01/05/21 22:59 06:59 14:59 Intake Total 650 / 1710 350 / 2060 Output Total 150 / 450 225 / 675 Balance 500 / 1260 125 / 1385 Weight last 48 hrs Weight 300 lb 14.4 oz Physical Exam Const: OTHER: obese , lethargic Eye: COMMON NORMALS: Equal, round and reactive pupils present and EOMs intact bilaterally PUPIL: Yes Equal, round and reactive pupils present Neck/C-Spine: COMMON NORMALS: no JVD Chest: COMMONS NORMALS: normal inspection of the chest and normal palpation of entire chest wall Resp: COMMON NORMALS: normal respiratory effort and No retractions Cardio: COMMON NORMALS: no JVD and regular rate RATE: regular rate GI: OTHER: distented, nontender Extremity: OTHER: edema Neuro: OTHER: generalized weakness, follows commands Urinary Catheter Management^: Friedman: Cath Placed During This Visit: yes Reason for Continuing Indwelling Catheter: Accurate Measurement of Urinary Output in Critically Ill Patients Urinary Catheter Date of Insertion: 12/26/20 Urinary Catheter Time of Insertion: 15:36 Data : 01/04/21 03:58 01/05/21 03:03 A&P Additional A&P Information Acute respiratory failure. --secondary to fluid overload --monitor I/Os, diuresis per Renal, appreciate recs Extubated January 01, PRN BIPAP --on abx for pneumonia --PRN albuterol, Advair Acute CHF, right heart failure. EF preserved. --azetazolamide 250mg po bid --spironolactone Hypokalemia. Resolved Hypotension. Resolved Anemia, thrombocytopenia. --check cbc in am Chronic kidney disease. --monitor urine output --check Screat in AM Elevated troponin, type II History of paroxysmal atrial fibrillation. Currently paced rhythm. On Eliquis chronically. Type 2 diabetes. Sliding scale insulin. GERD. Protonix COPD History of CVA. Continue Eliquis, statin Coronary artery disease with history of bypass --eliquis, statin Sacral decubitus. --wound care, dressing changes Full code DVT: eliquis GI prophylaxis: PPI Attestations Medical Necessity Statement*: Jorge Lancaster's hospital stay will require greater than 2 midnights for chf Coding Level of Care Code Acute Oven Operator Automatic for Jocelyne Pat
[2021-01-05 11:33] LABS: Glucose Point of Care 145 mg/dL (70-110)
--- NOTE | 2021-01-05 14:34 | PM.PN ---
Subjective Subjective: Interval history: more lethargic today, minimal oral intake, breathing is more shallow Medications: Reviewed: Yes Vitals/I&O/Wt Last Vital Signs Temp 98.5 F 01/05/21 12:00 Pulse 54 L 01/05/21 14:00 Resp 24 H 01/05/21 14:00 BP 96/75 01/05/21 14:00 Pulse Ox 97 01/05/21 14:00 01/04/21 01/05/21 01/05/21 22:59 06:59 14:59 Intake Total 650 / 1710 350 / 2060 150 / 150 Output Total 150 / 450 225 / 675 Balance 500 / 1260 125 / 1385 150 / 150 Weight last 48 hrs Weight 136.486 kg Physical Exam Const: GENERAL APPEARANCE: lethargic NUTRITIONAL APPEARANCE: obese ORIENTATION/CONSCIOUSNESS: Yes lethargic Extremity: GENERAL: Yes edema Neuro: SENSORIUM/ORIENTATION: Yes lethargic Urinary Catheter Management^: Friedman: Cath Placed During This Visit: yes Reason for Continuing Indwelling Catheter: Accurate Measurement of Urinary Output in Critically Ill Patients Urinary Catheter Date of Insertion: 12/26/20 Urinary Catheter Time of Insertion: 15:36 Data : 01/04/21 03:58 01/05/21 03:03 CXR: Radiologist's impression: CXR concerning for pulmonary edema A&P Additional A&P Information 1. Acute kidney injury, poor urine output, anasarca, BUN/Cr worsening 2. Hypernatremia, resolved 4. Chronic kidney disease 5. Metabolic alkalosis, stable, on diamox 6. Anemia, Hb stable Recommend: furosemide 80 mg IV x 1 dose, further loop diuretic dosing dependent on response, check ABG. Unless there is significant improvement, will likely need dialysis in next couple of days Attestations Medical Necessity Statement*: per primary service Time Spent in Patient Care: Greater than 35 minutes Coding Level of Care Code Acute Remote Ruby On Rails Developer for g Bi
[2021-01-05] MEDS: FUROsemide 10 mg/mL SDV 10mL 80 MG IVP (15:47)
[2021-01-05 15:57] LABS: ABG PH Result 7.27 (7.35-7.45); Arterial Blood Gas Hematocrit 31.2 % (42-52); Base Excess ABG 5.2 mmol/L (-2.0-2.0); Blood Gas Allen Test Pos; Blood Gas Operator Identificat BD; Blood Gas Sample Site Brachial, right; Blood Gas Sample Type Arterial; HCO3 ABG 33.8 mmol/L (22-26); Oxygen Device NC
[2021-01-05 15:58] LABS: ABG PCO2 73.9 mmHg (35-45)
[2021-01-05] MEDS: atorvastatin 40 mg Tablet 80 MG PO (18:10)
[2021-01-05 18:40] LABS: Glucose Point of Care 131 mg/dL (70-110)
[2021-01-05 20:52] LABS: Glucose Point of Care 136 mg/dL (70-110)
[2021-01-06] VITALS (31 sets, daily range): BP systolic 92–144; BP diastolic 54–83; PULSE 53–87; RESP 14–26; TEMP 36.3–36.8; O2SAT 81–100
[2021-01-06] MEDS: piperacillin-tazobactam 3.375 GM in sodium chloride 0.9% (plus) 50 ML IV ×3 (01:24→18:48)
[2021-01-06 03:49] LABS: Basophils % 0.2 %; Eosinophils # 0.1 10^3/uL (0.0-0.8); Eosinophils % 1.6 %; Hematocrit 32.1 % (42.0-52.0); Hemoglobin 9.6 g/dL (11.7-16.6); Lymphocytes # 0.7 10^3/uL (0.8-4.8); Lymphocytes % 8.5 %; Mean Corpuscular HGB Conc 29.9 g/dL (30.0-36.0); Mean Corpuscular Hemoglobin 29.2 pg (28.0-34.0); Mean Corpuscular Volume 97.6 fL (80-94); Mean Platelet Volume 12.2 fL (7.4-10.4); Monocytes % 11.9 %; Neutrophils # 6.47 10^3/uL (1.8-7.7); Neutrophils % 77.3 %; Nucleated Red Blood Cells % 0 %; Platelet Count 96 10^3/cmm (130-400); Red Blood Count 3.29 10^6/uL (4.1-5.3); Red Cell Distribution Width 19.9 % (12.1-15.1); White Blood Count 8.4 10^3/uL (4.0-10.0)
[2021-01-06 04:09] LABS: Alanine Aminotransferase 14 U/L (0-41); Albumin Level 4.4 g/dL (3.5-5.2); Alkaline Phosphatase 60 IU/L (40-130); Anion Gap 18.6 (5-19); Aspartate Amino Transferase 29 U/L (0-40); Calcium 9.7 mg/dL (8.5-10.5); Carbon Dioxide 33 mmol/L (22-29); Chloride 93 mmol/L (98-107); Globulin 2.4 g/dL (1.3-4.6); Glomerular Filtration Rate 24.3 mL/min (90-130); Glucose 116 mg/dL (65-115); Osmolality Calculated 323 mOsm/kg (285-295); Potassium 3.6 mmol/L (3.5-5.1); Sodium 141 mmol/L (136-145); Total Bilirubin 2.4 mg/dL (0.15-1.2); Total Protein 6.8 g/dL (6.6-8.7)
[2021-01-06 04:14] LABS: Blood Urea Nitrogen 98 mg/dL (6-20)
[2021-01-06] MEDS: ipratropium-albuterol 3 mL Neb INHALATION ×6 (04:15→23:49)
[2021-01-06] MEDS: gabapentin 100 mg Capsule 200 MG PO (05:25)
[2021-01-06] MEDS: pantoprazole DR 40 mg Tablet PO ×2 (05:25→18:48)
[2021-01-06 06:09] LABS: NT Pro B Type Natriuretic Pept 18980 pg/mL (0-125)
[2021-01-06 07:50] LABS: Glucose Point of Care 150 mg/dL (70-110)
--- NOTE | 2021-01-06 08:32 | P.PN_ITS ---
Subjective Subjective: Interval history: more awake, used BiPAP overnight. weak, confused. Medications: Reviewed: Yes Medication Review Details: Current Medications Acetaminophen (Acetaminophen 325 Mg Tablet) 650 mg PO Q6H PRN PRN Reason: MILD PAIN Last Admin: 12/27/20 22:09 Dose: 650 mg Documented by: Acetazolamide (Acetazolamide 250 Mg Tablet) 250 mg PO BID [facility] Last Admin: 01/05/21 18:10 Dose: 250 mg Documented by: Albuterol/Ipratropium (Ipratropium-Albuterol 3 Ml Neb) 3 ml INHALATION Q4H.RESPIRATORY [facility] Last Admin: 01/06/21 07:24 Dose: 3 ml Documented by: Apixaban (Apixaban 5 Mg Tablet) 5 mg PO BID@ [facility] Last Admin: 01/05/21 04:05 Dose: 5 mg Documented by: Atorvastatin Calcium (Atorvastatin 40 Mg Tablet) 80 mg PO DAILY@17 [facility] Last Admin: 01/05/21 18:10 Dose: 80 mg Documented by: Dextrose (Dextrose 50% Syringe 50 Ml) 25 ml IVP ONCE PRN; Protocol PRN Reason: hypoglycemia protocol Dextrose (Dextrose 50% Syringe 50 Ml) 50 ml IVP PRN PRN; Protocol PRN Reason: hypoglycemia protocol Ergocalciferol (Ergocalciferol (Vitamin D2) 50,000 Unit Capsule) 50,000 unit PO Q7D [facility] Last Admin: 01/02/21 09:46 Dose: Not Given Documented by: Glucagon (Glucagon 1 Mg/Ml Inj 1 Ml) 1 mg IM ONCE PRN; Protocol PRN Reason: Adult Acute Hypoglycemia Prot. Dextrose (D5w) 500 mls @ 100 mls/hr IV ONCE PRN; Protocol PRN Reason: Adult Acute Hypoglycemia Prot Piperacillin Sod/Tazobactam (Sod 3.375 gm/ Sodium Chloride) 50 mls @ 12.5 mls/hr IV Q8H [facility]; Protocol Last Infusion: 01/06/21 05:24 Dose: Infused Documented by: Insulin Aspart (Insulin Aspart 100 Unit/1 Ml) 0 unit SUBCUT WM&BEDTIME [facility]; Protocol Last Admin: 01/05/21 20:49 Dose: Not Given Documented by: Morphine Sulfate (Morphine 4 Mg/Ml Sdv 1 Ml) 4 mg IVP Q4H PRN PRN Reason: SEVERE PAIN Ondansetron HCl (Ondansetron 2 Mg/Ml Sdv 2 Ml) 4 mg IVP Q6H PRN PRN Reason: NAUSEA AND VOMITING Pantoprazole Sodium (Pantoprazole Dr 40 Mg Tablet) 40 mg PO BID@05,17 [facility] Last Admin: 01/06/21 05:25 Dose: 40 mg Documented by: Fluticasone/Salmeterol (Fluticasone-Salmeterol 250-50 Diskus) 1 puff INHALATION BID.RESPIRATORY [facility] Last Admin: 01/06/21 07:25 Dose: Not Given Documented by: Vitals/I&O/Wt Last Vital Signs Temp 97.5 F L 01/06/21 06:00 Pulse 66 01/06/21 07:28 Resp 18 01/06/21 07:28 BP 115/59 01/06/21 06:00 Pulse Ox 99 01/06/21 07:28 01/05/21 01/06/21 01/06/21 22:59 06:59 14:59 Intake Total 145 / 295 350 / 645 Output Total 350 / 350 250 / 600 Balance -205 / -55 100 / 45 Weight last 48 hrs Weight 138.482 kg Physical Exam Narrative: EXAM NARRATIVE: pt has anasarca VS noted- no pressers- low BP heent- nc/at, eomi, using 6 l nc02 neck supple lungs crackles b/l heart irreg, +s1, s2, SRIKANTH abd soft, nt, nd, + bs ext b/l edema neuro- confused, interactive, following simple commands Urinary Catheter Management^: Friedman: Cath Placed During This Visit: yes Reason for Continuing Indwelling Catheter: Accurate Measurement of Urinary Output in Critically Ill Patients Urinary Catheter Date of Insertion: 12/26/20 Urinary Catheter Time of Insertion: 15:36 Data : 01/06/21 03:02 01/06/21 03:02 A&P Additional A&P Information 60 yr old man h/o morbid obesity, BPH, p a fib, SSS, s/p PPM, DM w/ CKD stage 3- b/l cr 1.7 mgm/ dl, anemia, htn, CVA, hyperlipidemia, PVD, COPD, anasarca from right heart failure. 1. Acute kidney injury - Likely CRS. renal fxn improving w/ diuresis -cr improved to 1.9- now rising. -may be CRS- hold lasix if develops SOB- would initiate HD -if needs eliquis- please renal dose 2.5 bid or use hparin 2. CKD stage 3- baseline serum creatinine 1.7 mg/dL- CRS, obesity, DM, htn -check pth. replace vit d 3. Anasarca: diffuse edema, diuresing on diuretics- BP stable echo reviewed-ef 60%, Right ventricle mildly dilated -presumed RT heart failure -cont acetazolamide- as met alkalosis -replace k and mag as needed 4. primary hypercapneic resp acidosis and met compensation 5. Anemia, stable - give iron 6. P atrial fibrillation 7. diabetes mellitus per medicine 8. obesity meds reviewed - pt seen and examined w/ RN- telehealth visit Attestations Medical Necessity Statement*: galo, copd, rt heart failure Time Spent in Patient Care: 16 - 35 minutes Coding Level of Care Code Acute Rubber Block Layer for Jocelyne Pat
--- NOTE | 2021-01-06 09:13 | XRR_ITS ---
PROCEDURE INFORMATION: Exam: XR Abdomen, 1 View Exam date and time: 01/05/2021 11:59 PM Age: 60 years old Clinical indication: Other: Abd distension TECHNIQUE: Imaging protocol: XR of the abdomen. Views: Frontal supine view of the abdomen. 1 View. COMPARISON: CT kidney stone [id number] 11/19/2020 3:12 PM FINDINGS: Tubes, catheters and devices: Surgical clips project over the right hip region. Gastrointestinal tract: Nonobstructive bowel gas pattern. Bones/joints: Degenerative changes of the spine seen. XR/XR abdomen 1V* [id number] IMPRESSION: Nonobstructive bowel gas pattern.
[2021-01-06 09:16] LABS: ABG PH Result 7.33 (7.35-7.45); Alveolar-Arterial Oxygen Gradi 0.5 mmHg (5-10); Arterial Blood Gas Hematocrit 30.4 % (42-52); Base Excess ABG 5.7 mmol/L (-2.0-2.0); Blood Gas Allen Test Pos; Blood Gas Operator Identificat BD; Blood Gas Sample Site Radial, right; Blood Gas Sample Type Arterial; Carboxyhemoglobin 1.4 %THgb (0.4-20.1); HCO3 ABG 32.9 mmol/L (22-26); HGB O2 Sat 96.4 % (95-100); Ionized Calcium Level - ABG 1.2 mmol/L (1.1-1.4); Methemoglobin 0.9 % (0.4-1.5); Oxygen Device NC; Oxygen Saturation ABG 98.6; Potassium Level - ABG 3.6 mmol/L (3.5-5.0); Total Hemoglobin 9.9 g/dL (14-18)
[2021-01-06 09:21] LABS: ABG PCO2 62.2 mmHg (35-45)
[2021-01-06] MEDS: acetaZOLAMIDE 250 mg Tablet PO ×2 (11:11→18:49)
--- NOTE | 2021-01-06 11:11 | PC.NURSE ---
Diamox administered an hour past due d/t PT working with pt at bedside and nurse performing multiple dressing changels while pt able to stand. Pt tolerated very well.
[2021-01-06 11:51] LABS: Glucose Point of Care 129 mg/dL (70-110)
--- NOTE | 2021-01-06 13:19 | PM.PN ---
Subjective Subjective: Interval history: This is a 60-year-old male with history of obesity, BPH, proximal atrial fibrillation, sick sinus syndrome with pacemaker, neuropathy, diabetes, iron deficient anemia, hypertension, CVA, peripheral vascular disease, CKD 3, COPD, anasarca who presented to the hospital with edema and abdominal distention. His hospitalization has been complicated. Concern for fluid overload. JOSE.. He is also being treated for pneumonia. Seen with physical therapy. More awake. Afebrile. Denies productive cough. Urine output noted to be low. He did get BiPAP overnight. He was placed on Lasix drip yesterday. Medications: Reviewed: Yes Medication Review Details: Current Medications Acetaminophen (Acetaminophen 325 Mg Tablet) 650 mg PO Q6H PRN PRN Reason: MILD PAIN Last Admin: 12/27/20 22:09 Dose: 650 mg Documented by: Acetazolamide (Acetazolamide 250 Mg Tablet) 250 mg PO BID [facility] Last Admin: 01/05/21 18:10 Dose: 250 mg Documented by: Albuterol/Ipratropium (Ipratropium-Albuterol 3 Ml Neb) 3 ml INHALATION Q4H.RESPIRATORY [facility] Last Admin: 01/06/21 07:24 Dose: 3 ml Documented by: Apixaban (Apixaban 5 Mg Tablet) 5 mg PO BID@ [facility] Last Admin: 01/05/21 04:05 Dose: 5 mg Documented by: Atorvastatin Calcium (Atorvastatin 40 Mg Tablet) 80 mg PO DAILY@17 [facility] Last Admin: 01/05/21 18:10 Dose: 80 mg Documented by: Dextrose (Dextrose 50% Syringe 50 Ml) 25 ml IVP ONCE PRN; Protocol PRN Reason: hypoglycemia protocol Dextrose (Dextrose 50% Syringe 50 Ml) 50 ml IVP PRN PRN; Protocol PRN Reason: hypoglycemia protocol Ergocalciferol (Ergocalciferol (Vitamin D2) 50,000 Unit Capsule) 50,000 unit PO Q7D [facility] Last Admin: 01/02/21 09:46 Dose: Not Given Documented by: Glucagon (Glucagon 1 Mg/Ml Inj 1 Ml) 1 mg IM ONCE PRN; Protocol PRN Reason: Adult Acute Hypoglycemia Prot. Dextrose (D5w) 500 mls @ 100 mls/hr IV ONCE PRN; Protocol PRN Reason: Adult Acute Hypoglycemia Prot Piperacillin Sod/Tazobactam (Sod 3.375 gm/ Sodium Chloride) 50 mls @ 12.5 mls/hr IV Q8H [facility]; Protocol Last Infusion: 01/06/21 05:24 Dose: Infused Documented by: Insulin Aspart (Insulin Aspart 100 Unit/1 Ml) 0 unit SUBCUT WM&BEDTIME [facility]; Protocol Last Admin: 01/05/21 20:49 Dose: Not Given Documented by: Morphine Sulfate (Morphine 4 Mg/Ml Sdv 1 Ml) 4 mg IVP Q4H PRN PRN Reason: SEVERE PAIN Ondansetron HCl (Ondansetron 2 Mg/Ml Sdv 2 Ml) 4 mg IVP Q6H PRN PRN Reason: NAUSEA AND VOMITING Pantoprazole Sodium (Pantoprazole Dr 40 Mg Tablet) 40 mg PO BID@05,17 [facility] Last Admin: 01/06/21 05:25 Dose: 40 mg Documented by: Fluticasone/Salmeterol (Fluticasone-Salmeterol 250-50 Diskus) 1 puff INHALATION BID.RESPIRATORY [facility] Last Admin: 01/06/21 07:25 Dose: Not Given Documented by: Vitals/I&O/Wt Last Vital Signs Temp 97.5 F L 01/06/21 06:00 Pulse 61 01/06/21 11:22 Resp 22 H 01/06/21 11:22 BP 115/59 01/06/21 06:00 Pulse Ox 98 01/06/21 11:22 01/05/21 01/06/21 01/06/21 22:59 06:59 14:59 Intake Total 145 / 295 350 / 645 Output Total 350 / 350 250 / 600 Balance -205 / -55 100 / 45 Weight last 48 hrs Weight 305 lb 4.8 oz Physical Exam Const: OTHER: obese , not in distress Eye: COMMON NORMALS: Equal, round and reactive pupils present and EOMs intact bilaterally PUPIL: Yes Equal, round and reactive pupils present Neck/C-Spine: COMMON NORMALS: no JVD Chest: COMMONS NORMALS: normal inspection of the chest and normal palpation of entire chest wall Resp: COMMON NORMALS: normal respiratory effort and No retractions Cardio: COMMON NORMALS: no JVD and regular rate RATE: regular rate GI: OTHER: distented, nontender Extremity: OTHER: edema Neuro: OTHER: generalized weakness, follows commands Urinary Catheter Management^: Friedman: Cath Placed During This Visit: yes Reason for Continuing Indwelling Catheter: Accurate Measurement of Urinary Output in Critically Ill Patients Urinary Catheter Date of Insertion: 12/26/20 Urinary Catheter Time of Insertion: 15:36 Data : 01/06/21 03:02 01/06/21 03:02 A&P Additional A&P Information Acute respiratory failure. --secondary to fluid overload, COPD, CHF --monitor I/Os, diuresis per Renal, appreciate recs Extubated January 01, PRN BIPAP --on abx for pneumonia --PRN albuterol, Advair Acute CHF, right heart failure. EF preserved. --azetazolamide 250mg po bid --spironolactone --discontinue Lasix drip Hypokalemia. Resolved Hypotension. Resolved Anemia, thrombocytopenia. --check cbc in am Chronic kidney disease. --monitor urine output --check Screat in AM Elevated troponin, type II History of paroxysmal atrial fibrillation. Currently paced rhythm. On Eliquis chronically. Type 2 diabetes. Sliding scale insulin. GERD. Protonix COPD History of CVA. Continue Eliquis, statin Coronary artery disease with history of bypass --eliquis, statin Sacral decubitus. --wound care, dressing changes Full code DVT: eliquis GI prophylaxis: PPI Attestations Medical Necessity Statement*: Jorge Lancaster's hospital stay will require greater than 2 midnights for jose, respiratory failure Coding Level of Care Code Acute Expanded Function Dental Assistant for Jocelyne Pat
[2021-01-06 17:10] LABS: Glucose Point of Care 165 mg/dL (70-110)
[2021-01-06] MEDS: atorvastatin 40 mg Tablet 80 MG PO (18:47)
[2021-01-06 21:16] LABS: Glucose Point of Care 163 mg/dL (70-110)
[2021-01-07] VITALS (41 sets, daily range): BP systolic 91–129; BP diastolic 36–98; PULSE 52–76; RESP 14–28; TEMP 36.4; O2SAT 96–100
--- NOTE | 2021-01-07 | SCC_ITS ---
Procedure Done: Placement of 16 [place]an 31 cm long AshSplit tunneled hemodialysis catheter in the right internal jugular vein Placement of 7 [place]an triple-lumen catheter in the right subclavian vein Fluoroscopic guidance and interpretation for placement of catheter in the superior vena cava 132.1 seconds of fluoroscopic guidance, for a cumulative dose of 15.91 mGy, was provided to Dr. Gomez by the radiology department. C-arm images of the chest were saved for the patient's permanent record. SHIVANID
[2021-01-07] MEDS: piperacillin-tazobactam 3.375 GM in sodium chloride 0.9% (plus) 50 ML IV ×3 (01:14→18:32)
[2021-01-07] MEDS: ipratropium-albuterol 3 mL Neb INHALATION ×5 (03:51→19:49)
[2021-01-07 04:48] LABS: Basophils % 0.1 %; Eosinophils # 0.1 10^3/uL (0.0-0.8); Eosinophils % 1.6 %; Hematocrit 30.6 % (42.0-52.0); Hemoglobin 9.1 g/dL (11.7-16.6); Lymphocytes # 0.7 10^3/uL (0.8-4.8); Lymphocytes % 7.4 %; Mean Corpuscular HGB Conc 29.7 g/dL (30.0-36.0); Mean Corpuscular Hemoglobin 28.4 pg (28.0-34.0); Mean Corpuscular Volume 95.6 fL (80-94); Mean Platelet Volume 12.8 fL (7.4-10.4); Monocytes # 1.1 10^3/uL (0.2-0.9); Neutrophils # 6.86 10^3/uL (1.8-7.7); Neutrophils % 78.6 %; Nucleated Red Blood Cells % 0 %; Platelet Count 134 10^3/cmm (130-400); Red Cell Distribution Width 20.2 % (12.1-15.1); White Blood Count 8.7 10^3/uL (4.0-10.0)
[2021-01-07] MEDS: pantoprazole DR 40 mg Tablet PO (05:55)
--- NOTE | 2021-01-07 06:53 | P.PN_ITS ---
Subjective Subjective: Interval history: remains sob- dec uop. no n/v/f/c/perez/ +still lethargic and confused Medications: Reviewed: Yes Medication Review Details: Current Medications Acetaminophen (Acetaminophen 325 Mg Tablet) 650 mg PO Q6H PRN PRN Reason: MILD PAIN Last Admin: 12/27/20 22:09 Dose: 650 mg Documented by: Acetazolamide (Acetazolamide 250 Mg Tablet) 250 mg PO BID [facility] Last Admin: 01/06/21 18:49 Dose: 250 mg Documented by: Albuterol/Ipratropium (Ipratropium-Albuterol 3 Ml Neb) 3 ml INHALATION Q4H.RESPIRATORY [facility] Last Admin: 01/07/21 03:51 Dose: 3 ml Documented by: Apixaban (Apixaban 5 Mg Tablet) 5 mg PO BID@, [facility] Last Admin: 01/06/21 09:15 Dose: Not Given Documented by: Atorvastatin Calcium (Atorvastatin 40 Mg Tablet) 80 mg PO DAILY@17 [facility] Last Admin: 01/06/21 18:47 Dose: 80 mg Documented by: Dextrose (Dextrose 50% Syringe 50 Ml) 25 ml IVP ONCE PRN; Protocol PRN Reason: hypoglycemia protocol Dextrose (Dextrose 50% Syringe 50 Ml) 50 ml IVP PRN PRN; Protocol PRN Reason: hypoglycemia protocol Ergocalciferol (Ergocalciferol (Vitamin D2) 50,000 Unit Capsule) 50,000 unit PO Q7D [facility] Last Admin: 01/02/21 09:46 Dose: Not Given Documented by: Glucagon (Glucagon 1 Mg/Ml Inj 1 Ml) 1 mg IM ONCE PRN; Protocol PRN Reason: Adult Acute Hypoglycemia Prot. Dextrose (D5w) 500 mls @ 100 mls/hr IV ONCE PRN; Protocol PRN Reason: Adult Acute Hypoglycemia Prot Piperacillin Sod/Tazobactam (Sod 3.375 gm/ Sodium Chloride) 50 mls @ 12.5 m ls/hr IV Q8H [facility]; Protocol Last Infusion: 01/07/21 05:16 Dose: Infused Documented by: Insulin Aspart (Insulin Aspart 100 Unit/1 Ml) 0 unit SUBCUT WM&BEDTIME [facility]; Protocol Last Admin: 01/06/21 21:17 Dose: 4 unit Documented by: Morphine Sulfate (Morphine 4 Mg/Ml Sdv 1 Ml) 4 mg IVP Q4H PRN PRN Reason: SEVERE PAIN Ondansetron HCl (Ondansetron 2 Mg/Ml Sdv 2 Ml) 4 mg IVP Q6H PRN PRN Reason: NAUSEA AND VOMITING Pantoprazole Sodium (Pantoprazole Dr 40 Mg Tablet) 40 mg PO BID@05,17 [facility] Last Admin: 01/07/21 05:55 Dose: 40 mg Documented by: Fluticasone/Salmeterol (Fluticasone-Salmeterol 250-50 Diskus) 1 puff INHALATION BID.RESPIRATORY [facility] Last Admin: 01/06/21 20:12 Dose: 1 puff Documented by: Vitals/I&O/Wt Last Vital Signs Temp 97.6 F 01/07/21 04:00 Pulse 67 01/07/21 06:00 Resp 18 01/07/21 06:00 BP 108/76 01/07/21 06:00 Pulse Ox 97 01/07/21 06:00 01/06/21 01/06/21 01/07/21 14:59 22:59 06:59 Intake Total 370 / 370 230 / 600 50 / 650 Output Total 125 / 125 Balance 370 / 370 230 / 600 -75 / 525 Weight last 48 hrs Weight 138.981 kg Weight 138.482 kg Physical Exam Narrative: EXAM NARRATIVE: pt has anasarca VS noted- no pressers- BP and HR improved heent- nc/at, eomi, using 6 l nc02 neck supple lungs - dec crackles b/l heart irreg, +s1, s2, SRIKANTH abd soft, nt, nd, + bs ext b/l edema improving neuro- confused, interactive, following simple commands Urinary Catheter Management^: Friedman: Cath Placed During This Visit: yes Reason for Continuing Indwelling Catheter: Accurate Measurement of Urinary Output in Critically Ill Patients Urinary Catheter Date of Insertion: 12/26/20 Urinary Catheter Time of Insertion: 15:36 Data : 01/07/21 03:17 01/06/21 03:02 A&P Additional A&P Information 60 yr old man h/o morbid obesity, BPH, p a fib, SSS, s/p PPM, DM w/ CKD stage 3- b/l cr 1.7 mgm/ dl, anemia, htn, CVA, hyperlipidemia, PVD, COPD, anasarca from right heart failure. 1. Acute kidney injury - Likely CRS. renal fxn improving w/ diuresis -cr improved to 1.9- now rising. -may be CRS -oliguric off of lasix -given significant resp acidosis- would recommend starting HD- will discuss with hospitalist -if needs eliquis- please renal dose 2.5 bid or use hparin 2. CKD stage 3- baseline serum creatinine 1.7 mg/dL- CRS, obesity, DM, htn -check pth. replace vit d 3. Anasarca: diffuse edema echo reviewed-ef 60%, Right ventricle mildly dilated -presumed RT heart failure -cont acetazolamide- as met alkalosis -replace k and mag as needed -consider dialysis for fluid removal 4. primary hypercapneic resp acidosis and met compensation 5. Anemia, stable - give iron 6. P atrial fibrillation 7. diabetes mellitus per medicine 8. obesity meds reviewed - pt seen and examined w/ RN- telehealth visit Attestations Medical Necessity Statement*: galo, hypercapneic resp acidosis- bipap at home Time Spent in Patient Care: 16 - 35 minutes Coding Level of Care Code Acute Computational Sciences Professor for Jocelyne Pat
[2021-01-07 07:36] LABS: Alanine Aminotransferase 14 U/L (0-41); Albumin Level 4.4 g/dL (3.5-5.2); Alkaline Phosphatase 65 IU/L (40-130); Anion Gap 17.6 (5-19); Aspartate Amino Transferase 31 U/L (0-40); Calcium 9.8 mg/dL (8.5-10.5); Carbon Dioxide 33 mmol/L (22-29); Chloride 91 mmol/L (98-107); Globulin 2.5 g/dL (1.3-4.6); Glomerular Filtration Rate 21.5 mL/min (90-130); Glucose 131 mg/dL (65-115); Magnesium 2.7 mg/dL (1.7-2.3); NT Pro B Type Natriuretic Pept 22698 pg/mL (0-125); Osmolality Calculated 320 mOsm/kg (285-295); Potassium 3.6 mmol/L (3.5-5.1); Sodium 138 mmol/L (136-145); Total Bilirubin 2.1 mg/dL (0.15-1.2); Total Protein 6.9 g/dL (6.6-8.7)
[2021-01-07 07:49] LABS: Blood Urea Nitrogen 103 mg/dL (6-20)
[2021-01-07 08:08] LABS: Glucose Point of Care 132 mg/dL (70-110)
--- NOTE | 2021-01-07 08:24 | XRR_ITS ---
PROCEDURE INFORMATION: Exam: XR Chest, 1 View Exam date and time: 01/07/2021 8:30 AM Age: 60 years old Clinical indication: Other: Edema; Prior surgery; Surgery type: Pacemaker TECHNIQUE: Imaging protocol: XR of the chest Views: Frontal portable semiupright view of the chest. COMPARISON: CR XR chest 1V portable [id number] 01/05/2021 5:26 AM FINDINGS: Tubes, catheters and devices: The patient is status post median sternotomy with intact sternal cerclage wires. EKG leads are present overlying the chest. Lungs: The pulmonary vasculature is slightly less congested and better defined. There is moderate interval improvement in bilateral pulmonary air space opacities in the central lung zones. Pleural spaces: No pleural effusion. No pneumothorax. Heart/Mediastinum: Stable borderline cardiomegaly. Mediastinum: Stable. Vasculature: A dual lead left subclavian permanent pacemaker is present. The right atrial and right ventricular leads appear to be in good position. Diaphragm: The right hemidiaphragm is mildly elevated. Bones/joints: Stable. Other findings: Moderately remainsCoronary ostial markers are present. XR/XR chest 1V portable [id number] IMPRESSION: 1. Slightly improved pulmonary vascular congestion. 2. Improved pulmonary edema.
--- NOTE | 2021-01-07 09:22 | PC.CHAP ---
Pastoral Care Encounter/Spiritual Assessment Type of Contact [] Declined piano regulator inspector visit [] Patient/Family/Request visit [] Outpatient visit [] Follow-up visit [] Physician referral [] Code/Alert [x] Routine visit [] Staff referral [] Actively dying [] Patient sleeping [] Family support [] [] Out of room [] Palliative care [] [] Receiving care in room [] Pre-surgical visit [] Trauma [] Long length of stay [x] ICU visit [] Other: Relational/Emotional Strength [] Patient feels connected with others/family/visitors/staff [] Distress [] Loneliness/isolation [] Abandonment Spirituality of Patient [] Person of Lacy [] Attends Synagogue of their Lacy [] Believes in Prayer [] Reads Bible or Rastafari materials [] There are Spiritual issues to be addressed Executive Pilot Interventions [x] Prayer [] Active listening [] Non-anxious presence [] Spiritual/emotional support [] Crisis/trauma care [] Spiritual counseling [] Bereavement support [] Provided bereavement packet [] Provided Bible/devotional materials [] Provided toy/stuffed animal, coloring book to patient or family member [] Provided Communion [] Anointing/Avery [] Salvation [x] Completed spiritual assessment [] Other: Impact on Illness or Injury [] Angry [] Fearful [] Anxious [] Often cries [] Exhaustion [] Unable to work [] Unable to attend nondenominational [] Unable to walk/stand [] Unable to read [] Unable to drive [] Unable to eat/drink [] Unable to sleep [] Unable to be with family [] Patient intubated [] Other: Summary Time spent with patient
[2021-01-07] MEDS: acetaZOLAMIDE 250 mg Tablet PO (10:47)
--- NOTE | 2021-01-07 10:58 | PC.OT ---
OT tx attempted. Pt has worked with physical therapy and up in mobility chair. Pt having difficulty responding to this therapists requests to work on B UE strengthening and ADL self care as he is very fatigued. Nurse reports pt may need to go back on bipap for easier breathing while he rests. HERNANDEZ to attempt tx again later today if possible.
[2021-01-07 11:17] LABS: Glucose Point of Care 151 mg/dL (70-110)
--- NOTE | 2021-01-07 12:40 | P.CONIM_ITS ---
Providers/Reason For Consult Consulting Physican/Specialty*: Abbe Decker MD/ Pulmonary Critical Care Reason for Consult*: Hypercapneic respiratory failure Requesting Physcian: Xiang Bautista MD Attending Physician: Xiang Bautista MD Primary Care Provider: ASHLI Torre History of Present Illness History of Present Illness Jorge Lancaster is a 60-year-old male with history of obesity, BPH, proximal atrial fibrillation, sick sinus syndrome with pacemaker, neuropathy, diabetes, iron deficient anemia, hypertension, CVA, peripheral vascular disease, CKD 3, COPD, chronic anasarca due to right heart failure presented to the hospital with respiratory distress and worsening bilateral lower extremity edema. Patient received Lasix but eventually his respiratory status worsened and was intubated placed on mechanical ventilation on 12/30/2020 and started on Lasix drip. Patient was extubated on 01/01/2021 without difficulty and had some confusion requiring BiPAP. He was started on Zosyn for concern for possible pneumonia. Renal were managing diuretics and Lasix drip was stopped 01/02/2021 due to intravascular volume depletion. Albumin, Aldactone and acetazolamide were initiated by nephrology. Currently on BiPAP at nighttime and a 2 L O2 at daytime. Patient is clinically volume overloaded and renal functions worsening with decreasing output, nephrology recommended hemodialysis. Pulmonary consult requested for hypercapnic respiratory failure. Today patient seen at bedside, patient is in mild respiratory distress on 2 L nasal cannula, able to complete sentences. Yesterday ABG showed 7.3 3/62/106/30 2/98% on 2 L nasal cannula. Denied any new complaints. Physical therapy at bedside to help him sit out of bed to chair. Review of Systems General: Reports: 10 or more systems reviewed and unremarkable except in HPI and below Meds/Allergies Home Medications and Allergies Home Medications Medication Instructions Recorded Confirmed Last Taken Type olopatadine 0.2 % eye drops 1 - 2 drop OPHTHALMIC (EYE) QAM PRN 01/10/20 12/26/20 12/26/20 History travoprost 0.004 % eye drops 1 drop OPHTHALMIC (EYE) DAILY@05 01/10/20 12/26/20 12/26/20 History ml tramadol 50 mg tablet 50 mg PO QID PRN 30 Days #90 tab 09/04/20 12/26/20 12/20/20 Rx albuterol sulfate 90 mcg/actuation 2 puff INHALATION Q6H PRN #18 gm 10/15/20 12/26/20 Unknown Rx aerosol inhaler fluticasone propion-salmeterol 1 ea INHALATION BID 11/19/20 12/26/20 12/26/20 History [Advair Diskus] gabapentin 600 mg PO TID@,,11/19/20 12/26/20 12/26/20 History gabapentin 300 mg PO TID@,, #60 cap 11/24/20 12/26/20 12/26/20 Rx cholecalciferol (vitamin D3) 1,250 1,250 mcg PO Q7D #4 tab 12/04/20 12/26/20 12/21/20 Rx mcg (50,000 unit) tablet Lantus Solostar U-100 Insulin 40 unit SUBCUT DAILY@12/21/20 12/26/20 12/25/20 History apixaban [Eliquis] 5 mg PO BID@,12/21/20 12/26/20 12/26/20 History furosemide [Lasix] 40 mg PO BID@, #0 tab 12/21/20 12/26/20 12/26/20 Rx metolazone 2.5 mg PO DAILY@12/21/20 12/26/20 12/26/20 History pantoprazole 40 mg PO BID@,12/21/20 12/26/20 12/26/20 History potassium chloride 40 meq PO DAILY@05 #0 tab 12/21/20 12/26/20 12/26/20 Rx rosuvastatin 40 mg PO DAILY@12/21/20 12/26/20 12/25/20 History sodium bicarbonate 650 mg PO TID@,12,12/21/20 12/26/20 12/26/20 History tamsulosin 0.4 mg PO DAILY@12/21/20 12/26/20 12/26/20 History Allergies Allergy/AdvReac Type Severity Reaction Status Date / Time No Known Allergies Allergy Verified 12/19/20 16:11 Current Medications Current Medications Generic Name Dose Route Start Last Admin Trade Name Freq PRN Reason Stop Dose Admin Acetaminophen 650 mg 12/27/20 21:16 12/27/20 22:09 Acetaminophen 325 Mg Tablet PO 650 mg Q6H PRN Administration MILD PAIN Acetazolamide 250 mg 01/03/21 09:00 01/07/21 10:47 Acetazolamide 250 Mg Tablet PO 250 mg BID [facility] Administration Albuterol/Ipratropium 3 ml 01/02/21 00:00 01/07/21 07:31 Ipratropium-Albuterol 3 Ml Neb INHALATION 3 ml Q4H.RESPIRATORY [facility] Administration Atorvastatin Calcium 80 mg 12/26/20 17:00 01/06/21 18:47 Atorvastatin 40 Mg Tablet PO 80 mg DAILY@17 [facility] Administration Ergocalciferol 50,000 unit 01/02/21 09:15 01/02/21 09:46 Ergocalciferol (Vitamin D2) 50,000 Unit Capsule PO Not Given Q7D [facility] Piperacillin Sod/Tazobactam 50 mls @ 12.5 mls/hr 01/01/21 17:30 01/07/21 10:47 Sod 3.375 gm/ Sodium Chloride IV 12.5 mls/hr Q8H [facility] Administration Protocol Insulin Aspart 0 unit 12/26/20 18:00 01/07/21 12:06 Insulin Aspart 100 Unit/1 Ml SUBCUT 4 unit WM&BEDTIME [facility] Administration Protocol Pantoprazole Sodium 40 mg 12/26/20 17:00 01/07/21 05:[address] 40 Mg Tablet PO 40 mg BID@,17 [facility] Administration PFSH Acute PFSH: Medical History Anemia Anticoagulation adequate with anticoagulant therapy Eliquis ASHD (arteriosclerotic heart disease) Atrial fibrillation BPH (benign prostatic hyperplasia) CAD (coronary artery disease) Carotid stenosis CHF (congestive heart failure) COPD (chronic obstructive pulmonary disease) Diabetes mellitus History of CVA (cerebrovascular accident) Hypertension Neuropathy Obesity Pacemaker PAF (paroxysmal atrial fibrillation) Vitamin B deficiency Vitamin D deficiency Surgical History History of left-sided carotid endarterectomy S/P CABG x 4 Family History Denies family history of Anesthesia complication Bleeding disorder Social History Smoking and tobacco status: former smoker Quit status (tobacco): has quit using tobacco Former quit date comment: smoked 20 yrs Second hand smoke exposure: No Alcohol intake: never Lives independently: Yes Household members: significant other and children Housing: House Marital status: Life Partner Current occupational status: disabled Current occupational exposures/hazards: No History of recent travel: No Current gender identity: Male Vitals/I&O/Wt Last Vital Signs Temp 97.6 F 01/07/21 04:00 Pulse 60 01/07/21 11:22 Resp 19 H 01/07/21 10:00 BP 120/67 01/07/21 09:00 Pulse Ox 100 01/07/21 11:22 01/06/21 01/07/21 01/07/21 22:59 06:59 14:59 Intake Total 230 / 600 50 / 650 Output Total 125 / 125 Balance 230 / 600 -75 / 525 Weight last 48 hrs Weight 306 lb 6.4 oz Weight 305 lb 4.8 oz Physical Exam Narrative: EXAM NARRATIVE: General: Morbidly obese, alert, in mild respiratory distress HEENT: conj clear, EOMI, PERRL, mmm, Neck: supple, no meningismus Heme: no cervical LAP Pulmonary: Bilateral diffuse crackles Cardiovascular: rrr, nl s1s2, no mrg Abdomen: Abdominal wall pitting edema, nt, nd, no r/g, bs+ Extremities: pulses +, 3+ pitting pedal edema, no c/c : no CVA tenderness Skin: intact, no rash MSK: no back or neck pain Neurologic: grossly intact Urinary Catheter Management^: Friedman: Cath Placed During This Visit: yes Reason for Continuing Indwelling Catheter: Accurate Measurement of Urinary Output in Critically Ill Patients Urinary Catheter Date of Insertion: 12/26/20 Urinary Catheter Time of Insertion: 15:36 A&P Assessment and plan (1) Acute worsening of stage 3 chronic kidney disease: Status: Acute (2) Right heart failure: Status: Acute Qualifiers: Heart failure chronicity: acute on chronic Qualified Code(s): I50.813 - Acute on chronic right heart failure (3) Acute respiratory distress: Status: Acute (4) Fluid overload: Status: Acute Qualifiers: Hypervolemia type: unspecified Qualified Code(s): E87.70 - Fluid overload, unspecified (5) Atrial fibrillation: Status: Acute Qualifiers: Atrial fibrillation type: unspecified chronic Qualified Code(s): I48.20 - Chronic atrial fibrillation, unspecified (6) Acute renal failure: Status: Acute Qualifiers: Acute renal failure type: unspecified Qualified Code(s): N17.9 - Acute kidney failure, unspecified (7) COPD (chronic obstructive pulmonary disease): Status: Acute Qualifiers: COPD type: unspecified COPD Qualified Code(s): J44.9 - Chronic obstructive pulmonary disease, unspecified (8) CHF (congestive heart failure): Status: Acute Qualifiers: Heart failure chronicity: acute on chronic Heart failure type: diastolic Qualified Code(s): I50.33 - Acute on chronic diastolic (congestive) heart failure (9) Obesity hypoventilation syndrome: Status: Acute #Acute on chronic hypercapnic respiratory failure in patient with morbid obesity/chronic diastolic heart failure/COPD/obesity hypoventilation syndrome #JOSE on CKD stage III-likely cardiorenal #Clinically volume overloaded-due to chronic diastolic heart failure with RV dysfunction and acute renal failure -Intubated 12/28/2020-extubated 01/01/2021 -Currently on BiPAP 2 L 16/8 7.37/54/110/29/99% -BNP 22,000 and worsening renal functions and decreasing urine output, clinically volume overloaded -Echo 11/20/2020: EF 60% with right atrium and RV mildly dilated -Previously on Lasix drip and started on Diamox 250 p.o. twice daily and plan for hemodialysis. -Less likely bacterial infection-low procalcitonin-recommended to discontinue Zosyn Patient is clearly hypercapnic respiratory failure requiring BiPAP due to multiple acute causes on top of chronic issues. Definitely fluid overload in view of worsening CKD and diastolic heart failure resistant to diuretics as the cause of hypercapnic respiratory failure. To initiate dialysis as soon as possi ble and decrease RV burden and pulmonary edema to facilitate better respiration. He is maintaining airway today and on BiPAP 16/8 with 2 L O2 ABG looks good. But in case if patient gets intubated for dialysis catheter, I would recommend to leave patient intubated until he gets couple of sessions of dialysis. I will follow up and help with vent management and extubation. Meanwhile continue DuoNeb nebulizations every4 hours. Recommendations RT, RN and hospitalist covering the patient Consult Attestations Medical Necessity Statement: Acute hypercapnic respiratory failure secondary to fluid overload due to chronic diastolic heart failure and acute on chronic kidney disease requiring hemodialysis. Time Spent in Patient Care: Greater than 35 minutes (>than 50% of time spent in counselling and/or direct pt care on unit) . Critical Care Time: Critical Care Time (min): 45 Coding Level of Care Code New Pt Acute Lead Case Manager for Jocelyne Pat Patient Type New History Comprehensive Exam Comprehensive Medical Decision Making High Complexity Diagnoses Acute worsening of stage 3 chronic kidney disease N18.30 Right heart failure I50.813 Heart failure chronicity: acute on chronic Acute respiratory distress R06.03 Fluid overload E87.70 Hypervolemia type: unspecified Atrial fibrillation I48.20 Atrial fibrillation type: unspecified chronic Acute renal failure N17.9 Acute renal failure type: unspecified COPD (chronic obstructive pulmonary disease) J44.9 COPD type: unspecified COPD CHF (congestive heart failure) I50.33 Heart failure chronicity: acute on chronic Heart failure type: diastolic Obesity hypoventilation syndrome E66.2 Time Spent (min) 45
[2021-01-07 12:54] LABS: Hepatitis B Surface AB 3.5 (0-8.5); Hepatitis B Surface Antigen Non-Reactive (Nonreactive); Hepatitis C Virus Antibody Non-Reactive (Nonreactive)
--- NOTE | 2021-01-07 13:10 | PM.PN ---
Subjective Subjective: Interval history: This morning patient was examined, currently is on 2 L cannula, he denies any shortness of breath, but does complain of generalized swelling, does complain of weakness, fatigue, tiredness, no chest pain, no palpitations, no fevers, no chills, no cough, did use BiPAP during the night Medications: Reviewed: Yes Medication Review Details: Current Medications Acetaminophen (Acetaminophen 325 Mg Tablet) 650 mg PO Q6H PRN PRN Reason: MILD PAIN Last Admin: 12/27/20 22:09 Dose: 650 mg Documented by: Acetazolamide (Acetazolamide 250 Mg Tablet) 250 mg PO BID [facility] Last Admin: 01/06/21 18:49 Dose: 250 mg Documented by: Albuterol/Ipratropium (Ipratropium-Albuterol 3 Ml Neb) 3 ml INHALATION Q4H.RESPIRATORY [facility] Last Admin: 01/07/21 03:51 Dose: 3 ml Documented by: Apixaban (Apixaban 5 Mg Tablet) 5 mg PO BID@05,17 [facility] Last Admin: 01/06/21 09:15 Dose: Not Given Documented by: Atorvastatin Calcium (Atorvastatin 40 Mg Tablet) 80 mg PO DAILY@17 [facility] Last Admin: 01/06/21 18:47 Dose: 80 mg Documented by: Dextrose (Dextrose 50% Syringe 50 Ml) 25 ml IVP ONCE PRN; Protocol PRN Reason: hypoglycemia protocol Dextrose (Dextrose 50% Syringe 50 Ml) 50 ml IVP PRN PRN; Protocol PRN Reason: hypoglycemia protocol Ergocalciferol (Ergocalciferol (Vitamin D2) 50,000 Unit Capsule) 50,000 unit PO Q7D [facility] Last Admin: 01/02/21 09:46 Dose: Not Given Documented by: Glucagon (Glucagon 1 Mg/Ml Inj 1 Ml) 1 mg IM ONCE PRN; Protocol PRN Reason: Adult Acute Hypoglycemia Prot. Dextrose (D5w) 500 mls @ 100 mls/hr IV ONCE PRN; Protocol PRN Reason: Adult Acute Hypoglycemia Prot Piperacillin Sod/Tazobactam (Sod 3.375 gm/ Sodium Chloride) 50 mls @ 12.5 mls/hr IV Q8H [facility]; Protocol Last Infusion: 01/07/21 05:16 Dose: Infused Documented by: Insulin Aspart (Insulin Aspart 100 Unit/1 Ml) 0 unit SUBCUT WM&BEDTIME [facility]; Protocol Last Admin: 01/06/21 21:17 Dose: 4 unit Documented by: Morphine Sulfate (Morphine 4 Mg/Ml Sdv 1 Ml) 4 mg IVP Q4H PRN PRN Reason: SEVERE PAIN Ondansetron HCl (Ondansetron 2 Mg/Ml Sdv 2 Ml) 4 mg IVP Q6H PRN PRN Reason: NAUSEA AND VOMITING Pantoprazole Sodium (Pantoprazole Dr 40 Mg Tablet) 40 mg PO BID@05,17 [facility] Last Admin: 01/07/21 05:55 Dose: 40 mg Documented by: Fluticasone/Salmeterol (Fluticasone-Salmeterol 250-50 Diskus) 1 puff INHALATION BID.RESPIRATORY [facility] Last Admin: 01/06/21 20:12 Dose: 1 puff Documented by: Vitals/I&O/Wt Last Vital Signs Temp 97.6 F 01/07/21 04:00 Pulse 52 L 01/07/21 12:51 Resp 19 H 01/07/21 10:00 BP 120/67 01/07/21 09:00 Pulse Ox 100 01/07/21 12:51 01/06/21 01/07/21 01/07/21 22:59 06:59 14:59 Intake Total 230 / 600 50 / 650 Output Total 125 / 125 Balance 230 / 600 -75 / 525 Weight last 48 hrs Weight 138.981 kg Weight 138.482 kg Physical Exam Const: COMMON NORMALS: no acute distress and patient oriented x3 HENMT: COMMON NORMALS: normocephalic HEAD & SCALP: normocephalic Neck/C-Spine: COMMON NORMALS: no JVD Resp: COMMON NORMALS: normal respiratory effort, No retractions and No use of accessory muscles AUSCULTATION: crackles Cardio: COMMON NORMALS: no JVD, regular rate, regular rhythm, S1 normal heart sound present and S2 normal heart sound present RATE: regular rate RHYTHM: regular rhythm HEART SOUNDS: S1 normal heart sound present and S2 normal heart sound present GI: COMMON NORMALS: Normal to inspection, nondistended, normoactive bowel sounds present, Soft to palpation, non-tender, No hepatosplenomegaly present, no masses and no bruits PALPATION: Yes Soft to palpation and Yes No hepatosplenomegaly present Extremity: COMMON NORMALS: capillary refill normal, no clubbing, cyanosis or edema and no calf tenderness NARRATIVE EXTREMITY EXAM: 2+ pitting edema Neuro: COMMON NORMALS: patient oriented x3 Psych: COMMON NORMALS: mental status grossly normal Skin: NARRATIVE SKIN EXAM: Generalized anasarca Urinary Catheter Management^: Friedman: Cath Placed During This Visit: yes Reason for Continuing Indwelling Catheter: Accurate Measurement of Urinary Output in Critically Ill Patients Urinary Catheter Date of Insertion: 12/26/20 Urinary Catheter Time of Insertion: 15:36 Data : 01/07/21 03:17 01/07/21 06:52 A&P Assessment and plan (1) Acute respiratory distress: Status: Acute (2) Right heart failure: Status: Acute (3) Acute worsening of stage 3 chronic kidney disease: Status: Acute Acute on chronic respiratory distress on mechanical vent - Etiology multi-factorial - Fluid overload with underlying COPD exacerbation - Chest x-ray - mild pulmonary vascular congestion - Duoneb q6hr scheduled - Advair 1 puff BID - Continue vent management - May consider pulmnary consult - Chest xray in am Acute on chronic HFpEF exacerbation /Cor pulmonale - Previously noted RV dysfunction - Replace K as needed - Limited ECHO ordered \- pEF - Monitor daily weight - May consider cardiology consult - Continue lasix gtt at 10 mg /hr - Monitor bmp - Replace lytes needed Acute on chronic stage 3 kidney disease - Creatinine fluctuating baseline - 1.7->2.5 - Currently at 3.0 - 3.2 - 3.2 - Currently on lasix gtt - Repeat BMP in am - Friedman placement - Renal dosing - Monitor urine output - Nephrology consult - Renal US Elevated troponin - Likely type 2 in setting of worsening renal failure - 74-> 93 - Telemetry - Cardiology was notified in ER - Nitro-paste- D/C - ECHO pEF Paroxysmal Atrial fibrillation - Currently paced - Eliquis 5 mg PO BID - Monitor on tele SSS s/p pacemaker - Pacemaker interrogation Diabetes mellitus - Sliding scale insulin - Qachs checks - A1c in Am Stage 1 right trochanteric decubitus ulcer - Wound care - Possible surrounding cellulitis - Wound culure if able to obtain - Keflex 500 mg PO TID - Pressure off loading GERD/Hx of H.Pylori - Protonix 40 mg PO BID DVT ppx - On Eliquis Additional A&P Information Acute on chronic hypercapnic respiratory failure -secondary to pulmonary edema, diastolic CHF, COPD, CKD stage III -Successfully extubated on January 01, 2020 -Currently on nasal cannula, BiPAP as needed during the day, BiPAP during the night -On Zosyn for pneumonia -On acetazolamide due to elevated bicarb -Patient was receiving inpatient diuresis, eventually switched over to Lasix drip, Lasix drip was stopped yesterday due to no clinically significant response, urine output remains lackluster, creatinine up to 3.0, bicarb 33 -BNP [id number], chest x-ray does show improved pulmonary vascular congestion -After discussion with nephrology team, and general surgery team, decision was made to pursue inpatient dialysis for fluid overload -I discuss dialysis with patient, advised the risk and benefits, risks and benefits of dialysis catheter placement, voices any, all questions answered, agreed to proceed -Dialysis catheter placement for today, will receive dialysis -I have consulted pulmonary team Acute CHF, right heart failure. EF preserved. -azetazolamide 250mg po bid -pironolactone --Will receive dialysis for fluid overload Hypokalemia. 3.6 today Hypotension. Resolved Acute on chronic anemia -Secondary to chronic kidney disease, anemia of chronic disease Thrombocytopenia, resolved, 134 JOSE on CKD stage III, cardiorenal syndrome --monitor urine output, monitor creatinine, monitor electrolytes Elevated troponin, type II History of paroxysmal atrial fibrillation. Currently paced rhythm. On Eliquis chronically. Type 2 diabetes. Sliding scale insulin. GERD. Protonix COPD History of CVA. Continue Eliquis, statin Coronary artery disease with history of bypass --eliquis, statin Sacral decubitus. --wound care, dressing changes Full code DVT: eliquis GI prophylaxis: PPI Attestations Medical Necessity Statement*: Patient requires hospitalization for acute respiratory failure secondary to diastolic CHF, requiring inpatient dialysis Coding Level of Care Code Acute Inspector Chief for [facility] Diagnoses Acute respiratory distress R06.03 Right heart failure I50.810 Acute worsening of stage 3 chronic kidney disease N18.30
[2021-01-07 13:17] LABS: ABG PCO2 54.7 mmHg (35-45); ABG PH Result 7.37 (7.35-7.45); Arterial Blood Gas Hematocrit 29.8 % (42-52); Base Excess ABG 5.4 mmol/L (-2.0-2.0); Blood Gas Allen Test Pos; Blood Gas Operator Identificat GD; Blood Gas Sample Site Radial, left; Blood Gas Sample Type Arterial; Carboxyhemoglobin 1.4 %THgb (0.4-20.1); HCO3 ABG 31.7 mmol/L (22-26); HGB O2 Sat 97.3 % (95-100); Ionized Calcium Level - ABG 1.2 mmol/L (1.1-1.4); Methemoglobin 0.3 % (0.4-1.5); Oxygen Device BIPAP; Oxygen Saturation ABG 99.1; Potassium Level - ABG 3.6 mmol/L (3.5-5.0); Total Hemoglobin 9.7 g/dL (14-18)
--- NOTE | 2021-01-07 13:58 | PC.NURSE ---
Lethargic 1100 AM Patient moved from bed to chair by PT, max assist but did stand and pivot. Patient became lethargic approx 30 mins after being in chair. Patient placed back on BiPap. (was on 2LNC ). 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 PT noted patient is Left handed. ABG ordered. Patient becoming more alert after being on BiPap. notified and aware.
--- NOTE | 2021-01-07 16:12 | PC.NURSE ---
ICU 10 Patient moved to ICU 10 for dialysis purposes. ICU 2 not suited for Dialysis.
--- NOTE | 2021-01-07 16:15 | PM.CONSULT ---
Providers/Reason For Consult Consulting Physican/Specialty*: Xiang Bautista MD Reason for Consult*: Acute renal failure requiring catheter for hemodialysis Attending Physician: Xiang Bautista MD Primary Care Provider: ASHLI Torre History of Present Illness History of Present Illness Jorge Lancaster is a 60 year old male who was admitted to the hospital on 12/26/2020 with respiratory distress. Patient has CKD stage III. During his hospitalization his kidney function deteriorated and he has now reached the point where he needs to be started on dialysis. Patient was on Eliquis which has been off for the last 36 hours. Review of Systems General: Reports: 10 or more systems reviewed and unremarkable except in HPI and below Meds/Allergies Home Medications and Allergies Home Medications Medication Instructions Recorded Confirmed Last Taken Type olopatadine 0.2 % eye drops 1 - 2 drop OPHTHALMIC (EYE) QAM PRN 01/10/20 12/26/20 12/26/20 History travoprost 0.004 % eye drops 1 drop OPHTHALMIC (EYE) DAILY@05 01/10/20 12/26/20 12/26/20 History ml tramadol 50 mg tablet 50 mg PO QID PRN 30 Days #90 tab 09/04/20 12/26/20 12/20/20 Rx albuterol sulfate 90 mcg/actuation 2 puff INHALATION Q6H PRN #18 gm 10/15/20 12/26/20 Unknown Rx aerosol inhaler fluticasone propion-salmeterol 1 ea INHALATION BID 11/19/20 12/26/20 12/26/20 History [Advair Diskus] gabapentin 600 mg PO TID@11/19/20 12/26/20 12/26/20 History gabapentin 300 mg PO TID@ #60 cap 11/24/20 12/26/20 12/26/20 Rx cholecalciferol (vitamin D3) 1,250 1,250 mcg PO Q7D #4 tab 12/04/20 12/26/20 12/21/20 Rx mcg (50,000 unit) tablet Lantus Solostar U-100 Insulin 40 unit SUBCUT DAILY@12/21/20 12/26/20 12/25/20 History apixaban [Eliquis] 5 mg PO BID@05,17 12/21/20 12/26/20 12/26/20 History furosemide [Lasix] 40 mg PO BID@, #0 tab 12/21/20 12/26/20 12/26/20 Rx metolazone 2.5 mg PO DAILY@12/21/20 12/26/20 12/26/20 History pantoprazole 40 mg PO BID@05,12/21/20 12/26/20 12/26/20 History potassium chloride 40 meq PO DAILY@05 #0 tab 12/21/20 12/26/20 12/26/20 Rx rosuvastatin 40 mg PO DAILY@12/21/20 12/26/20 12/25/20 History sodium bicarbonate 650 mg PO TID@,12,12/21/20 12/26/20 12/26/20 History tamsulosin 0.4 mg PO DAILY@12/21/20 12/26/20 12/26/20 History Allergies Allergy/AdvReac Type Severity Reaction Status Date / Time No Known Allergies Allergy Verified 12/19/20 16:11 Current Medications Current Medications Generic Name Dose Route Start Last Admin Trade Name Freq PRN Reason Stop Dose Admin Acetaminophen 650 mg 12/27/20 21:16 12/27/20 22:09 Acetaminophen 325 Mg Tablet PO 650 mg Q6H PRN Administration MILD PAIN Acetazolamide 250 mg 01/03/21 09:00 01/07/21 10:47 Acetazolamide 250 Mg Tablet PO 250 mg BID [facility] Administration Albuterol/Ipratropium 3 ml 01/02/21 00:00 01/07/21 13:56 Ipratropium-Albuterol 3 Ml Neb INHALATION 3 ml Q4H.RESPIRATORY [facility] Administration Atorvastatin Calcium 80 mg 12/26/20 17:00 01/06/21 18:47 Atorvastatin 40 Mg Tablet PO 80 mg DAILY@17 [facility] Administration Ergocalciferol 50,000 unit 01/02/21 09:15 01/02/21 09:46 Ergocalciferol (Vitamin D2) 50,000 Unit Capsule PO Not Given Q7D [facility] Piperacillin Sod/Tazobactam 50 mls @ 12.5 mls/hr 01/01/21 17:30 01/07/21 10:47 Sod 3.375 gm/ Sodium Chloride IV 12.5 mls/hr Q8H [facility] Administration Protocol Insulin Aspart 0 unit 12/26/20 18:00 01/07/21 12:06 Insulin Aspart 100 Unit/1 Ml SUBCUT 4 unit WM&BEDTIME [facility] Administration Protocol Pantoprazole Sodium 40 mg 12/26/20 17:00 01/07/21 05:[address] 40 Mg Tablet PO 40 mg BID@ [facility] Administration PFSH Acute PFSH: Medical History Anemia Anticoagulation adequate with anticoagulant therapy Eliquis ASHD (arteriosclerotic heart disease) Atrial fibrillation BPH (benign prostatic hyperplasia) CAD (coronary artery disease) Carotid stenosis CHF (congestive heart failure) COPD (chronic obstructive pulmonary disease) Diabetes mellitus History of CVA (cerebrovascular accident) Hypertension Neuropathy Obesity Pacemaker PAF (paroxysmal atrial fibrillation) Vitamin B deficiency Vitamin D deficiency Surgical History History of left-sided carotid endarterectomy S/P CABG x 4 Family History Denies family history of Anesthesia complication Bleeding disorder Social History Smoking and tobacco status: former smoker Quit status (tobacco): has quit using tobacco Former quit date comment: smoked 20 yrs Second hand smoke exposure: No Alcohol intake: never Lives independently: Yes Household members: significant other and children Housing: House Marital status: Life Partner Current occupational status: disabled Current occupational exposures/hazards: No History of recent travel: No Current gender identity: Male Vitals/I&O/Wt Last Vital Signs Temp 97.6 F 01/07/21 04:00 Pulse 63 01/07/21 15:39 Resp 21 H 01/07/21 13:57 BP 122/68 01/07/21 13:00 Pulse Ox 100 01/07/21 15:39 01/07/21 01/07/21 01/07/21 06:59 14:59 22:59 Intake Total 50 / 650 Output Total 125 / 125 Balance -75 / 525 Weight last 48 hrs Weight 306 lb 6.4 oz Weight 305 lb 4.8 oz Physical Exam Narrative: EXAM NARRATIVE: HEENT: Normocephalic, patient on BiPAP Eye: Sclera /conjunctiva normal Cardiovascular: Normal S1 and S2 heart sounds Abdomen: Soft to palpation Neurological: Barely arousable Skin: Intact, no lesions appreciated on gross exam Urinary Catheter Management^: Friedman: Cath Placed During This Visit: yes Reason for Continuing Indwelling Catheter: Accurate Measurement of Urinary Output in Critically Ill Patients Urinary Catheter Date of Insertion: 12/26/20 Urinary Catheter Time of Insertion: 15:36 A&P Assessment and plan (1) Acute worsening of stage 3 chronic kidney disease: 60-year-old male with acute on chronic renal failure requiring dialysis Plan for placement of tunneled hemodialysis catheter under general anesthesia since pulmonology wanted him intubated. Status: Acute Coding Level of Care Code Acute [employer] Administrator for [facility] Diagnoses Acute worsening of stage 3 chronic kidney disease N18.30
--- NOTE | 2021-01-07 16:42 | PC.NURSE ---
Patient to OR at 1640 accompanied by OR staff. Family notified.
[2021-01-07 17:17] LABS: Glucose Point of Care 149 mg/dL (70-110)
--- NOTE | 2021-01-07 17:28 | PC.OT ---
OT tx attempted again at 1700. Pt back on bipap and being prepped to go to surgery for dialysis port placement at this time. Will attempt to resume tx again tomorrow.
[2021-01-07 19:54] LABS: ABG PCO2 53.5 mmHg (35-45); ABG PH Result 7.39 (7.35-7.45); Alveolar-Arterial Oxygen Gradi 3.8 mmHg (5-10); Arterial Blood Gas Hematocrit 29.7 % (42-52); Base Excess ABG 6.2 mmol/L (-2.0-2.0); Blood Gas Sample Site Brachial, left; Blood Gas Sample Type Arterial; Carboxyhemoglobin 1.3 %THgb (0.4-20.1); HCO3 ABG 32.2 mmol/L (22-26); HGB O2 Sat 96.9 % (95-100); Ionized Calcium Level - ABG 1.2 mmol/L (1.1-1.4); Methemoglobin 0.8 % (0.4-1.5); Potassium Level - ABG 3.5 mmol/L (3.5-5.0); Total Hemoglobin 9.7 g/dL (14-18)
--- NOTE | 2021-01-07 19:59 | P.ANESASSM_ITS ---
Pre-Anesthetic Assessment Pre-Anesthetic Assessment: Height/Weight: Height 1.8 m Weight 138.981 kg Temp Pulse Resp BP Pulse Ox 97.6 F 58 L 15 129/64 99 01/07/21 04:00 01/07/21 19:52 01/07/21 19:51 01/07/21 19:00 01/07/21 19:52 Preop Diagnosis: arf Proposed Procedure: Operation Date: 01/07/21 16:30 Proposed Procedures p Dialysis Catheter Insertion(Not Applicable) - Robin Gomez MD Was Beta Adrienne taken within 24 hours: N/A Social: Social History: No alcohol and No tobacco Exam: Pre-Anes Outpt Exam: regular rate & rhythm Additional Exam Findings (including area of procedure): Sedated in ICU, bipap Airway: Submandibular: WNL Cervical ROM: WNL MP: 2 Additional comments: Nichols Pulmonary: Pulmonary: COPD, Sleep apnea and SOB CV/HEM: CV/HEM: Afib, CAD, CHF and PVD Comments: Pacemaker : : Chronic renal Insufficiency GI: GI: GERD Metabolic: Metabolic: DM and Morbid obesity Anesthetic Plan: ASA status: 4 Anesthesia: General Risk of > 500 ml blood loss (7ml/kg in children): No Meds/Allergies Current Medications: Current Medications Generic Name Dose Route Start Last Admin Trade Name Freq PRN Reason Stop Dose Admin Acetaminophen 650 mg 12/27/20 21:16 12/27/20 22:09 Acetaminophen 32 5 Mg Tablet PO 650 mg Q6H PRN Administration MILD PAIN Acetazolamide 250 mg 01/03/21 09:00 01/07/21 18:26 Acetazolamide 25 0 Mg Tablet PO Not Given BID KOSTA Albuterol/Ipratrop ium 3 ml 01/02/21 00:00 01/07/21 19:49 Ipratropium-Albu terol 3 Ml Neb INHALATION 3 ml Q4H.RESPIRATORY S CH Administration Atorvastatin Calci um 80 mg 12/26/20 17:00 01/07/21 17:33 Atorvastatin 40 Mg Tablet PO Not Given DAILY@17 KOSTA Ergocalciferol 50,000 unit 01/02/21 09:15 01/02/21 09:46 Ergocalciferol ( Vitamin D2) 50,000 Unit Capsule PO Not Given Q7D [facility] Piperacillin Sod/T azobactam 50 mls @ 12.5 mls /hr 01/01/21 17:30 01/07/21 18:32 Sod 3.375 gm/ So dium Chloride IV 12.5 mls/hr Q8H [facility] Administration Protocol Insulin Aspart 0 unit 12/26/20 18:00 01/07/21 18:22 Insulin Aspart 1 00 Unit/1 Ml SUBCUT Not Given WM&BEDTIME [facility] Protocol Pantoprazole Sodiu m 40 mg 12/26/20 17:00 01/07/21 17:[address] 40 Mg Tablet PO Not Given BID@ [facility] PFSH Anesthesia PFSH: Medical History Anemia Anticoagulation adequate with anticoagulant therapy Eliquis ASHD (arteriosclerotic heart disease) Atrial fibrillation BPH (benign prostatic hyperplasia) CAD (coronary artery disease) Carotid stenosis CHF (congestive heart failure) COPD (chronic obstructive pulmonary disease) Diabetes mellitus History of CVA (cerebrovascular accident) Hypertension Neuropathy Obesity Pacemaker PAF (paroxysmal atrial fibrillation) Vitamin B deficiency Vitamin D deficiency Surgical History History of left-sided carotid endarterectomy S/P CABG x 4 Family History Denies family history of Anesthesia complication Bleeding disorder Social History Smoking and tobacco status: former smoker Quit status (tobacco): has quit using tobacco Former quit date comment: smoked 20 yrs Second hand smoke exposure: No Alcohol intake: never Lives independently: Yes Household members: significant other and children Housing: House Marital status: Life Partner Current occupational status: disabled Current occupational exposures/hazards: No History of recent travel: No Current gender identity: Male Data Anesthesia CBC & Chem 7: 01/07/21 03:17 01/07/21 06:52 Other Labs: Laboratory Results - last 48 hr 01/05/21 01/06/21 01/06/21 20:48 03:02 03:02 WBC 8.4 RBC 3.29 L Hgb 9.6 L Hct 32.1 L MCV 97.6 H MCH 29.2 MCHC 29.9 L RDW 19.9 H Plt Count 96 L MPV 12.2 H Neut % (Auto) 77.3 Lymph % (Auto) 8.5 [place] % (Auto) 11.9 Eos % (Auto) 1.6 Baso % (Auto) 0.2 Neut # (Auto) 6.47 Lymph # (Auto) 0.7 L [place] # (Auto) 1.0 H Eos # (Auto) 0.1 Baso # (Auto) 0.0 Nucleated RBC % (auto) 0 Nucleated RBCs # 0.0 Specimen Type Sample Site ABG pH ABG pCO2 ABG pO2 ABG HCO3 ABG O2 Saturation ABG Base Excess Audi Test A-a O2 Gradient Hematocrit Hgb O2 Saturation Carboxyhemoglobin Methemoglobin Total Hemoglobin Ionized Calcium O2 Delivery Device O2 Liters/Min FiO2 Parts Order And Stock Clerk ID Sodium 141 Potassium 3.6 Chloride 93 L Carbon Dioxide 33 H Anion Gap 18.6 BUN 98 H* Creatinine 2.7 H GFR Calculation 24.3 L Glucose 116 H POC Glucose 136 H Calculated Osmolality 323 H Calcium 9.7 Phosphorus Magnesium Total Bilirubin 2.4 H AST 29 ALT 14 Alkaline Phosphatase 60 NT-Pro-B Natriuret Pep Total Protein 6.8 Albumin 4.4 Globulin 2.4 Hep Bs Antigen Hep Bs Antibody Hepatitis C Antibody 01/06/21 01/06/21 01/06/21 03:02 03:02 07:47 WBC RBC Hgb Hct MCV MCH MCHC RDW Plt Count MPV Neut % (Auto) Lymph % (Auto) [place] % (Auto) Eos % (Auto) Baso % (Auto) Neut # (Auto) Lymph # (Auto) [place] # (Auto) Eos # (Auto) Baso # (Auto) Nucleated RBC % (auto) Nucleated RBCs # Specimen Type Sample Site ABG pH ABG pCO2 ABG pO2 ABG HCO3 ABG O2 Saturation ABG Base Excess Audi Test A-a O2 Gradient Hematocrit Hgb O2 Saturation Carboxyhemoglobin Methemoglobin Total Hemoglobin Ionized Calcium O2 Delivery Device O2 Liters/Min FiO2 Parts Order And Stock Clerk ID Sodium Cancelled Potassium Cancelled Chloride Cancelled Carbon Dioxide Cancelled Anion Gap Cancelled BUN Cancelled Creatinine Cancelled GFR Calculation Cancelled Glucose Cancelled POC Glucose 150 H Calculated Osmolality Cancelled Calcium Cancelled Phosphorus Magnesium Total Bilirubin Cancelled AST Cancelled ALT Cancelled Alkaline Phosphatase Cancelled NT-Pro-B Natriuret Pep 97868 H Total Protein Cancelled Albumin Cancelled Globulin Cancelled Hep Bs Antigen Non-reactive Hep Bs Antibody 3.5 Hepatitis C Antibody Non-reactive 01/06/21 01/06/2101/06/21 09:05 11:48 17:05 WBC RBC Hgb Hct MCV MCH MCHC RDW Plt Count MPV Neut % (Auto) Lymph % (Auto) [place] % (Auto) Eos % (Auto) Baso % (Auto) Neut # (Auto) Lymph # (Auto) [place] # (Auto) Eos # (Auto) Baso # (Auto) Nucleated RBC % (auto) Nucleated RBCs # Specimen Type Arterial Sample Site Radial, right ABG pH 7.33 L ABG pCO2 62.2 H* ABG pO2 106.0 H ABG HCO3 32.9 H ABG O2 Saturation 98.6 ABG Base Excess 5.7 H Audi Test Pos A-a O2 Gradient 0.5 L Hematocrit 30.4 L Hgb O2 Saturation 96.4 Carboxyhemoglobin 1.4 Methemoglobin 0.9 Total Hemoglobin 9.9 L Ionized Calcium 1.2 O2 Delivery Device Nc O2 Liters/Min 1.0 FiO2 26.0 Parts Order And Stock Clerk ID Bd Sodium 143.0 Potassium 3.6 Chloride Carbon Dioxide Anion Gap BUN Creatinine GFR Calculation Glucose 132.0 H POC Glucose 129 H 165 H Calculated Osmolality Calcium Phosphorus Magnesium Total Bilirubin AST ALT Alkaline Phosphatase NT-Pro-B Natriuret Pep Total Protein Albumin Globulin Hep Bs Antigen Hep Bs Antibody Hepatitis C Antibody 01/06/21 01/07/21 01/07/21 21:11 03:17 03:17 WBC 8.7 RBC 3.20 L Hgb 9.1 L Hct 30.6 L MCV 95.6 H MCH 28.4 MCHC 29.7 L RDW 20.2 H Plt Count 134 MPV 12.8 H Neut % (Auto) 78.6 Lymph % (Auto) 7.4 [place] % (Auto) 12.0 Eos % (Auto) 1.6 Baso % (Auto) 0.1 Neut # (Auto) 6.86 Lymph # (Auto) 0.7 L [place] # (Auto) 1.1 H Eos # (Auto) 0.1 Baso # (Auto) 0.0 Nucleated RBC % (auto) 0 Nucleated RBCs # 0.0 Specimen Type Sample Site ABG pH ABG pCO2 ABG pO2 ABG HCO3 ABG O2 Saturation ABG Base Excess Audi Test A-a O2 Gradient Hematocrit Hgb O2 Saturation Carboxyhemoglobin Methemoglobin Total Hemoglobin Ionized Calcium O2 Delivery Device O2 Liters/Min FiO2 Parts Order And Stock Clerk ID Sodium Cancelled Potassium Cancelled Chloride Cancelled Carbon Dioxide Cancelled Anion Gap Cancelled BUN Cancelled Creatinine Cancelled GFR Calculation Cancelled Glucose Cancelled POC Glucose 163 H Calculated Osmolality Cancelled Calcium Cancelled Phosphorus Cancelled Magnesium Cancelled Total Bilirubin Cancelled AST Cancelled ALT Cancelled Alkaline Phosphatase Cancelled NT-Pro-B Natriuret Pep Cancelled Total Protein Cancelled Albumin Cancelled Globulin Cancelled Hep Bs Antigen Hep Bs Antibody Hepatitis C Antibody 01/07/21 01/07/21 01/07/21 06:52 07:23 11:09 WBC RBC Hgb Hct MCV MCH MCHC RDW Plt Count MPV Neut % (Auto) Lymph % (Auto) [place] % (Auto) Eos % (Auto) Baso % (Auto) Neut # (Auto) Lymph # (Auto) [place] # (Auto) Eos # (Auto) Baso # (Auto) Nucleated RBC % (auto) Nucleated RBCs # Specimen Type Sample Site ABG pH ABG pCO2 ABG pO2 ABG HCO3 ABG O2 Saturation ABG Base Excess Audi Test A-a O2 Gradient Hematocrit Hgb O2 Saturation Carboxyhemoglobin Methemoglobin Total Hemoglobin Ionized Calcium O2 Delivery Device O2 Liters/Min FiO2 Parts Order And Stock Clerk ID Sodium 138 Potassium 3.6 Chloride 91 L Carbon Dioxide 33 H Anion Gap 17.6 BUN 103 H* Creatinine 3.0 H GFR Calculation 21.5 L Glucose 131 H POC Glucose 132 H 151 H Calculated Osmolality 320 H Calcium 9.8 Phosphorus 5.0 H Magnesium 2.7 H Total Bilirubin 2.1 H AST 31 ALT 14 Alkaline Phosphatase 65 NT-Pro-B Natriuret Pep 92331 H Total Protein 6.9 Albumin 4.4 Globulin 2.5 Hep Bs Antigen Hep Bs Antibody Hepatitis C Antibody 01/07/21 01/07/21 17:08 19:40 WBC RBC Hgb Hct MCV MCH MCHC RDW Plt Count MPV Neut % (Auto) Lymph % (Auto) [place] % (Auto) Eos % (Auto) Baso % (Auto) Neut # (Auto) Lymph # (Auto) [place] # (Auto) Eos # (Auto) Baso # (Auto) Nucleated RBC % (auto) Nucleated RBCs # Specimen Type Arterial Sample Site Brachial, left ABG pH 7.39 ABG pCO2 53.5 H ABG pO2 104.0 H ABG HCO3 32.2 H ABG O2 Saturation 99.0 ABG Base Excess 6.2 H Audi Test N/a A-a O2 Gradient 3.8 L Hematocrit 29.7 L Hgb O2 Saturation 96.9 Carboxyhemoglobin 1.3 Methemoglobin 0.8 Total Hemoglobin 9.7 L Ionized Calcium 1.2 O2 Delivery Device O2 Liters/Min FiO2 28.0 Parts Order And Stock Clerk ID Jlg Sodium 142.0 Potassium 3.5 Chloride Carbon Dioxide Anion Gap BUN Creatinine GFR Calculation Glucose 134.0 H POC Glucose 149 H Calculated Osmolality Calcium Phosphorus Magnesium Total Bilirubin AST ALT Alkaline Phosphatase NT-Pro-B Natriuret Pep Total Protein Albumin Globulin Hep Bs Antigen Hep Bs Antibody Hepatitis C Antibody Cardiac Studies: Echocardiogram 11/22/20
--- NOTE | 2021-01-07 20:06 | SC_ITS ---
WS: [id number] INTRAOPERATIVE TECHNIQUE: 3 Spot fluoroscopic images for intraoperative purposes. FLUOROSCOPY TIME: 132 seconds CLINICAL INFORMATION: surgery COMPARISON: None. FINDINGS: Right central venous catheters with tips in the distal SVC. No visualized pneumothorax. Sternotomy. C ABG. Cardiac pacer leads. ETT. SC/C-arm FL for CVA [id number] IMPRESSION: Images obtained for intraoperative purposes.
[2021-01-07] MEDS: heparin, porcine 1,000 unit/mL INJ 10 mL 10000 UNIT IRRIGATION (20:41)
--- NOTE | 2021-01-07 21:21 | ANE.PACU2 ---
Inpatient post-anesthesia follow up: Airway intact: Yes (ETT) Vital signs: Temperature 97.6 F Pulse Rate [Monito r] 86 Pulse Rate 60 Respiratory Rate 15 Blood Pressure [Ri ght Arm] 131/59 Blood Pressure 98/36 Pulse Oximetry 99 Oxygen Delivery Me thod Mechanical Ventila tion Oxygen Flow Rate 2 Fraction of Inspir ed Oxygen 28 Hydration adequate: Yes Nausea and vomiting: No Pain level: 1 Mental status: Altered (Sedated) Additional Comments: intubated/ventilated to ICU, stable.
--- NOTE | 2021-01-07 21:27 | P.OP_ITS ---
Operative Report Date of procedure: January 07, 2021 Pre-op Diagnosis: Acute on chronic renal failure Pre-op Diagnosis: Poor venous access requiring multiple IV infusions Post-op diagnosis: same Procedure Done: Placement of 16 Gibraltarian 31 cm long AshSplit tunneled hemodialysis catheter in the right internal jugular vein Placement of 7 Gib[place]tarian triple-lumen catheter in the right subclavian vein Fluoroscopic guidance and interpretation for placement of catheter in the superior vena cava Ultrasound guidance to access the right internal jugular vein Pathology: none sent Surgeon: Robin Gomez Anesthesia: General Condition: stable Disposition: PACU Procedure: The patient was taken to the operating room and placed under GA. The chest and neck were prepped and draped in a sterile manner bilaterally. An ultrasound of the right internal jugular vein revealed patent flow, no thrombus identified. Using introducer needle the internal jugular vein on the right side was accessed and guidewire passed into the right atrium under fluoroscopy. Under fluoroscopy the location for the dialysis catheter was marked. Using 11 blade a skin incision was extended at the vein access site as well as the previously marked location on the right chest wall. The dialysis catheter was attached to the tunneler and passed subcutaneously, exiting at the venous access site. Serial dilators were passed over the guidewire under fluoroscopy. Finally the dilator peel-away sheath was passed over the guidewire and the inner dilator and guidewire was removed and the dialysis catheter was introduced into the right internal jugular vein as the peel-away sheath was removed. The tip of the catheter was noted to be in the right atrium. Both ports of the catheter maddison blood and flushed easily. The catheter was sutured to the skin using 2-0 Prolene and the venous access site was closed with 4-0 Monocryl and surgical glue. A total of 5 mL of 1:10,000 heparin was injected into the 2 ports under dialysis catheter. An introducer needle was used to access the right subclavian vein, a guidewire passed through the introducer needle and the needle was removed. Using 11 blade, a skin incision was made at the guidewire entry site. Dilator was passed over the guidewire and a 7 [place] triple-lumen central venous catheter was passed over the guidewire and the guidewire was removed. The catheter was sutured to the skin at 15 cm. All 3 ports maddison blood and flushed easily. Fluoroscopic guidance and interpretation for passage of guidewire and dilator and placement of catheter in the right atrium.
--- NOTE | 2021-01-07 21:31 | PM.PN ---
Subjective Subjective: Interval history: Patient seen after arrival back to ICU from getting HD catheter. CVL was also placed per request. He was intubated for procedure and will be maintained on ventilator at least initially per discussion with attending physician. HR upper 50s, SBP 90s with MAP mid 60s+ pre and post procedure. HD catheter in right IJ CVL in right subclavian There is some bright red blood on dressing and under tegaderm but does not appear to be ongoing oozing. Lungs clear, bradycardic but regular rhythm Vitals/I&O/Wt Last Vital Signs Temp 97.6 F 01/07/21 04:00 Pulse 60 01/07/21 21:06 Resp 15 01/07/21 19:51 BP 98/36 01/07/21 21:06 Pulse Ox 99 01/07/21 21:06 01/07/21 01/07/21 01/07/21 06:59 14:59 22:59 Intake Total 50 / 650 50 / 50 Output Total 125 / 125 150 / 150 Balance -75 / 525 50 / 50 -150 / -100 Weight last 48 hrs Weight 138.981 kg Weight 138.482 kg Physical Exam Urinary Catheter Management^: Friedman: Cath Placed During This Visit: yes Reason for Continuing Indwelling Catheter: Accurate Measurement of Urinary Output in Critically Ill Patients Urinary Catheter Date of Insertion: 12/26/20 Urinary Catheter Time of Insertion: 15:36 Data : 01/07/21 03:17 01/07/21 06:52 A&P Additional A&P Information CXR post ETT ordered Ventilator protocol Sedation as needed My understanding is HD planned for tonight. HD orders are in place, will have nursing contact dialysis staff. Monitor blood pressures during HD Attestations Medical Necessity Statement*: intubated, to be hemodialyzed; requires continued ICU level care Time Spent in Patient Care: 16 - 35 minutes 21 minutes additional care. Discussed with Dr Bautista, anesthesia, nursing. Transfer orders placed, examined and note written. Coding Level of Care Code Acute Multimedia Developer for Jocelyne Pat
--- NOTE | 2021-01-07 21:33 | XRR_ITS ---
PROCEDURE INFORMATION: Exam: XR Chest, 1 View Exam date and time: 01/07/2021 9:38 PM Age: 60 years old Clinical indication: Device placement; Ng tube; Prior surgery; Surgery date: Post-operative (0-2 days); Additional info: Post-intubation TECHNIQUE: Imaging protocol: XR of the chest Views: 1 view. COMPARISON: CR XR chest 1V portable [id number] 01/07/2021 8:36 AM FINDINGS: Tubes, catheters and devices: Right IJ dialysis catheter with tip over the right atrium. Right subclavian central line with tip over the distal SVC. Intubation with tip approximately 2.5 cm above the dixon. NG tube with tip in the mid stomach. Stable intact left subclavian pacemaker. Lungs: Vascular congestion with stable perihilar ground-glass opacities. Pleural spaces: Unremarkable. No pleural effusion. No pneumothorax. Heart/Mediastinum: Unremarkable. No cardiomegaly. Bones/joints: Sternotomy wires. XR/XR chest 1V portable [id number] IMPRESSION: 1. Line and tube placement without pneumothorax. 2. Stable vascular congestion and probable mild perihilar edema.
[2021-01-07] MEDS: propofol 1,000 MG/100 ML INJ 4.2 MG IV (22:04)
[2021-01-07 22:12] LABS: Glucose Point of Care 143 mg/dL (70-110)
[2021-01-08] VITALS (46 sets, daily range): BP systolic 90–119; BP diastolic 48–75; PULSE 52–69; RESP 14–46; TEMP 35.7–36.2; O2SAT 96–98
[2021-01-08] MEDS: ipratropium-albuterol 3 mL Neb INHALATION ×6 (00:12→20:16)
[2021-01-08 03:58] LABS: Basophils % 0.4 %; Eosinophils # 0.1 10^3/uL (0.0-0.8); Eosinophils % 1.7 %; Hematocrit 28.5 % (42.0-52.0); Hemoglobin 8.6 g/dL (11.7-16.6); Lymphocytes # 0.7 10^3/uL (0.8-4.8); Lymphocytes % 9.1 %; Mean Corpuscular HGB Conc 30.2 g/dL (30.0-36.0); Mean Corpuscular Hemoglobin 28.7 pg (28.0-34.0); Mean Platelet Volume 11.9 fL (7.4-10.4); Monocytes # 1.1 10^3/uL (0.2-0.9); Monocytes % 13.2 %; Neutrophils # 6.03 10^3/uL (1.8-7.7); Neutrophils % 75.4 %; Nucleated Red Blood Cells % 0 %; Platelet Count 95 10^3/cmm (130-400); Red Cell Distribution Width 20.2 % (12.1-15.1)
[2021-01-08 04:08] LABS: INR 1.94 (0.8-1.2)
[2021-01-08 04:18] LABS: Lactate (Lactic Acid level) 1.6 mmol/L (0.5-2.2)
[2021-01-08 04:26] LABS: NT Pro B Type Natriuretic Pept 22675 pg/mL (0-125); Procalcitonin 0.37 ng/mL (0-0.5)
[2021-01-08 04:40] LABS: Alanine Aminotransferase 12 U/L (0-41); Albumin Level 4.1 g/dL (3.5-5.2); Alkaline Phosphatase 61 IU/L (40-130); Anion Gap 20.6 (5-19); Aspartate Amino Transferase 27 U/L (0-40); C Reactive Protein 49.4 mg/L (0.0-4.9); Calcium 9.4 mg/dL (8.5-10.5); Carbon Dioxide 31 mmol/L (22-29); Chloride 92 mmol/L (98-107); Creatine Phosphokinase 41 U/L (39-308); Globulin 2.4 g/dL (1.3-4.6); Glomerular Filtration Rate 18.6 mL/min (90-130); Glucose 118 mg/dL (65-115); Magnesium 2.7 mg/dL (1.7-2.3); Osmolality Calculated 326 mOsm/kg (285-295); Phosphorus 4.9 mg/dL (2.5-4.5); Potassium 3.6 mmol/L (3.5-5.1); Sodium 140 mmol/L (136-145); Total Bilirubin 1.9 mg/dL (0.15-1.2); Total Protein 6.5 g/dL (6.6-8.7)
[2021-01-08 04:43] LABS: Blood Urea Nitrogen 110 mg/dL (6-20)
[2021-01-08 04:45] LABS: ABG PCO2 56.8 mmHg (35-45); ABG PH Result 7.35 (7.35-7.45); Arterial Blood Gas Hematocrit 27.8 % (42-52); Base Excess ABG 4.8 mmol/L (-2.0-2.0); Blood Gas Sample Site Brachial, left; Blood Gas Sample Type Arterial; HCO3 ABG 31.4 mmol/L (22-26); Oxygen Device VENT
--- NOTE | 2021-01-08 06:36 | PC.NURSE ---
Daughter gave permission/consent on phone for patient to receive blood if needed.
--- NOTE | 2021-01-08 06:47 | P.PN_ITS ---
Subjective Subjective: Interval history: seen during dialysis, sedated on ventilator, RNs report bleeding from dialysis catheter insertion site. Surgeon has been notified. Medications: Reviewed: Yes Vitals/I&O/Wt Last Vital Signs Temp 96.6 F L 01/08/21 04:00 Pulse 65 01/08/21 06:00 Resp 14 01/08/21 05:50 BP 104/58 01/08/21 06:00 Pulse Ox 98 01/08/21 06:00 01/07/21 01/07/21 01/08/21 14:59 22:59 06:59 Intake Total 50 / 50 50 / 100 Output Total 150 / 150 200 / 350 Balance 50 / 50 -100 / -50 -200 / -250 Weight last 48 hrs Weight 138.981 kg Physical Exam Extremity: GENERAL: Yes edema Urinary Catheter Management^: Friedman: Cath Placed During This Visit: yes Reason for Continuing Indwelling Catheter: Accurate Measurement of Urinary Output in Critically Ill Patients Urinary Catheter Date of Insertion: 12/26/20 Urinary Catheter Time of Insertion: 15:36 Data : 01/08/21 03:38 01/08/21 03:38 CXR: Radiologist's impression: Lungs: Lungs are well aerated without a focal area of consolidation. Pleural spaces: Unremarkable. No pleural effusion. No pneumothorax. Heart/Mediastinum: Cardiac silhouette is enlarged. Vasculature: Pacemaker is present via a left subclavian approach. Central venous catheter via the right subclavian approach with the tip projecting over the superior vena cava. Dialysis catheter via the right internal jugular approach with the tip in the region of the superior vena cava. Bones/joints: Prior sternotomy ABG Interpretation 1: 7.35/56.8/109 AC 17, 30%+6 peep A&P Additional A&P Information 1. Acute kidney injury, oliguric 2. Anasarca 3. Hypercapneic respiratory failure 4. Anemia He will receive first dialysis this morning. Goal UF 1500 ml as BP tolerates. HD again tomorrow. Attestations Medical Necessity Statement*: critically ill in ICU Time Spent in Patient Care: 16 - 35 minutes Coding Level of Care Code Acute Dispatch Associate for Jocelyne Pat
--- NOTE | 2021-01-08 07:00 | XRR_ITS ---
PROCEDURE INFORMATION: Exam: XR Chest, 1 View Exam date and time: 01/08/2021 6:05 AM Age: 60 years old Clinical indication: Shortness of breath and other: Edema; Prior surgery; Surgery type: Pacemaker; Patient HX: Ble edema, abd distention; Additional info: SOB TECHNIQUE: Imaging protocol: XR of the chest Views: 1 view. COMPARISON: CR XR chest 1V portable [id number] 01/07/2021 9:43 PM FINDINGS: Lungs: Lungs are well aerated without a focal area of consolidation. Pleural spaces: Unremarkable. No pleural effusion. No pneumothorax. Heart/Mediastinum: Cardiac silhouette is enlarged. Vasculature: Pacemaker is present via a left subclavian approach. Central venous catheter via the right subclavian approach with the tip projecting over the superior vena cava. Dialysis catheter via the right internal jugular approach with the tip in the region of the superior vena cava. Bones/joints: Prior sternotomy XR/XR chest 1V portable [id number] IMPRESSION: Lungs are well aerated without a focal area of consolidation.
[2021-01-08 08:01] LABS: Glucose Point of Care 164 mg/dL (70-110)
--- NOTE | 2021-01-08 08:34 | PC.NURSE ---
Other delay Meds that were not given on patient was due to patient being in surgery and off unit
--- NOTE | 2021-01-08 09:19 | PC.SLP ---
Patient unable to participate in FIELD SALES EXECUTIVE at this time. The patient is mechanically ventilated. FIELD SALES EXECUTIVE will follow up after extubation.
[2021-01-08] MEDS: piperacillin-tazobactam 3.375 GM in sodium chloride 0.9% (plus) 50 ML IV ×3 (09:29→16:49)
[2021-01-08] MEDS: acetaZOLAMIDE 250 mg Tablet PO ×2 (09:29→17:12)
--- NOTE | 2021-01-08 09:36 | PC.CHAP ---
Pastoral Care Encounter/Spiritual Assessment Type of Contact [] Declined plush cutter visit [] Patient/Family/Request visit [] Outpatient visit [] Follow-up visit [] Physician referral [] Code/Alert [x] Routine visit [] Staff referral [] Actively dying [] Patient sleeping [] Family support [] [] Out of room [] Palliative care [] [] Receiving care in room [] Pre-surgical visit [] Trauma [] Long length of stay [x] ICU visit [] Other: Relational/Emotional Strength [] Patient feels connected with others/family/visitors/staff [] Distress [] Loneliness/isolation [] Abandonment Spirituality of Patient [] Person of Lacy [] Attends Congregation of their Lacy [] Believes in Prayer [] Reads Bible or Mosque materials [] There are Spiritual issues to be addressed Income Tax Preparer Interventions [x] Prayer [] Active listening [] Non-anxious presence [] Spiritual/emotional support [] Crisis/trauma care [] Spiritual counseling [] Bereavement support [] Provided bereavement packet [] Provided Bible/devotional materials [] Provided toy/stuffed animal, coloring book to patient or family member [] Provided Communion [] Anointing/[place] [] Salvation [x] Completed spiritual assessment [] Other: Impact on Illness or Injury [] Angry [] Fearful [] Anxious [] Often cries [] Exhaustion [] Unable to work [] Unable to attend restoration [] Unable to walk/stand [] Unable to read [] Unable to drive [] Unable to eat/drink [] Unable to sleep [] Unable to be with family [] Patient intubated [] Other: Summary Time spent with patient
--- NOTE | 2021-01-08 09:47 | PC.OT ---
OT TREATMENT HELD TODAY DUE TO PATIENT ON VENTILATOR AT THIS TIME. RECEIVING DIALYSIS. WILL ATTEMPT AGAIN TOMORROW.
[2021-01-08] MEDS: pantoprazole DR 40 mg Tablet PO (10:08)
[2021-01-08 11:07] LABS: Glucose Point of Care 115 mg/dL (70-110)
--- NOTE | 2021-01-08 11:21 | P.PN_ITS ---
Subjective Subjective: Interval history: Yesterday evening, patient had episodes of confusion, likely secondary to uremia, and increased shortness of breath Yesterday evening, patient had dialysis catheter placement by Dr. Gomez, after discussion with pulmonary and anesthesia, decision was made to intubate patient for procedure given worsening confusion, respiratory status, and to keep patient intubated after procedure as dialyzed patient as inpatient, I did discuss this with patient, he agreed to proceed This morning patient is intubated, sedated on the ventilator, he has had episodes of bleeding from the dialysis catheter site, currently has a sandbag over the site to minimize bleeding, Has had a few hypotensive episodes, maps have been greater than 65, urine output 350 cc, Vitals/I&O/Wt Last Vital Signs Temp 96.6 F L 01/08/21 04:00 Pulse 69 01/08/21 11:14 Resp 15 01/08/21 11:09 BP 94/56 01/08/21 08:00 Pulse Ox 96 01/08/21 11:09 01/07/21 01/08/21 01/08/21 22:59 06:59 14:59 Intake Total 50 / 100 8.542 / 8.542 Output Total 150 / 150 200 / 350 Balance -100 / -50 -200 / -250 8.542 / 8.542 Weight last 48 hrs Weight 138.981 kg Physical Exam Narrative: EXAM NARRATIVE: Intubated, sedated on the ventilator Const: COMMON NORMALS: no acute distress and patient oriented x3 HENMT: COMMON NORMALS: normocephalic HEAD & SCALP: normocephalic Neck/C-Spine: COMMON NORMALS: no JVD Resp: COMMON NORMALS: normal respiratory effort, No retractions, No use of accessory muscles and clear to auscultation bilaterally AUSCULTATION: clear to auscultation bilaterally Cardio: COMMON NORMALS: no JVD, regular rate, regular rhythm, S1 normal heart sound present and S2 normal heart sound present RATE: regular rate RHYTHM: regular rhythm HEART SOUNDS: S1 normal heart sound present and S2 normal heart sound present GI: COMMON NORMALS: Normal to inspection, nondistended, normoactive bowel sounds present, Soft to palpation, non-tender, No hepatosplenomegaly present, no masses and no bruits PALPATION: Yes Soft to palpation and Yes No hepatosplenomegaly present Extremity: COMMON NORMALS: capillary refill normal, no clubbing, cyanosis or edema, no calf tenderness and no pedal edema NARRATIVE EXTREMITY EXAM: 2+ pit ting edema Neuro: COMMON NORMALS: patient oriented x3 Psych: COMMON NORMALS: mental status grossly normal Skin: NARRATIVE SKIN EXAM: Generalized anasarca Right dialysis catheter site, has dried blood clots, dressing is soaked in blood, no active bleeding Urinary Catheter Management^: Friedman: Cath Placed During This Visit: yes Reason for Continuing Indwelling Catheter: Accurate Measurement of Urinary Output in Critically Ill Patients Urinary Catheter Date of Insertion: 12/26/20 Urinary Catheter Time of Insertion: 15:36 Data : 01/08/21 03:38 01/08/21 03:38 A&P Assessment and plan (1) Acute respiratory distress: Status: Acute (2) Right heart failure: Status: Acute Qualifiers: Heart failure chronicity: acute on chronic Qualified Code(s): I50.813 - Acute on chronic right heart failure (3) Acute worsening of stage 3 chronic kidney disease: Status: Acute Acute on chronic respiratory failure secondary to diastolic CHF with underlying CKD - Etiology multi-factorial - Fluid overload with underlying COPD exacerbation - Successfully extubated 01/01/2020, however had worsening general anasarca, worsening shortness of breath, increasing creatinine, failure of Lasix therapy - Remains intubated after dialysis catheter placement as per plan -Chest x-ray this morning shows pulmonary vascular congestion - will receive dialysis this morning, Levophed as needed to maintain MAP greater than 65 during dialysis - Intubated, mechanical vent, minimize PEEP to minimize FiO2 -Continue Zosyn -Switch to fentanyl and Versed for sedation - Pulmonary on consult -Does have bleeding from dialysis catheter site, likely related to prolonged effects of Eliquis, hemoglobin 8.6, will monitor, INR 1.9, will give 1 unit FFP for now Acute on chronic HFpEF exacerbation /Cor pulmonale - Previously noted RV dysfunction - Monitor urine output Acute on chronic stage 3 kidney disease - Creatinine fluctuating baseline - 1.7->2.5 - Currently 3.4 -Receiving dialysis - Repeat BMP in am - Friedman in place - Monitor urine output - Nephrology consult Acute on chronic anemia: -Currently hemoglobin 8.6 -Likely multifactorial, related to CKD, anemia of chronic disease -Continue to monitor hemoglobin -Hold Eliquis for now given worsening anemia, bleeding from dialysis catheter site Elevated troponin - Likely type 2 in setting of worsening renal failure Paroxysmal Atrial fibrillation - Currently paced - Eliquis 5 mg PO BID on hold due to anemia, bleeding from dialysis catheter site - Monitor on tele SSS s/p pacemaker - Pacemaker interrogation Diabetes mellitus - Sliding scale insulin - Qachs checks Stage 1 right trochanteric decubitus ulcer - Wound care - Possible surrounding cellulitis - Pressure off loading GERD/Hx of H.Pylori - Protonix 40 mg PO BID DVT ppx -SCDs, Eliquis on hold Attestations Medical Necessity Statement*: Patient requires hospitalization for acute respiratory failure secondary to diastolic CHF, worsening renal failure, requiring this, intubation, mechanical ventilation Coding Level of Care Code Acute Collections Curator for Jocelyne Pat Diagnoses Acute respiratory distress R06.03 Right heart failure I50.813 Heart failure chronicity: acute on chronic Acute worsening of stage 3 chronic kidney disease N18.30
[2021-01-08] MEDS: famotidine 20 mg/2 mL INJ IVP (12:09)
--- NOTE | 2021-01-08 13:35 | PC.NURSE ---
Plasma was given by dialysis nurse during treatment. All vitals were documented by this nurse. After dialysis treatment the nurse changed the dressing around dialysis catheter and central line. The dressing was completely saturated and had fresh and clotted blood on skin
[2021-01-08 14:22] LABS: Hematocrit 29.4 % (42.0-52.0)
[2021-01-08 15:01] LABS: Basophils % 0.3 %; Eosinophils # 0.3 10^3/uL (0.0-0.8); Eosinophils % 2.7 %; Hematocrit 30.1 % (42.0-52.0); Hemoglobin 9.3 g/dL (11.7-16.6); Lymphocytes % 10.1 %; Mean Corpuscular HGB Conc 30.9 g/dL (30.0-36.0); Mean Corpuscular Hemoglobin 29.4 pg (28.0-34.0); Mean Corpuscular Volume 95.3 fL (80-94); Mean Platelet Volume 12.5 fL (7.4-10.4); Monocytes # 1.3 10^3/uL (0.2-0.9); Monocytes % 13.5 %; Neutrophils # 7.21 10^3/uL (1.8-7.7); Neutrophils % 72.9 %; Nucleated Red Blood Cells % 0 %; Platelet Count 119 10^3/cmm (130-400); Red Blood Count 3.16 10^6/uL (4.1-5.3); Red Cell Distribution Width 20.4 % (12.1-15.1); White Blood Count 9.9 10^3/uL (4.0-10.0)
[2021-01-08 15:10] LABS: INR 1.57 (0.8-1.2)
[2021-01-08] MEDS: sucralfate 1 gm Tablet PO (16:05)
[2021-01-08] MEDS: pantoprazole 40 mg SDV IVP (16:05)
[2021-01-08] MEDS: atorvastatin 40 mg Tablet 80 MG PO (16:49)
[2021-01-08 16:59] LABS: Glucose Point of Care 129 mg/dL (70-110)
--- NOTE | 2021-01-08 17:04 | P.PN_ITS ---
Subjective Subjective: Interval history: Patient continues to be critically ill, had significant bleeding around the hemodialysis catheter site Vitals/I&O/Wt Last Vital Signs Temp 96.5 F L 01/08/21 11:43 Pulse 60 01/08/21 16:03 Resp 14 01/08/21 15:58 BP 116/64 01/08/21 15:00 Pulse Ox 97 01/08/21 15:57 01/08/21 01/08/21 01/08/21 06:59 14:59 22:59 Intake Total 208.542 / 208.542 Output Total 200 / 350 Balance -200 / -250 208.542 / 208.542 Weight last 48 hrs Weight 306 lb 6.4 oz Physical Exam Narrative: EXAM NARRATIVE: Right chest: No significant subcutaneous hematoma around the catheter, moderate amount of blood on the bandage Urinary Catheter Management^: Friedman: Cath Placed During This Visit: yes Reason for Continuing Indwelling Catheter: Accurate Measurement of Urinary Output in Critically Ill Patients Urinary Catheter Date of Insertion: 12/26/20 Urinary Catheter Time of Insertion: 15:36 Data : 01/08/21 14:50 01/08/21 03:38 Micro: Microbiology 01/07/21 05:20 Gram Stain - Final Sputum - Endotracheal Tube Aspirate A&P Assessment and plan (1) S/P dialysis catheter insertion: Patient has been having bleeding around the catheter entry site Apply sandbag and Surgicel around the cath entry site. At this point there is no significant hematoma that requires drainage or further surgical management Hemodialysis catheter functioning well Status: Acute Attestations Medical Necessity Statement*: Status post dialysis catheter insertion, patient is on ventilator requiring continued inpatient stay Coding Level of Care Code Acute Petroleum Products Sales Representative for Chg Fwd Diagnoses S/P dialysis catheter insertion Z95.828; Z99.2
[2021-01-08] MEDS: sodium chloride 0.9% (100 ml) 100 ML (17:17)
--- NOTE | 2021-01-08 17:24 | PC.NURSE ---
When turning patient this nurse noted the patient had a small bowel movement. When cleaning the patient bright red blood was running out of the patients rectum. The patient was cleaned and doctor was notified.
--- NOTE | 2021-01-08 17:26 | PC.NURSE ---
Levophed was started this AM. Pressures have remained stable with a map greater than 65.
--- NOTE | 2021-01-08 17:58 | P.PN_ITS ---
Subjective Subjective: Interval history: -Patient seen today morning rounds -Started on dialysis plan is to remove 1.5 L fluid -Bleeding from HD catheter site likely due to uremic platelet dysfunction versus last dose of Eliquis 24 hours ago. -Plan is to transfuse 1 unit PRBC during dialysis -Reviewed labs and imaging Medications: Reviewed: Yes Medication Review Details: Current Medications Acetaminophen (Acetaminophen 325 Mg Tablet) 650 mg PO Q6H PRN PRN Reason: MILD PAIN Last Admin: 12/27/20 22:09 Dose: 650 mg Documented by: Acetazolamide (Acetazolamide 250 Mg Tablet) 250 mg PO BID [facility] Last Admin: 01/06/21 18:49 Dose: 250 mg Documented by: Albuterol/Ipratropium (Ipratropium-Albuterol 3 Ml Neb) 3 ml INHALATION Q4H.RESPIRATORY [facility] Last Admin: 01/07/21 03:51 Dose: 3 ml Documented by: Apixaban (Apixaban 5 Mg Tablet) 5 mg PO BID@,17 [facility] Last Admin: 01/06/21 09:15 Dose: Not Given Documented by: Atorvastatin Calcium (Atorvastatin 40 Mg Tablet) 80 mg PO DAILY@17 [facility] Last Admin: 01/06/21 18:47 Dose: 80 mg Documented by: Dextrose (Dextrose 50% Syringe 50 Ml) 25 ml IVP ONCE PRN; Protocol PRN Reason: hypoglycemia protocol Dextrose (Dextrose 50% Syringe 50 Ml) 50 ml IVP PRN PRN; Protocol PRN Reason: hypoglycemia protocol Ergocalciferol (Ergocalciferol (Vitamin D2) 50,000 Unit Capsule) 50,000 unit PO Q7D [facility] Last Admin: 01/02/21 09:46 Dose: Not Given Documented by: Glucagon (Glucagon 1 Mg/Ml Inj 1 Ml) 1 mg IM ONCE PRN; Protocol PRN Reason: Adult Acute Hypoglycemia Prot. Dextrose (D5w) 500 mls @ 100 mls/hr IV ONCE PRN; Protocol PRN Reason: Adult Acute Hypoglycemia Prot Piperacillin Sod/Tazobactam (Sod 3.375 gm/ Sodium Chloride) 50 mls @ 12.5 mls/hr IV Q8H [facility]; Protocol Last Infusion: 01/07/21 05:16 Dose: Infused Documented by: Insulin Aspart (Insulin Aspart 100 Unit/1 Ml) 0 unit SUBCUT WM&BEDTIME [facility]; Protocol Last Admin: 01/06/21 21:17 Dose: 4 unit Documented by: Morphine Sulfate (Morphine 4 Mg/Ml Sdv 1 Ml) 4 mg IVP Q4H PRN PRN Reason: SEVERE PAIN Ondansetron HCl (Ondansetron 2 Mg/Ml Sdv 2 Ml) 4 mg IVP Q6H PRN PRN Reason: NAUSEA AND VOMITING Pantoprazole Sodium (Pantoprazole Dr 40 Mg Tablet) 40 mg PO BID@05,17 [facility] Last Admin: 01/07/21 05:55 Dose: 40 mg Documented by: Fluticasone/Salmeterol (Fluticasone-Salmeterol 250-50 Diskus) 1 puff INHALATION BID.RESPIRATORY [facility] Last Admin: 01/06/21 20:12 Dose: 1 puff Documented by: Vitals/I&O/Wt Last Vital Signs Temp 96.5 F L 01/08/21 11:43 Pulse 60 01/08/21 17:00 Resp 14 01/08/21 15:58 BP 103/61 01/08/21 17:00 Pulse Ox 96 01/08/21 17:00 01/08/21 01/08/21 01/08/21 06:59 14:59 22:59 Intake Total 258.542 / 258.542 Output Total 200 / 350 Balance -200 / -250 258.542 / 258.542 Weight last 48 hrs Weight 306 lb 6.4 oz Physical Exam Narrative: EXAM NARRATIVE: General: Morbidly obese, intubated and sedated HEENT: conj clear, EOMI, PERRL, mmm, Neck: supple, no meningismus Heme: no cervical LAP Pulmonary: Bilateral diffuse crackles Cardiovascular: rrr, nl s1s2, no mrg Abdomen: Abdominal wall pitting edema, nt, nd, no r/g, bs+ Extremities: pulses +, 3+ pitting pedal edema, no c/c : no CVA tenderness Skin: intact, no rash MSK: no back or neck pain Neurologic: Sedated limited examination Urinary Catheter Management^: Friedman: Cath Placed During This Visit: yes Reason for Continuing Indwelling Catheter: Accurate Measurement of Urinary Output in Critically Ill Patients Urinary Catheter Date of Insertion: 12/26/20 Urinary Catheter Time of Insertion: 15:36 Data : 01/08/21 14:50 01/08/21 03:38 Micro: Microbiology 01/07/21 05:20 Gram Stain - Final Sputum - Endotracheal Tube Aspirate A&P Assessment and plan (1) Acute worsening of stage 3 chronic kidney disease: Status: Acute (2) Right heart failure: Status: Acute Qualifiers: Heart failure chronicity: acute on chronic Qualified Code(s): I50.813 - Acute on chronic right heart failure (3) Acute respiratory distress: Status: Acute (4) Fluid overload: Status: Acute Qualifiers: Hypervolemia type: unspecified Qualified Code(s): E87.70 - Fluid overload, unspecified (5) Atrial fibrillation: Status: Acute Qualifiers: Atrial fibrillation type: unspecified chronic Qualified Code(s): I48.20 - Chronic atrial fibrillation, unspecified (6) Acute renal failure: Status: Acute Qualifiers: Acute renal failure type: unspecified Qualified Code(s): N17.9 - Acute kidney failure, unspecified (7) COPD (chronic obstructive pulmonary disease): Status: Acute Qualifiers: COPD type: unspecified COPD Qualified Code(s): J44.9 - Chronic obstructive pulmonary disease, unspecified (8) CHF (congestive heart failure): Status: Acute Qualifiers: Heart failure type: diastolic Heart failure chronicity: acute on chronic Qualified Code(s): I50.33 - Acute on chronic diastolic (congestive) heart failure (9) Obesity hypoventilation syndrome: Status: Acute (10) AMS (altered mental status): Status: Acute (11) Uremic encephalopathy: Status: Acute #Acute on chronic hypercapnic respiratory failure in patient with morbid obesity/chronic diastolic heart failure/COPD/obesity hypoventilation syndrome #JOSE on CKD stage III-likely cardiorenal #AMS due to uremic encephalopathy #Clinically volume overloaded-due to chronic diastolic heart failure with RV dysfunction and acute renal failure -Intubated 12/28/2020-extubated 01/01/2021 and reintubated 01/07/2021 for AMS due to uremic encephalopathy -ABG 7.3 5/56/109/31 on %/500/6 PEEP CMV -BNP 22,000 and worsening renal functions and decreasing urine output, clinically volume overloaded -Echo 11/20/2020: EF 60% with right atrium and RV mildly dilated -Previously on Lasix drip and started on Diamox 250 p.o. twice daily and initiated hemodialysis today -Bleeding from catheter insertion site-transfuse 1 unit PRBC -Less likely bacterial infection-low procalcitonin-recommended to discontinue Zosyn Patient is clearly hypercapnic respiratory failure requiring BiPAP due to multiple acute causes on top of chronic issues. Definitely fluid overload in view of worsening CKD and diastolic heart failure resistant to diuretics as the cause of hypercapnic respiratory failure. Started on dialysis today and decrease RV burden and pulmonary edema to facilitate better ventilation. We will start awakening trial followed by spontaneous breathing trial starting tomorrow if passes will aim for extubation in couple of days. Meanwhile continue DuoNeb nebulizations every 4 hours. Recommendations RT, RN and hospitalist covering the patient Attestations Medical Necessity Statement*: Acute on chronic kidney failure requiring hemodialysis and altered mental status secondary to uremic encephalopathy and acute on chronic hypercapnic respiratory failure due to morbid obesity/chronic diastolic heart failure/COPD/obesity hypoventilation syndrome-requiring mechanical ventilation and hemodialysis Time Spent in Patient Care: Greater than 35 minutes (>than 50% of time spent in counselling and/or direct pt care on unit) . Coding Level of Care Code Established Pt Acute Perlite Grinder for Deloresg Bi Patient Type Established History Comprehensive Exam Comprehensive Medical Decision Making High Complexity Diagnoses Acute worsening of stage 3 chronic kidney disease N18.30 Right heart failure I50.813 Heart failure chronicity: acute on chronic Acute respiratory distress R06.03 Fluid overload E87.70 Hypervolemia type: unspecified Atrial fibrillation I48.20 Atrial fibrillation type: unspecified chronic Acute renal failure N17.9 Acute renal failure type: unspecified COPD (chronic obstructive pulmonary disease) J44.9 COPD type: unspecified COPD CHF (congestive heart failure) I50.33 Heart failure type: diastolic Heart failure chronicity: acute on chronic Obesity hypoventilation syndrome E66.2 AMS (altered mental status) R41.82 Uremic encephalopathy G93.49; N19 Time Spent (min) 45
--- NOTE | 2021-01-08 18:47 | PC.NURSE ---
Dressing on chest was changed. Dressing dry and intact.
[2021-01-08 19:46] LABS: Glucose Point of Care 129 mg/dL (70-110)
[2021-01-09] VITALS (51 sets, daily range): BP systolic 78–120; BP diastolic 38–68; PULSE 52–117; RESP 14–16; TEMP 35.9–36.3; O2SAT 92–99
[2021-01-09] MEDS: piperacillin-tazobactam 3.375 GM in sodium chloride 0.9% (plus) 50 ML IV ×3 (00:45→17:55)
--- NOTE | 2021-01-09 02:51 | PC.NURSE ---
Wasted 25.208 of Fentanyl witnessed by Tatyana Davidson RN.
--- NOTE | 2021-01-09 02:53 | PC.NURSE ---
Patient continues to ooze bright red blood around Dialysis port incision site. ABD pads applied with pressure bag to help decrease bleeding. Continue care.
[2021-01-09] MEDS: ipratropium-albuterol 3 mL Neb INHALATION ×7 (03:23→23:47)
[2021-01-09] MEDS: sucralfate 1 gm Tablet PO ×2 (03:26→17:55)
[2021-01-09 04:03] LABS: Basophils % 0.5 %; Eosinophils # 0.2 10^3/uL (0.0-0.8); Eosinophils % 1.8 %; Hematocrit 27.1 % (42.0-52.0); Hemoglobin 8.3 g/dL (11.7-16.6); Lymphocytes # 0.8 10^3/uL (0.8-4.8); Lymphocytes % 9.1 %; Mean Corpuscular HGB Conc 30.6 g/dL (30.0-36.0); Mean Corpuscular Volume 94.8 fL (80-94); Mean Platelet Volume 11.3 fL (7.4-10.4); Monocytes # 1.3 10^3/uL (0.2-0.9); Neutrophils # 6.14 10^3/uL (1.8-7.7); Neutrophils % 73.1 %; Nucleated Red Blood Cells % 0 %; Platelet Count 106 10^3/cmm (130-400); Red Blood Count 2.86 10^6/uL (4.1-5.3); Red Cell Distribution Width 20.5 % (12.1-15.1); White Blood Count 8.4 10^3/uL (4.0-10.0)
[2021-01-09] MEDS: pantoprazole 40 mg SDV IVP ×2 (04:04→17:58)
[2021-01-09 04:12] LABS: INR 1.61 (0.8-1.2)
[2021-01-09 04:24] LABS: Lactate (Lactic Acid level) 1.3 mmol/L (0.5-2.2)
[2021-01-09 04:29] LABS: C Reactive Protein 53.6 mg/L (0.0-4.9)
[2021-01-09 04:31] LABS: NT Pro B Type Natriuretic Pept 17552 pg/mL (0-125)
[2021-01-09 04:44] LABS: Alanine Aminotransferase 11 U/L (0-41); Albumin Level 4.2 g/dL (3.5-5.2); Alkaline Phosphatase 69 IU/L (40-130); Anion Gap 19.6 (5-19); Aspartate Amino Transferase 27 U/L (0-40); Calcium 9.5 mg/dL (8.5-10.5); Carbon Dioxide 29 mmol/L (22-29); Chloride 93 mmol/L (98-107); Creatine Phosphokinase 50 U/L (39-308); Globulin 2.6 g/dL (1.3-4.6); Glomerular Filtration Rate 19.3 mL/min (90-130); Glucose 130 mg/dL (65-115); Magnesium 2.5 mg/dL (1.7-2.3); Osmolality Calculated 315 mOsm/kg (285-295); Phosphorus 4.7 mg/dL (2.5-4.5); Potassium 3.6 mmol/L (3.5-5.1); Sodium 138 mmol/L (136-145); Total Bilirubin 2.1 mg/dL (0.15-1.2); Total Protein 6.8 g/dL (6.6-8.7)
[2021-01-09 04:46] LABS: Blood Urea Nitrogen 90 mg/dL (6-20)
[2021-01-09 06:06] LABS: ABG PCO2 58.1 mmHg (35-45); Arterial Blood Gas Hematocrit 30.7 % (42-52); Blood Gas Sample Site Brachial, left; Blood Gas Sample Type Arterial; HCO3 ABG 28.3 mmol/L (22-26); Oxygen Device VENT; PO2 ABG 83.9 mmHg (80.0-100.0)
--- NOTE | 2021-01-09 07:00 | XR_ITS ---
WS: [id number] Portable AP semiupright chest, 01/09/2021 Clinical Data: sob Comparison: Portable chest, 01/08/2021 Findings: The pulmonary vascularity is increased. The heart is slightly enlarged. The right dialysis catheter, right subclavian catheter, endotracheal tube and permanent pacemaker remain the same. The n asogastric tube appears to end in the stomach. Midline sternotomy sutures are present. Monitor leads are on the chest wall. XR/XR chest 1V portable 10521 Impression: 1. Development of pulmonary vascular congestion with mild cardiomegaly. 2. No change in multiple tubes.
[2021-01-09 07:37] LABS: Glucose Point of Care 149 mg/dL (70-110)
--- NOTE | 2021-01-09 07:52 | P.PN_ITS ---
Subjective Subjective: Interval history: intubated, sedated on pressors Medications: Reviewed: Yes Medication Review Details: Current Medications Acetaminophen (Acetaminophen 325 Mg Tablet) 650 mg PO Q6H PRN PRN Reason: MILD PAIN Last Admin: 12/27/20 22:09 Dose: 650 mg Documented by: Acetazolamide (Acetazolamide 250 Mg Tablet) 250 mg PO BID [facility] Last Admin: 01/08/21 17:12 Dose: 250 mg Documented by: Albuterol/Ipratropium (Ipratropium-Albuterol 3 Ml Neb) 3 ml INHALATION Q4H.RE SPIRATORY [facility] Last Admin: 01/09/21 03:23 Dose: 3 ml Documented by: Apixaban (Apixaban 5 Mg Tablet) 2.5 mg PO BID@ [facility] Atorvastatin Calcium (Atorvastatin 40 Mg Tablet) 80 mg PO DAILY@17 [facility] Last Admin: 01/08/21 16:49 Dose: 80 mg Documented by: Dextrose (Dextrose 50% Syringe 50 Ml) 25 ml IVP ONCE PRN; Protocol PRN Reason: hypoglycemia protocol Dextrose (Dextrose 50% Syringe 50 Ml) 50 ml IVP PRN PRN; Protocol PRN Reason: hypoglycemia protocol Ergocalciferol (Ergocalciferol (Vitamin D2) 50,000 Unit Capsule) 50,000 unit PO Q7D [facility] Last Admin: 01/02/21 09:46 Dose: Not Given Documented by: Glucagon (Glucagon 1 Mg/Ml Inj 1 Ml) 1 mg IM ONCE PRN; Protocol PRN Reason: Adult Acute Hypoglycemia Prot. Dextrose (D5w) 500 mls @ 100 mls/hr IV ONCE PRN; Protocol PRN Reason: Adult Acute Hypoglycemia Prot Piperacillin Sod/Tazobactam (Sod 3.375 gm/ Sodium Chloride) 50 mls @ 12.5 mls/hr IV Q8H [facility]; Protocol Last Infusion: 01/09/21 07:51 Dose: Infused Documented by: Propofol (Diprivan) 1,000 mg in 100 mls @ 0 mls/hr IV .Q0M [facility]; Protocol Last Titration: 01/08/21 20:04 Dose: Infused Documented by: Fentanyl 1,000 mcg/ Sodium (Chloride) 100 mls @ 0 mls/hr IV .Q0M [facility]; Protocol Last Admin: 01/09/21 02:48 Dose: 50 mcg/hr, 5 mls/hr Documented by: Norepinephrine Bitartrate 4 mg (/ Dextrose) 254 mls @ 0 mls/hr IV .Q0M [facility]; Protocol Last Admin: 01/08/21 22:42 Dose: 0.01 mcg/kg/m, 4 mls/hr Documented by: Midazolam HCl 100 mg/ Sodium (Chloride) 100 mls @ 0 mls/hr IV .Q0M [facility]; Protocol Last Admin: 01/08/21 09:30 Dose: 1 mg/hr, 1 mls/hr Documented by: Sodium Chloride (Sodium Chloride 0.9%) 1,000 mls @ 0 mls/hr IV .Q0M PRN PRN Reason: hypotension or symptomatic Insulin Aspart (Insulin Aspart 100 Unit/1 Ml) 0 unit SUBCUT WM&BEDTIME [facility]; Protocol Last Admin: 01/09/21 07:49 Dose: 4 unit Documented by: Midazolam HCl (Midazolam 1 Mg/Ml Inj 2 Ml) 1 mg IVP Q4H PRN PRN Reason: ANXIETY Ondansetron HCl (Ondansetron 2 Mg/Ml Sdv 2 Ml) 4 mg IVP Q6H PRN PRN Reason: NAUSEA AND VOMITING Pantoprazole Sodium (Pantoprazole 40 Mg Sdv) 40 mg IVP Q12H [facility] Last Admin: 01/09/21 04:04 Dose: 40 mg Documented by: Sucralfate (Sucralfate 1 Gm Tablet) 1 gm PO Q12H [facility] Last Admin: 01/09/21 03:26 Dose: 1 gm Documented by: Vitals/I&O/Wt Last Vital Signs Temp 97.3 F L 01/09/21 00:00 Pulse 77 01/09/21 06:00 Resp 14 01/09/21 06:15 BP 97/59 01/09/21 06:00 Pulse Ox 97 01/09/21 05:00 01/08/21 01/09/21 01/09/21 22:59 06:59 14:59 Intake Total 184.959 / 443.501 58.5 / 502.001 50 / 50 Output Total 50 / 50 Balance 134.959 / 393.501 58.5 / 452.001 50 / 50 Physical Exam Narrative: EXAM NARRATIVE: pt has anasarca VS noted- low dose pressers intubated-TV 500/ peep 5, fio2=30% heent- nc/at, eomi, anicteric neck supple lungs - + dull bases and crackles b/l heart irreg, +s1, s2, SRIKANTH abd soft, nt, nd, + bs ext b/l edema severe scrotal edema neuro- sedated Urinary Catheter Management^: Friedman: Cath Placed During This Visit: yes Reason for Continuing Indwelling Catheter: Accurate Measurement of Urinary Output in Critically Ill Patients Urinary Catheter Date of Insertion: 12/26/20 Urinary Catheter Time of Insertion: 15:36 Data : 01/09/21 03:38 01/09/21 03:38 Micro: Microbiology 01/07/21 05:20 Gram Stain - Final Sputum - Endotracheal Tube Aspirate A&P Additional A&P Information 60 yr old man h/o morbid obesity, BPH, p a fib, SSS, s/p PPM, DM w/ CKD stage 3- b/l cr 1.7 mgm/ dl, anemia, htn, CVA, hyperlipidemia, PVD, COPD, anasarca from right heart failure. 1. Acute kidney injury - Likely CRS. -s/p first HD 01/08/21 -repeat daily HD- 3 hrs, 4k, remove 2l 2. CKD stage 3- baseline serum creatinine 1.7 mg/dL- CRS, obesity, DM, htn -check pth. replace vit d 3. Anasarca: diffuse edema echo reviewed-ef 60%, Right ventricle mildly dilated -presumed RT heart failure -cont albumin and HD -bnp [id number] 4. primary hypercapneic resp acidosis and met compensation 5. Anemia, stable - give iron 6. P atrial fibrillation 7. diabetes mellitus per medicine 8. 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
[2021-01-09] MEDS: sodium bicarbonate 8.4% 1 mEq/mL 50mL Syr 50 MEQ IVP (08:39)
--- NOTE | 2021-01-09 08:59 | PC.CHAP ---
Pastoral Care Encounter/Spiritual Assessment Type of Contact [] Declined chaser helper visit [] Patient/Family/Request visit [] Outpatient visit [] Follow-up visit [] Physician referral [] Code/Alert [x] Routine visit [] Staff referral [] Actively dying [] Patient sleeping [] Family support [] [] Out of room [] Palliative care [] [] Receiving care in room [] Pre-surgical visit [] Trauma [] Long length of stay [x] ICU visit [] Other: Relational/Emotional Strength [] Patient feels connected with others/family/visitors/staff [] Distress [] Loneliness/isolation [] Abandonment Spirituality of Patient [] Person of Lacy [] Attends Jainism of their Lacy [] Believes in Prayer [] Reads Bible or Lutheran materials [] There are Spiritual issues to be addressed Home Theater Installer Interventions [x] Prayer [] Active listening [] Non-anxious presence [] Spiritual/emotional support [] Crisis/trauma care [] Spiritual counseling [] Bereavement support [] Provided bereavement packet [] Provided Bible/devotional materials [] Provided toy/stuffed animal, coloring book to patient or family member [] Provided Communion [] Anointing/Saline [] Salvation [x] Completed spiritual assessment [] Other: Impact on Illness or Injury [] Angry [] Fearful [] Anxious [] Often cries [] Exhaustion [] Unable to work [] Unable to attend congregational [] Unable to walk/stand [] Unable to read [] Unable to drive [] Unable to eat/drink [] Unable to sleep [] Unable to be with family [] Patient intubated [] Other: Summary Time spent with patient
[2021-01-09 09:04] LABS: Lactate Dehydrogenase 243 U/L (135-225)
[2021-01-09] MEDS: albumin 12.5 GM/50 ML VIAL IV (09:22)
--- NOTE | 2021-01-09 09:49 | PC.NURSE ---
fady here to adm. dialysis. will hold zosyn since it will be dialyzed out.
--- NOTE | 2021-01-09 12:18 | PC.SLP ---
Speech therapy will monitor while on vent and re-assess as needed once he is extubated.
[2021-01-09 12:33] LABS: Hematocrit 30.6 % (42.0-52.0); Hemoglobin 9.1 g/dL (11.7-16.6)
[2021-01-09 13:21] LABS: Fibrinogen 336 mg/dL (174-498); INR 1.72 (0.8-1.2); Partial Thromboplastin Time 102.6 SECONDS (23.9-36.7)
[2021-01-09 13:39] LABS: Glucose Point of Care 118 mg/dL (70-110)
--- NOTE | 2021-01-09 13:47 | PC.NURSE ---
dressing changed to right cvl and hemodialysis port per dialysis nurse fady. red oozing continues from both sites.
--- NOTE | 2021-01-09 15:54 | P.PN_ITS ---
Subjective Subjective: Interval history: Yesterday afternoon, patient had a significant episode of rectal bleeding, hemoglobin remained 8-9, had minimal episodes of rectal bleeding this morning, currently MAP is greater than 65, is on 4 of Levophed, afebrile overnight, currently intubated, sedated, plans on dialysis this morning, Medications: Reviewed: Yes Medication Review Details: Current Medications Acetaminophen (Acetaminophen 325 Mg Tablet) 650 mg PO Q6H PRN PRN Reason: MILD PAIN Last Admin: 12/27/20 22:09 Dose: 650 mg Documented by: Acetazolamide (Acetazolamide 250 Mg Tablet) 250 mg PO BID [facility] Last Admin: 01/08/21 17:12 Dose: 250 mg Documented by: Albuterol/Ipratropium (Ipratropium-Albuterol 3 Ml Neb) 3 ml INHALATION Q4H.RESPIRATORY [facility] Last Admin: 01/09/21 03:23 Dose: 3 ml Documented by: Apixaban (Apixaban 5 Mg Tablet) 2.5 mg PO BID@,17 [facility] Atorvastatin Calcium (Atorvastatin 40 Mg Tablet) 80 mg PO DAILY@17 [facility] Last Admin: 01/08/21 16:49 Dose: 80 mg Documented by: Dextrose (Dextrose 50% Syringe 50 Ml) 25 ml IVP ONCE PRN; Protocol PRN Reason: hypoglycemia protocol Dextrose (Dextrose 50% Syringe 50 Ml) 50 ml IVP PRN PRN; Protocol PRN Reason: hypoglycemia protocol Ergocalciferol (Ergocalciferol (Vitamin D2) 50,000 Unit Capsule) 50,000 unit PO Q7D [facility] Last Admin: 01/02/21 09:46 Dose: Not Given Documented by: Glucagon (Glucagon 1 Mg/Ml Inj 1 Ml) 1 mg IM ONCE PRN; Protocol PRN Reason: Adult Acute Hypoglycemia Prot. Dextrose (D5w) 500 mls @ 100 mls/hr IV ONCE PRN; Protocol PRN Reason: Adult Acute Hypoglycemia Prot Piperacillin Sod/Tazobactam (Sod 3.375 gm/ Sodium Chloride) 50 mls @ 12.5 mls/hr IV Q8H [facility]; Protocol Last Infusion: 01/09/21 07:51 Dose: Infused Documented by: Propofol (Diprivan) 1,000 mg in 100 mls @ 0 mls/hr IV .Q0M [facility]; Protocol Last Titration: 01/08/21 20:04 Dose: Infused Documented by: Fentanyl 1,000 mcg/ Sodium (Chloride) 100 mls @ 0 mls/hr IV .Q0M [facility]; Protocol Last Admin: 01/09/21 02:48 Dose: 50 mcg/hr, 5 mls/hr Documented by: Norepinephrine Bitartrate 4 mg (/ Dextrose) 254 mls @ 0 mls/hr IV .Q0M [facility]; Protocol Last Admin: 01/08/21 22:42 Dose: 0.01 mcg/kg/m, 4 mls/hr Documented by: Midazolam HCl 100 mg/ Sodium (Chloride) 100 mls @ 0 mls/hr IV .Q0M [facility]; Protocol Last Admin: 01/08/21 09:30 Dose: 1 mg/hr, 1 mls/hr Documented by: Sodium Chloride (Sodium Chloride 0.9%) 1,000 mls @ 0 mls/hr IV .Q0M PRN PRN Reason: hypotension or symptomatic Insulin Aspart (Insulin Aspart 100 Unit/1 Ml) 0 unit SUBCUT WM&BEDTIME [facility]; Protocol Last Admin: 01/09/21 07:49 Dose: 4 unit Documented by: Midazolam HCl (Midazolam 1 Mg/Ml Inj 2 Ml) 1 mg IVP Q4H PRN PRN Reason: ANXIETY Ondansetron HCl (Ondansetron 2 Mg/Ml Sdv 2 Ml) 4 mg IVP Q6H PRN PRN Reason: NAUSEA AND VOMITING Pantoprazole Sodium (Pantoprazole 40 Mg Sdv) 40 mg IVP Q12H [facility] Last Admin: 01/09/21 04:04 Dose: 40 mg Documented by: Sucralfate (Sucralfate 1 Gm Tablet) 1 gm PO Q12H [facility] Last Admin: 01/09/21 03:26 Dose: 1 gm Documented by: Vitals/I&O/Wt Last Vital Signs Temp 97.3 F L 01/09/21 00:00 Pulse 61 01/09/21 14:00 Resp 14 01/09/21 13:09 BP 100/62 01/09/21 14:00 Pulse Ox 97 01/09/21 14:00 01/09/21 01/09/21 01/09/21 06:59 14:59 22:59 Intake Total 58.5 / 502.001 192.267 / 192.267 Balance 58.5 / 452.001 192.267 / 192.267 Physical Exam Narrative: EXAM NARRATIVE: Intubated, sedated on the ventilator Const: COMMON NORMALS: no acute distress and patient oriented x3 OTHER: Intubated, sedated on the ventilator HENMT: COMMON NORMALS: normocephalic HEAD & SCALP: normocephalic Neck/C-Spine: COMMON NORMALS: no JVD Resp: COMMON NORMALS: normal respiratory effort, No retractions, No use of accessory muscles and clear to auscultation bilaterally AUSCULTATION: clear to auscultation bilaterally Cardio: COMMON NORMALS: no JVD, regular rate, regular rhythm, S1 normal heart sound present and S2 normal heart sound present RATE: regular rate RHYTHM: regular rhythm HEART SOUNDS: S1 normal heart sound present and S2 normal heart sound present GI: COMMON NORMALS: Normal to inspection, nondistended, normoactive bowel sounds present, Soft to palpation, non-tender, No hepatosplenomegaly present, no masses and no bruits PALPATION: Yes Soft to palpation and Yes No hepatosplenomegaly present Extremity: COMMON NORMALS: capillary refill normal, no clubbing, cyanosis or edema, no calf tenderness and no pedal edema NARRATIVE EXTREMITY EXAM: 2+ pitting edema Neuro: COMMON NORMALS: patient oriented x3 Psych: COMMON NORMALS: mental status grossly normal Skin: NARRATIVE SKIN EXAM: Generalized anasarca Right dialysis catheter site, has dried blood clots, dressing is soaked in blood, no active bleeding Urinary Catheter Management^: Friedman: Cath Placed During This Visit: yes Reason for Continuing Indwelling Catheter: Accurate Measurement of Urinary Output in Critically Ill Patients Urinary Catheter Date of Insertion: 12/26/20 Urinary Catheter Time of Insertion: 15:36 Data : 01/09/21 12:20 01/09/21 03:38 Micro: Microbiology 01/07/21 05:20 Gram Stain - Final Sputum - Endotracheal Tube Aspirate Sputum Culture - Preliminary Staphylococcus aureus A&P Assessment and plan (1) Acute respiratory distress: Status: Acute (2) Right heart failure: Status: Acute Qualifiers: Heart failure chronicity: acute on chronic Qualified Code(s): I50.813 - Acute on chronic right heart failure (3) Acute worsening of stage 3 chronic kidney disease: Status: Acute Acute on chronic respiratory failure secondary to diastolic CHF with underlying CKD - Etiology multi-factorial - Fluid overload with underlying COPD exacerbation - Successfully extubated 01/01/2020, however had worsening general anasarca, worsening shortness of breath, increasing creatinine, failure of Lasix therapy - Remains intubated after dialysis catheter placement as per plan -Chest x-ray this morning shows pulmonary vascular congestion - will receive dialysis this morning, Levophed as needed to maintain MAP greater than 65 during dialysis - Intubated, mechanical vent, minimize PEEP to minimize FiO2 -Continue Zosyn -Switch to fentanyl and Versed for sedation - Pulmonary on consult -Does have bleeding from dialysis catheter site, likely related to prolonged effects of Eliquis, hemoglobin 8.6, will monitor, INR 1.9, will give 1 unit FFP for now Acute on chronic HFpEF exacerbation /Cor pulmonale - Previously noted RV dysfunction - Monitor urine output Acute on chronic stage 3 kidney disease - Creatinine fluctuating baseline - 1.7->2.5 - Currently 3.4 -Receiving dialysis - Repeat BMP in am - Friedman in place - Monitor urine output - Nephrology consult Acute on chronic anemia: -Currently hemoglobin 8.6 -Likely multifactorial, related to CKD, anemia of chronic disease -Continue to monitor hemoglobin -Hold Eliquis for now given worsening anemia, bleeding from dialysis catheter site Elevated troponin - Likely type 2 in setting of worsening renal failure Paroxysmal Atrial fibrillation - Currently paced - Eliquis 5 mg PO BID on hold due to anemia, bleeding from dialysis catheter site - Monitor on tele SSS s/p pacemaker - Pacemaker interrogation Diabetes mellitus - Sliding scale insulin - Qachs checks Stage 1 right trochanteric decubitus ulcer - Wound care - Possible surrounding cellulitis - Pressure off loading GERD/Hx of H.Pylori - Protonix 40 mg PO BID DVT ppx -SCDs, Eliquis on hold Additional A&P Information Acute on chronic respiratory failure secondary to diastolic CHF with underlying CKD - Etiology multi-factorial - Fluid overload with underlying COPD exacerbation - Successfully extubated 01/01/2020, however had worsening general anasarca, worsening shortness of breath, increasing creatinine, failure of Lasix therapy - Remains intubated after dialysis catheter placement as per plan -Remains intubated, sedated on the ventilator, pH 7.3, PCO2 58.1, bicarb 28.3, ventilator settings adjusted -Chest x-ray this morning shows improving pulmonary vascular congestion -Currently on 4 of Levophed - will receive dialysis this morning, Levophed as needed to maintain MAP greater than 65 during dialysis - Intubated, mechanical vent, minimize PEEP to minimize FiO2 -Continue Zosyn -S on fentanyl and Versed for sedation - Pulmonary on consult -Does have bleeding from dialysis catheter site, likely related to prolonged effects of Eliquis, given renal failure, hemoglobin 9.1, INR 1.72, status post 1 unit FFP -Receiving albumin Rectal bleeding, likely lower GI bleed: -Given elevated INR, likely prolonged effect of Eliquis given renal failure (4% dialysis ago during a 4-hour session) -Hgb 9.1 -4 of levophed -Continue to monitor hemoglobin, monitor for bloody black stools -Protonix, Carafate -Eliquis currently on hold Patient does have anemia, elevated bilirubin, LDH 243, FDP positive, D-dimer 10, INR 1.72, fibrinogen 336 -Has some component of DIC, but could be related to renal failure, will continue to monitor Acute on chronic HFpEF exacerbation /Cor pulmonale - Previously noted RV dysfunction - Monitor urine output Acute on chronic stage 3 kidney disease - Creatinine fluctuating baseline - 1.7->2.5 - Currently 3.3 -Receiving dialysis - Repeat BMP in am - Friedman in place - Monitor urine output - Nephrology consult Acute on chronic anemia: -Currently hemoglobin 9.1 -Likely multifactorial, related to CKD, anemia of chronic disease, lower GI bl eed, possible DIC -Continue to monitor hemoglobin -Hold Eliquis for now given worsening anemia, bleeding from dialysis catheter site Elevated troponin - Likely type 2 in setting of worsening renal failure Paroxysmal Atrial fibrillation - Currently paced - Eliquis 5 mg PO BID on hold due to anemia, bleeding from dialysis catheter site - Monitor on tele SSS s/p pacemaker - Pacemaker interrogation Diabetes mellitus - Sliding scale insulin - Qachs checks Stage 1 right trochanteric decubitus ulcer - Wound care - Possible surrounding cellulitis - Pressure off loading GERD/Hx of H.Pylori - Protonix 40 mg PO BID DVT ppx -SCDs, Eliquis on hold Attestations Medical Necessity Statement*: Patient requires hospitalization due to acute on chronic respiratory failure secondary diastolic CHF, now with lower rectal bleed, GI bleed, anemia, critical care time spent greater than 50 minutes Coding Level of Care Code Acute [employer] Operator for Jocelyne Pat Diagnoses Acute respiratory distress R06.03 Right heart failure I50.813 Heart failure chronicity: acute on chronic Acute worsening of stage 3 chronic kidney disease N18.30
--- NOTE | 2021-01-09 15:59 | PM.PN ---
Subjective Subjective: Interval history: Pt had significant episode of rectal bleeding yesterday stable hb/hct noted today am labs . Currently on Levophed 4; and MAP > 65 afebrile overnight, currently intubated, sedated, Scheduled for another session of dialysis this morning, Medications: Reviewed: Yes Medication Review Details: Current Medications Acetaminophen (Acetaminophen 325 Mg Tablet) 650 mg PO Q6H PRN PRN Reason: MILD PAIN Last Admin: 12/27/20 22:09 Dose: 650 mg Documented by: Acetazolamide (Acetazolamide 250 Mg Tablet) 250 mg PO BID [facility] Last Admin: 01/08/21 17:12 Dose: 250 mg Documented by: Albuterol/Ipratropium (Ipratropium-Albuterol 3 Ml Neb) 3 ml INHALATION Q4H.RESPIRATORY [facility] Last Admin: 01/09/21 03:23 Dose: 3 ml Documented by: Apixaban (Apixaban 5 Mg Tablet) 2.5 mg PO BID@,17 [facility] Atorvastatin Calcium (Atorvastatin 40 Mg Tablet) 80 mg PO DAILY@17 [facility] Last Admin: 01/08/21 16:49 Dose: 80 mg Documented by: Dextrose (Dextrose 50% Syringe 50 Ml) 25 ml IVP ONCE PRN; Protocol PRN Reason: hypoglycemia protocol Dextrose (Dextrose 50% Syringe 50 Ml) 50 ml IVP PRN PRN; Protocol PRN Reason: hypoglycemia protocol Ergocalciferol (Ergocalciferol (Vitamin D2) 50,000 Unit Capsule) 50,000 unit PO Q7D [facility] Last Admin: 01/02/21 09:46 Dose: Not Given Documented by: Glucagon (Glucagon 1 Mg/Ml Inj 1 Ml) 1 mg IM ONCE PRN; Protocol PRN Reason: Adult Acute Hypoglycemia Prot. Dextrose (D5w) 500 mls @ 100 mls/hr IV ONCE PRN; Protocol PRN Reason: Adult Acute Hypoglycemia Prot Piperacillin Sod/Tazobactam (Sod 3.375 gm/ Sodium Chloride) 50 mls @ 12.5 mls/hr IV Q8H [facility]; Protocol Last Infusion: 01/09/21 07:51 Dose: Infused Documented by: Propofol (Diprivan) 1,000 mg in 100 mls @ 0 mls/hr IV .Q0M [facility]; Protocol Last Titration: 01/08/21 20:04 Dose: Infused Documented by: Fentanyl 1,000 mcg/ Sodium (Chloride) 100 mls @ 0 mls/hr IV .Q0M [facility]; Protocol Last Admin: 01/09/21 02:48 Dose: 50 mcg/hr, 5 mls/hr Documented by: Norepinephrine Bitartrate 4 mg (/ Dextrose) 254 mls @ 0 mls/hr IV .Q0M [facility]; Protocol Last Admin: 01/08/21 22:42 Dose: 0.01 mcg/kg/m, 4 mls/hr Documented by: Midazolam HCl 100 mg/ Sodium (Chloride) 100 mls @ 0 mls/hr IV .Q0M [facility]; Protocol Last Admin: 01/08/21 09:30 Dose: 1 mg/hr, 1 mls/hr Documented by: Sodium Chloride (Sodium Chloride 0.9%) 1,000 mls @ 0 mls/hr IV .Q0M PRN PRN Reason: hypotension or symptomatic Insulin Aspart (Insulin Aspart 100 Unit/1 Ml) 0 unit SUBCUT WM&BEDTIME [facility]; Protocol Last Admin: 01/09/21 07:49 Dose: 4 unit Documented by: Midazolam HCl (Midazolam 1 Mg/Ml Inj 2 Ml) 1 mg IVP Q4H PRN PRN Reason: ANXIETY Ondansetron HCl (Ondansetron 2 Mg/Ml Sdv 2 Ml) 4 mg IVP Q6H PRN PRN Reason: NAUSEA AND VOMITING Pantoprazole Sodium (Pantoprazole 40 Mg Sdv) 40 mg IVP Q12H [facility] Last Admin: 01/09/21 04:04 Dose: 40 mg Documented by: Sucralfate (Sucralfate 1 Gm Tablet) 1 gm PO Q12H [facility] Last Admin: 01/09/21 03:26 Dose: 1 gm Documented by: Vitals/I&O/Wt Last Vital Signs Temp 97.3 F L 01/09/21 00:00 Pulse 61 01/09/21 14:00 Resp 14 01/09/21 13:09 BP 100/62 01/09/21 14:00 Pulse Ox 97 01/09/21 14:00 01/09/21 01/09/21 01/09/21 06:59 14:59 22:59 Intake Total 58.5 / 502.001 192.267 / 192.267 Balance 58.5 / 452.001 192.267 / 192.267 Physical Exam Narrative: EXAM NARRATIVE: General: Morbidly obese, intubated and sedated HEENT: conj clear, EOMI, PERRL, mmm, Neck: supple, no meningismus Heme: no cervical LAP Pulmonary: Bilateral diffuse crackles Cardiovascular: rrr, nl s1s2, no mrg Abdomen: Abdominal wall pitting edema, nt, nd, no r/g, bs+ Extremities: pulses +, 3+ pitting pedal edema, no c/c : no CVA tenderness Skin: intact, no rash MSK: no back or neck pain Neurologic: Sedated limited examination Urinary Catheter Management^: Friedman: Cath Placed During This Visit: yes Reason for Continuing Indwelling Catheter: Accurate Measurement of Urinary Output in Critically Ill Patients Urinary Catheter Date of Insertion: 12/26/20 Urinary Catheter Time of Insertion: 15:36 Data : 01/09/21 12:20 01/09/21 03:38 Micro: Microbiology 01/07/21 05:20 Gram Stain - Final Sputum - Endotracheal Tube Aspirate Sputum Culture - Preliminary Staphylococcus aureus A&P Assessment and plan (1) Acute worsening of stage 3 chronic kidney disease: Status: Acute (2) Right heart failure: Status: Acute Qualifiers: Heart failure chronicity: acute on chronic Qualified Code(s): I50.813 - Acute on chronic right heart failure (3) Acute respiratory distress: Status: Acute (4) Fluid overload: Status: Acute Qualifiers: Hypervolemia type: unspecified Qualified Code(s): E87.70 - Fluid overload, unspecified (5) Atrial fibrillation: Status: Acute Qualifiers: Atrial fibrillation type: unspecified chronic Qualified Code(s): I48.20 - Chronic atrial fibrillation, unspecified (6) Acute renal failure: Status: Acute Qualifiers: Acute renal failure type: unspecified Qualified Code(s): N17.9 - Acute kidney failure, unspecified (7) COPD (chronic obstructive pulmonary disease): Status: Acute Qualifiers: COPD type: unspecified COPD Qualified Code(s): J44.9 - Chronic obstructive pulmonary disease, unspecified (8) CHF (congestive heart failure): Status: Acute Qualifiers: Heart failure type: diastolic Heart failure chronicity: acute on chronic Qualified Code(s): I50.33 - Acute on chronic diastolic (congestive) heart failure (9) Obesity hypoventilation syndrome: Status: Acute (10) AMS (altered mental status): Status: Acute (11) Uremic encephalopathy: Status: Acute #Acute on chronic hypercapnic respiratory failure in patient with morbid obesity/chronic diastolic heart failure/COPD/obesity hypoventilation syndrome #JOSE on CKD stage III-likely cardiorenal #AMS due to uremic encephalopathy #Clinically volume overloaded-due to chronic diastolic heart failure with RV dysfunction and acute renal failure #Sputum culture - prelim staph aureus - sensitivies pending; #GI bleed -Intubated 12/28/2020-extubated 01/01/2021 and reintubated 01/07/2021 for AMS due to uremic encephalopathy -ABG 7.30/58/83/28/ 96% on 14/30%/550/6 PEEP CMV -BNP 22,000 > 18172 and worsening renal functions and decreasing urine output, clinically volume overloaded -Echo 11/20/2020: EF 60% with right atrium and RV mildly dilated -Previously on Lasix drip and started on Diamox 250 p.o. twice daily and initiated hemodialysis 01/08/21 -Bleeding from catheter insertion site-S/P 1 unit PRBC 01/08 -GI bleed - NPO, Hold Elliquis; continue iv PPI; sucralfate; Monitor H & H and transfuse to keep hb > 7/21 -Low procalcitonin-recommended to discontinue Zosyn; Sputum culture - prelim staph aureus - sensitivies pending; -We will start tapering sedation and do awakening trial and breathing trial and plan to extubate starting tomorrow. Recommendations RT, RN and hospitalist covering the patient Attestations Medical Necessity Statement*: Acute on chronic kidney failure requiring hemodialysis and altered mental status secondary to uremic encephalopathy and acute on chronic hypercapnic respiratory failure due to morbid obesity/chronic diastolic heart failure/COPD/obesity hypoventilation syndrome-requiring mechanical ventilation and hemodialysis Time Spent in Patient Care: Greater than 35 minutes (>than 50% of time spent in counselling and/or direct pt care on unit). Critical Care Time: Critical Care Time (min): 45 Coding Level of Care Code Established Pt Acute Manager Of Planning for Jocelyne Pat Patient Type Established History Comprehensive Exam Comprehensive Medical Decision Making High Complexity Diagnoses Acute worsening of stage 3 chronic kidney disease N18.30 Right heart failure I50.813 Heart failure chronicity: acute on chronic Acute respiratory distress R06.03 Fluid overload E87.70 Hypervolemia type: unspecified Atrial fibrillation I48.20 Atrial fibrillation type: unspecified chronic Acute renal failure N17.9 Acute renal failure type: unspecified COPD (chronic obstructive pulmonary disease) J44.9 COPD type: unspecified COPD CHF (congestive heart failure) I50.33 Heart failure type: diastolic Heart failure chronicity: acute on chronic Obesity hypoventilation syndrome E66.2 AMS (altered mental status) R41.82 Uremic encephalopathy G93.49; N19 Time Spent (min) 45
[2021-01-09 17:08] LABS: Glucose Point of Care 110 mg/dL (70-110)
[2021-01-09] MEDS: atorvastatin 40 mg Tablet 80 MG PO (17:54)
[2021-01-09 21:58] LABS: Glucose Point of Care 108 mg/dL (70-110)
[2021-01-10] VITALS (86 sets, daily range): BP systolic 73–127; BP diastolic 32–71; PULSE 56–75; RESP 14–19; TEMP 35.9–36.9; O2SAT 94–99
--- NOTE | 2021-01-10 00:19 | PC.NURSE ---
Hemodialysis port located in Right side chest in IJ.
[2021-01-10 00:37] LABS: Hematocrit 26.5 % (42.0-52.0); Hemoglobin 8.1 g/dL (11.7-16.6)
[2021-01-10] MEDS: piperacillin-tazobactam 3.375 GM in sodium chloride 0.9% (plus) 50 ML IV (02:19)
[2021-01-10] MEDS: pantoprazole 40 mg SDV IVP ×2 (03:34→15:31)
[2021-01-10] MEDS: sucralfate 1 gm Tablet PO ×2 (03:34→15:29)
[2021-01-10 04:10] LABS: Basophils % 0.5 %; Eosinophils # 0.2 10^3/uL (0.0-0.8); Eosinophils % 2.8 %; Hematocrit 26.6 % (42.0-52.0); Lymphocytes % 11.4 %; Mean Corpuscular HGB Conc 30.1 g/dL (30.0-36.0); Mean Corpuscular Hemoglobin 28.7 pg (28.0-34.0); Mean Corpuscular Volume 95.3 fL (80-94); Mean Platelet Volume 11.7 fL (7.4-10.4); Monocytes # 1.2 10^3/uL (0.2-0.9); Monocytes % 13.6 %; Neutrophils # 6.08 10^3/uL (1.8-7.7); Neutrophils % 71.1 %; Nucleated Red Blood Cells % 0 %; Platelet Count 96 10^3/cmm (130-400); Red Blood Count 2.79 10^6/uL (4.1-5.3); Red Cell Distribution Width 21.1 % (12.1-15.1); White Blood Count 8.5 10^3/uL (4.0-10.0)
[2021-01-10 04:17] LABS: INR 1.55 (0.8-1.2)
[2021-01-10] MEDS: ipratropium-albuterol 3 mL Neb INHALATION ×4 (04:21→15:32)
[2021-01-10 04:29] LABS: Lactate (Lactic Acid level) 1.5 mmol/L (0.5-2.2)
[2021-01-10 04:35] LABS: NT Pro B Type Natriuretic Pept 13506 pg/mL (0-125); Procalcitonin 0.54 ng/mL (0-0.5)
[2021-01-10 04:47] LABS: Alanine Aminotransferase 12 U/L (0-41); Albumin Level 3.9 g/dL (3.5-5.2); Alkaline Phosphatase 69 IU/L (40-130); Anion Gap 20.7 (5-19); Aspartate Amino Transferase 27 U/L (0-40); Blood Urea Nitrogen 67 mg/dL (6-20); Calcium 9.1 mg/dL (8.5-10.5); Carbon Dioxide 27 mmol/L (22-29); Chloride 96 mmol/L (98-107); Creatine Phosphokinase 53 U/L (39-308); Globulin 2.9 g/dL (1.3-4.6); Glomerular Filtration Rate 20.7 mL/min (90-130); Glucose 115 mg/dL (65-115); Magnesium 2.5 mg/dL (1.7-2.3); Osmolality Calculated 310 mOsm/kg (285-295); Phosphorus 3.8 mg/dL (2.5-4.5); Potassium 3.7 mmol/L (3.5-5.1); Sodium 140 mmol/L (136-145); Total Bilirubin 2.2 mg/dL (0.15-1.2); Total Protein 6.8 g/dL (6.6-8.7)
[2021-01-10 05:04] LABS: C Reactive Protein 64.6 mg/L (0.0-4.9)
[2021-01-10 05:46] LABS: ABG PCO2 47.6 mmHg (35-45); ABG PH Result 7.38 (7.35-7.45); Arterial Blood Gas Hematocrit 26.1 % (42-52); Base Excess ABG 2.5 mmol/L (-2.0-2.0); Blood Gas Sample Site Radial, right; Blood Gas Sample Type Arterial; Blood Gas Tidal Volume 0.55; HCO3 ABG 28.1 mmol/L (22-26); Oxygen Device VENT; PO2 ABG 97.4 mmHg (80.0-100.0)
--- NOTE | 2021-01-10 07:00 | XR_ITS ---
WS: [id number] Portable AP semiupright chest, 01/10/2021 Clinical Data: sob Comparison: Portable chest, 01/09/2021 Findings: The endotracheal tube, nasogastric tube, dialysis catheter, right subclavian catheter, per manent pacemaker and monitor leads remain the same. The heart remains enlarged. Bilateral pulmonary o pacities have not changed. Midline sternotomy sutures are seen. There are clips in the left side of the neck from surgery. There is an orthopedic anchor in the left humeral head. XR/XR chest 1V portable [id number] Impression: No change from yesterday's portable chest.
--- NOTE | 2021-01-10 07:41 | PC.NURSE ---
Initial assessment of patient and medications revealed Versed running at 2mg/hr. I am unsure of how long it has been at that rate since it is charted at 1mg/hr. I changed the rate in the chart to reflect the correct dose. It will appear that there will be waste on the mar but this will not be the case when I scan the new bag. At this time our amount left to be infused is 14ml.
[2021-01-10 07:50] LABS: Glucose Point of Care 145 mg/dL (70-110)
--- NOTE | 2021-01-10 07:59 | P.PN_ITS ---
Subjective Subjective: Interval history: sedated, intubated, on pressers. s/p HD yesterday Medications: Reviewed: Yes Medication Review Details: Current Medications Acetaminophen (Acetaminophen 325 Mg Tablet) 650 mg PO Q6H PRN PRN Reason: MILD PAIN Last Admin: 12/27/20 22:09 Dose: 650 mg Documented by: Albuterol/Ipratropium (Ipratropium-Albuterol 3 Ml Neb) 3 ml INHALATION Q4H.RESP IRATORY [facility] Last Admin: 01/10/21 04:21 Dose: 3 ml Documented by: Apixaban (Apixaban 5 Mg Tablet) 2.5 mg PO BID@ [facility] Atorvastatin Calcium (Atorvastatin 40 Mg Tablet) 80 mg PO DAILY@17 [facility] Last Admin: 01/09/21 17:54 Dose: 80 mg Documented by: Dextrose (Dextrose 50% Syringe 50 Ml) 25 ml IVP ONCE PRN; Protocol PRN Reason: hypoglycemia protocol Dextrose (Dextrose 50% Syringe 50 Ml) 50 ml IVP PRN PRN; Protocol PRN Reason: hypoglycemia protocol Ergocalciferol (Ergocalciferol (Vitamin D2) 50,000 Unit Capsule) 50,000 unit PO Q7D [facility] Last Admin: 01/09/21 13:29 Dose: Not Given Documented by: Glucagon (Glucagon 1 Mg/Ml Inj 1 Ml) 1 mg IM ONCE PRN; Protocol PRN Reason: Adult Acute Hypoglycemia Prot. Dextrose (D5w) 500 mls @ 100 mls/hr IV ONCE PRN; Protocol PRN Reason: Adult Acute Hypoglycemia Prot Piperacillin Sod/Tazobactam (Sod 3.375 gm/ Sodium Chloride) 50 mls @ 12.5 ml s/hr IV Q8H [facility]; Protocol Last Infusion: 01/10/21 05:06 Dose: 0 mls/hr Documented by: Propofol (Diprivan) 1,000 mg in 100 mls @ 0 mls/hr IV .Q0M [facility]; Protocol Last Titration: 01/08/21 20:04 Dose: Infused Documented by: Fentanyl 1,000 mcg/ Sodium (Chloride) 100 mls @ 0 mls/hr IV .Q0M KOSTA; Protocol Last Admin: 01/10/21 00:12 Dose: 50 mcg/hr, 5 mls/hr Documented by: Norepinephrine Bitartrate 4 mg (/ Dextrose) 254 mls @ 0 mls/hr IV .Q0M KOSTA; Protocol Last Admin: 01/10/21 04:36 Dose: 6 mcg/kg/m, 3,177.1 mls/hr Documented by: Midazolam HCl 100 mg/ Sodium (Chloride) 100 mls @ 0 mls/hr IV .Q0M KOSTA; Protocol Last Titration: 01/10/21 06:50 Dose: 2 mg/hr, 2 mls/hr Documented by: Sodium Chloride (Sodium Chloride 0.9%) 1,000 mls @ 0 mls/hr IV .Q0M PRN PRN Reason: hypotension or symptomatic Albumin Human (Albumin) 12.5 gm in 50 mls @ 60 mls/hr IV PRN PRN PRN Reason: Hypotension and/or symptomatic Last Infusion: 01/09/21 10:15 Dose: Infused Documented by: Insulin Aspart (Insulin Aspart 100 Unit/1 Ml) 0 unit SUBCUT WM&BEDTIME [facility]; Protocol Last Admin: 01/10/21 07:54 Dose: Not Given Documented by: Midazolam HCl (Midazolam 1 Mg/Ml Inj 2 Ml) 1 mg IVP Q4H PRN PRN Reason: ANXIETY Ondansetron HCl (Ondansetron 2 Mg/Ml Sdv 2 Ml) 4 mg IVP Q6H PRN PRN Reason: NAUSEA AND VOMITING Pantoprazole Sodium (Pantoprazole 40 Mg Sdv) 40 mg IVP Q12H [facility] Last Admin: 01/10/21 03:34 Dose: 40 mg Documented by: Sucralfate (Sucralfate 1 Gm Tablet) 1 gm PO Q12H KOSTA Last Admin: 01/10/21 03:34 Dose: 1 gm Documented by: Vitals/I&O/Wt Last Vital Signs Temp 97.7 F 01/10/21 04:00 Pulse 64 01/10/21 06:00 Resp 14 01/10/21 04:23 BP 104/60 01/10/21 06:00 Pulse Ox 97 01/10/21 06:00 01/09/21 01/10/21 01/10/21 22:59 06:59 14:59 Intake Total 415.325 / 607.592 334.125 / 941.717 Output Total 50 / 50 50 / 100 Balance 365.325 / 557.592 284.125 / 841.717 Weight last 48 hrs Weight 140.478 kg Physical Exam Narrative: EXAM NARRATIVE: pt has anasarca VS noted- levophed intubated-TV 500/ peep 6, fio2=30% heent- nc/at, eomi, anicteric neck supple lungs - + dull bases and crackles b/l heart irreg, +s1, s2, SRIKANTH abd soft, nt, nd, + bs ext b/l edema severe scrotal edema neuro- sedated Urinary Catheter Management^: Friedman: Cath Placed During This Visit: yes Reason for Continuing Indwelling Catheter: Accurate Measurement of Urinary Output in Critically Ill Patients Urinary Catheter Date of Insertion: 12/26/20 Urinary Catheter Time of Insertion: 15:36 Data : 01/10/21 03:35 01/10/21 03:35 Micro: Microbiology 01/07/21 05:20 Gram Stain - Final Sputum - Endotracheal Tube Aspirate Sputum Culture - Preliminary Staphylococcus aureus A&P Additional A&P Information 60 yr old man h/o morbid obesity, BPH, p a fib, SSS, s/p PPM, DM w/ CKD stage 3- b/l cr 1.7 mgm/ dl, anemia, htn, CVA, hyperlipidemia, PVD, COPD, anasarca from right heart failure. 1. Acute kidney injury - Likely CRS. -s/p HD 01/08/21 and 01/09 -for SUF now -if fails fluid removal w/ HD- consider transfer for CVVHD -assess for HD in am 2. CKD stage 3- baseline serum creatinine 1.7 mg/dL- CRS, obesity, DM, htn -check pth. replace vit d 3. Anasarca: diffuse edema echo reviewed-ef 60%, Right ventricle mildly dilated -presumed RT heart failure -cont albumin and HD -bnp continues to oct -if fails IHD- consider transfer for CVVH or CHF eval 4. primary hypercapneic resp acidosis and met compensation 5. Anemia, hgb dropping- iv iron and TAPAN 6. P atrial fibrillation 7. diabetes mellitus per medicine 8. 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
[2021-01-10] MEDS: b-complex-vitamin c Tablet 1 EACH PO (08:37)
[2021-01-10] MEDS: albumin 12.5 GM/50 ML VIAL IV (08:53)
--- NOTE | 2021-01-10 11:41 | PC.NURSE ---
I updated patients daughter via telephone. She would like for her father to be transferred to [facility] or [facility] if the need arises. Her first choice would be [facility].
[2021-01-10] MEDS: vancomycin 1,500 MG/300 ML PIGGYBACK 200 MG IV (12:30)
[2021-01-10 12:36] LABS: Glucose Point of Care 137 mg/dL (70-110)
[2021-01-10 12:36] LABS: Hemoglobin 9.1 g/dL (11.7-16.6)
--- NOTE | 2021-01-10 13:14 | PM.TDS ---
Transfer Summary Providers Date of Admission: 12/26/20 12:13 Date of Discharge: 01/10/21 Attending Provider at Admission: Sheila Coffey Attending Provider at Transfer: Xiang Bautista MD Primary Care Provider: ASHLI Torre Anticipated Date of Transfer: Anticipated date of transfer: 01/10/21 Receiving Facility & Provider: Receiving Provider: [] Receiving facility: [] Diagnoses at Discharge Discharge Diagnosis (1) Acute worsening of stage 3 chronic kidney disease: Status: Acute (2) Right heart failure: Status: Acute Qualifiers: Heart failure chronicity: acute on chronic Qualified Code(s): I50.813 - Acute on chronic right heart failure (3) Acute respiratory distress: Status: Acute (4) Fluid overload: Status: Acute Qualifiers: Hypervolemia type: unspecified Qualified Code(s): E87.70 - Fluid overload, unspecified (5) Atrial fibrillation: Status: Acute Qualifiers: Atrial fibrillation type: unspecified chronic Qualified Code(s): I48.20 - Chronic atrial fibrillation, unspecified (6) Acute renal failure: Status: Acute Qualifiers: Acute renal failure type: unspecified Qualified Code(s): N17.9 - Acute kidney failure, unspecified (7) COPD (chronic obstructive pulmonary disease): Status: Acute Qualifiers: COPD type: unspecified COPD Qualified Code(s): J44.9 - Chronic obstructive pulmonary disease, unspecified (8) CHF (congestive heart failure): Status: Acute Qualifiers: Heart failure type: diastolic Heart failure chronicity: acute on chronic Qualified Code(s): I50.33 - Acute on chronic diastolic (congestive) heart failure (9) Obesity hypoventilation syndrome: Status: Acute (10) AMS (altered mental status): Status: Acute (11) Uremic encephalopathy: Status: Acute Reason for Visit Reason for Visit: ble edema, abd distention Hospital Course Hospital Course This is a 60-year-old male with a past medical history of CABG times 03/18/1995, history of smoking, history of COPD not on oxygen, paroxysmal atrial fibrillation on Eliquis, type 2 diabetes mellitus, diastolic heart failure with right ventricular dysfunction, chronic kidney disease stage III-IV, obesity hypoventilation syndrome, hypertension, carotid artery stenosis status post left carotid endarterectomy in 2007, history of dual-chamber 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 pylori, chronic hyponatremia who presents to [facility] on 12/26/2020 for complaints of shortness of breath Of note patient has had a recent hospital admission in October for exacerbation of diastolic heart failure, pulmonary edema complicated with CKD stage III-IV, diuresed, developed renal failure, diuresis held, renal failure improved, clinically improved, discharge on 11/24/2020 Patient was admitted for acute on chronic hypoxic hypercapnic respiratory failure secondary to COPD and diastolic heart failure, there was also concerns for pneumonia. Echocardiogram on November 20, 2020 showed an EF of 60%, with right atrium and right ventricle mildly dilated. Patient was admitted to the intensive care unit, placed on steroid therapy, antibiotic therapy, diuretic therapy, BiPAP therapy and clinically monitored. Patient's respiratory status worsened requiring intubation and mechanical ventilation. He was intubated between 12/28/2020 and extubated 01/11/2021. However patient developed generalized anasarca, bilateral lower extreme edema, worsening pulmonary edema requiring placement back onto BiPAP. He was placed on a Lasix drip, and clinically monitored. Patient's anasarca, bilateral from edema, pulmonary edema worsened, creatinine increased to 3.4, urine output significantly declined. On January 07, 2021, patient had 100 cc urine output, creatinine as high as 3.4, worsening generalized anasarca, worsening shortness of breath, worsening uremia, increased confusion. Decision was made to pursue dialysis, and reintubation. Patient had a tunneled dialysis catheter placed to right internal jugular vein by general surgery, kept intubated after procedure. Patient received hemodialysis daily, roughly 2 L off daily, however patient developed hypotension requiring continuous Levophed, between 4 to 6 mcg. Since admission patient has been diuresed over 18 L, but continues to have generalized anasarca, but is pulmonary edema was improving. After discussion with the nephrology service and pulmonary critical care, decision was made to pursue CRRT such as CVVH to minimize hypotension, and optimize ultrafiltration. Patient was transferred to [facility], intensive care unit for CRRT, I spoke to security consultant at [facility], who accepted the transfer. Acute on chronic respiratory failure secondary to diastolic CHF with underlying CKD - Etiology multi-factorial - Fluid overload with underlying COPD exacerbation -Sputum cultures have grown MRSA, pro-Mike up to 0.51, remains afebrile, vancomycin added on 01/10/2021 - Successfully extubated 01/01/2020, however had worsening general anasarca, worsening shortness of breath, increasing creatinine, failure of Lasix therapy - Remains intubated after dialysis catheter placement as per plan -Remains intubated, sedated on the ventilator -Chest x-ray this morning shows improving pulmonary vascular congestion -Currently on 6 of Levophed - will receive dialysis this morning, Levophed as needed to maintain MAP greater than 65 during dialysis - Intubated, mechanical vent, minimize PEEP to minimize FiO2, currently doing well -We have expanded antibiotic coverage to vancomycin, Primaxin -Blood cultures remain unremarkable -Sputum culture shows MRSA -Creatinine 3. 3.1, -18 L since admission, urine output 100 cc, BNP 13 506, -fentanyl and Versed for sedation - Pulmonary on consult -Bleeding from dialysis catheter site has resolved, likely due to prolonged effect of Eliquis -Receiving albumin Rectal bleeding, likely lower GI bleed: -Has a history of anemia concerning for lower GI bleed on last admission, Eliquis was resumed on outpatient visit, has never had an EGD -Hemoccult negative -INR 1.55, likely prolonged effect of Eliquis given renal failure -Eliquis held since January 05 -Hgb 9.1 -6 of levophed, lactic acid 1.8 -Currently no recurrent bloody stools -Continue to monitor hemoglobin, monitor for bloody black stools -Protonix, Carafate -Eliquis currently on hold Patient does have anemia, elevated bilirubin, LDH 243, FDP positive, D-dimer 10, INR 1.72, fibrinogen 336 -Likely related to renal failure, but some component possibly could be DIC Acute on chronic HFpEF exacerbation /Cor pulmonale - Previously noted RV dysfunction - Monitor urine output Acute on chronic stage 3 kidney disease - Creatinine fluctuating baseline - 1.7->2.5 - Currently 3.1 -Receiving dialysis - Repeat BMP in am - Friedman in place - Monitor urine output - Nephrology consult Acute on chronic anemia: -Currently hemoglobin 9.1 -Likely multifactorial, related to CKD, anemia of chronic disease, lower GI bleed, -Continue to monitor hemoglobin -Hold Eliquis for now given worsening anemia, bleeding from dialysis catheter site Elevated troponin - Likely type 2 in setting of worsening renal failure Paroxysmal Atrial fibrillation - Currently paced - Eliquis 5 mg PO BID on hold due to anemia, bleeding from dialysis catheter site - Monitor on tele SSS s/p pacemaker - Pacemaker interrogation Diabetes mellitus - Sliding scale insulin - Qachs checks Stage 1 right trochanteric decubitus ulcer - Wound care - Possible surrounding cellulitis - Pressure off loading GERD/Hx of H.Pylori - Protonix 40 mg PO BID DVT ppx -SCDs, Eliquis on hold Full code Physical Exam Narrative: EXAM NARRATIVE: Intubated, sedated on the ventilator Const: COMMON NORMALS: no acute distress OTHER: Intubated, sedated on the ventilator HENMT: COMMON NORMALS: normocephalic HEAD & SCALP: normocephalic Neck/C-Spine: COMMON NORMALS: no JVD Resp: COMMON NORMALS: normal respiratory effort, No retractions, No use of accessory muscles and clear to auscultation bilaterally AUSCULTATION: clear to auscultation bilaterally Cardio: COMMON NORMALS: no JVD, regular rate, regular rhythm, S1 normal heart sound present and S2 normal heart sound present RATE: regular rate RHYTHM: regular rhythm HEART SOUNDS: S1 normal heart sound present and S2 normal heart sound present GI: COMMON NORMALS: Normal to inspection, nondistended, normoactive bowel sounds present, Soft to palpation, non-tender, No hepatosplenomegaly present, no masses and no bruits PALPATION: Yes Soft to palpation and Yes No hepatosplenomegaly present Extremity: COMMON NORMALS: capillary refill normal, no clubbing, cyanosis or edema and no calf tenderness NARRATIVE EXTREMITY EXAM: 2+ pitting edema Skin: NARRATIVE SKIN EXAM: Generalized anasarca Right dialysis catheter Urinary Catheter Management^: Friedman: Cath Placed During This Visit: yes Reason for Continuing Indwelling Catheter: Accurate Measurement of Urinary Output in Critically Ill Patients Urinary Catheter Date of Insertion: 12/26/20 Urinary Catheter Time of Insertion: 15:36 TS Data Data Completed and Pending: Completed Studies During Hospitalization Category Date Time Status CT head wo con* [id number] Routine Cat Scan 01/03/21 03:56 Completed XR abdomen 1V* [id number] Routine Exams 01/06/21 09:13 Completed XR chest 1V christine ble [id number] Routine Exams 12/30/20 01:13 Completed XR chest 1V christine ble [id number] Routine Exams 01/01/21 07:00 Completed XR chest 1V christine ble [id number] Routine Exams 01/05/21 07:00 Completed XR chest 1V christine ble [id number] Routine Exams 01/07/21 08:24 Completed XR chest 1V christine ble [id number] Routine Exams 01/08/21 07:00 Completed XR chest 1V christine ble [id number] Routine Exams 01/09/21 07:00 Completed XR chest 1V christine ble [id number] Routine Exams 01/10/21 07:00 Completed XR chest 1V christine ble [id number] Stat Exams 12/26/20 09:44 Completed XR chest 1V christine ble [id number] Stat Exams 01/07/21 21:33 Completed CV echo limited [id number] Routine Ultrasound 12/27/20 06:00 [place] [id number] Routin e Ultrasound 12/31/20 10:52 Completed US renal BI* [id number] Routine Ultrasound 12/28/20 15:56 Completed Pending at discharge Category Date Time Status ABG FULL [Arteria l Blood Gas Full] Stat Lab 01/07/21 19:40 Results Arterial Blood Ga s Full Stat Lab 12/29/20 21:45 Results Arterial Blood Ga s W/O Coox Routine Lab 01/07/21 23:00 Received Complete Blood Co unt w/Auto AM LABS Lab 01/11/21 04:00 Ordered Complete Blood Co unt w/Auto AM LABS Lab 01/12/21 04:00 Ordered Complete Blood Co unt w/Auto AM LABS Lab 01/13/21 04:00 Ordered Comprehensive Met abolic Panel AM LA BS Lab 01/11/21 04:00 Ordered Comprehensive Met abolic Panel AM LA BS Lab 01/12/21 04:00 Ordered Hemoglobin and He matocrit Q8H Lab 01/10/21 20:00 Ordered Hemoglobin and He matocrit Q8H Lab 01/11/21 04:00 Ordered Lactate (Lactic A kurt level) AM LABS Lab 01/11/21 04:00 Ordered Magnesium AM LABS Lab 01/11/21 04:00 Ordered Magnesium AM LABS Lab 01/12/21 04:00 Ordered Phosphorus AM LAB S Lab 01/11/21 04:00 Ordered Phosphorus AM LAB S Lab 01/12/21 04:00 Ordered Prothrombin Time INR AM LABS Lab 01/11/21 04:00 Ordered Labs from last 24 hours 01/10/21 01/10/21 01/10/21 12:29 12:07 07:46 WBC RBC Hgb 9.1 L Hct 30.0 L MCV MCH MCHC RDW Plt Count MPV Neut % (Auto) Lymph % (Auto) Crane % (Auto) Eos % (Auto) Baso % (Auto) Neut # (Auto) Lymph # (Auto) Crane # (Auto) Eos # (Auto) Baso # (Auto) Nucleated RBC % (a uto) Nucleated RBCs # Haptoglobin PT INR APTT Fibrinogen D-Dimer Specimen Type Sample Site ABG pH ABG pCO2 ABG pO2 ABG HCO3 ABG Base Excess Audi Test Hematocrit O2 Delivery Device FiO2 Tidal Volume PEEP Hogshead Stock Clerk ID Sodium Potassium Chloride Carbon Dioxide Anion Gap BUN Creatinine GFR Calculation Glucose POC Glucose 137 H 145 H Calculated Osmolal ity Lactate Calcium Phosphorus Magnesium Total Bilirubin AST ALT Alkaline Phosphata se Creatine Kinase C-Reactive Protein NT-Pro-B Natriuret Pep Total Protein Albumin Globulin Procalcitonin 01/10/21 01/10/21 01/10/21 05:40 03:35 03:35 WBC 8.5 RBC 2.79 L Hgb 8.0 L Hct 26.6 L MCV 95.3 H MCH 28.7 MCHC 30.1 RDW 21.1 H Plt Count 96 L MPV 11.7 H Neut % (Auto) 71.1 Lymph % (Auto) 11.4 Crane % (Auto) 13.6 Eos % (Auto) 2.8 Baso % (Auto) 0.5 Neut # (Auto) 6.08 Lymph # (Auto) 1.0 Crane # (Auto) 1.2 H Eos # (Auto) 0.2 Baso # (Auto) 0.0 Nucleated RBC % (a uto) 0 Nucleated RBCs # 0.0 Haptoglobin PT INR APTT Fibrinogen D-Dimer Specimen Type Arterial Sample Site Radial, right ABG pH 7.38 ABG pCO2 47.6 H ABG pO2 97.4 ABG HCO3 28.1 H ABG Base Excess 2.5 H Audi Test N/a Hematocrit 26.1 L O2 Delivery Device Vent FiO2 30.0 Tidal Volume 0.55 PEEP 6.0 Hogshead Stock Clerk ID [id number] Sodium 140 Potassium 3.7 Chloride 96 L Carbon Dioxide 27 Anion Gap 20.7 H BUN 67 H Creatinine 3.1 H GFR Calculation 20.7 L Glucose 115 POC Glucose Calculated Osmolal ity 310 H Lactate Calcium 9.1 Phosphorus 3.8 Magnesium 2.5 H Total Bilirubin 2.2 H AST 27 ALT 12 Alkaline Phosphata se 69 Creatine Kinase 53 C-Reactive Protein NT-Pro-B Natriuret Pep 48660 H Total Protein 6.8 Albumin 3.9 Globulin 2.9 Procalcitonin 0.54 H 01/10/21 01/10/21 01/10/21 03:35 03:35 03:35 WBC RBC Hgb Hct MCV MCH MCHC RDW Plt Count MPV Neut % (Auto) Lymph % (Auto) Crane % (Auto) Eos % (Auto) Baso % (Auto) Neut # (Auto) Lymph # (Auto) Crane # (Auto) Eos # (Auto) Baso # (Auto) Nucleated RBC % (a uto) Nucleated RBCs # Haptoglobin PT 19.10 H INR 1.55 H APTT Fibrinogen D-Dimer Specimen Type Sample Site ABG pH ABG pCO2 ABG pO2 ABG HCO3 ABG Base Excess Audi Test Hematocrit O2 Delivery Device FiO2 Tidal Volume PEEP Hogshead Stock Clerk ID Sodium Potassium Chloride Carbon Dioxide Anion Gap BUN Creatinine GFR Calculation Glucose POC Glucose Calculated Osmolal ity Lactate 1.5 Calcium Phosphorus Magnesium Total Bilirubin AST ALT Alkaline Phosphata se Creatine Kinase C-Reactive Protein 64.6 H NT-Pro-B Natriuret Pep Total Protein Albumin Globulin Procalcitonin 01/10/21 01/09/21 01/09/21 00:23 21:40 17:05 WBC RBC Hgb 8.1 L Hct 26.5 L MCV MCH MCHC RDW Plt Count MPV Neut % (Auto) Lymph % (Auto) Crane % (Auto) Eos % (Auto) Baso % (Auto) Neut # (Auto) Lymph # (Auto) Crane # (Auto) Eos # (Auto) Baso # (Auto) Nucleated RBC % (a uto) Nucleated RBCs # Haptoglobin PT INR APTT Fibrinogen D-Dimer Specimen Type Sample Site ABG pH ABG pCO2 ABG pO2 ABG HCO3 ABG Base Excess Audi Test Hematocrit O2 Delivery Device FiO2 Tidal Volume PEEP Hogshead Stock Clerk ID Sodium Potassium Chloride Carbon Dioxide Anion Gap BUN Creatinine GFR Calculation Glucose POC Glucose 108 110 Calculated Osmolal ity Lactate Calcium Phosphorus Magnesium Total Bilirubin AST ALT Alkaline Phosphata se Creatine Kinase C-Reactive Protein NT-Pro-B Natriuret Pep Total Protein Albumin Globulin Procalcitonin 01/09/21 01/09/21 01/09/21 13:33 10:15 03:38 WBC RBC Hgb Hct MCV MCH MCHC RDW Plt Count MPV Neut % (Auto) Lymph % (Auto) Crane % (Auto) Eos % (Auto) Baso % (Auto) Neut # (Auto) Lymph # (Auto) Crane # (Auto) Eos # (Auto) Baso # (Auto) Nucleated RBC % (a uto) Nucleated RBCs # Haptoglobin 137.0 PT 20.80 H INR 1.72 H APTT 102.6 H Fibrinogen 336 D-Dimer 10.70 H Specimen Type Sample Site ABG pH ABG pCO2 ABG pO2 ABG HCO3 ABG Base Excess Audi Test Hematocrit O2 Delivery Device FiO2 Tidal Volume PEEP Hogshead Stock Clerk ID Sodium Potassium Chloride Carbon Dioxide Anion Gap BUN Creatinine GFR Calculation Glucose POC Glucose 118 H Calculated Osmolal ity Lactate Calcium Phosphorus Magnesium Total Bilirubin AST ALT Alkaline Phosphata se Creatine Kinase C-Reactive Protein NT-Pro-B Natriuret Pep Total Protein Albumin Globulin Procalcitonin Vitals: Last Vital Signs Temp 98.3 F 01/10/21 08:00 Pulse 71 01/10/21 12:00 Resp 19 H 01/10/21 11:33 BP 116/69 01/10/21 12:00 Pulse Ox 96 01/10/21 11:45 TS Medications Medications Home Medications olopatadine 0.2 % eye drops 1 - 2 drop OPHTHALMIC (EYE) QAM PRN 01/10/20 [History Confirmed 12/26/20] travoprost 0.004 % eye drops 1 drop OPHTHALMIC (EYE) DAILY@05 ml 01/10/20 [History Confirmed 12/26/20] tramadol 50 mg tablet 50 mg PO QID PRN 30 Days #90 tab 09/04/20 [Rx Confirmed 12/26/20] albuterol sulfate 90 mcg/actuation aerosol inhaler 2 puff INHALATION Q6H PRN #18 gm 10/15/20 [Rx Confirmed 12/26/20] fluticasone propion-salmeterol [Advair Diskus] 1 ea INHALATION BID 11/19/20 [History Confirmed 12/26/20] gabapentin 600 mg PO TID@05,12,17 11/19/20 [History Confirmed 12/26/20] gabapentin 300 mg PO TID@,, #60 cap 11/24/20 [Rx Confirmed 12/26/20] cholecalciferol (vitamin D3) 1,250 mcg (50,000 unit) tablet 1,250 mcg PO Q7D #4 tab 12/04/20 [Rx Confirmed 12/26/20] Lantus Solostar U-100 Insulin 40 unit SUBCUT DAILY@12/21/20 [History Confirmed 12/26/20] apixaban [Eliquis] 5 mg PO BID@,12/21/20 [History Confirmed 12/26/20] furosemide [Lasix] 40 mg PO BID@ #0 tab 12/21/20 [Rx Confirmed 12/26/20] metolazone 2.5 mg PO DAILY@12/21/20 [History Confirmed 12/26/20] pantoprazole 40 mg PO BID@,12/21/20 [History Confirmed 12/26/20] potassium chloride 40 meq PO DAILY@05 #0 tab 12/21/20 [Rx Confirmed 12/26/20] rosuvastatin 40 mg PO DAILY@12/21/20 [History Confirmed 12/26/20] sodium bicarbonate 650 mg PO TID@,,12/21/20 [History Confirmed 12/26/20] tamsulosin 0.4 mg PO DAILY@12/21/20 [History Confirmed 12/26/20] Active Medications Acetaminophen (Acetaminophen 325 Mg Tablet) 650 mg PO Q6H PRN PRN Reason: MILD PAIN Last Admin: 12/27/20 22:09 Dose: 650 mg Documented by: Albuterol/Ipratropium (Ipratropium-Albuterol 3 Ml Neb) 3 ml INHALATION Q4H.RESPIRATORY [facility] Last Admin: 01/10/21 11:23 Dose: 3 ml Documented by: Apixaban (Apixaban 5 Mg Tablet) 2.5 mg PO BID@ [facility] Atorvastatin Calcium (Atorvastatin 40 Mg Tablet) 80 mg PO DAILY@ [facility]A Last Admin: 01/09/21 17:54 Dose: 80 mg Documented by: Dextrose (Dextrose 50% Syringe 50 Ml) 25 ml IVP ONCE PRN; Protocol PRN Reason: hypoglycemia protocol Dextrose (Dextrose 50% Syringe 50 Ml) 50 ml IVP PRN PRN; Protocol PRN Reason: hypoglycemia protocol Ergocalciferol (Ergocalciferol (Vitamin D2) 50,000 Unit Capsule) 50,000 unit PO Q7D [facility] Last Admin: 01/09/21 13:29 Dose: Not Given Documented by: Glucagon (Glucagon 1 Mg/Ml Inj 1 Ml) 1 mg IM ONCE PRN; Protocol PRN Reason: Adult Acute Hypoglycemia Prot. Dextrose (D5w) 500 mls @ 100 mls/hr IV ONCE PRN; Protocol PRN Reason: Adult Acute Hypoglycemia Prot Propofol (Diprivan) 1,000 mg in 100 mls @ 0 mls/hr IV .Q0M [facility]; Protocol Last Titration: 01/08/21 20:04 Dose: Infused Documented by: Fentanyl 1,000 mcg/ Sodium (Chloride) 100 mls @ 0 mls/hr IV .Q0M [facility]; Protocol Last Admin: 01/10/21 00:12 Dose: 50 mcg/hr, 5 mls/hr Documented by: Norepinephrine Bitartrate 4 mg (/ Dextrose) 254 mls @ 0 mls/hr IV .Q0M [facility]; Protocol Last Titration: 01/10/21 12:35 Dose: 0.06 mcg/kg/m, 30 mls/hr Documented by: Midazolam HCl 100 mg/ Sodium (Chloride) 100 mls @ 0 mls/hr IV .Q0M [facility]; Protocol Last Titration: 01/10/21 06:50 Dose: 2 mg/hr, 2 mls/hr Documented by: Sodium Chloride (Sodium Chloride 0.9%) 1,000 mls @ 0 mls/hr IV .Q0M PRN PRN Reason: hypotension or symptomatic Albumin Human (Albumin) 12.5 gm in 50 mls @ 60 mls/hr IV PRN PRN PRN Reason: Hypotension and/or symptomatic Last Infusion: 01/09/21 10:15 Dose: Infused Documented by: Vancomycin HCl 1,000 mg/ (Sodium Chloride) 250 mls @ 250 mls/hr IV MoWeFr [facility]; Protocol Imipenem/Cilastatin Sodium 250 (mg/ Sodium Chloride) 100 mls @ 200 mls/hr IV Q6H [facility]; Protocol Last Infusion: 01/10/21 09:36 Dose: Infused Documented by: Vancomycin/PEG/NADA/Lysine/Water (Vancocin) 1,500 mg in 300 mls @ 200 mls/hr IV ONCE ONE Stop: 01/10/21 13:29 Last Admin: 01/10/21 12:30 Dose: 200 mls/hr Documented by: Insulin Aspart (Insulin Aspart 100 Unit/1 Ml) 0 unit SUBCUT WM&BEDTIME [facility]; Protocol Last Admin: 01/10/21 12:29 Dose: Not Given Documented by: Midazolam HCl (Midazolam 1 Mg/Ml Inj 2 Ml) 1 mg IVP Q4H PRN PRN Reason: ANXIETY Multivitamins (S-Resfcsr-Urnrnzq C Tablet) 1 each PO DAILY [facility] Last Admin: 01/10/21 08:37 Dose: 1 each Documented by: Ondansetron HCl (Ondansetron 2 Mg/Ml Sdv 2 Ml) 4 mg IVP Q6H PRN PRN Reason: NAUSEA AND VOMITING Pantoprazole Sodium (Pantoprazole 40 Mg Sdv) 40 mg IVP Q12H [facility] Last Admin: 01/10/21 03:34 Dose: 40 mg Documented by: Sucralfate (Sucralfate 1 Gm Tablet) 1 gm PO Q12H [facility] Last Admin: 01/10/21 03:34 Dose: 1 gm Documented by: Discharge Plan Discharge Patient Disposition: Home Condition: Stable Prescriptions: No Action olopatadine [Pataday] 0.2 % drops 1 - 2 drop ophthalmic (eye) QAM PRN (Reason: ITCHY EYE) RF: 0 travoprost [Travatan Z] 0.004 % drops 1 drop ophthalmic (eye) DAILY@05 RF: 0 tramadol 50 mg tablet 50 mg PO QID PRN (Reason: pain) 30 Days Qty: 90 RF: 1 albuterol sulfate [ProAir HFA] 90 mcg/actuation HFA aerosol inhaler 2 puff INHALATION Q6H PRN (Reason: shortness of breath or wheezing) Qty: 18 RF: 3 cholecalciferol (vitamin D3) 1,250 mcg (50,000 unit) tablet 1,250 mcg PO Q7D Qty: 4 RF: 1 fluticasone propion-salmeterol [Advair Diskus] 250-50 mcg/dose blister with device 1 ea inhalation BID RF: 0 gabapentin 600 mg tablet 600 mg PO TID@, RF: 0 gabapentin 300 mg Capsule 300 mg PO TID@,17 Qty: 60 RF: 0 Eliquis 5 mg tablet 5 mg PO BID@, RF: 0 metolazone 2.5 mg Tablet 2.5 mg PO DAILY@05 RF: 0 tamsulosin 0.4 mg capsule 0.4 mg PO DAILY@05 RF: 0 sodium bicarbonate 650 mg tablet 650 mg PO TID@,, RF: 0 pantoprazole 40 mg tablet,delayed release (DR/EC) 40 mg PO BID@, RF: 0 rosuvastatin 40 mg tablet 40 mg PO DAILY@ RF: 0 Lantus Solostar U-100 Insulin 100 unit/mL (3 mL) insulin pen 40 unit SUBCUT DAILY@ RF: 0 furosemide [Lasix] 20 mg tablet 40 mg PO BID@, Qty: 0 RF: 0 potassium chloride 20 mEq tablet extended release 40 meq PO DAILY@05 Qty: 0 RF: 0 Transfer Attestations Time Spent in Transfer Care*: critical care time Critical Care Time (min): 60 Quality Metrics Clinical Quality Measures: During this hospital stay, did patient experience: None Coding Level of Care Code Acute Booth Usher for Deloresg Fwd Diagnoses Acute worsening of stage 3 chronic kidney disease N18.30 Right heart failure I50.813 Heart failure chronicity: acute on chronic Acute respiratory distress R06.03 Fluid overload E87.70 Hypervolemia type: unspecified Atrial fibrillation I48.20 Atrial fibrillation type: unspecified chronic Acute renal failure N17.9 Acute renal failure type: unspecified COPD (chronic obstructive pulmonary disease) J44.9 COPD type: unspecified COPD CHF (congestive heart failure) I50.33 Heart failure type: diastolic Heart failure chronicity: acute on chronic Obesity hypoventilation syndrome E66.2 AMS (altered mental status) R41.82 Uremic encephalopathy G93.49; N19
--- NOTE | 2021-01-10 14:25 | PC.OT ---
PER NURSING AND PHYSICAL THERAPY, PATIENT HAS GONE SEPTIC AND WILL BE TRANSFERRED SOON. HOLD ON THERAPY TODAY. WILL RESUME TOMORROW AND UPDATE ON MEDICAL STATUS.
--- NOTE | 2021-01-10 15:16 | PC.NURSE ---
Patients daughter February called and notified myself that Mr Seng freitastuanjazmyn other, Eve Price will be coming by tomorrow 01/11/21 to citrus picker the patients personal belongings. Family is aware of the significant amount of thomas in the patients belongings.
[2021-01-10] MEDS: atorvastatin 40 mg Tablet 80 MG PO (17:26)
--- NOTE | 2021-01-10 17:35 | P.PN_ITS ---
Subjective Subjective: Interval history: Levophed increased to 12 mcg while on dialysis; discussed with Dr. Adams daily nephrology and decided to pursue CRRT; discussed with hospitalist and agree with transfer patient to facility with CRRT Sputum cultures grew MRSA Broaden coverage to vancomycin and imipenem Medications: Reviewed: Yes Medication Review Details: Current Medications Acetaminophen (Acetaminophen 325 Mg Tablet) 650 mg PO Q6H PRN PRN Reason: MILD PAIN Last Admin: 12/27/20 22:09 Dose: 650 mg Documented by: Albuterol/Ipratropium (Ipratropium-Albuterol 3 Ml Neb) 3 ml INHALATION Q4H.[facility]ATORY [facility] Last Admin: 01/10/21 04:21 Dose: 3 ml Documented by: Apixaban (Apixaban 5 Mg Tablet) 2.5 mg PO BID@ [facility] Atorvastatin Calcium (Atorvastatin 40 Mg Tablet) 80 mg PO DAILY@17 [facility] Last Admin: 01/09/21 17:54 Dose: 80 mg Documented by: Dextrose (Dextrose 50% Syringe 50 Ml) 25 ml IVP ONCE PRN; Protocol PRN Reason: hypoglycemia protocol Dextrose (Dextrose 50% Syringe 50 Ml) 50 ml IVP PRN PRN; Protocol PRN Reason: hypoglycemia protocol Ergocalciferol (Ergocalciferol (Vitamin D2) 50,000 Unit Capsule) 50,000 unit PO Q7D [facility] Last Admin: 01/09/21 13:29 Dose: Not Given Documented by: Glucagon (Glucagon 1 Mg/Ml Inj 1 Ml) 1 mg IM ONCE PRN; Protocol PRN Reason: Adult Acute Hypoglycemia Prot. Dextrose (D5w) 500 mls @ 100 mls/hr IV ONCE PRN; Protocol PRN Reason: Adult Acute Hypoglycemia Prot Piperacillin Sod/Tazobactam (Sod 3.375 gm/ Sodium Chloride) 50 mls @ 12.5 mls/hr IV Q8H [facility]; Protocol Last Infusion: 01/10/21 05:06 Dose: 0 mls/hr Documented by: Propofol (Diprivan) 1,000 mg in 100 mls @ 0 mls/hr IV .Q0M [facility]; Protocol Last Titration: 01/08/21 20:04 Dose: Infused Documented by: Fentanyl 1,000 mcg/ Sodium (Chloride) 100 mls @ 0 mls/hr IV .Q0M [facility]; Protocol Last Admin: 01/10/21 00:12 Dose: 50 mcg/hr, 5 mls/hr Documented by: Norepinephrine Bitartrate 4 mg (/ Dextrose) 254 mls @ 0 mls/hr IV .Q0M [facility]; Protocol Last Admin: 01/10/21 04:36 Dose: 6 mcg/kg/m, 3,177.1 mls/hr Documented by: Midazolam HCl 100 mg/ Sodium (Chloride) 100 mls @ 0 mls/hr IV .Q0M [facility]; Protocol Last Titration: 01/10/21 06:50 Dose: 2 mg/hr, 2 mls/hr Documented by: Sodium Chloride (Sodium Chloride 0.9%) 1,000 mls @ 0 mls/hr IV .Q0M PRN PRN Reason: hypotension or symptomatic Albumin Human (Albumin) 12.5 gm in 50 mls @ 60 mls/hr IV PRN PRN PRN Reason: Hypotension and/or symptomatic Last Infusion: 01/09/21 10:15 Dose: Infused Documented by: Insulin Aspart (Insulin Aspart 100 Unit/1 Ml) 0 unit SUBCUT WM&BEDTIME [facility]; Protocol Last Admin: 01/10/21 07:54 Dose: Not Given Documented by: Midazolam HCl (Midazolam 1 Mg/Ml Inj 2 Ml) 1 mg IVP Q4H PRN PRN Reason: ANXIETY Ondansetron HCl (Ondansetron 2 Mg/Ml Sdv 2 Ml) 4 mg IVP Q6H PRN PRN Reason: NAUSEA AND VOMITING Pantoprazole Sodium (Pantoprazole 40 Mg Sdv) 40 mg IVP Q12H [facility] Last Admin: 01/10/21 03:34 Dose: 40 mg Documented by: Sucralfate (Sucralfate 1 Gm Tablet) 1 gm PO Q12H [facility] Last Admin: 01/10/21 03:34 Dose: 1 gm Documented by: Vitals/I&O/Wt Last Vital Signs Temp 98.3 F 01/10/21 08:00 Pulse 62 01/10/21 16:30 Resp 14 01/10/21 17:23 BP 103/56 01/10/21 16:30 Pulse Ox 97 01/10/21 16:30 01/10/21 01/10/21 01/10/21 06:59 14:59 22:59 Intake Total 334.125 / 941.717 527.25 / 527.25 539.7 / 1066.95 Output Total 50 / 100 60 / 60 5 / 65 Balance 284.125 / 841.717 467.25 / 467.25 534.7 / 1001.95 Weight last 48 hrs Weight 309 lb 11.2 oz Physical Exam Narrative: EXAM NARRATIVE: General: Morbidly obese, intubated and sedated HEENT: conj clear, EOMI, PERRL, mmm, Neck: supple, no meningismus Heme: no cervical LAP Pulmonary: Bilateral diffuse crackles Cardiovascular: rrr, nl s1s2, no mrg Abdomen: Abdominal wall pitting edema, nt, nd, no r/g, bs+ Extremities: pulses +, 3+ pitting pedal edema, no c/c : no CVA tenderness Skin: intact, no rash MSK: no back or neck pain Neurologic: Sedated limited examination Urinary Catheter Management^: Friedman: Cath Placed During This Visit: yes Reason for Continuing Indwelling Catheter: Accurate Measurement of Urinary Output in Critically Ill Patients Urinary Catheter Date of Insertion: 12/26/20 Urinary Catheter Time of Insertion: 15:36 Data : 01/10/21 12:07 01/10/21 03:35 Micro: Microbiology 01/07/21 05:20 Gram Stain - Final Sputum - Endotracheal Tube Aspirate Sputum Culture - Final Methicillin Resis Staph Aureus A&P Assessment and plan (1) Acute worsening of stage 3 chronic kidney disease: Status: Acute (2) Right heart failure: Status: Acute Qualifiers: Heart failure chronicity: acute on chronic Qualified Code(s): I50.813 - Acute on chronic right heart failure (3) Acute respiratory distress: Status: Acute (4) Fluid overload: Status: Acute Qualifiers: Hypervolemia type: unspecified Qualified Code(s): E87.70 - Fluid overload, unspecified (5) Atrial fibrillation: Status: Acute Qualifiers: Atrial fibrillation type: unspecified chronic Qualified Code(s): I48.20 - Chronic atrial fibrillation, unspecified (6) Acute renal failure: Status: Acute Qualifiers: Acute renal failure type: unspecified Qualified Code(s): N17.9 - Acute kidney failure, unspecified (7) COPD (chronic obstructive pulmonary disease): Status: Acute Qualifiers: COPD type: unspecified COPD Qualified Code(s): J44.9 - Chronic obstructive pulmonary disease, unspecified (8) CHF (congestive heart failure): Status: Acute Qualifiers: Heart failure type: diastolic 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 Qualified Code(s): I50.33 - Acute on chronic diastolic (congestive) heart failure (9) Obesity hypoventilation syndrome: Status: Acute (10) AMS (altered mental status): Status: Acute (11) Uremic encephalopathy: Status: Acute (12) Septic shock due to methicillin resistant Staphylococcus aureus: Status: Acute #Acute on chronic hypercapnic respiratory failure in patient with morbid obesity/chronic diastolic heart failure/COPD/obesity hypoventilation syndrome #JOSE on CKD stage III-likely cardiorenal #AMS due to uremic encephalopathy and sepsis #Clinically volume overloaded-due to chronic diastolic heart failure with RV dysfunction and acute renal failure #Septic shock from MRSA #GI bleed -Intubated 12/28/2020-extubated 01/01/2021 and reintubated 01/07/2021 for AMS -ABG 7.3 /97/28/96% on 14/30%/550/6 PEEP CMV -BNP 22,000 > 72847 > 13,000 - clinically volume overloaded and unable to remove fluid with hemodialysis as patient is dependent on high-dose pressors due to ongoing septic shock due to MRSA pneumonia -Patient will benefit from CRRT; plan is to transfer to facility with CRRT -Echo 11/20/2020: EF 60% with right atrium and RV mildly dilated -Bleeding from catheter insertion site-S/P 1 unit PRBC 01/08 -GI bleed - NPO, Hold Elliquis; continue iv PPI; sucralfate; Monitor H & H and transfuse to keep hb > 7/21 -Procalcitonin today 0.54-sputum culture positive for methicillin-resistant staph aureus -Currently covered with vancomycin and imipenem -Patient needs CRRT for fluid removal and once his pressor requirement comes down with vancomycin and imipenem ; we will start tapering sedation and do awake duncan trial and breathing trial and plan to extubate. Recommendations RT, RN, telemetry nephrology and hospitalist covering the patient Attestations Medical Necessity Statement*: Acute on chronic hypercapnic respiratory failure secondary to morbid obesity/chronic diastolic heart failure/COPD/obesity hypoventilation/fluid overload due to JOSE on CKD complicated by altered mental status secondary to uremic encephalopathy and sepsis due to MRSA pneumonia and currently requiring mechanical ventilation, IV antibiotics, pressors, hemodialysis Time Spent in Patient Care: Greater than 35 minutes (>than 50% of time spent in counselling and/or direct pt care on unit) . 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 Pour Mixer for Jocelyne Pat Patient Type Established History Comprehensive Exam Comprehensive Medical Decision Making High Complexity Diagnoses Acute worsening of stage 3 chronic kidney disease N18.30 Right heart failure I50.813 Heart failure chronicity: acute on chronic Acute respiratory distress R06.03 Fluid overload E87.70 Hypervolemia type: unspecified Atrial fibrillation I48.20 Atrial fibrillation type: unspecified chronic Acute renal failure N17.9 Acute renal failure type: unspecified COPD (chronic obstructive pulmonary disease) J44.9 COPD type: unspecified COPD CHF (congestive heart failure) I50.33 Heart failure type: diastolic Heart failure chronicity: acute on chronic Obesity hypoventilation syndrome E66.2 AMS (altered mental status) R41.82 Uremic encephalopathy G93.49; N19 Septic shock due to methicillin resistant Staphylococcus aureus A41.02; R65.21 Time Spent (min) 45
[2021-01-10 18:32] LABS: Glucose Point of Care 130 mg/dL (70-110)
[2021-01-12 11:09] LABS: ABG PH Result 7.41 (7.35-7.45); Arterial Blood Gas Hematocrit 28.3 % (42-52); Base Excess ABG 5.5 mmol/L (-2.0-2.0); Blood Gas Sample Site Brachial, left; Blood Gas Sample Type Arterial; HCO3 ABG 30.9 mmol/L (22-26); Oxygen Device VENT
== END 2021-01-10 18:18 | disposition short-term general hospital (02) | DRG 291 ==
LOC: ER 12:01 → CSU 12:37 → ICU 12-29 22:37
PROVIDERS: Hospitalist; Internal Medicine; Internal Medicine Nephrology; Internal Medicine Pulmonary Disease; Surgery; Admitting Provider Hospitalist; Emergency Provider Family Medicine; PCP Nurse Practitioner Family; Visit Provider Family Medicine
PROC: 0BH17EZ Insertion of Endotracheal Airway into Trachea, Via Natural or Artificial Opening (ICD-10-PCS; principal; 2021-01-07 16:30)
DX: I13.0 Hypertensive heart and chronic kidney disease with heart failure and stage 1 through stage 4 chronic kidney disease, or unspecified chronic kidney disease (principal); I50.33 Acute on chronic diastolic (congestive) heart failure; J18.9 Pneumonia, unspecified organism; J96.22 Acute and chronic respiratory failure with hypercapnia; J96.21 Acute and chronic respiratory failure with hypoxia; G93.41 Metabolic encephalopathy; D65 Disseminated intravascular coagulation [defibrination syndrome]; N18.4 Chronic kidney disease, stage 4 (severe); E66.2 Morbid (severe) obesity with alveolar hypoventilation; Z68.41 Body mass index [BMI] 40.0-44.9, adult; J44.1 Chronic obstructive pulmonary disease with (acute) exacerbation; J44.0 Chronic obstructive pulmonary disease with (acute) lower respiratory infection; N17.9 Acute kidney failure, unspecified; K92.2 Gastrointestinal hemorrhage, unspecified; D68.32 Hemorrhagic disorder due to extrinsic circulating anticoagulants; L03.115 Cellulitis of right lower limb; E87.3 Alkalosis; E87.1 Hypo-osmolality and hyponatremia; E11.22 Type 2 diabetes mellitus with diabetic chronic kidney disease; N40.0 Benign prostatic hyperplasia without lower urinary tract symptoms; I48.0 Paroxysmal atrial fibrillation; Z95.0 Presence of cardiac pacemaker; E11.42 Type 2 diabetes mellitus with diabetic polyneuropathy; E11.51 Type 2 diabetes mellitus with diabetic peripheral angiopathy without gangrene; D63.1 Anemia in chronic kidney disease; E78.5 Hyperlipidemia, unspecified; Z86.73 Personal history of transient ischemic attack (TIA), and cerebral infarction without residual deficits; I50.813 Acute on chronic right heart failure; I25.10 Atherosclerotic heart disease of native coronary artery without angina pectoris; E53.9 Vitamin B deficiency, unspecified; E55.9 Vitamin D deficiency, unspecified; Z95.1 Presence of aortocoronary bypass graft; Z87.891 Personal history of nicotine dependence; Z79.4 Long term (current) use of insulin; Z79.51 Long term (current) use of inhaled steroids; T45.515A Adverse effect of anticoagulants, initial encounter; B95.62 Methicillin resistant Staphylococcus aureus infection as the cause of diseases classified elsewhere; I27.81 Cor pulmonale (chronic); E87.6 Hypokalemia; L89.152 Pressure ulcer of sacral region, stage 2; L89.211 Pressure ulcer of right hip, stage 1; I95.9 Hypotension, unspecified; K21.9 Gastro-esophageal reflux disease without esophagitis
CPT/HCPCS: 12345; 36415; 36416; 36430; 36592; 36600; 51702; 70450; 71045; 74018; 76000; 76770; 77001; 80048; 80051; 80053; 80061; 81001; 82140; 82310; 82330; 82550; 82728; 82803; 82805; 82962; 83010; 83540; 83550; 83605; 83615; 83690; 83735; 83880; 83970; 84100; 84132; 84145; 84484; 85014; 85018; 85025; 85362; 85378; 85384; 85610; 85730; 86140; 86706; 86803; 86850; 86900; 86927; 87070; 87077; 87081; 87186; 87205; 87340; 90935; 92507; 92526; 92610; 93005; 93308; 93970; 94002; 94003; 94640; 94660; 94799; 96372; 97110; 97116; 97161; 97167; 97530; 97535; 99282; A4570; C1750; C9113; J0743; J1644; J1815 ×2; J1940; J2250; J2270; J2370; J2543; J2704; J2916; J3010; J3370; J3480; J3490; P9017; P9047; Q3014; Q4081